=== PATIENT | male | born 1945 | race Caucasian/White ===

== ENCOUNTER 2016-10-01 11:37 | Emergency (ER) | payer OTHER, MEDICARE ==
[~2016-10-01] VITALS: Ht 177.8 cm; Wt 84.0 kg
[~2016-10-01 11:37] MED LIST: CLC100 PO; GABA600T PO; LEVE250T PO; LISI-792 PO; LVNIS80 SQ; NORT50CA PO; PRENTAB65 PO; PROP60CA5 PO; PRT/20 PO; RXC5 PO; SNK PO; TAMS0.4C38 PO; TRAM-10 PO; WLLSR/150 PO
[2016-10-01 11:39] VITALS: TEMP 36.7; Ht 177.8 cm; Wt 84.0 kg
[2016-10-01] MEDS ORDERED: CMD5 PO (12:09)
[2016-10-01] MEDS ORDERED: TEMA15CA4 PO (12:09)
[2016-10-01] MEDS ORDERED: CYAN500T PO (12:09)
[2016-10-01] MEDS ORDERED: MULT-506 PO (12:09)
[2016-10-01] MEDS ORDERED: WARF7.5T4 PO (12:09)
[2016-10-01] MEDS ORDERED: LISI10TA PO (12:13)
[2016-10-01 12:40] LABS: BASO % 0.5 %; BASO ABS # 0.02 K/uL (0-0.2); COMPLETE YES; EOS % 2.1 %; HEMATOCRIT 45.5 % (42-52); IG% 0.2 %; LYMPH % 23.2 %; LYMPH ABS # 0.97 K/uL (1.2-3.4); MEAN CORPUSCULAR HEMOGLOBIN 29.7 pg (25-34); MEAN CORPUSCULAR HGB CONC 33.4 g/dl (32-36); MEAN PLATELET VOLUME 10.1 fL (7.4-10.4); MONO % 15.5 %; NEUT % 58.5 %; PLATELET COUNT 119 K/uL (130-400); RED BLOOD COUNT 5.11 M/uL (4.7-6.1); WHITE BLOOD COUNT 4.19 K/uL (4.8-10.8)
[2016-10-01 12:49] LABS: INR 2.3 (0.9-1.1); PARTIAL THROMBOPLASTIN RATIO 1.3; PROTHROMBIN TIME (PATIENT) 25.7 SECONDS (9.0-12.0)
--- NOTE | 2016-10-01 12:53 | EMERGENCY ROOM VISIT NOTE ---
ED Visit Note First contact with patient: 11:43 This Patient was discussed with the physician Monitoring Specialist, Kristel Valentin PA-C. The pertinent historical and physical exam findings were confirmed. I agree with the studies ordered and with the interpretations of these studies. I agree with the disposition and care plan.
[2016-10-01 13:06] LABS: CREATININE 1.2 mg/dl (0.60-1.40)
[2016-10-01 13:07] LABS: BUN/CREATININE RATIO 14.6 (10-20); CALCIUM 8.9 mg/dl (8.5-10.1); POTASSIUM 4.2 mmol/L (3.5-5.1)
[2016-10-01 13:09] LABS: ALB/GLOB RATIO 0.9 (0.9-2)
[2016-10-01 13:22] VITALS: BP 144/83; PULSE 64; O2SAT 96
--- NOTE | 2016-10-01 13:34 | EMERGENCY ROOM VISIT NOTE ---
History First contact with patient: 11:43 Chief Complaint: RECTAL BLEEDING Stated Complaint: RECTAL BLEEDING-COUMADIN PATIENT Nursing Triage Summary: Pt reports he has been constipated and took a suppository this morning Pt reports after the suppository he noticed bright red blood in stool History of Present Illness The patient is a 71 year old male who presents to the Emergency Room with complaints of rectal bleeding. The patient reports that he used a Dulcolax suppository last night and had a bowel movement afterward. He states that he woke up and had a bowel movement which consisted of mostly mucus and a few tablespoons of blood. This morning, the patient states that he passed a few blood clots with a bowel movement. Since then, he has had one normal bowel movement which did not contain any blood. The patient states that he does have chronic issues with intermittent constipation and uses Dulcolax as needed. The patient takes Coumadin for a mechanical heart valve. The patient states that he had his INR checked yesterday but he is unsure what the INR was. He reports he has his INR checked every 3 weeks. He is concerned because his daughter of colorectal cancer. He denies any abdominal pain, nausea, vomiting or fevers. He denies any history of rectal bleeding. He believes his last colonoscopy was approximately 5 years ago. Review of Systems A complete 10-point Review of Systems was discussed with the patient, with pertinent positives and negatives listed in the History of Present Illness. All remaining Review of Systems questions can be considered negative unless otherwise specified. Past Medical/Surgical History Medical Problems: (1) ANTICOAGULANTS,LT,CURRENT USE (2) BILAT INGUINAL HERNIA (3) Extensor tendon laceration of finger with open wound (4) GASTROINTEST HEMORR NOS (5) HEART VALVE REPLAC NEC (6) HYPERTENSION NOS (7) Open fracture of finger of right hand (8) PERSONAL HX OF TIA,& CEREBRAL INFARCTION W/OUT RES DEFICITS Family History Cancer Heart disease Hypertension Social History Smoking Status: Never Smoker Alcohol Use: none Drug Use: none Marital Status: Housing Status: lives with family Occupation Status: retired Current/Historical Medications Scheduled Bupropion Hcl (Wellbutrin Sr), 150 MG PO QAM Cyanocobalamin (Vitamin B-12), 500 MCG PO DAILY Docusate Sodium (Docusate Sodium), 100 MG PO BID Gabapentin (Neurontin), 1,200 MG PO QPM Lisinopril (Prinivil), 10 MG PO DAILY Multivitamin (Multivitamin), 1 TAB PO DAILY Pantoprazole (Protonix), 20 MG PO DAILY Propranolol Hcl (Inderal La), 60 MG PO DAILY Tamsulosin Hcl (Flomax), 0.4 MG PO QPM Warfarin Sod (Jantoven), 7.5 MG PO 5XWK Warfarin Sod (Coumadin), 5 MG PO 2XWK Scheduled PRN Temazepam (Restoril), 15 MG PO HS PRN for Sleep Tramadol (Ultram), 50 MG PO Q4H PRN for Pain Allergies Coded Allergies: Penicillins (Verified Allergy, Mild, RASH, 10/01/16) Morphine (Verified Adverse Reaction, Unknown, bp drops, 10/01/16) Physical Exam Vital Signs Date Time Temp Pulse Resp B/P Pulse Ox O2 Delivery O2 Flow Rate FiO2 10/01/16 13:22 64 18 144/83 96 Room Air 10/01/16 11:39 36.7 72 20 130/71 97 Room Air Physical Exam VITALS: Vitals are noted on the nurse's note and reviewed by myself. Vital signs stable. GENERAL: This is a 71-year-old male, in no acute distress, nondiaphoretic, well- developed well-nourished. HEART: Regular rate and rhythm without murmurs gallops or rubs. LUNGS: Clear to auscultation bilaterally without wheezes, rales or rhonchi. ABDOMEN: Positive bowel sounds x 4. Soft, nontender to palpation. RECTAL: Normal rectal tone, scant amount of heme negative stool. NEURO: Patient was alert and oriented to person place and time. Medical Decision & Procedures Laboratory Results 10/01/16 12:24 Red Blood Count 5.11, Mean Corpuscular Volume 89.0, Mean Corpuscular Hemoglobin 29.7, Mean Corpuscular Hemoglobin Concent 33.4, Mean Platelet Volume 10.1, Neutrophils (%) (Auto) 58.5, Lymphocytes (%) (Auto) 23.2, Monocytes (%) (Auto) 15.5, Eosinophils (%) (Auto) 2.1, Basophils (%) (Auto) 0.5, Neutrophils # (Auto ) 2.45, Lymphocytes # (Auto) 0.97, Monocytes # (Auto) 0.65, Eosinophils # (Auto ) 0.09, Basophils # (Auto) 0.02 10/01/16 12:24 Test 10/01/16 12:24 White Blood Count 4.19 K/uL (4.8-10.8) Red Blood Count 5.11 M/uL (4.7-6.1) Hemoglobin 15.2 g/dL (14.0-18.0) Hematocrit 45.5 % (42-52) Mean Corpuscular Volume 89.0 fL (80-100) Mean Corpuscular Hemoglobin 29.7 pg (25-34) Mean Corpuscular Hemoglobin Concent 33.4 g/dl (32-36) Platelet Count 119 K/uL (130-400) Mean Platelet Volume 10.1 fL (7.4-10.4) Neutrophils (%) (Auto) 58.5 % Lymphocytes (%) (Auto) 23.2 % Monocytes (%) (Auto) 15.5 % Eosinophils (%) (Auto) 2.1 % Basophils (%) (Auto) 0.5 % Neutrophils # (Auto) 2.45 K/uL (1.4-6.5) Lymphocytes # (Auto) 0.97 K/uL (1.2-3.4) Monocytes # (Auto) 0.65 K/uL (0.11-0.59) Eosinophils # (Auto) 0.09 K/uL (0-0.5) Basophils # (Auto) 0.02 K/uL (0-0.2) RDW Standard Deviation 43.1 fL (36.4-46.3) RDW Coefficient of Variation 13.3 % (11.5-14.5) Immature Granulocyte % (Auto) 0.2 % Immature Granulocyte # (Auto) 0.01 K/uL (0.00-0.02) Prothrombin Time 25.7 SECONDS (9.0-12.0) Prothromb Time International Ratio 2.3 (0.9-1.1) Activated Partial Thromboplast Time 33.6 SECONDS (21.0-31.0) Partial Thromboplastin Ratio 1.3 Anion Gap 7.0 mmol/L (3-11) Est Creatinine Clear Calc Drug Dose 58.3 ml/min Estimated GFR () 70.1 Estimated GFR (Non- 60.5 BUN/Creatinine Ratio 14.6 (10-20) Calcium Level 8.9 mg/dl (8.5-10.1) Total Bilirubin 0.5 mg/dl (0.2-1) Aspartate Amino Transf (AST/SGOT) 22 U/L (15-37) Alanine Aminotransferase (ALT/SGPT) 37 U/L (12-78) Alkaline Phosphatase 83 U/L (45-117) Total Protein 7.2 gm/dl (6.4-8.2) Albumin 3.5 gm/dl (3.4-5.0) Globulin 3.7 gm/dl (2.5-4.0) Albumin/Globulin Ratio 0.9 (0.9-2) Medical Decision Differential diagnosis includes supratherapeutic INR, diverticulitis, lower GI bleed, colitis, among others. The patient was evaluated as above. Labs were drawn and IV access was obtained. As the patient is not having any abdominal pain or tenderness, I did not perform any imaging of the abdomen. Labs revealed no leukocytosis. Hemoglobin and hematocrit were within normal limits. INR was found to be 2.3. Patient's stool was heme-negative on exam. I do feel the patient may require further outpatient testing. He was instructed to follow-up with his primary care provider within 48 hours or return here if he has any new/concerning symptoms. Based on the patient's presentation, lab results, and imaging studies, I feel the patient is stable for outpatient treatment. The patient was independently evaluated by Dr. Larios, ED attending physician, who agreed with my assessment and treatment plan. Discharge instructions were reviewed with the patient. The patient verbalized understanding of my assessment and treatment plan and was discharged home in good condition. Impression Primary Impression: Rectal bleeding Departure Information Dispostion Home / Self-Care Condition GOOD Referrals Leti Camacho M.D. (PCP) Patient Instructions My [facility] Additional Instructions Your INR and blood counts were found to be within normal limits today. Follow-up with the primary care provider on Monday or Monday for further evaluation. Return to the emergency department with worsening bleeding, abdominal pain, changes in bowel movements or any other new/concerning symptoms.
== END 2016-10-01 13:45 | disposition home or self-care (01) ==
LOC: C.EDB 11:38 → C.EDC 13:45
DX: K62.5 Hemorrhage of anus and rectum (principal); I10 Essential (primary) hypertension; Z95.2 Presence of prosthetic heart valve; Z87.81 Personal history of (healed) traumatic fracture; Z86.73 Personal history of transient ischemic attack (TIA), and cerebral infarction without residual deficits; Z87.19 Personal history of other diseases of the digestive system; Z79.01 Long term (current) use of anticoagulants; Z79.899 Other long term (current) drug therapy; Z88.0 Allergy status to penicillin; Z88.5 Allergy status to narcotic agent; Z80.9 Family history of malignant neoplasm, unspecified; Z82.49 Family history of ischemic heart disease and other diseases of the circulatory system

== ENCOUNTER → 2016-12-22 | Outpatient (CLI) | payer OTHER, MEDICARE ==
[~2016-12-22] MED LIST changes: +BUPR150T5 PO; +CMD5 PO; +CYAN500T PO; +CYM/30 PO; +FROV2.5T5 PO; +INDSR/60 PO; -LEVE250T PO; -LISI-792 PO; +LISI10TA PO; -LVNIS80 SQ; +MULT-506 PO; -NORT50CA PO; +NRN600 PO; -PRENTAB65 PO; -RXC5 PO; -SNK PO; +TEMA15CA4 PO; +WARF7.5T4 PO
--- NOTE | 2016-12-22 14:58 | DIAGNOSTIC IMAGING REPORT ---
Bladder ultrasound (BLADE) RETROPERITONEAL LTD CLINICAL HISTORY: POST-VOID DRIBBLING distention TECHNIQUE: Pre and post void ultrasound COMPARISON STUDY: None FINDINGS: Prevoid volume 170 cc. Post void 13 cc. Moderate prosthetic enlargement. IMPRESSION: 1. No significant post void residual. 2. No evidence for bladder outlet obstruction. 3. Moderate prostatic enlargement Electronically signed by: Servando Vizcaino M.D. 12/22/2016 2:56 PM Dictated Date/Time: 12/22/2016 2:55 PM
== END | disposition home or self-care (01) ==
LOC: C.RAD 13:59
PROVIDERS: ATTEND Family Medicine
DX: N39.43 Post-void dribbling (principal); N40.0 Benign prostatic hyperplasia without lower urinary tract symptoms

== ENCOUNTER 2017-03-03 15:33 | Emergency (ER) | payer OTHER, MEDICARE ==
[~2017-03-03] VITALS: Ht 170.2 cm; Wt 84.2 kg
[~2017-03-03 15:33] MED LIST changes: -BUPR150T5 PO; -CYM/30 PO; -FROV2.5T5 PO; -INDSR/60 PO; -NRN600 PO
[2017-03-03 15:36] VITALS: TEMP 36.4; Ht 170.2 cm; Wt 84.2 kg
[2017-03-03] MEDS ORDERED: BUPR150T5 PO (15:47)
[2017-03-03] MEDS ORDERED: INDSR/60 PO (15:47)
--- NOTE | 2017-03-03 16:23 | DIAGNOSTIC IMAGING REPORT ---
HEAD WITHOUT CONTRAST (CT) CLINICAL HISTORY: 72 years-old Male with head injury, hx subdural in past. History of subdural hematoma. TECHNIQUE: Multiple axial CT images of the head were obtained without contrast. A dose lowering technique was utilized adhering to the principles of ALARA. CT DOSE: 623.48 mGy.cm COMPARISON: CT head 10/30/2015. FINDINGS: There is evidence of prior right-sided craniotomy. Small subdural hematoma near the vertex is again seen on the right measuring up to 5 mm, unchanged from CT study 10/30/2015. No associated midline shift or left-sided extra-axial hemorrhage. There is moderate cerebral atrophy with ex vacuo ventriculomegaly. Focal area of low attenuation within the right frontal lobe is unchanged compatible with area of remote infarction. There is no territorial ischemia, hydrocephalus or intracranial mass identified. Background chronic microgastria ischemic changes are noted. Mastoid air cells, middle ear cavities and paranasal sinuses are clear. Mild soft tissue prominence adjacent to the craniotomy site noted. IMPRESSION: 1. Stable exam with evidence of prior right craniotomy with persistent 5 mm right hemispheric subdural hematoma. No midline shift. 2. Atrophy with background chronic microvascular ischemic changes. The above report was generated using voice recognition software. It may contain grammatical, syntax or spelling errors. Electronically signed by: Alejandro Lay M.D. 03/03/2017 4:22 PM Dictated Date/Time: 03/03/2017 4:18 PM
[2017-03-03 16:40] VITALS: BP 133/70; PULSE 62; O2SAT 96
--- NOTE | 2017-03-03 16:54 | EMERGENCY ROOM VISIT NOTE ---
History Report prepared by Mian: Rodo Hinton Under the Supervision of: Dr. Sean Talbert D.O. First contact with patient: 15:41 Chief Complaint: FALL Stated Complaint: FELL & HIT HEAD, ON COUMADIN,W/O SUBDURAL HEMATOMA History of Present Illness The patient is a 72 year old male who presents to the Emergency Room with complaints of sudden fall off of a stool occurring prior to arrival. The patient states that he hit the back of his head on a wall while painting his deck. The patient states that he has a history of a subdural hematoma, and he states that he feels like he hit his head as hard as last time. The patient has no other complaints. Source of History: patient Onset: prior to arrival Position: other (global) Quality: other (fall) Timing: other (sudden) Review of Systems See HPI for pertinent positives & negatives. A total of 10 systems reviewed and were otherwise negative. Past Medical & Surgical Medical Problems: (1) ANTICOAGULANTS,LT,CURRENT USE (2) BILAT INGUINAL HERNIA (3) Extensor tendon laceration of finger with open wound (4) GASTROINTEST HEMORR NOS (5) HEART VALVE REPLAC NEC (6) HYPERTENSION NOS (7) Open fracture of finger of right hand (8) PERSONAL HX OF TIA,& CEREBRAL INFARCTION W/OUT RES DEFICITS Family History Cancer Heart disease Hypertension Social History Smoking Status: Never Smoker Alcohol Use: none Drug Use: none Marital Status: Housing Status: lives with family Occupation Status: retired Current/Historical Medications Scheduled Bupropion Hcl (Bupropion Hcl Xl), 150 MG PO DAILY Cyanocobalamin (Vitamin B-12), 500 MCG PO DAILY Duloxetine HCl (Cymbalta), 30 MG PO DAILY Gabapentin (Neurontin), 1,200 MG PO QPM Gabapentin (Gabapentin), 600 MG PO BID Lisinopril (Prinivil), 10 MG PO DAILY Multivitamin (Multivitamin), 1 TAB PO DAILY Pantoprazole (Protonix), 20 MG PO DAILY Propranolol Hcl (Propranolol ER), 60 MG PO DAILY Tamsulosin Hcl (Flomax), 0.4 MG PO QPM Warfarin Sod (Jantoven), 7.5 MG PO 5XWK Warfarin Sod (Coumadin), 5 MG PO 2XWK Scheduled PRN Frovatriptan Succinate (Frova), 2.5 MG PO DAILY PRN for Headache Tramadol (Ultram), 50 MG PO Q4H PRN for Pain Allergies Coded Allergies: Penicillins (Verified Allergy, Mild, RASH, 03/03/17) Morphine (Verified Adverse Reaction, Unknown, bp drops, 03/03/17) Physical Exam Vital Signs Date Time Temp Pulse Resp B/P (MAP) Pulse Ox O2 Delivery O2 Flow Rate FiO2 03/03/17 16:40 62 18 133/70 96 Room Air 03/03/17 15:36 36.4 77 20 113/74 96 Room Air Physical Exam CONSTITUTIONAL/VITAL SIGNS: Reviewed / noted above. GENERAL: Non-toxic in appearance. INTEGUMENTARY: Warm, dry, and [place]. HEAD: Quarter sized bump on the posterior aspect of the head. No bleeding. No other injuries. Normocephalic. EYES: without scleral icterus or trauma. ENT/OROPHARYNX: clear and moist. LYMPHADENOPATHY/NECK: Is supple without lymphadenopathy or meningismus. RESPIRATORY: Lungs clear and equal. CARDIOVASCULAR: Regular rate and rhythm. GI/ABDOMEN: Soft and nontender. No organomegaly or pulsatile mass. No rebound or guarding. Normal bowel sounds. EXTREMITIES: Warm and well perfused. BACK: No CVA tenderness. NEUROLOGICAL: Intact without focal deficits. PSYCHIATRIC: normal affect. MUSCULOSKELETAL: Normally developed with good muscle tone. Medical Decision & Procedures ER Provider Diagnostic Interpretation: Radiology results as stated below per my review and radiologist interpretation: HEAD WITHOUT CONTRAST (CT) CLINICAL HISTORY: 72 years-old Male with head injury, hx subdural in past. History of subdural hematoma. TECHNIQUE: Multiple axial CT images of the head were obtained without contrast. A dose lowering technique was utilized adhering to the principles of ALARA. CT DOSE: 623.48 mGy.cm COMPARISON: CT head 10/30/2015. FINDINGS: There is evidence of prior right-sided craniotomy. Small subdural hematoma near the vertex is again seen on the right measuring up to 5 mm, unchanged from CT study 10/30/2015. No associated midline shift or left-sided extra-axial hemorrhage. There is moderate cerebral atrophy with ex vacuo ventriculomegaly. Focal area of low attenuation within the right frontal lobe is unchanged compatible with area of remote infarction. There is no territorial ischemia, hydrocephalus or intracranial mass identified. Background chronic microgastria ischemic changes are noted. Mastoid air cells, middle ear cavities and paranasal sinuses are clear. Mild soft tissue prominence adjacent to the craniotomy site noted. IMPRESSION: 1. Stable exam with evidence of prior right craniotomy with persistent 5 mm right hemispheric subdural hematoma. No midline shift. 2. Atrophy with background chronic microvascular ischemic changes. The above report was generated using voice recognition software. It may contain grammatical, syntax or spelling errors. Electronically signed by: Alejandro Lay M.D. 03/03/2017 4:22 PM Dictated Date/Time: 03/03/2017 4:18 PM ED Course 1541: Previous medical records were reviewed. The patient was evaluated in room B7. A complete history and physical examination was performed. 1656: On reevaluation, the patient is feeling well. I discussed the results and findings with the patient. He verbalized agreement of the treatment plan. He was discharged home. Medical Decision Differential Diagnoses include: concussion, intracranial bleed, and contusion. This is a 72-year-old male who presents the ED with a chief complaint of hitting the back of his head after a fall. The patient was sitting on a bench painting his back when this occurred. He hit the back of his head against the wall. He was concerned about a subdural hematoma as he has had this in the past. He denies loss of consciousness. Denies any other injuries or pain. He does have a small hematoma on the back of his head. A CT scan did not show acute intracranial hemorrhage. He was felt to be stable for discharge. Medication Reconcilliation Current Medication List: was personally reviewed by me Blood Pressure Screening Patient's blood pressure: Normal blood pressure Impression Primary Impression: Head injury Additional Impression: Fall Scribe Attestation The scribe's documentation has been prepared under my direction and personally reviewed by me in its entirety. I confirm that the note above accurately reflects all work, treatment, procedures, and medical decision making performed by me. Departure Information Dispostion Home / Self-Care Referrals Leti Camacho M.D. (PCP) Forms HOME CARE DOCUMENTATION FORM, IMPORTANT VISIT INFORMATION Patient Instructions My [facility] Additional Instructions CT scan did not show any acute abnormalities. Follow-up with your doctor for further care and evaluation in 1-5 days as needed. Return to the emergency department for worsening or new symptoms or any concerns. You have been examined and treated today on an emergency basis only. This is not a substitute for, or an effort to provide, complete comprehensive medical care. It is impossible to recognize and treat all injuries or illnesses in a single emergency department visit. It is therefore important that you follow up closely with your doctor. Call as soon as possible for an appointment. Problem Qualifiers Primary Impression: Head injury Encounter type: initial encounter Qualified Codes: S09.90XA - Unspecified injury of head, initial encounter
[2017-03-03] MEDS ORDERED: CYM/30 PO (16:57)
[2017-03-03] MEDS ORDERED: NRN600 PO (16:57)
[2017-03-03] MEDS ORDERED: FROV2.5T5 PO (16:57)
== END 2017-03-03 17:00 | disposition home or self-care (01) ==
LOC: C.EDB 15:34
DX: S09.90XA Unspecified injury of head, initial encounter (principal); W19.XXXA Unspecified fall, initial encounter; Y92.018 Other place in single-family (private) house as the place of occurrence of the external cause; I10 Essential (primary) hypertension; Z95.2 Presence of prosthetic heart valve; Z86.73 Personal history of transient ischemic attack (TIA), and cerebral infarction without residual deficits; Z79.01 Long term (current) use of anticoagulants; Z79.899 Other long term (current) drug therapy; Z80.9 Family history of malignant neoplasm, unspecified; Z82.49 Family history of ischemic heart disease and other diseases of the circulatory system

== ENCOUNTER → 2017-07-21 | Outpatient (CLI) | payer OTHER, MEDICARE ==
[~2017-07-21] MED LIST changes: +BUPR150T5 PO; -CLC100 PO; +CYM/30 PO; +FROV2.5T5 PO; +INDSR/60 PO; +NRN600 PO; -PROP60CA5 PO; -TEMA15CA4 PO; -WLLSR/150 PO
--- NOTE | 2017-07-21 10:18 | DIAGNOSTIC IMAGING REPORT ---
LUMBAR SPINE WITHOUT CT DOSE: 907.69 mGy.cm HISTORY: Pain. Spinal stenosis. Neurogenic claudication lumbar spinal stenosiS W/O MCS TECHNIQUE: Multiaxial CT images of the lumbar spine were performed and reformatted in the sagittal and coronal plane without the use of contrast. A dose lowering technique was utilized adhering to the principles of ALARA. COMPARISON: None. FINDINGS: Vertebral body stature is unremarkable. There is a mild scoliosis. There is moderate degenerative disc change throughout most prominent at L4-L5 and L5-S1. L1-L2: minimal broad-based disc bulge. Moderate narrowing of the neuroforamina bilaterally. Minimal impact anterior aspect of the thecal sac. L2-L3: Minimal broad-based disc bulge. No significant impact upon the thecal sac. L3-L4: Mild broad-based disc bulge. Mild posterior osteophyte summation. Minimal impact upon the anterior thecal sac. Neuroforamina are patent bilaterally. L4-L5. Degenerative and potential postoperative changes to the right posterior arch. Moderate degenerative change posterior facets. Minimal disc bulge. No significant impact upon the thecal sac or neuroforamina. L5-S1: Broad-based posterior bulging disc with posterior osteophyte formation. Mild impact anterior thecal sac. Minimal osteophytic narrowing of the neuroforamina. Degenerative changes of posterior elements. IMPRESSION: 1. No evidence for major disc herniation or significant spinal or foraminal stenosis. 2. Degenerative changes of posterior elements throughout with a potential right posterior hemilaminotomy defect at L4-L5 3. Several mild disc bulges, with impact upon the thecal sac minimal. 4. Moderate degenerative disc change L4-L5 and L5-S1 The above report was generated using voice recognition software. It may contain grammatical, syntax or spelling errors. Electronically signed by: Servando Vizcaino M.D. 07/21/2017 10:17 AM Dictated Date/Time: 07/21/2017 10:10 AM
== END | disposition home or self-care (01) ==
LOC: C.CTS 09:47
PROVIDERS: ATTEND Psychiatry & Neurology Neurology
DX: M48.062 Spinal stenosis, lumbar region with neurogenic claudication (principal); M51.27 Other intervertebral disc displacement, lumbosacral region; M51.37 Other intervertebral disc degeneration, lumbosacral region

== ENCOUNTER → 2017-11-01 | Outpatient (CLI) | payer OTHER, MEDICARE ==
--- NOTE | 2017-11-01 14:28 | DIAGNOSTIC IMAGING REPORT ---
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 Status post subdural hematoma evacuation TECHNIQUE: Multiple axial CT images of the head were obtained without contrast. A dose lowering technique was utilized adhering to the principles of ALARA. CT DOSE: 614.27 mGy.cm COMPARISON: Head CT 03/03/2017 and 10/30/2015. FINDINGS: Unchanged size and appearance of the thin hyperdense subdural collection adjacent to the right cerebral convexity measuring 5 mm nicely seen on image 24 series 2. No midline shift. Prior right-sided craniotomy. Mild to moderate atrophy with ex vacuo ventriculomegaly. Patchy ill-defined areas of low-attenuation within the white matter of the cerebral hemispheres bilaterally suggest chronic microvascular ischemic changes. Encephalomalacia of the right frontal lobe from remote infarction appears unchanged. Mild polypoid mucosal thickening of the inferior left maxillary sinus. Soft tissues and orbits are unremarkable. IMPRESSION: 1. Prior right-sided craniotomy with unchanged size and appearance of the thin hyperdense subdural collection adjacent to the posterior right cerebral convexity measuring up to 5 mm. This favors chronic dural thickening and/or subdural hematoma. No midline shift. 2. Atrophy with chronic microvascular ischemic changes. The above report was generated using voice recognition software. It may contain grammatical, syntax or spelling errors. Electronically signed by: Alejandro Lay M.D. 11/01/2017 2:27 PM Dictated Date/Time: 11/01/2017 2:22 PM
== END | disposition home or self-care (01) ==
LOC: C.CTS 14:04
PROVIDERS: ATTEND Psychiatry & Neurology Neurology
DX: G31.89 Other specified degenerative diseases of nervous system (principal)

== ENCOUNTER 2018-01-17 01:30 | Observation (INO) | payer OTHER, MEDICARE ==
[2018-01-17] VITALS (8 sets, daily range): BP systolic 120–165; BP diastolic 72–93; PULSE 51–78; TEMP 36.3–37; O2SAT 93–97; Ht 177.8 cm; Wt 86.8 kg
[~2018-01-17] VITALS: Ht 177.8 cm; Wt 86.8 kg
[2018-01-17] MEDS ORDERED: FENTANYL CITRATE INJ 50 MCG/1 ML 2 ML VIAL IV STA ×2 (01:46→03:01)
--- NOTE | 2018-01-17 01:55 | EMERGENCY ROOM VISIT NOTE ---
History Report prepared by Mian: Yvon Kenny Under the Supervision of: Dr. Kody Samuels M.D. First contact with patient: 01:41 Chief Complaint: STROKE SYMPTOMS Stated Complaint: SLURRED SPEECH,COULDN'T GET OUT OF BED History of Present Illness The patient is a 72 year old male who presents to the Emergency Room with complaints of constant stroke-like symptoms that began 45 minutes ago after the he woke up from sleep. Patient states he couldn't feel his feet so he tried to get out of bed. He states that when he tried to stand up, his feet hit the ground and "couldn't hold him up". He adds that he also could not walk straight. Patient is present with his . states the patient also started to have slurred speech, left arm pain, and left leg pain. She adds that the left leg pain is chronic which the patient takes Tramadol and Acetaminophen for. Patient adds that he has been experiencing intermittent twitching in his left arm as well. He states the symptoms have gotten better since he has arrived at the ER. Patient denies a history of left leg surgery. He adds that he is on Coumadin. Patient states he has a history of TIAs with his last one being "awhile ago". He states he has been getting ready the past couple of days [place]. Patient denies any headaches or neck pain. Source of History: patient, spouse/significant other () Onset: 45 minutes ago Position: head, arm (left), leg (left) Timing: constant Modifying Factors (Relieving): other (None) Associated Symptoms: + weakness, No headache, No neck pain Review of Systems See HPI for pertinent positives & negatives. A total of 10 systems reviewed and were otherwise negative. Past Medical & Surgical Medical Problems: (1) ANTICOAGULANTS,LT,CURRENT USE (2) BILAT INGUINAL HERNIA (3) Extensor tendon laceration of finger with open wound (4) GASTROINTEST HEMORR NOS (5) HEART VALVE REPLAC NEC (6) HYPERTENSION NOS (7) Open fracture of finger of right hand (8) PERSONAL HX OF TIA,& CEREBRAL INFARCTION W/OUT RES DEFICITS (9) Transient ischemic attack (TIA) Family History Cancer Heart disease Hypertension Social History Smoking Status: Never Smoker Alcohol Use: none Drug Use: none Marital Status: Housing Status: lives with family Occupation Status: retired Current/Historical Medications Scheduled Bupropion Hcl (Bupropion Hcl Xl), 150 MG PO DAILY Lisinopril (Prinivil), 10 MG PO DAILY Multivitamin (Multivitamin), 1 TAB PO DAILY Pantoprazole (Protonix), 20 MG PO BID Propranolol Hcl (Propranolol ER), 60 MG PO DAILY Tamsulosin Hcl (Flomax), 0.4 MG PO QPM Warfarin Sod (Jantoven), 7.5 MG PO 5XWK Warfarin Sod (Coumadin), 5 MG PO 2XWK Scheduled PRN Frovatriptan Succinate (Frova), 2.5 MG PO DAILY PRN for Headache Tramadol (Ultram), 50 MG PO Q4H PRN for Pain Allergies Coded Allergies: Penicillins (Verified Allergy, Mild, RASH, 01/17/18) Morphine (Verified Adverse Reaction, Unknown, bp drops, 01/17/18) Physical Exam Vital Signs Date Time Temp Pulse Resp B/P (MAP) Pulse Ox O2 Delivery O2 Flow Rate FiO2 01/17/18 02:54 84 13 127/89 98 Room Air 01/17/18 02:47 95 Room Air 01/17/18 01:49 108 01/17/18 01:36 122 18 161/99 96 Room Air Physical Exam GENERAL: Patient is anxious appearing and in mild distress. EYES: No scleral icterus, unremarkable pupils. ENT: Mucous membranes moist, no nasal congestion. NECK: No masses appreciated, no meningismus, trachea is midline. RESPIRATORY: No dyspnea. Clear to auscultation and equal bilaterally. No wheeze , no rhonchi. CARDIOVASCULAR: Audible click. Regular rate and rhythm. Systolic murmurs. No rubs or gallops appreciated. GASTROINTESTINAL: Abdomen soft, nontender, no peritonitis. Bowel sounds positive. No masses appreciated. BACK: No midline tenderness, no CVA tenderness EXTREMITIES: Normal motion all extremities, no cyanosis, no edema. NEUROLOGIC: Alert and oriented, no acute motor or sensory deficits, no focal weakness, cranial nerves grossly intact. SKIN: No rash, no jaundice, no diaphoresis. Medical Decision & Procedures ER Provider Diagnostic Interpretation: X ray results are stated below per my interpretation: Chest: 1 view: No infiltrate, no effusion, normal cardiac border, no change from previous. Stat Rad Radiology results and stated below per my review and radiologist interpretation: CT HEAD: Unchanged encephalomalacia involving the right frontal operculum, left postcentral gyrus, and the right parietal cortex. Unchanged right sided thin subdural hematoma. Post surgical changes from right temporal parietal craniotomy. No hydrocephalus or midline shift. Radiologist: Sebastien Florez MD Laboratory Results 01/17/18 01:56 Red Blood Count 4.85, Mean Corpuscular Volume 91.3, Mean Corpuscular Hemoglobin 30.9, Mean Corpuscular Hemoglobin Concent 33.9, Mean Platelet Volume 9.9, Neutrophils (%) (Auto) 55.7, Lymphocytes (%) (Auto) 27.0, Monocytes (%) (Auto) 14.5, Eosinophils (%) (Auto) 2.4, Basophils (%) (Auto) 0.2, Neutrophils # (Auto ) 3.03, Lymphocytes # (Auto) 1.47, Monocytes # (Auto) 0.79, Eosinophils # (Auto ) 0.13, Basophils # (Auto) 0.01 01/17/18 01:56 Test 01/17/18 01:49 01/17/18 01:56 01/17/18 02:21 Bedside Glucose 147 mg/dl (70-99) White Blood Count 5.44 K/uL (4.8-10.8) Red Blood Count 4.85 M/uL (4.7-6.1) Hemoglobin 15.0 g/dL (14.0-18.0) Hematocrit 44.3 % (42-52) Mean Corpuscular Volume 91.3 fL (80-100) Mean Corpuscular Hemoglobin 30.9 pg (25-34) Mean Corpuscular Hemoglobin Concent 33.9 g/dl (32-36) Platelet Count 114 K/uL (130-400) Mean Platelet Volume 9.9 fL (7.4-10.4) Neutrophils (%) (Auto) 55.7 % Lymphocytes (%) (Auto) 27.0 % Monocytes (%) (Auto) 14.5 % Eosinophils (%) (Auto) 2.4 % Basophils (%) (Auto) 0.2 % Neutrophils # (Auto) 3.03 K/uL (1.4-6.5) Lymphocytes # (Auto) 1.47 K/uL (1.2-3.4) Monocytes # (Auto) 0.79 K/uL (0.11-0.59) Eosinophils # (Auto) 0.13 K/uL (0-0.5) Basophils # (Auto) 0.01 K/uL (0-0.2) RDW Standard Deviation 44.7 fL (36.4-46.3) RDW Coefficient of Variation 13.4 % (11.5-14.5) Immature Granulocyte % (Auto) 0.2 % Immature Granulocyte # (Auto) 0.01 K/uL (0.00-0.02) Activated Partial Thromboplast Time 33.1 SECONDS (21.0-31.0) Partial Thromboplastin Ratio 1.3 Anion Gap 6.0 mmol/L (3-11) Estimated GFR () 59.8 Estimated GFR (Non- 51.6 BUN/Creatinine Ratio 15.1 (10-20) Calcium Level 8.9 mg/dl (8.5-10.1) Total Creatine Kinase 113 U/L (39-308) Creatine Kinase MB 3.0 ng/ml (0.5-3.6) Creatine Kinase MB Ratio 2.7 (0-3.0) Troponin I 0.144 ng/ml (0-0.045) Urine Opiates Screen NEG (NEG) Urine Methadone, Qualitative NEG (NEG) Urine Barbiturates NEG (NEG) Urine Phencyclidine (PCP) Level NEG (NEG) Ur Amphetamine/Methamphetamine NEG (NEG) MDMA (Ecstasy) Screen POS (NEG) Urine Benzodiazepines Screen NEG (NEG) Urine Cocaine Metabolite NEG (NEG) Urine Marijuana (THC) NEG (NEG) Laboratory results as reviewed by me. Medications Administered Medications (Trade) Dose Ordered Sig/Shanae Route Start Time Stop Time Status Last Admin Dose Admin Fentanyl Citrate (Fentanyl Inj) 25 mcg NOW STAT IV 01/17/18 01:46 01/17/18 01:47 DC 01/17/18 02:26 25 MCG Fentanyl Citrate (Fentanyl Inj) 50 mcg NOW STAT IV 01/17/18 03:01 01/17/18 03:02 DC 01/17/18 03:27 50 MCG Sodium Chloride 1,000 ml @ 100 mls/hr Q10H IV 01/17/18 03:50 01/17/18 13:49 01/17/18 05:07 100 MLS/HR ECG Per My Interpretation Indication: other (Stroke-like symptoms) Rate (beats per minute): 101 Rhythm: sinus tachycardia Findings: PVC, no acute ischemic change, prolonged QT (QTc = 482), other (Poor baseline) ED Course 0141: The patient was evaluated in room A9. A complete history and physical exam was performed. 0300: I reassessed the patient. He states his pain has returned and that he would like a higher dose of pain medications. Patient states he is agreeable to admission. Dr. Campoverde was paged. 0325: Upon reevaluation, the patient is resting comfortably. Discussed results and treatment plan with the patient. He verbalized understanding and agreement with the treatment plan. The patient will be evaluated for further management. Medical Decision Differential: Toxicological, Infectious, Stroke, SAH, Trauma, Electrolyte Abnormality, Hypoglycemia, Alcohol Intoxication, Drug Intoxication, Cardiac Abnormality, Sepsis, Meningitis/Encephalitis, Trauma, Excited Delirium, Serotonin Syndrome, Psychiatric, amongst other pathologies entertained. Complicated 72 yr old male with history of TIAs, subdurals, TBI, AVR on coumadin who arrives following episode of slurred speech and difficulty walking. This occurred when he awoke in middle of night after sleeping for a few hours. Notes he stumbled on getting up and now is having severe left leg sciatica. Admits chronic left leg pain but this is exacerbation. On exam he has no neuro deficits with clear speech and no abnormal findings. He did have excellent bilateral equal pulses in feet/legs. He had no abdominal pain nor chest pain. I do not feel this is dissection. His feels his speech is still slurred but I do not appreciate any speaking difficulty. Regardless he is in no way a TPA candidate given INR level, known subdural, and no findings of stroke on exam. Labs reveal an elevated Trop but EKG without stemi. While this will need to be trended out I feel it is likely to be chronic given previous cardiac surgery. His leg pain was controlled with periodic dosing fentanyl. With history of head injury there could be seizure as cause but he exhibits no evidence of this currently. Medication Reconcilliation Current Medication List: was personally reviewed by me Blood Pressure Screening Patient's blood pressure: Normal blood pressure Blood pressure disposition: Did not require urgent referral Consults Time Called: 0308 Consulting Physician: [place]. [place] [facility] [place] Call: [phone] Discussed the patient's case. The patient will be evaluated for further treatment and disposition. Impression Primary Impression: TIA (transient ischemic attack) Additional Impressions: Elevated troponin Left leg pain Scribe Attestation The scribe's documentation has been prepared under my direction and personally reviewed by me in its entirety. I confirm that the note above accurately reflects all work, treatment, procedures, and medical decision making performed by me. Departure Information Dispostion Being Evaluated By Hospitalist Referrals Leti Camacho M.D. (PCP) Forms HOME CARE DOCUMENTATION FORM, IMPORTANT VISIT INFORMATION Patient Instructions [facility] Stroke History Time Last Known Well 5 hours ago Stroke t-PA Criteria Reviewed Does NOT meet criteria for t-PA Reason t-PA Not Given Treatment not indicated Problem Qualifiers
[2018-01-17 02:08] LABS: BASO % 0.2 %; BASO ABS # 0.01 K/uL (0-0.2); EOS % 2.4 %; EOS ABS # 0.13 K/uL (0-0.5); HEMATOCRIT 44.3 % (42-52); IG# 0.01 K/uL (0.00-0.02); LYMPH ABS # 1.47 K/uL (1.2-3.4); MEAN CELL VOLUME 91.3 fL (80-100); MEAN CORPUSCULAR HEMOGLOBIN 30.9 pg (25-34); MEAN CORPUSCULAR HGB CONC 33.9 g/dl (32-36); MEAN PLATELET VOLUME 9.9 fL (7.4-10.4); MONO % 14.5 %; MONO ABS # 0.79 K/uL (0.11-0.59); NEUT % 55.7 %; NEUT ABS # 3.03 K/uL (1.4-6.5); PLATELET COUNT 114 K/uL (130-400); RED CELL DISTRIBUTION WIDTH CV 13.4 % (11.5-14.5); RED CELL DISTRIBUTION WIDTH SD 44.7 fL (36.4-46.3); WHITE BLOOD COUNT 5.44 K/uL (4.8-10.8)
[2018-01-17 02:20] LABS: INR 2.4 (0.9-1.1); PTT PATIENT 33.1 SECONDS (21.0-31.0)
[2018-01-17 02:36] LABS: BLOOD UREA NITROGEN 21 mg/dl (7-18); CALCIUM 8.9 mg/dl (8.5-10.1); CARBON DIOXIDE 27 mmol/L (21-32); CREATININE 1.36 mg/dl (0.60-1.40); GLUCOSE 148 mg/dl (70-99); POTASSIUM 3.5 mmol/L (3.5-5.1); SODIUM 142 mmol/L (136-145)
[2018-01-17] MEDS ORDERED: SODIUM CHLORIDE 0.9% 1000ML 1,000 ML IV SCH (03:50)
[2018-01-17] MEDS ORDERED: ACETAMINOPHEN 325 MG TAB PO PRN (04:00)
[2018-01-17] MEDS ORDERED: PHARMACIST DISCHARGE MED REC CONSULT PRN (04:00)
[2018-01-17] MEDS ORDERED: TRAMADOL HCL 50 MG TAB PO PRN (04:00)
[2018-01-17] MEDS ORDERED: ONDANSETRON INJ 2 MG/ML 2 ML VIAL IV PRN (04:00)
[2018-01-17] MEDS ORDERED: OPTIRAY 320 IV PRN (04:15)
[2018-01-17] MEDS ORDERED: OXYCODONE/ACETAMINOPHEN 5-325 TAB PO PRN (04:30)
--- NOTE | 2018-01-17 04:30 | History and Physical ---
History & Physical Date & Time of Service: Jan 17, 2018 at 04:04 Chief Complaint: Slurred Speech,Couldn't Get Out Of Bed Primary Care Physician: Leti Camacho M.D. History of Present Illness Source: patient, spouse 72yo C male with history of CVA, TIA, Chronic SDH s/p fall in 10/2014 with evacuation via nam hole then craniotomy x 2, mechanical mitral valve on Coumadin anticoagulation, HTN, HLP, presenting with stroke like symptoms. Per patient's , the patient woke her from sleep at 12:45 AM complaining that he couldn't stand. reports severely slurred speech, weakness of the left arm and leg. The patient was unable to dress himself due to weakness and required assistance with ambulation. Now complaining of left leg pain. Patient denies headache, visual changes, hearing loss. Denies difficulty swallowing, CP/ palpitations/SOB/cough/wheeze. Denies abdominal pain/nausea/vomiting/diarrhea or constipation. NO additional complaints at this time. ER Course: Fentanyl 25mcg, 50mcg Past Medical/Surgical History Medical Problems: Subdural hematoma s/p fall October 2014 TIA 2001 CVA 2012 ICH HTN HLP Mechanical Mitral valve - [facility] 1996 Peripheral neuropathy BPH Migraine Anticoagulation Surgical Problems: (1) Mechanical heart valve present Craniotomy x 2 Hand surgery Back x 2 Family History Cancer Heart disease Hypertension Social History Smoking Status: Never Smoker Smokeless Tobacco Use: No Alcohol Use: none Drug Use: none Marital Status: Housing status: lives with significant other Occupational Status: retired Immunizations History of Influenza Vaccine: Yes Influenza Vaccine Date: Jul 14, 2012 History of Tetanus Vaccine?: Yes Tetanus Immunization Date: Sep 11, 2015 History of Pneumococcal: Yes History of Hepatitis B Vaccine: No Allergies Coded Allergies: Penicillins (Verified Allergy, Mild, RASH, 01/17/18) Morphine (Verified Adverse Reaction, Unknown, bp drops, 01/17/18) Home Medications Scheduled Bupropion Hcl (Bupropion Hcl Xl), 150 MG PO DAILY Lisinopril (Prinivil), 10 MG PO DAILY Multivitamin (Multivitamin), 1 TAB PO DAILY Pantoprazole (Protonix), 20 MG PO BID Propranolol Hcl (Propranolol ER), 60 MG PO DAILY Tamsulosin Hcl (Flomax), 0.4 MG PO QPM Warfarin Sod (Jantoven), 7.5 MG PO 5XWK Warfarin Sod (Coumadin), 5 MG PO 2XWK Scheduled PRN Frovatriptan Succinate (Frova), 2.5 MG PO DAILY PRN for Headache Tramadol (Ultram), 50 MG PO Q4H PRN for Pain Review of Systems Constitutional: No fever, No chills, No weight loss Eyes: No worsening of vision, No diplopia ENT: No hearing loss, No sore throat, No trouble swallowing Respiratory: No cough, No sputum, No shortness of breath, No dyspnea on exertion Cardiovascular: No chest pain, No palpitations Abdomen: + constipation, No pain, No nausea, No vomiting, No diarrhea Musculoskeletal: + muscle pain, No joint pain Genitourinary - Male: No hematuria Neurologic: + memory loss, + weakness Endocrine: No fatigue Hematologic / Lymphatic: No abnormal bleeding/bruising Integumentary: No rash Physical Exam Vital Signs Date Time Temp Pulse Resp B/P (MAP) Pulse Ox O2 Delivery O2 Flow Rate FiO2 01/17/18 02:54 84 13 127/89 98 Room Air 01/17/18 02:47 95 Room Air 01/17/18 01:49 108 01/17/18 01:36 122 18 161/99 96 Room Air General: patient resting comfortably in bed, NAD, AA&O x 4 Skin: warm, dry, intact, no rashes or lesions, small abrasion right suárez HEENT: NC/AT, PERRL, EOMI, anicteric sclera, conjunctiva without injection, nares patent, slightly dry mucus membranes, no oropharyngeal lesions, neck supple, trachea midline, no thyromegaly, no LAD Heart: +S1/S2, regular with ectopy, +click from mechanical valve, no m/r/g Lungs: equal air entry bilaterally, no rales/rhonchi/wheezes Abdomen: soft, NT/ND, no masses/organomegaly/ascites Extremities: warm, well perfused, no clubbing/cyanosis or edema, 2+ palpable pulses in UE/LE bilaterally Neuro: AA&O x 4, speech clear and appropriate, no facial droop, CN II-XII grossly intact, sensation intact UE/LE bilaterally, MS 4+/5 in right upper extremity, diminished hand angiography nurse, MS 5/5 in LUE/LLE and RLE. Gait not assessed Diagnostics Laboratory Results Results Past 24 Hours Test 01/17/18 01:49 01/17/18 01:56 01/17/18 02:21 Range/Units Bedside Glucose 147 70-99 mg/dl White Blood Count 5.44 4.8-10.8 K/uL Red Blood Count 4.85 4.7-6.1 M/uL Hemoglobin 15.0 14.0-18.0 g/dL Hematocrit 44.3 42-52 % Mean Corpuscular Volume 91.3 80-100 fL Mean Corpuscular Hemoglobin 30.9 25-34 pg Mean Corpuscular Hemoglobin Concent 33.9 32-36 g/dl Platelet Count 114 130-400 K/uL Mean Platelet Volume 9.9 7.4-10.4 fL Neutrophils (%) (Auto) 55.7 % Lymphocytes (%) (Auto) 27.0 % Monocytes (%) (Auto) 14.5 % Eosinophils (%) (Auto) 2.4 % Basophils (%) (Auto) 0.2 % Neutrophils # (Auto) 3.03 1.4-6.5 K/uL Lymphocytes # (Auto) 1.47 1.2-3.4 K/uL Monocytes # (Auto) 0.79 0.11-0.59 K/uL Eosinophils # (Auto) 0.13 0-0.5 K/uL Basophils # (Auto) 0.01 0-0.2 K/uL RDW Standard Deviation 44.7 36.4-46.3 fL RDW Coefficient of Variation 13.4 11.5-14.5 % Immature Granulocyte % (Auto) 0.2 % Immature Granulocyte # (Auto) 0.01 0.00-0.02 K/uL Prothrombin Time 24.7 9.0-12.0 SECONDS Prothromb Time International Ratio 2.4 0.9-1.1 Activated Partial Thromboplast Time 33.1 21.0-31.0 SECONDS Partial Thromboplastin Ratio 1.3 Sodium Level 142 136-145 mmol/L Potassium Level 3.5 3.5-5.1 mmol/L Chloride Level 109 98-107 mmol/L Carbon Dioxide Level 27 21-32 mmol/L Anion Gap 6.0 3-11 mmol/L Blood Urea Nitrogen 21 7-18 mg/dl Creatinine 1.36 0.60-1.40 mg/dl Estimated GFR () 59.8 Estimated GFR (Non- 51.6 BUN/Creatinine Ratio 15.1 10-20 Random Glucose 148 70-99 mg/dl Calcium Level 8.9 8.5-10.1 mg/dl Total Creatine Kinase 113 39-308 U/L Creatine Kinase MB 3.0 0.5-3.6 ng/ml Creatine Kinase MB Ratio 2.7 0-3.0 Troponin I 0.144 0-0.045 ng/ml Urine Opiates Screen NEG NEG Urine Methadone, Qualitative NEG NEG Urine Barbiturates NEG NEG Urine Phencyclidine (PCP) Level NEG NEG Ur Amphetamine/Methamphetamine NEG NEG MDMA (Ecstasy) Screen POS NEG Urine Benzodiazepines Screen NEG NEG Urine Cocaine Metabolite NEG NEG Urine Marijuana (THC) NEG NEG Diagnostic Radiology CT Head with stable chronic changes, encephalomalacia, no evidence of ICH or CVA EKG ST at 101 with PVCs, no evidence of acute ischemia Impression Assessment and Plan 72yo male presenting with stroke-like symptoms 1. Stroke-like symptoms - slurred speech and left sided weakness reported by . Has since resolved. Patient with very mild decrease in strength in RUE. Patient also endorses feeling slightly weak on RUE. -CTA head and neck -Neurology consult - appreciate assistance with this case -PT/OT and Speech assessment -Atorvastatin 40mg po daily 2. Leg pain - patient with history of sciatic pain. Improved after Fentanyl. No deformity/lesions -Continue home Tramadol PRN pain -Percocet PRN -Continue Neurontin 3. Mechanical mitral valve - stable. Patient on coumadin for anticoagulation. INR slightly below goal at 2.4 -Continue Coumadin 5mg on Tues/Fri and 7.5mg other days -Monitor INR, may need increased dosage 4. Hypertension - patient presently normotensive -Continue Lisinopril -Continue Propranolol 5. BPH - stable -Continue Flomax 6. F/E/N - NSS, monitor electrolytes and replete as needed, AHA diet, Continue Metamucil 7. Ppx - Coumadin as above, Protonix 20mg po BID 8. Code - Full per discussion with patient 9. Dispo - observation to telemetry Resuscitation Status FULL VTE Prophylaxis Will order VTE Prophylaxis: Yes
[2018-01-17] MEDS ORDERED: IV FLUIDS COMPLETED PRN (05:30)
[2018-01-17 06:51] LABS: INR 2.3 (0.9-1.1)
--- NOTE | 2018-01-17 07:10 | DIAGNOSTIC IMAGING REPORT ---
HEAD CT NONCONTRAST CT DOSE: 614.27 mGy.cm HISTORY: Slurred speech. stroke TECHNIQUE: Multiaxial CT images of the head were performed without the use of intravenous contrast. Automated exposure control was utilized for this study. A dose lowering technique was utilized adhering to the principles of ALARA. Comparison: Head CT 11/01/2017. Findings: The paranasal sinuses and mastoid air cells are clear. There again noted right-sided post craniotomy changes. Extra-axial hyperdensity deep to the craniotomy site remains unchanged and measures up to 5 mm in thickness. The stability favors dural thickening from the postoperative change. A small stable subdural hematoma could also have a similar appearance. Small focal areas of encephalomalacia within the right frontal lobe and right parietal lobe remain unchanged. There is no mass, hematoma, midline shift, or acute infarct. Mild atrophy and microvascular ischemic changes are again noted. Stable small hypodense focus within the left posterior frontal lobe on image 21. This also favors an old infarct. Impression: No significant change compared to the prior study. No acute intracranial abnormality. Extra-axial hyperdensity deep to the craniotomy site remains unchanged and measures up to 5 mm in thickness. The stability favors dural thickening from the postoperative change. A small stable subdural hematoma could also have a similar appearance. Electronically signed by: Alhaji Lux M.D. 01/17/2018 7:09 AM Dictated Date/Time: 01/17/2018 7:02 AM
[2018-01-17 07:17] LABS: HEMOGLOBIN A1C 6.1 % (4.5-5.6)
--- NOTE | 2018-01-17 07:50 | DIAGNOSTIC IMAGING REPORT ---
HEAD ANGIO WITH CONTRAST CLINICAL HISTORY: 72 years-old Male presenting with slurred speech. TECHNIQUE: Multidetector CT angiography of the head was performed after the administration of intravenous contrast. 3-D volumetric and/or maximum intensity projection (MIP) images were subsequently reconstructed for review. IV contrast: 119 mL of Optiray 320. A dose lowering technique was used consistent with the principles of ALARA (as low as reasonably achievable). COMPARISON: Noncontrast CT head performed earlier the same day as well as CTA head from 01/25/2013. CT DOSE (mGy.cm): The estimated cumulative dose is 125.10 mGy.cm. FINDINGS: Data Processing Control Clerk topogram: Postsurgical changes of craniotomy. Anterior circulation: Intracranial portions of the internal carotid arteries patent to the level of the termini. Anterior and middle cerebral arteries patent with a relatively diminutive A1 segment of the right anterior cerebral artery. Anterior communicating artery patent. Posterior circulation: Left dominant vertebral artery. Intradural portions of the vertebral arteries patent. Posterior inferior cerebellar arteries patent. Basilar artery patent. Anterior inferior cerebellar arteries poorly visualized. Superior cerebellar arteries patent. The posterior cerebral arteries are fully formed by the posterior communicating arteries supply consistent with origin. Posterior communicating arteries patent. Dural venous sinuses: Patent. Other: Postsurgical changes of right parietal craniotomy with overlying chronic extra-axial high density material, consistent with chronic dural thickening. Paranasal sinuses and mastoid air cells clear. IMPRESSION: 1. No evidence of aneurysm, focal vessel occlusion, or significant stenosis of the intracranial arteries. Electronically signed by: Benedicto Harris M.D. 01/17/2018 7:49 AM Dictated Date/Time: 01/17/2018 7:44 AM
[2018-01-17] MEDS: PSYLLIUM 58.6% PWD PACK S\\F PO SCH (08:00)
[2018-01-17] MEDS: LISINOPRIL 10 MG TAB PO SCH (08:00)
[2018-01-17] MEDS: MULTIVITAMIN TAB PO SCH (08:00)
[2018-01-17] MEDS: GABAPENTIN 600 MG TAB PO SCH ×2 (08:00→14:01)
[2018-01-17] MEDS: BuPROPion XL 150 MG TABCR PO SCH (08:00)
[2018-01-17] MEDS: PROPRANOLOL HCL 60 MG LA CAP PO SCH (08:00)
[2018-01-17] MEDS: DONEPEZIL HCL 5 MG TAB PO SCH (08:00)
[2018-01-17] MEDS: ATORVASTATIN 40 MG TAB PO SCH (08:01)
[2018-01-17] MEDS: PANTOprazole SOD 40 MG TAB PO SCH ×2 (08:01→20:40)
--- NOTE | 2018-01-17 08:25 | DIAGNOSTIC IMAGING REPORT ---
CHEST ONE VIEW PORTABLE CLINICAL HISTORY: 72 years-old Male presenting with slurred speech, stroke like symptoms. TECHNIQUE: Portable upright AP view of the chest was obtained. COMPARISON: 09/11/2015. FINDINGS: Median sternotomy wires and prosthetic mitral valve noted. Atherosclerosis of aortic arch. Cardiac silhouette mildly enlarged, unchanged. Pulmonary vascular prominence. Mildly low lung volumes. Minimal basilar opacities. No pleural effusion or pneumothorax. Osseous structures normal. Upper abdomen normal. IMPRESSION: 1. Mild cardiomegaly with volume overload. 2. Minimal bibasilar opacities likely atelectasis. Electronically signed by: Benedicto Harris M.D. 01/17/2018 8:24 AM Dictated Date/Time: 01/17/2018 7:42 AM
--- NOTE | 2018-01-17 11:24 | Neurology Consultation ---
Neurology Consultation Date of Consultation: Jan 17, 2018. Attending Physician: Imer Thompson M.D. Primary Care Physician: Leti Camacho M.D. Reason for Consultation: TIA History of Present Illness Source: patient, hospital records The patient is a 72-year-old male who was known to me. 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 His history is also notable for a chronic right subdural hematoma with history of nam hole evacuation. I last saw this patient in clinic in October of this year and has started a trial of donepezil to address his memory loss. The patient presented to the hospital yesterday for further assessment dysarthria and gait instability that seem noticeably worse upon awakening from sleep. He complained of greater difficulty with the left leg as well. He has a history of chronic lumbar radiculopathy/stenosis. The patient indicates that his symptoms are markedly improved if not completely resolved this morning. Past medical history also notable for aortic valve replacement with long-term anticoagulation. A CT of the head completed in the emergency department revealed a chronic right frontal infarct as well as a chronic right subdural collection, unchanged from previous evaluations. A CT angiogram of the head was unremarkable. I reviewed the images as well as the radiologist's interpretation of these tests. Electrocardiogram reveals sinus tachycardia with PVCs. Past Medical/Surgical History Medical Problems: (1) Elevated troponin Status: Acute (2) Fall Status: Acute (3) Head injury Status: Acute (4) Left leg pain Status: Acute (5) TIA (transient ischemic attack) Status: Acute Family History Noncontributory Social History Smoking Status: Never smoker Smokeless Tobacco Use: No Alcohol Use: none Drug Use: none Marital Status: Housing Status: lives with family Occupation Status: retired Allergies Coded Allergies: Penicillins (Verified Allergy, Mild, RASH, 01/17/18) Morphine (Verified Adverse Reaction, Unknown, bp drops, 01/17/18) Current Inpatient Medications Current Inpatient Medications Medications (Trade) Dose Ordered Sig/Shanae Route Start Time Stop Time Status Last Admin Dose Admin Atorvastatin Calcium (Lipitor Tab) 40 mg QAM PO 01/17/18 09:00 02/16/18 08:59 01/17/18 08:01 40 MG Miscellaneous Information (Pharmacist Discharge Med Rec Consult) 1 ea UD PRN N/A 01/17/18 04:00 02/16/18 03:59 Sodium Chloride 1,000 ml @ 100 mls/hr Q10H IV 01/17/18 03:50 01/17/18 13:49 01/17/18 05:07 100 MLS/HR Acetaminophen (Tylenol Tab) 650 mg Q4H PRN PO 01/17/18 04:00 02/16/18 03:59 Ondansetron HCl (Zofran Inj) 4 mg Q6H PRN IV 01/17/18 04:00 02/16/18 03:59 Bupropion HCl (Wellbutrin-Xl Tab) 150 mg DAILY PO 01/17/18 09:00 02/16/18 08:59 01/17/18 08:00 150 MG Lisinopril (Zestril Tab) 10 mg DAILY PO 01/17/18 09:00 02/16/18 08:59 01/17/18 08:00 10 MG Multivitamins (Multivitamin Tab) 1 tab DAILY PO 01/17/18 09:00 02/16/18 08:59 01/17/18 08:00 1 TAB Propranolol HCl (Inderal La Cap) 60 mg DAILY PO 01/17/18 09:00 02/16/18 08:59 01/17/18 08:00 60 MG Tamsulosin HCl (Flomax Cap) 0.4 mg QPM PO 01/17/18 21:00 02/16/18 20:59 Tramadol HCl (Ultram Tab) 50 mg Q4H PRN PO 01/17/18 04:00 02/16/18 03:59 Warfarin Sodium (Coumadin Tab) 5 mg TuFr@1600 PO 01/19/18 16:00 02/18/18 15:59 Warfarin Sodium (Coumadin Tab) 7.5 mg SuMoWeThSa@1600 PO 01/17/18 16:00 02/16/18 15:59 Pantoprazole Sodium (Protonix Tab) 40 mg BID PO 01/17/18 09:00 02/16/18 08:59 01/17/18 08:01 40 MG Ioversol (Optiray 320) 125 ml UD PRN IV 01/17/18 04:15 01/21/18 04:14 Oxycodone/ Acetaminophen (Percocet 5-325mg Tab) 1 tab Q4H PRN PO 01/17/18 04:30 01/31/18 04:29 Psyllium Hydrophilic Mucilloid (Metamucil Powder) 1 pkt QAM PO 01/17/18 09:00 02/16/18 08:59 01/17/18 08:00 1 PKT Donepezil HCl (Aricept Tab) 5 mg QAM PO 01/17/18 09:00 02/16/18 08:59 01/17/18 08:00 5 MG Gabapentin (Neurontin Tab) 600 mg BID@0900,1400 PO 01/17/18 09:00 02/16/18 08:59 01/17/18 08:00 600 MG Gabapentin (Neurontin Tab) 1,200 mg HS PO 01/17/18 21:00 02/16/18 20:59 Miscellaneous (Iv Fluids Completed) 1 ea PRN PRN N/A 01/17/18 05:30 01/17/19 05:29 Review of Systems Constitutional: No fever chills Eyes: No vision loss or diplopia ENT: No vertigo or tinnitus, Cardiovascular: No chest pain or palpitations Respiratory: No coughing or shortness of breath Gastrointestinal no nausea or diarrhea Neurological: As per history of present illness Musculoskeletal: Chronic low back pain/sciatica as per history of present illness A full 10 point review of systems was obtained from this patient with pertinent positives and negatives described in the history of present illness and otherwise listed above. All remaining systems were reviewed and are negative. Physical Exam Vital Signs (Past 24 Hrs): Date Time Temp Pulse Resp B/P (MAP) Pulse Ox O2 Delivery O2 Flow Rate FiO2 01/17/18 08:00 93 Room Air 01/17/18 06:56 37.0 62 17 120/74 (89) 93 Room Air 01/17/18 04:45 Room Air 01/17/18 04:41 78 18 165/90 (115) 96 Room Air 01/17/18 04:33 78 18 165/90 96 Room Air 01/17/18 04:22 80 18 117/83 97 01/17/18 04:08 73 18 117/83 95 Room Air 01/17/18 02:54 84 13 127/89 98 Room Air 01/17/18 02:47 95 Room Air 01/17/18 01:49 108 01/17/18 01:36 122 18 161/99 96 Room Air The patient is a well-developed, well-nourished elderly male. He is sitting up comfortably in bed. Remote memory intact. Delayed recall impaired, 2/3 objects. Attention and concentration normal. Speech is mildly slowed although naming and repetition are intact. Patient exhibits an age-appropriate fund of knowledge a normal vocabulary. Visual rodriguez full to confrontation. Visual acuity normal. Pupils equal round react to light and accommodation. Eye movements normal. No nystagmus. Facial sensation intact. There is no facial weakness or facial droop. Hearing intact. Palate elevates to midline. Shoulder shrug intact. Tongue protrudes to midline. Sensation intact in all 4 limbs. Deep tendon reflexes intact and symmetrical for the arms and legs. Plantar responses downgoing bilaterally. There is no dysdiadochokinesia or dysmetria with [id number] or heel to suárez bilaterally. Ophthalmoscopic examination reveals normal-appearing optic discs and posterior segments. No papilledema or hemorrhages. Carotid pulses normal bilaterally, no bruits to auscultation. Gait appears slow and apractic. Station normal. Muscle strength and tone normal for all 4 limbs. No atrophy. No abnormal movements observed. Laboratory Results Past 24 Hours: 01/17/18 01:56 Red Blood Count 4.85, Mean Corpuscular Volume 91.3, Mean Corpuscular Hemoglobin 30.9, Mean Corpuscular Hemoglobin Concent 33.9, Mean Platelet Volume 9.9, Neutrophils (%) (Auto) 55.7, Lymphocytes (%) (Auto) 27.0, Monocytes (%) (Auto) 14.5, Eosinophils (%) (Auto) 2.4, Basophils (%) (Auto) 0.2, Neutrophils # (Auto ) 3.03, Lymphocytes # (Auto) 1.47, Monocytes # (Auto) 0.79, Eosinophils # (Auto ) 0.13, Basophils # (Auto) 0.01 01/17/18 01:56 Test 01/17/18 01:49 01/17/18 01:56 01/17/18 02:21 01/17/18 06:21 Bedside Glucose 147 mg/dl (70-99) White Blood Count 5.44 K/uL (4.8-10.8) Red Blood Count 4.85 M/uL (4.7-6.1) Hemoglobin 15.0 g/dL (14.0-18.0) Hematocrit 44.3 % (42-52) Mean Corpuscular Volume 91.3 fL (80-100) Mean Corpuscular Hemoglobin 30.9 pg (25-34) Mean Corpuscular Hemoglobin Concent 33.9 g/dl (32-36) Platelet Count 114 K/uL (130-400) Mean Platelet Volume 9.9 fL (7.4-10.4) Neutrophils (%) (Auto) 55.7 % Lymphocytes (%) (Auto) 27.0 % Monocytes (%) (Auto) 14.5 % Eosinophils (%) (Auto) 2.4 % Basophils (%) (Auto) 0.2 % Neutrophils # (Auto) 3.03 K/uL (1.4-6.5) Lymphocytes # (Auto) 1.47 K/uL (1.2-3.4) Monocytes # (Auto) 0.79 K/uL (0.11-0.59) Eosinophils # (Auto) 0.13 K/uL (0-0.5) Basophils # (Auto) 0.01 K/uL (0-0.2) RDW Standard Deviation 44.7 fL (36.4-46.3) RDW Coefficient of Variation 13.4 % (11.5-14.5) Immature Granulocyte % (Auto) 0.2 % Immature Granulocyte # (Auto) 0.01 K/uL (0.00-0.02) Activated Partial Thromboplast Time 33.1 SECONDS (21.0-31.0) Partial Thromboplastin Ratio 1.3 Anion Gap 6.0 mmol/L (3-11) Estimated GFR () 59.8 Estimated GFR (Non- 51.6 BUN/Creatinine Ratio 15.1 (10-20) Estimated Average Glucose 128 mg/dl Hemoglobin A1c 6.1 % (4.5-5.6) Calcium Level 8.9 mg/dl (8.5-10.1) Total Creatine Kinase 113 U/L (39-308) Creatine Kinase MB 3.0 ng/ml (0.5-3.6) Creatine Kinase MB Ratio 2.7 (0-3.0) Urine Opiates Screen NEG (NEG) Urine Methadone, Qualitative NEG (NEG) Urine Barbiturates NEG (NEG) Urine Phencyclidine (PCP) Level NEG (NEG) Ur Amphetamine/Methamphetamine NEG (NEG) MDMA (Ecstasy) Screen POS (NEG) Urine Benzodiazepines Screen NEG (NEG) Urine Cocaine Metabolite NEG (NEG) Urine Marijuana (THC) NEG (NEG) Prothrombin Time 23.6 SECONDS (9.0-12.0) Prothromb Time International Ratio 2.3 (0.9-1.1) Test 01/17/18 09:50 Troponin I 0.161 ng/ml (0-0.045) Impression Suspected TIA characterized by dysarthria and acute gait dysfunction. This patient has a history of a chronic, stable, right subdural hematoma requiring surgical evacuation. He also has a chronic right frontal lobe infarct and lumbar spinal stenosis. As indicated in the history, I have been following this patient in the outpatient setting for mild cognitive impairment and gait apraxia probably related to cerebral vascular disease. He appears to be at his neurologic baseline this morning. Plan We are unable to obtain a brain MRI as this patient has a mechanical aortic valve. As he is currently at his neurologic baseline I do not believe a repeat CT of the head is absolutely necessary at this time. I will order a carotid ultrasound and echocardiogram. Patient may continue with warfarin. I would not start aspirin given the elevated bleeding risk in this patient. Patient's blood pressure is appropriate. No further immediate recommendations.
--- NOTE | 2018-01-17 14:45 | ECHOCARDIOGRAM REPORT ---
*NOTICE TO RECEIVING [employer]Y This information is strictly Confidential and protected under [place] law. [place] law prohibits you from making any further disclosure of this information unless further disclosure is expressly permitted by the written consent of the person to whom it pertains or is authorized by law. A general authorization for the release of medical or other information is not sufficient for this purpose. Hospital accepts no responsibility if the information is made available to any other person, INCLUDING THE PATIENT. Interpretation Summary * Name: DON CUEVAS Study Date: 01/17/2018 01:16 PM BP: 123/73 mmHg * Patient Location: C.2T\S\S239\S\2 HR: 63 * : 1945 (M/d/yyyy) Gender: Male Height: 70 in * Age: 72 yrs Ethnicity: CA Weight: 191 lb * Ordering Physician: Bandar Bahena * Referring Physician: Self, Referred * Performed By: Irma Garces RCS * * Reason For Study: CEREBRAL ISCHEMIA / EMBOLUS * BSA: 2.0 m2 * No cardiac source of emboli noted. * -- Conclusions -- * There is moderate concentric left ventricular hypertrophy. * Left ventricular systolic function is normal. * Grade I diastolic dysfunction, (abnormal relaxation pattern). * The left atrium is moderately dilated. * Injection of contrast documented no interatrial shunt. * There is a mechanical mitral valve. * Right ventricular systolic pressure is elevated at 30-40mmHg. Procedure Details * A complete two-dimensional transthoracic echocardiogram was performed (2D, M-mode, Doppler and color flow Doppler). * A saline contrast injection was performed to assess for cardiac shunting. * The injection was performed through an intravenous line in the right arm. * The attending nurse who injected the saline contrast was TESS WEAVER, RN. * A total of 20 cc of agitated saline was given. Left Ventricle * The left ventricle is normal in size. * There is moderate concentric left ventricular hypertrophy. * Left ventricular systolic function is normal. * Ejection Fraction = 55-60%. * Grade I diastolic dysfunction, (abnormal relaxation pattern). Right Ventricle * The right ventricle is normal in size and function. Atria * The left atrium is moderately dilated. * The right atrium is mildly dilated. * Injection of contrast documented no interatrial shunt. Mitral Valve * There is a mechanical mitral valve. * Prosthetic mitral valve peak and/or mean gradients are normal. Tricuspid Valve * The tricuspid valve is not well visualized, but is grossly normal. * There is mild tricuspid regurgitation. * Right ventricular systolic pressure is elevated at 30-40mmHg. Aortic Valve * The aortic valve is normal in structure and function. * No hemodynamically significant valvular aortic stenosis. * There is no significant aortic regurgitation. Pulmonic Valve * The pulmonic valve leaflets are thin and pliable; valve motion is normal. Great Vessels * The aortic root is normal size. Pericardium/Pleural * There is no pericardial effusion. MMode 2D Measurements and Calculations IVSd 1.9 cm IVSs 2.2 cm LVIDd 4.4 cm LVIDs 4.0 cm LVPWd 1.8 cm LVPWs 1.7 cm IVS/LVPW 1.1 FS 8.4 % EDV(Teich) 85.5 ml ESV(Teich) 69.5 ml EF(Teich) 18.7 % EDV(cubed) 82.5 ml ESV(cubed) 63.4 ml EF(cubed) 23.1 % % IVS thick 20.3 % % LVPW thick -3.05 % LV mass(C)d 351.5 grams LV mass(C)dI 171.7 grams/m\S\2 LV mass(C)s 360.9 grams LV mass(C)sI 176.3 grams/m\S\2 SV(Teich) 16.0 ml SI(Teich) 7.8 ml/m\S\2 SV(cubed) 19.1 ml SI(cubed) 9.3 ml/m\S\2 Ao root diam 3.3 cm Ao root area 8.7 cm\S\2 ACS 2.3 cm LA dimension 4.5 cm LA/Ao 1.4 LVOT diam 2.3 cm LVOT area 4.1 cm\S\2 LVAd ap4 29.1 cm\S\2 LVLd ap4 7.9 cm EDV(MOD-sp4) 87.2 ml EDV(sp4-el) 90.6 ml LVAs ap4 20.2 cm\S\2 LVLs ap4 6.5 cm ESV(MOD-sp4) 51.8 ml ESV(sp4-el) 53.3 ml EF(MOD-sp4) 40.6 % EF(sp4-el) 41.2 % LVAd ap2 27.2 cm\S\2 LVLd ap2 7.6 cm EDV(MOD-sp2) 79.8 ml EDV(sp2-el) 82.4 ml LVAs ap2 19.4 cm\S\2 LVLs ap2 7.0 cm ESV(MOD-sp2) 45.7 ml ESV(sp2-el) 45.7 ml EF(MOD-sp2) 42.7 % EF(sp2-el) 44.5 % LVLd %diff -3.77 % EDV(MOD-bp) 85.6 ml LVLs %diff 7.1 % ESV(MOD-bp) 49.0 ml EF(MOD-bp) 42.8 % SV(MOD-sp4) 35.4 ml SI(MOD-sp4) 17.3 ml/m\S\2 SV(MOD-sp2) 34.0 ml SI(MOD-sp2) 16.6 ml/m\S\2 SV(MOD-bp) 36.6 ml SI(MOD-bp) 17.9 ml/m\S\2 SV(sp4-el) 37.3 ml SI(sp4-el) 18.2 ml/m\S\2 SV(sp2-el) 36.7 ml SI(sp2-el) 17.9 ml/m\S\2 Doppler Measurements and Calculations MV E max johnny 110.0 cm/sec MV A max johnny 119.7 cm/sec MV E/A 0.92 MV P1/2t max johnny 101.4 cm/sec MV P1/2t 91.6 msec MVA(P1/2t) 2.4 cm\S\2 MV dec slope 324.3 cm/sec\S\2 MV dec time 0.30 sec Ao V2 max 93.2 cm/sec Ao max PG 3.5 mmHg Ao max PG (full) 1.7 mmHg BOBBI(V,A) 2.9 cm\S\2 BOBBI(V,D) 2.9 cm\S\2 LV V1 max PG 1.8 mmHg LV V1 max 66.7 cm/sec PA V2 max 82.2 cm/sec PA max PG 2.7 mmHg PI max johnny 174.6 cm/sec PI max PG 12.2 mmHg PI dec slope 87.7 cm/sec\S\2 PI P1/2t 583.3 msec TR max johnny 283.6 cm/sec
--- NOTE | 2018-01-17 15:09 | DIAGNOSTIC IMAGING REPORT ---
CAROTID DOPPLER NECK ART CLINICAL HISTORY: 72 years-old Male presenting with TIA. TECHNIQUE: Real-time grayscale and color and spectral Doppler ultrasound imaging of the bilateral carotid arteries was performed. NASCET criteria was used in evaluating this study. COMPARISON: None. FINDINGS: Right: Common carotid artery (CCA): Atherosclerosis. Peak systolic velocity (PSV) 66 cm/s. Internal carotid artery (ICA): Atherosclerosis of the proximal ICA. PSV 56 cm/s. End diastolic velocity (EDV) 18 cm/s. ICA/CCA (systolic) ratio: 0.8. External carotid artery (ECA): Atherosclerosis. PSV 75 cm/s. Left: Common carotid artery (CCA): Atherosclerosis. PSV 71 cm/s. Internal carotid artery (ICA): Atherosclerosis of the proximal ICA. PSV 64 cm/s. EDV 23 cm/s. ICA/CCA (systolic) ratio: 0.9. External carotid artery (ECA): Atherosclerosis. PSV 74 cm/s. Bilateral antegrade flow within the vertebral arteries. Blood pressure: Brachial: Not performed due to limb restriction. Reference ranges: Stenosis measurements are compared to reference velocity parameters by the Society of Radiologists in Ultrasound (SRU) consensus and Sonographic NASCET index (S-NASCET). SRU Primary parameters: ICA PSV <125 cm/s = normal or less than 50% stenosis; ICA PSV 125-230 cm/s = 50-69% stenosis; ICA PSV >230 cm/s = greater than or equal to 70% stenosis. SRU Additional parameters: ICA/CCA PSV ratio <2 = normal or less than 50% stenosis; ratio 2-4 = 50-69% stenosis; ratio >4 = greater than or equal to 70% stenosis. ICA EDV <40 cm/s = normal or less than 50% stenosis; ICA EDV 40-100 cm/s = 50-69% stenosis; ICA EDV >100 cm/s = greater than or equal to 70% stenosis. S-NASCET parameters: Deceleration spectral broadening + PSV <125 cm/s = less than 50% stenosis; pansystolic spectral broadening + PSV <125 cm/s = 16-49% stenosis; pansystolic spectral broadening + PSV >125 cm/s + EDV <110 cm/s or ICA/CCA PSV ratio 2-4 = 50-69% stenosis; pansystolic spectral broadening + PSV >270 cm/s OR EDV >110 cm/s OR ICA/CCA PSV ratio >4 = 70-79% stenosis; EDV >140 cm/s = 80-99% stenosis. IMPRESSION: 1. Atherosclerosis without hemodynamically significant stenosis in the carotid arteries. Electronically signed by: Benedicto Harris M.D. 01/17/2018 3:08 PM Dictated Date/Time: 01/17/2018 3:07 PM
[2018-01-17] MEDS ORDERED: WARFARIN SOD 7.5 MG TAB PO SCH (16:00)
[2018-01-17] MEDS ORDERED: GABAPENTIN 600 MG TAB PO SCH (21:00)
[2018-01-17] MEDS ORDERED: TAMSULOSIN HCL 0.4 MG CAP PO SCH (21:00)
--- NOTE | 2018-01-17 22:44 | Progress Note ---
Subjective Date of Service: Jan 17, 2018. Problem List Medical Problems: (1) Elevated troponin Status: Acute (2) Fall Status: Acute (3) Head injury Status: Acute (4) Left leg pain Status: Acute (5) TIA (transient ischemic attack) Status: Acute Objective Vital Signs Date Time Temp Pulse Resp B/P (MAP) Pulse Ox O2 Delivery O2 Flow Rate FiO2 01/17/18 19:26 36.8 72 18 133/72 (92) 94 Room Air 01/17/18 15:24 36.5 51 20 150/93 (112) 97 Room Air 01/17/18 12:29 36.3 71 16 123/73 (90) 95 Room Air 01/17/18 08:00 93 Room Air 01/17/18 06:56 37.0 62 17 120/74 (89) 93 Room Air 01/17/18 04:45 Room Air 01/17/18 04:41 78 18 165/90 (115) 96 Room Air 01/17/18 04:33 78 18 165/90 96 Room Air 01/17/18 04:22 80 18 117/83 97 01/17/18 04:08 73 18 117/83 95 Room Air 01/17/18 02:54 84 13 127/89 98 Room Air 01/17/18 02:47 95 Room Air 01/17/18 01:49 108 01/17/18 01:36 122 18 161/99 96 Room Air Laboratory Results Last 24 Hours Test 01/17/18 01:49 01/17/18 01:56 01/17/18 02:21 01/17/18 06:21 Bedside Glucose 147 mg/dl White Blood Count 5.44 K/uL Red Blood Count 4.85 M/uL Hemoglobin 15.0 g/dL Hematocrit 44.3 % Mean Corpuscular Volume 91.3 fL Mean Corpuscular Hemoglobin 30.9 pg Mean Corpuscular Hemoglobin Concent 33.9 g/dl Platelet Count 114 K/uL Mean Platelet Volume 9.9 fL Neutrophils (%) (Auto) 55.7 % Lymphocytes (%) (Auto) 27.0 % Monocytes (%) (Auto) 14.5 % Eosinophils (%) (Auto) 2.4 % Basophils (%) (Auto) 0.2 % Neutrophils # (Auto) 3.03 K/uL Lymphocytes # (Auto) 1.47 K/uL Monocytes # (Auto) 0.79 K/uL Eosinophils # (Auto) 0.13 K/uL Basophils # (Auto) 0.01 K/uL RDW Standard Deviation 44.7 fL RDW Coefficient of Variation 13.4 % Immature Granulocyte % (Auto) 0.2 % Immature Granulocyte # (Auto) 0.01 K/uL Prothrombin Time 24.7 SECONDS 23.6 SECONDS Prothromb Time International Ratio 2.4 2.3 Activated Partial Thromboplast Time 33.1 SECONDS Partial Thromboplastin Ratio 1.3 Sodium Level 142 mmol/L Potassium Level 3.5 mmol/L Chloride Level 109 mmol/L Carbon Dioxide Level 27 mmol/L Anion Gap 6.0 mmol/L Blood Urea Nitrogen 21 mg/dl Creatinine 1.36 mg/dl Estimated GFR () 59.8 Estimated GFR (Non- 51.6 BUN/Creatinine Ratio 15.1 Random Glucose 148 mg/dl Estimated Average Glucose 128 mg/dl Hemoglobin A1c 6.1 % Calcium Level 8.9 mg/dl Total Creatine Kinase 113 U/L Creatine Kinase MB 3.0 ng/ml Creatine Kinase MB Ratio 2.7 Troponin I 0.144 ng/ml Urine Opiates Screen NEG Urine Methadone, Qualitative NEG Urine Barbiturates NEG Urine Phencyclidine (PCP) Level NEG Ur Amphetamine/Methamphetamine NEG MDMA (Ecstasy) Screen POS Urine Benzodiazepines Screen NEG Urine Cocaine Metabolite NEG Urine Marijuana (THC) NEG Test 01/17/18 09:50 01/17/18 17:56 Troponin I 0.161 ng/ml 0.140 ng/ml
[2018-01-18 03:04] VITALS: BP 122/76; PULSE 115; TEMP 36.4; O2SAT 98
[2018-01-18 03:48] VITALS: PULSE 68
[2018-01-18 06:47] LABS: BASO % 0.5 %; BASO ABS # 0.02 K/uL (0-0.2); EOS % 5.8 %; EOS ABS # 0.22 K/uL (0-0.5); HEMATOCRIT 44.4 % (42-52); HEMOGLOBIN 14.5 g/dL (14.0-18.0); IG# 0.01 K/uL (0.00-0.02); LYMPH % 33.8 %; LYMPH ABS # 1.29 K/uL (1.2-3.4); MEAN CELL VOLUME 91.9 fL (80-100); MEAN CORPUSCULAR HGB CONC 32.7 g/dl (32-36); MEAN PLATELET VOLUME 9.1 fL (7.4-10.4); MONO % 16.8 %; MONO ABS # 0.64 K/uL (0.11-0.59); NEUT % 42.8 %; NEUT ABS # 1.64 K/uL (1.4-6.5); PLATELET COUNT 105 K/uL (130-400); RED CELL DISTRIBUTION WIDTH CV 13.3 % (11.5-14.5); RED CELL DISTRIBUTION WIDTH SD 44.7 fL (36.4-46.3); WHITE BLOOD COUNT 3.82 K/uL (4.8-10.8)
[2018-01-18 07:20] LABS: CALCIUM 8.8 mg/dl (8.5-10.1); CREATININE 1.29 mg/dl (0.60-1.40); POTASSIUM 4.5 mmol/L (3.5-5.1)
[2018-01-18 08:17] VITALS: BP 151/89; PULSE 76; TEMP 36.7; O2SAT 95
--- NOTE | 2018-01-18 08:21 | Progress Note ---
Progress Note Date of Service Jan 17, 2018. Progress Note 72 yo male reports feeling well. He wants to ambulate and is looking to be discharged. Explained to patient that we will monitor his troponin's. It appears likely to be demand ischemia. Patient states that he may have taken his meds which could have caused his neurological symptoms as she takes psychotropic meds. Unsure if this was a TIA.
--- NOTE | 2018-01-18 08:31 | Discharge Summary ---
Discharge Summary Date of Service Jan 18, 2018. Discharge Summary Admission Date: Jan 17, 2018 at 04:04 Discharge Disposition: Home Principal Diagnosis: Aletered mental status Immunizations: Have You Had Influenza Vaccine: Yes Influenza Vaccine Date: Jul 14, 2012 History of Tetanus Vaccine?: Yes Tetanus Immunization Date: Sep 11, 2015 History of Pneumococcal: Yes History of Hepatitis B Vaccine: No Procedures: Carotid Arterial U/S 1. Atherosclerosis without hemodynamically significant stenosis in the carotid arteries. Echocardiogram * There is moderate concentric left ventricular hypertrophy. * Left ventricular systolic function is normal. * Grade I diastolic dysfunction, (abnormal relaxation pattern). * The left atrium is moderately dilated. * Injection of contrast documented no interatrial shunt. * There is a mechanical mitral valve. * Right ventricular systolic pressure is elevated at 30-40mmHg. Consultations: Neurologist consult Medication Reconciliation New Medications: Atorvastatin (Lipitor) 40 Mg Tab 40 MG PO QAM for 30 Days, #30 TAB Donepezil HCl (Donepezil HCl) 5 Mg Tab 5 MG PO HS for 30 Days, TAB Gabapentin (Gabapentin) 600 Mg Tab 1200 MG PO HS for 30 Days, TAB Gabapentin (Gabapentin) 600 Mg Tab 600 MG PO BID@0900,1400 for 30 Days, TAB Continued Medications: Bupropion Hcl (Bupropion Hcl Xl) 150 Mg Tab 150 MG PO DAILY, #90 Frovatriptan Succinate (Frova) 2.5 Mg Tab 2.5 MG PO DAILY PRN for Headache Lisinopril (Prinivil) 10 Mg Tab 10 MG PO DAILY, TAB Multivitamin (Multivitamin) Tab 1 TAB PO DAILY, TAB Pantoprazole (Protonix) 20 Mg Tab 20 MG PO BID, #30 TAB Propranolol Hcl (Propranolol ER) 60 Mg Capcr 60 MG PO DAILY, #90 Tamsulosin Hcl (Flomax) 0.4 Mg Cap 0.4 MG PO QPM, CAP Tramadol (Ultram) 50 Mg Tab 50 MG PO Q4H PRN for Pain, TAB Warfarin Sod (Jantoven) 7.5 Mg Tab 7.5 MG PO 5XWK, TAB Takes everyday except Tues & Fri Warfarin Sod (Coumadin) 5 Mg Tab 5 MG PO 2XWK Takes on Tues & Fri Discharge Exam ROS: Constitutional: No fever chills Eyes: No vision loss or diplopia ENT: No vertigo or tinnitus, Cardiovascular: No chest pain or palpitations Respiratory: No coughing or shortness of breath Gastrointestinal no nausea or diarrhea Neurological: As per history of present illness Musculoskeletal: Chronic low back pain/sciatica as per history of present illness A full 10 point review of systems was obtained from this patient with pertinent po Physical Exam General: patient resting comfortably in bed, NAD, AA&O x 4 Skin: warm, dry, intact, no rashes or lesions, small abrasion right suárez HEENT: NC/AT, PERRL, EOMI, anicteric sclera, conjunctiva without injection, nares patent, slightly dry mucus membranes, no oropharyngeal lesions, neck supple, trachea midline, no thyromegaly, no LAD Heart: +S1/S2, regular with ectopy, +click from mechanical valve, no m/r/g Lungs: equal air entry bilaterally, no rales/rhonchi/wheezes Abdomen: soft, NT/ND, no masses/organomegaly/ascites Extremities: warm, well perfused, no clubbing/cyanosis or edema, 2+ palpable pulses in UE/LE bilaterally Neuro: AA&O x 4, speech clear and appropriate, no facial droop, CN II-XII grossly intact, sensation intact UE/LE bilaterally, MS 4+/5 in right upper extremity. MS 5/5 in LUE/LLE and RLE. Gait not assessed Hospital Course 72yo male presenting with stroke-like symptoms Stroke-like symptoms - slurred speech and left sided weakness reported by . Has since resolved. Patient with very mild decrease in strength in RUE. Patient also endorses feeling slightly weak on RUE. -During hospital stay, patient return edto his baseline. Neuro was consulted and stated that a repeat CT scan would not be necessary. Ordered a carotid ultrasound and echocardiogram. This was negative Patient may continue with warfarin. I would not start aspirin given the elevated bleeding risk in this patient. Patient's blood pressure is appropriate. -Atorvastatin 40mg po daily -Altered mental status may be secondary to patient taking psychotropic meds that were his wiifes. There is question that patient may have accidently ingested his wifes medsby mistake, confusing them with his. Leg pain - patient with history of sciatic pain. Improved after Fentanyl. No deformity/lesions -Continue home Tramadol PRN pain -Percocet PRN -Continue Neurontin Mechanical mitral valve - stable. Patient on coumadin for anticoagulation. INR slightly below goal at 2.4 -Continue Coumadin 5mg on Tues/Fri and 7.5mg other days -Monitor INR, continue as an outpatient. 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 Echocardiogram did not show any akinesis or hypokinesis of his hear. Hypertension - patient presently normotensive -Continue Lisinopril -Continue Propranolol BPH - stable -Continue Flomax F/E/N - NSS, monitor electrolytes and replete as needed, AHA diet, Continue Metamucil Ppx - Coumadin as above, Protonix 20mg po BID Code - Full per discussion with patient Total Time Spent: Greater than 30 minutes This includes examination of the patient, discharge planning, medication reconciliation, and communication with other providers. Discharge Instructions Please refer to the electronic Patient Visit Report (Discharge Instructions) for additional information. Follow-Up Followup with PCP and Neurology within 1 month. Additional Copies To Leti Camacho M.D.
[2018-01-18] MEDS ORDERED: NRN600 PO ×2 (08:38)
[2018-01-18] MEDS ORDERED: ARC5 PO (08:38)
[2018-01-18] MEDS ORDERED: LPT40 PO (08:38)
--- NOTE | 2018-01-18 08:40 | Discharge Instructions ---
Discharge Instructions Date of Service Jan 18, 2018. Admission Reason for Admission: TIA Discharge Discharge Diagnosis / Problem: TIA Discharge Goals Goal(s): Decrease discomfort, Improve function Activity Recommendations Activity Limitations: resume your previous activity . Instructions / Follow-Up Instructions / Follow-Up Followup with PCP and Neurology within 1 month. Current Hospital Diet Patient's current hospital diet: AHA Diet (Heart Healthy) Discharge Diet Recommended Diet: AHA Diet (Heart Healthy) Pending Studies Studies pending at discharge: no Laboratory Results Hemoglobin A1c Test 01/17/18 01:56 Range/Units Estimated Average Glucose 128 mg/dl Hemoglobin A1c 6.1 H 4.5-5.6 % Lipid Panel Test 01/18/18 06:30 Range/Units Triglycerides Level 204 H 0-150 mg/dl Cholesterol Level 130 0-200 mg/dl HDL Cholesterol 34 mg/dl Cholesterol/HDL Ratio 3.8 LDL Cholesterol, Calculated 55 mg/dl Medical Emergencies . Who to Call and When: Medical Emergencies: If at any time you feel your situation is an emergency, please call 911 immediately. . Non-Emergent Contact Non-Emergency issues call your: Primary Care Provider Call Non-Emergent contact if: you have any medication questions . . "Provider Documentation" section prepared by Imer Thompson. .
[2018-01-18] MEDS: PSYLLIUM 58.6% PWD PACK S\\F PO SCH (09:00)
[2018-01-18] MEDS: ATORVASTATIN 40 MG TAB PO SCH (09:13)
[2018-01-18] MEDS: GABAPENTIN 600 MG TAB PO SCH (09:13)
[2018-01-18] MEDS: PANTOprazole SOD 40 MG TAB PO SCH (09:13)
[2018-01-18] MEDS: DONEPEZIL HCL 5 MG TAB PO SCH (09:13)
[2018-01-18] MEDS: LISINOPRIL 10 MG TAB PO SCH (09:14)
[2018-01-18] MEDS: PROPRANOLOL HCL 60 MG LA CAP PO SCH (09:14)
[2018-01-18] MEDS: BuPROPion XL 150 MG TABCR PO SCH (09:14)
[2018-01-18] MEDS: MULTIVITAMIN TAB PO SCH (09:14)
[2018-01-18 10:24] VITALS: BP 151/89; PULSE 76; TEMP 36.7; O2SAT 95
--- NOTE | 2018-01-18 15:11 | Pharmacy Progress Note ---
Pharmacist Stroke Counseling Date of Service Jan 18, 2018. Scope Pharmacy has been consulted to provide medication discharge counseling for this patient admitted with ischemic stroke/hemorrhagic stroke/ transient ischemic attack as per the Pharmacist Discharge Counseling for Stroke Patients Protocol. Medications on Discharge New Medications: Atorvastatin (Lipitor) 40 Mg Tab 40 MG PO QAM for 30 Days, #30 TAB Donepezil HCl (Donepezil HCl) 5 Mg Tab 5 MG PO HS for 30 Days, TAB Gabapentin (Gabapentin) 600 Mg Tab 1200 MG PO HS for 30 Days, TAB Gabapentin (Gabapentin) 600 Mg Tab 600 MG PO BID@0900,1400 for 30 Days, TAB Continued Medications: Bupropion Hcl (Bupropion Hcl Xl) 150 Mg Tab 150 MG PO DAILY, #90 Frovatriptan Succinate (Frova) 2.5 Mg Tab 2.5 MG PO DAILY PRN for Headache Lisinopril (Prinivil) 10 Mg Tab 10 MG PO DAILY, TAB Multivitamin (Multivitamin) Tab 1 TAB PO DAILY, TAB Pantoprazole (Protonix) 20 Mg Tab 20 MG PO BID, #30 TAB Propranolol Hcl (Propranolol ER) 60 Mg Capcr 60 MG PO DAILY, #90 Tamsulosin Hcl (Flomax) 0.4 Mg Cap 0.4 MG PO QPM, CAP Tramadol (Ultram) 50 Mg Tab 50 MG PO Q4H PRN for Pain, TAB Warfarin Sod (Jantoven) 7.5 Mg Tab 7.5 MG PO 5XWK, TAB Takes everyday except Tues & Fri Warfarin Sod (Coumadin) 5 Mg Tab 5 MG PO 2XWK Takes on Tues & Fri Action The above medications, specifically ones for stroke treatment/prophylaxis, have been reviewed in detail with the patient and/or patient motor vehicle representative(s) prior to discharge. This includes indication, common adverse reactions, drug interactions, and medication administration. Medication counseling has been employed using the teach-back method to ensure understanding. Outcome The patient and/or patient motor vehicle representative(s) have demonstrated understanding of the medications. Please note, they are aware that the pharmacist will call them within 72 hours post-discharge to confirm that the appropriate medications are being taken and answer any further medication related questions the patient might have at that time. Contact information Individual to be contacted: patient Relationship to patient (if applicable): n/a Phone number: [phone] Best time to call: anytime Additional comments: Patient with suspected TIA. Neurology recommended against Aspirin use on discharge. Patient very friendly to talk with today. States that his usually takes care of all of his medications. Unfortunately she was not there during the interview. Appreciative of pill box, states that he once got his 's pills mixed up with his. Talked about the importance of double checking his medications when he takes them. Patient demonstrated understanding. Talked about new medications, patient did not have any questions. States that the gabapentin he was on before. Aware that we will call him. Thank you for allowing pharmacy to be involved in the care of this patient. Please call [phone] or [phone] with any additional questions
--- NOTE | 2018-01-19 11:23 | Pharmacy Progress Note ---
Pharmacist Post D/C Phone Note Date of phone call: Jan 19, 2018. Individual with whom pharmacist spoke to: Mrs. Doherty (patient's - she manages his medications) The following questions were reviewed during the phone call with responses listed below each: Can you tell me the medications that you are currently taking as well as when and how you take each medication? - Medications Dose Route/Sig Max Daily Dose Days Date Category Dose Instructions Gabapentin 600 Mg Tab 600 Mg PO BID@0900,1400 30 01/18/18 Rx Patient forgets to take afternoon dose, just takes 1200mg AM instead. He reports provider is aware and is OK with this. He reports neuropathy is controlled with 1200mg BID dosing Gabapentin 600 Mg Tab 1,200 Mg PO HS 30 01/18/18 Rx Donepezil HCl 5 Mg Tab 5 Mg PO HS 30 01/18/18 Rx Lipitor (Atorvastatin Calcium) 40 Mg Tab 40 Mg PO QAM 30 01/18/18 Rx Frova (Frovatriptan Succinate) 2.5 Mg Tab 2.5 Mg PO DAILY PRN 03/03/17 Reported reports patient has not taken in a "long time"; explained that this Rx now contraindicated with hx TIA Propranolol ER (Propranolol Hcl) 60 Mg Capcr 60 Mg PO DAILY 03/03/17 Reported Bupropion Hcl Xl (Bupropion Hcl) 150 Mg Tab 150 Mg PO DAILY 03/03/17 Reported Prinivil (Lisinopril) 10 Mg Tab 10 Mg PO DAILY 10/01/16 Reported Coumadin (Warfarin Sod) 5 Mg Tab 5 Mg PO 2XWK 10/01/16 Reported Takes on Tues & Fri Jantoven (Warfarin Sodium) 7.5 Mg Tab 7.5 Mg PO 5XWK 10/01/16 Reported Takes everyday except Tues & Fri Multivitamin (Multivitamins) Tab 1 Tab PO DAILY 10/01/16 Reported Flomax (Tamsulosin Hcl) 0.4 Mg Cap 0.4 Mg PO QPM 09/11/15 Reported Ultram (Tramadol HCl) 50 Mg Tab 50 Mg PO Q4H PRN 12/17/14 Reported Dose is actually 100mg TID prn pain Protonix (Pantoprazole Sodium) 20 Mg Tab 20 Mg PO BID 12/17/14 Reported Metamucil powder Mix 1 scoop and drink daily prn constipation When have you missed any doses of your medications? - Denies, uses pillbox What side effects are you having from your medications? - None reported at this time What questions do you have about your medications? - None at this time What problems are you having obtaining your medications? 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 planning on getting it later today When is your next appointment with your primary care doctor? - States has f/u "next week" Additional comments: * History mechanical mitral valve, INR goal = 2.5-3.5; follows [facility] [place] for warfarin. Advised that INR was slightly subtherapeutic at 2.4 upon admission and subtherapeutic at 2.0 upon discharge on 01/18... recommended that call provider today to f/u on subtherapeutic INR. Explained high risk for stroke/thromboembolism with subtherapeutic INR. She says she will call. Likely needs a dose increase. * Prescribed Frova prn migraines; has not used for "months". Explained that Frova and all "triptans" are contraindicated in patients with history stroke, TIA. Therefore, it is NOT safe for him to take this if he needs a dose in the future. Advised to discuss with PCP alternatives for migraines. * Did not have a chance to obtain Lipitor yet. Patient has never been on statin before. has been Rx'd statin in the past and is familiar with it. Reviewed common adverse effects. Advised to discuss with provider if any issues. * Please note that Donepezil and Gabapentin are not "NEW" Rx's; patient was on these prior to admission. Med list discrepancies as noted above in green. As per the Pharmacist Discharge Counseling for Stroke Patients Protocol, this phone call has been completed within 72 hours of discharge. Thank you for allowing us to be involved in the care of this patient.
[2018-01-19] MEDS ORDERED: WARFARIN SOD 5 MG TAB PO SCH (16:00)
== END 2018-01-18 10:57 | disposition home or self-care (01) ==
LOC: C.EDB 01:32 → C.2T 04:04 → ENRESERV 04:09
PROVIDERS: ADMIT Internal Medicine; ATTEND Internal Medicine Sports Medicine
DX: R41.82 Altered mental status, unspecified (principal); I10 Essential (primary) hypertension; N40.0 Benign prostatic hyperplasia without lower urinary tract symptoms; G62.9 Polyneuropathy, unspecified; Z88.0 Allergy status to penicillin; Z88.5 Allergy status to narcotic agent; Z86.73 Personal history of transient ischemic attack (TIA), and cerebral infarction without residual deficits; Z79.01 Long term (current) use of anticoagulants; Z95.2 Presence of prosthetic heart valve

== ENCOUNTER 2022-02-12 13:25 | Inpatient (IN) ==
[2022-02-12 14:00] LABS: Basophils # (auto) 0.02 K/uL (0-0.2); Basophils % (auto) 0.3 %; Eosinophils # (auto) 0.06 K/uL (0-0.50); Eosinophils % (auto) 0.8 %; Hematocrit (blood only) 46.5 % (40.1-51.0); Hemoglobin 15.2 g/dl (14.0-18.0); Immature Granulocytes # (auto) 0.02 K/uL (0.00-0.02); Immature Granulocytes % (auto) 0.3 %; Lymphocytes # (auto) 0.69 K/uL (1.2-3.4); Lymphocytes % (auto) 8.7 %; Mean Corpuscular Hemoglobin 29.4 pg (25.0-34.0); Mean Corpuscular Hgb Conc 32.7 g/dL (32.0-36.0); Mean Corpuscular Volume 89.9 fL (80.0-100.0); Mean Platelet Volume 10.4 fL (9.4-12.4); Monocytes # (auto) 1.13 K/uL (0.24-0.82); Monocytes % (auto) 14.2 %; Neutrophils # (auto) 6.04 K/uL (1.4-6.5); Neutrophils % (auto) 75.7 %; Platelet Count 169 K/uL (130-400); RDW Coefficient of Variation 13.6 % (11.5-14.5); Red Blood Count 5.17 M/uL (4.63-6.08); White Blood Count 7.96 K/ul (4.8-10.8)
[2022-02-12 14:18] LABS: Albumin Globulin Ratio 1.1 (0.9-2); Albumin Level 3.9 gm/dl (3.4-5.0); BUN Creatinine Ratio 20.6 (10-20); Bilirubin,Total 0.9 mg/dl (0.2-1.0); Calcium 9.3 mg/dl (8.5-10.1); Est GFR (African American) 77.2 ml/min; Est GFR (Non-African American) 66.6 ml/min; Globulin 3.7 gm/dl (2.5-4.0); Potassium 3.7 mmol/L (3.5-5.1); Total Protein 7.6 gm/dl (6.0-8.3)
[2022-02-12] MEDS ORDERED: SODIUM CHLORIDE 0.9% 1000ML 500 ML IV ONE (14:31)
[2022-02-12] MEDS ORDERED: SODIUM CHLORIDE 0.9% 1000ML 1,000 ML IV STA (14:31)
--- NOTE | 2022-02-12 16:02 | CT Scan Report ---
CT head/brain wo con CLINICAL HISTORY: weakness, L leg, hx of SDH Technique: Contiguous axial CT images of the head were acquired from the base of the skull to the mariaelena juventino without intravenous contrast administration. Images were viewed in brain, subdural and [facility]. Automated dose lowering techniques and/or adjustment according to patient size were utilized for this exam. Comparison: Comparison is made to CT head 01/25/2022 Findings: Areas of decreased attenuation are present in the periventricular and subcortical white matter bilate rally consistent with small vessel ischemic disease. Generalized cerebral atrophy with commensurate e nlargement of the ventricles, sulci, and cisterns is also present. There is no acute intracranial hem orrhage or evidence of acute territorial infarction. No shift of the midline structures, mass effect, or extra-axial abnormalities are shown. Atherosclerotic calcifications are present in the intracran ial segments of the internal carotid arteries. Imaged portions of the paranasal sinuses and mastoid air cells are clear. The orbits appear normal. There are no acute fractures of the calvaria or scalp swelling. Old postsurgical changes of right cr aniotomy noted. Impression: No acute intracranial hemorrhage, no evidence of acute territorial infarction or other acute intracra nial disease process. ACT 112: Negative or not required by law. Electronically signed by: Bright Leonadro M.D. 02/12/2022 4:00 PM
--- NOTE | 2022-02-12 16:15 | Emergency Department Note ---
Impression & Plan Generalized weakness ED Provider Note INFORMANT: Patient ED PROVIDER(S): Gunnar Menendez MD CHIEF COMPLAINT: Weakness PLAN: Disposition: Admitted Condition: Good Outpatient prescription management: none Referral: None MEDICAL DECISION MAKING: Patient presented because of weakness. He had a work-up initiated. CT scan of the head did not reveal any acute findings. ECG showed nonspecific ST abnormality but no obvious ST elevation or significant depression. Patient has a negative COVID test. CBC and chemistry panel are rather unremarkable. He did have a very concerning urinalysis from yesterday. Culture is pending. A repeat study was performed. Due to the urinalysis and weakness he was given IV Rocephin. I did consult with internal medicine. They did asked for the patient have an ambulatory trial which he failed. [facility] for [facility] management. Triage Nursing notes reviewed and agree them. Vital Signs: reviewed and remarkable for no significant abnormalities Differential diagnosis: Infection, dehydration, metabolic abnormality, hypo/hyperglycemia, electrolyte disturbance, anemia, hypoxia, cardiac sources, intracerebral event, toxicologic, neurologic, as well as other pathologies. Diagnostics interpreted by me: ECG: Twelve-lead ECG reveals normal sinus rhythm 74 bpm. Nonspecific intraventricular conduction delay present. Nonspecific ST. No ST elevation. Cardiac Monitoring: Cardiac monitoring ordered by me: The patient was placed on continuous cardiac monitoring and observed. It revealed a normal sinus rhythm at 80 beats per minute without ectopy or evidence of dysrhythmia. Imaging studies: Head CT: A noncontrast CT scan of the head was performed and was negative for tumor, fracture, intracranial hemorrhage, or other acute pathology. Surgical changes noted from prior craniotomy. I refer you to the EMR for further details. HPI: The patient is a 77 year old male who presents to the Emergency Room with complaints of weakness. This started yesterday and is worsening. states he is too weak to get out of bed. EMS was summoned. She did check his blood sugar and it was 150. The patient also notes the following associated symptoms, fatigue. The patient has found no relieving factors. Current pain is rated as 0/10. Pt denies LOC, headache, fevers, chills, diaphoresis, visual changes, neck pain, chest pain, breathing difficulties, nausea, vomiting, abdominal pain, back pain, melena, hematochezia, urinary symptoms, numbness, weakness, lymphadenopathy, rash, or other complaints. ROS: See above HPI for pertinent positives & negatives. A total of 10 systems reviewed and were otherwise negative. PAST MEDICAL HISTORY:See Below , Parkinson's PAST SURGICAL HISTORY:See Below, FAMILY HISTORY:See Below SOCIAL HISTORY:See Below, HOME MEDICATIONS:See Below ALLERGIES:See Below VITALS:See Below PHYSICAL EXAMINATION: GENERAL: Awake, tired-appearing, in no distress HENT: Normocephalic, atraumatic. Oropharynx unremarkable. EYES: Normal conjunctiva. Sclera non-icteric. NECK: Inspection normal. Non-tender. Supple. No nuchal rigidity. FROM. No masses. RESPIRATORY: Clear to auscultation. No wheezes. No rales. Normal respiratory effort. CARDIAC: Normal rate. Normal rhythm. No murmurs. No rubs. Extremities warm and well perfused. Pulses equal. No JVD. GI: Soft, non-distended. No tenderness to palpation. No rebound or guarding. No masses. RECTAL: Deferred. MUSCULOSKELETAL: Atraumatic. Chest examination reveals no tenderness. The back is symmetrical on inspection without obvious abnormality. There is no CVA tenderness to palpation. No joint edema. LOWER EXTREMITIES: Calves are equal size bilaterally and non-tender. No edema. No discoloration. NEURO: Masked facies of Parkinson's present. Mild tremor. Sensorium. Generally weak but no sensory. There is mild drift in the left lower extremi ty. SKIN: No rash or jaundice noted. Gunnar Menendez MD Past Med/Surg History Medical History (Updated 02/12/22 @ 17:53 by Ely Mckeon PA-C) Atrial fibrillation Paroxysmal per records Pt denies history Follows with cardio- on Coumadin Benign essential tremor BPH (benign prostatic hyperplasia) Chronic back pain Degenerative disc disease Dementia Experiences short term memory loss. Alert and oriented to person. Confusion with places and time. Depression Diabetes mellitus, type 2 NIDDM Recently dx'ed- does not check glucose regularly GERD (gastroesophageal reflux disease) Well controlled and stable Hearing deficit Hyperlipidemia Hypertension Irregular heart beat Occasional episodes of trigeminy. Follows with Dr Isaac Mechanical heart valve present MV replacement 1996- mechanical- on Coumadin Neuropathy involving both lower extremities On anticoagulant therapy Warfarin daily Parkinson disease Parkinson's dementia per records Subdural hematoma (01/01/22) - Presented to the Emergency room 01/01/22 at [facility] and transferred to [facility] and treated inpatient for several days and then went to [facility] for rehab. Patient discharged home ~01/21/22. No surgery had been done, reports it was a spontaneous hematoma. Denies any fall. - Pt's mental status back to baseline -Coumadin has since been restarted- tolerating well. Transient ischemic attack (TIA) In --no deficits Surgical History History of back surgery x2 History of colonoscopy History of craniotomy x2 (~2011)- secondary to subdural hematoma- had fall at that time History of esophagogastroduodenoscopy (EGD) History of hand surgery right hand finger History of inguinal hernia repair x5 History of mitral valve replacement [address] [facility] -- mechanical History of umbilical hernia repair History of wisdom tooth extraction Status post LASIK surgery of both eyes Family History Daughter Family hx of colon cancer Colorectal cancer Mother Cardiac pacemaker Brother Stroke Hypertension Prostate cancer Father Stroke Grandfather (Maternal) Suicide Grandfather (Paternal) Tuberculosis Other No family history of adverse response to anesthesia Social History (Updated 11/23/21 @ 11:13 by Haley Oliveros) Smoking Status: Unknown if ever smoked Second Hand Exposure: No; Preferred Language: Stateless Communication Ability: Effective Hogshead Inspector Required: No Beliefs That Will Affect Care: None Current Living Situation: Spouse Current Living Situation Comment: Per pt report - pt is confused. 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 Feels Safe at Home: Yes Safety Concerns: Feels Safe At This Time Assistive Devices: Walker Allergies Allergies Allergy/AdvReac Type Severity Reaction Status Date / Time Penicillins Allergy Mild RASH Verified 02/12/22 17:58 morphine AdvReac Mild bp drops Verified 02/12/22 17:58 Home Meds Home Medications Medication Instructions Recorded Confirmed bupropion HCl 150 mg tablet,12 hr 150 mg PO QAM 09/10/18 02/12/22 sustained-release (Wellbutrin SR) pantoprazole 20 mg tablet,delayed 40 mg PO QAM 09/10/18 02/12/22 release tramadol 50 mg tablet 100 mg PO TID PRN Pain 09/10/18 02/12/22 atorvastatin 40 mg tablet 40 mg PO HS 07/10/19 02/12/22 tamsulosin 0.4 mg capsule 0.4 mg PO QAM 07/10/19 02/12/22 warfarin 5 mg tablet 5 - 7.5 mg PO DIRECTED 10/31/19 02/12/22 metformin 500 mg tablet,extended 500 mg PO QPM 09/27/21 02/12/22 release 24 hr memantine 5 mg tablet (Namenda) 2.5 mg PO QPM 11/01/21 02/12/22 carbidopa 25 mg-levodopa 100 mg 1 tab PO TID 01/01/22 02/12/22 tablet duloxetine 60 mg capsule,delayed 60 mg PO QAM 01/28/22 02/12/22 release (Cymbalta) mirabegron 25 mg tablet,extended 25 mg PO QAM 01/28/22 02/12/22 release 24 hr propranolol 80 mg capsule,24 80 mg PO QAM 01/28/22 02/12/22 hr,extended release duloxetine 30 mg capsule,delayed 30 mg PO DAILY 02/12/22 02/12/22 release multivitamin 1 tab PO DAILY 02/12/22 02/12/22 Previous Rx's Medication Instructions Recorded pregabalin 200 mg capsule 200 mg PO TID 30 days #90 caps 08/23/21 nitrofurantoin macrocrystal 100 mg 100 mg PO BID #14 caps 02/11/22 capsule Results & Data (ED) Vital Signs Vital Signs - 24 hr 02/12/22 13:33 02/12/22 15:25 02/12/22 15:30 Temperature 37.2 C Temperature Source Oral Pulse Rate 73 66 Pulse Rate [Apical] 67 Pulse Rhythm Regular Pulse Strength Normal Respiratory Rate 18 18 16 Respiratory Effort / Characteristics Non-Labored Spontaneous Non-Labored Spontaneous Respiratory Depth Normal Normal Respiratory Pattern Regular Regular Blood Pressure 168/86 H 165/91 H Blood Pressure [Left Arm] 169/87 H Blood Pressure Mean 113 115 Blood Pressure Mean [Left Arm] 114 Blood Pressure Position Lying Blood Pressure Position [Left Arm] Lying Pulse Oximetry 94 96 95 Oxygen Delivery Method Room Air Room Air Sepsis Recent Fever Within 48 Hours No Sepsis New/Unexplained Change in Mental Status N/A Sepsis Action Taken by Nursing No Action Required 02/12/22 16:00 02/12/22 17:00 02/12/22 16:30 Temperature Temperature Source Pulse Rate 66 66 Pulse Rate [Apical] 92 H Pulse Rhythm Pulse Strength Respiratory Rate 18 20 18 Respiratory Effort / Characteristics Respiratory Depth Respiratory Pattern Blood Pressure 163/81 H 141/81 H Blood Pressure [Left Arm] 168/85 H Blood Pressure Mean 108 101 Blood Pressure Mean [Left Arm] 112 Blood Pressure Position Blood Pressure Position [Left Arm] Pulse Oximetry 95 96 96 Oxygen Delivery Method Sepsis Recent Fever Within 48 Hours Sepsis New/Unexplained Change in Mental Status Sepsis Action Taken by Nursing 02/12/22 17:00 02/12/22 17:31 Temperature Temperature Source Pulse Rate 67 69 Pulse Rate [Apical] Pulse Rhythm Pulse Strength Respiratory Rate 18 17 Respiratory Effort / Characteristics Respiratory Depth Respiratory Pattern Blood Pressure 164/95 H 168/95 H Blood Pressure [Left Arm] Blood Pressure Mean 118 119 Blood Pressure Mean [Left Arm] Blood Pressure Position Blood Pressure Position [Left Arm] Pulse Oximetry 97 Oxygen Delivery Method Sepsis Recent Fever Within 48 Hours Sepsis New/Unexplained Change in Mental Status Sepsis Action Taken by Nursing Laboratory Data Result diagrams: 02/13/22 06:31 02/13/22 06:31 Lab Results 02/12/22 02/12/22 02/12/22 Range/Units 13:47 13:47 13:47 WBC 7.96 (4.8-10.8) K/ul RBC 5.17 (4.63-6.08) M/uL Hgb 15.2 (14.0-18.0) g/dl Hct 46.5 (40.1-51.0) % MCV 89.9 (80.0-100.0) fL MCH 29.4 (25.0-34.0) pg MCHC 32.7 (32.0-36.0) g/dL RDW Std Deviation 45.0 (36.4-46.3) fL RDW Coeff of [place] 13.6 (11.5-14.5) % Plt Count 169 (130-400) K/uL MPV 10.4 (9.4-12.4) fL Immature Gran % (Auto) 0.3 % Neut % (Auto) 75.7 % Lymph % (Auto) 8.7 % [place] % (Auto) 14.2 % Eos % (Auto) 0.8 % Baso % (Auto) 0.3 % Neut # (Auto) 6.04 (1.4-6.5) K/uL Lymph # (Auto) 0.69 L (1.2-3.4) K/uL [place] # (Auto) 1.13 H (0.24-0.82) K/uL Eos # (Auto) 0.06 (0-0.50) K/uL Baso # (Auto) 0.02 (0-0.2) K/uL Immature Gran # (Auto) 0.02 (0.00-0.02) K/uL PT (9.0-12.0) Seconds INR (0.9-1.1) Sodium 138 (136-145) mmol/L Potassium 3.7 (3.5-5.1) mmol/L Chloride 102 (98-107) mmol/L Carbon Dioxide 31 (21-32) mmol/L Anion Gap 5 (3-11) BUN 22 (6-23) mg/dl Creatinine 1.07 (0.6-1.4) mg/dl Est Cr Clr Drug Dosing 67.0 ml/min Est GFR ( Amer) 77.2 ml/min Est GFR (Non-Af Amer) 66.6 ml/min BUN/Creatinine Ratio 20.6 H (10-20) Glucose 143 H (70-99(Fasting)) mg/dl Calcium 9.3 (8.5-10.1) mg/dl Total Bilirubin 0.9 (0.2-1.0) mg/dl AST 49 H (13-39) U/L ALT 7 (7-52) U/L Alkaline Phosphatase 98 (34-104) U/L Total Protein 7.6 (6.0-8.3) gm/dl Albumin 3.9 (3.4-5.0) gm/dl Globulin 3.7 (2.5-4.0) gm/dl Albumin/Globulin Ratio 1.1 (0.9-2) TSH 4.840 H (0.300-4.500) uIu/ml Urine Color Urine Appearance (Clear) Urine pH (4.5-7.5) Ur Specific [place] (1.000-1.030) Urine Protein (Negative) Urine Glucose (UA) (Negative) Urine Ketones (Negative) Urine Blood (Negative) Urine Nitrite (Negative) Urine Bilirubin (Negative) Urine Urobilinogen (Negative) Ur Leukocyte Esterase (Negative) Urine WBC (Auto) (0-5) /hpf Urine RBC (Auto) (0-4) /hpf U Hyaline Cast (Auto) (0-5) /lpf U Epithel Cells (Auto) (0-5) /lpf Urine Bacteria (Auto) (Negative) SARS-CoV-2, RNA, NAAT (NEGATIVE) 02/12/22 02/12/22 02/12/22 Range/Units 13:47 15:26 17:08 WBC (4.8-10.8) K/ul RBC (4.63-6.08) M/uL Hgb (14.0-18.0) g/dl Hct (40.1-51.0) % MCV (80.0-100.0) fL MCH (25.0-34.0) pg MCHC (32.0-36.0) g/dL RDW Std Deviation (36.4-46.3) fL RDW Coeff of [place] (11.5-14.5) % Plt Count (130-400) K/uL MPV (9.4-12.4) fL Immature Gran % (Auto) % Neut % (Auto) % Lymph % (Auto) % [place] % (Auto) % Eos % (Auto) % Baso % (Auto) % Neut # (Auto) (1.4-6.5) K/uL Lymph # (Auto) (1.2-3.4) K/uL [place] # (Auto) (0.24-0.82) K/uL Eos # (Auto) (0-0.50) K/uL Baso # (Auto) (0-0.2) K/uL Immature Gran # (Auto) (0.00-0.02) K/uL PT 26.6 H (9.0-12.0) Seconds INR 2.6 H (0.9-1.1) Sodium (136-145) mmol/L Potassium (3.5-5.1) mmol/L Chloride (98-107) mmol/L Carbon Dioxide (21-32) mmol/L Anion Gap (3-11) BUN (6-23) mg/dl Creatinine (0.6-1.4) mg/dl Est Cr Clr Drug Dosing ml/min Est GFR ( Amer) ml/min Est GFR (Non-Af Amer) ml/min BUN/Creatinine Ratio (10-20) Glucose (70-99(Fasting)) mg/dl Calcium (8.5-10.1) mg/dl Total Bilirubin (0.2-1.0) mg/dl AST (13-39) U/L ALT (7-52) U/L Alkaline Phosphatase (34-104) U/L Total Protein (6.0-8.3) gm/dl Albumin (3.4-5.0) gm/dl Globulin (2.5-4.0) gm/dl Albumin/Globulin Ratio (0.9-2) TSH (0.300-4.500) uIu/ml Urine Color Dark Yellow Urine Appearance Clear (Clear) Urine pH 5.5 (4.5-7.5) Ur Specific [place] 1.034 H (1.000-1.030) Urine Protein 2+ H (Negative) Urine Glucose (UA) Negative (Negative) Urine Ketones Trace H (Negative) Urine Blood 3+ H (Negative) Urine Nitrite Negative (Negative) Urine Bilirubin 1+ H (Negative) Urine Urobilinogen Negative (Negative) Ur Leukocyte Esterase 2+ H (Negative) Urine WBC (Auto) >30 H (0-5) /hpf Urine RBC (Auto) 0-4 (0-4) /hpf U Hyaline Cast (Auto) 1-5 (0-5) /lpf U Epithel Cells (Auto) 0-5 (0-5) /lpf Urine Bacteria (Auto) Negative (Negative) SARS-CoV-2, RNA, NAAT NEGATIVE (NEGATIVE) Administered Medications Atorvastatin Calcium (Atorvastatin 40 Mg Tab) [facility] Stop: 03/14/22 22:00 Last Admin: 02/12/22 22:54 Dose: 40 mg Documented By: SW Bupropion HCl (Bupropion Xl 150 Mg Tabcr) [facility] [place] Stop: 03/15/22 08:59 Last Admin: 02/13/22 08:53 Dose: 150 mg Documented By: DLS Duloxetine HCl (Duloxetine Hcl 60 Mg Cap) [facility] [place] Stop: 03/15/22 08:59 Last Admin: 02/13/22 08:54 Dose: 60 mg Documented By: MAMIE Memantine (Memantine Hcl 2 Mg/Ml Ml) 2.5 mg PO QPM [facility] Stop: 03/14/22 22:00 Last Admin: 02/13/22 00:14 Dose: Not Given Documented By: RODOLFO Pregabalin (Pregabalin 100 Mg Cap) 200 mg PO TID [facility] Stop: 03/14/22 22:00 Last Admin: 02/13/22 08:53 Dose: 200 mg Documented By: Admin: 02/12/22 22:54 Dose: 200 mg Documented By: RODOLFO Propranolol HCl (Propranolol Hcl La 80 Mg Capcr) 80 [facility] [place] Stop: 03/15/22 08:59 Last Admin: 02/13/22 08:53 Dose: 80 mg Documented By: MAMIE Tamsulosin HCl (Tamsulosin Hcl 0.4 Mg Cap) 0.4 [facility] [place] Stop: 03/15/22 08:59 Last Admin: 02/13/22 08:54 Dose: 0.4 mg Documented By: MAMIE Discontinued Medications Carbidopa/Levodopa (Carbidopa/Levodopa 25/100mg Tab) 1 tab PO TID JESSICA Stop: 02/12/22 23:59 Last Admin: 02/12/22 22:54 Dose: 1 tab Documented By: RODOLFO Sodium Chloride (Nss 1000ml) 500 mls @ 999 mls/hr IV .Q31M ONE Stop: 02/12/22 15:01 Last Infusion: 02/12/22 15:24 Dose: 0 mls/hr Documented By: Admin: 02/12/22 14:39 Dose: 999 mls/hr Documented By: MOSHE Sodium Chloride (Nss 1000ml) 1,000 mls @ 100 mls/hr IV .Q10H STA Stop: 02/13/22 00:30 Last Infusion: 02/13/22 00:32 Dose: 0 mls/hr Documented By: Admin: 02/12/22 15:24 Dose: 125 mls/hr Documented By: MELISSA Ceftriaxone Sodium (Rocephin) 2,000 mg in 70 mls @ 140 mls/hr IV NOW STA Stop: 02/12/22 17:28 Last Infusion: 02/12/22 18:00 Dose: 0 mls/hr Documented By: Admin: 02/12/22 17:13 Dose: 140 mls/hr Documented By: [facility] Imaging Data Radiologist's Impression: Head CT 02/12/22 14:31 CT head/brain wo con CLINICAL HISTORY: weakness, L leg, hx of SDH Technique: Contiguous axial CT images of the head were acquired from the base of the skull to the vertex without intravenous contrast administration. Images were viewed in brain, subdural and bone windows. Automated dose lowering techniques and/or adjustment according to patient size were utilized for this exam. Comparison: Comparison is made to CT head 01/25/2022 Findings: Areas of decreased attenuation are present in the periventricular and subcortical white matter bilaterally consistent with small vessel ischemic dis ease. Generalized cerebral atrophy with commensurate enlargement of the ventricles, sulci, and cisterns is also present. There is no acute intracranial hemorrhage or evidence of acute territorial infarction. No shift of the midline structures, mass effect, or extra-axial abnormalities are shown. At herosclerotic calcifications are present in the intracranial segments of the internal carotid arteries. Imaged portions of the paranasal sinuses and mastoid air cells are clear. The orbits appear normal. There are no acute fractures of the calvaria or scalp swelling. Old postsurgical changes of right craniotomy noted. Impression: No acute intracranial hemorrhage, no evidence of acute territorial infarction or other acute intracranial disease process. ACT 112: Negative or not required by law. Electronically signed by: Birght Leonardo M.D. 02/12/2022 4:00 PM Discharge Plan Visit Data Chief Complaint: Weakness ED Provider: Gunnar Menendez Discharge Problem: Generalized weakness Patient Disposition: Admitted As Inpatient Discharge Instructions Interventions: ED Discharge Assessment Last Done: 02/12/22 21:21
[2022-02-12] MEDS ORDERED: cefTRIAXone SODIUM 2,000 MG/70 ML BAG IV STA (16:59)
[2022-02-12 17:24] LABS: INR 2.6 (0.9-1.1); Prothrombin Time 26.6 Seconds (9.0-12.0)
[2022-02-12 17:45] LABS: Appearance Urine Clear (Clear); Bacteria Urine Automated Negative (Negative); Blood Urine 3+ (Negative); Color Urine Dark Yellow; Epithelial Cell Urine Auto 0-5 /lpf (0-5); Glucose Urine UA Negative (Negative); Ketones Urine Trace (Negative); Leukocyte Esterase Urine 2+ (Negative); Nitrite Urine Negative (Negative); Protein Urine 2+ (Negative); Specific Gravity Urine 1.034 (1.000-1.030); Urobilinogen Urine Negative (Negative); WBC Urine Automated >30 /hpf (0-5); pH Urine 5.5 (4.5-7.5)
[2022-02-12 17:47] LABS: Bilirubin Urine 1+ (Negative)
[2022-02-12 18:01] LABS: RBC Urine Automated 0-4 /hpf (0-4)
--- NOTE | 2022-02-12 18:01 | History & Physical Report ---
Date of Service February 12, 2022 Assessment & Plan (1) Generalized weakness: Plan: - Afebrile with normal wbc count and electrolytes - Renal function WNL - Abnormal UA which appears c/w UTI - 2+ leukocyte esterase and >30 wbc and 2+ bacteria - Urine culture from urine collected 02/11 is pending - Started macrobid at home, despite which continues to be increasingly weak--> started on Rocephin in ED today, will continue - IVF hydration with NSS - PT/OT eval - Case management to assist in d/c planning (2) Mechanical heart valve present: Plan: - Currently on Coumadin with an INR of 2.6 - Start bridging with Lovenox 1mg/kg q12h - first dose on 02/13 in AM - Bridge in anticipation of upcoming surgical resection of bladder tumor (3) Parkinsonism: Plan: - Continue Sinemet - PT/OT (4) Dementia: Plan: - Continue Namenda (5) Bladder tumor: Plan: - Following with urology ([facility]) with plans for surgical resection 02/16 Plan Interventions as outlined above. Repeat labs in AM. Continue IV antibiotics until cultures finalized and can tailor abx accordingly. Plan d/w Dr. Kapadia, further orders as warranted. History of Present Illness Chief Complaint: weakness Primary Care Provider: Leti Camacho MD Mr. 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 Malik on Friday 02/16. Patient's , who provides the history given pt's dementia he is an unreliable historian, notes that over the past 24 hours he has becoming progressively more weak and today was unable to assist him out of bed which is unusual and she subsequently called EMS. Pt also had poor oral intake yesterday. Pt denies urinary frequency, urgency, foul smelling or dark urine. He denies fever, chills, abdominal or back pain, n/v/d. For part of his work up for his planned surgery, he underwent a urinalysis as an outpatient and was contacted by Dr. Malik' office to inform him that he had a UTI. He was started on an antibiotic (Macrobid) but thus far has only had 2 doses. Allergies Allergy/AdvReac Type Severity Reaction Status Date / Time Penicillins Allergy Mild RASH Verified 02/12/22 17:58 morphine AdvReac Mild bp drops Verified 02/12/22 17:58 Home Medications Medication Instructions Recorded Confirmed Type bupropion HCl 150 mg tablet,12 hr 150 mg PO QAM 09/10/18 02/12/22 History sustained-release (Wellbutrin SR) pantoprazole 20 mg tablet,delayed 40 mg PO QAM 09/10/18 02/12/22 History release tramadol 50 mg tablet 100 mg PO TID PRN Pain 09/10/18 02/12/22 History atorvastatin 40 mg tablet 40 mg PO HS 07/10/19 02/12/22 History tamsulosin 0.4 mg capsule 0.4 mg PO QAM 07/10/19 02/12/22 History warfarin 5 mg tablet 5 - 7.5 mg PO DIRECTED 10/31/19 02/12/22 History pregabalin 200 mg capsule 200 mg PO TID 30 days #90 caps 08/23/21 02/12/22 Rx metformin 500 mg tablet,extended 500 mg PO QPM 09/27/21 02/12/22 History release 24 hr memantine 5 mg tablet (Namenda) 2.5 mg PO QPM 11/01/21 02/12/22 History carbidopa 25 mg-levodopa 100 mg 1 tab PO TID 01/01/22 02/12/22 History tablet duloxetine 60 mg capsule,delayed 60 mg PO QAM 01/28/22 02/12/22 History release (Cymbalta) mirabegron 25 mg tablet,extended 25 mg PO QAM 01/28/22 02/12/22 History release 24 hr propranolol 80 mg capsule,24 80 mg PO QAM 01/28/22 02/12/22 History hr,extended release nitrofurantoin macrocrystal 100 mg 100 mg PO BID #14 caps 02/11/22 02/12/22 Rx capsule duloxetine 30 mg capsule,delayed 30 mg PO DAILY 02/12/22 02/12/22 History release multivitamin 1 tab PO DAILY 02/12/22 02/12/22 History Past Med/Surg History Medical History (Updated 02/12/22 @ 17:53 by Ely Mckeon PA-C) Atrial fibrillation Paroxysmal per records Pt denies history Follows with cardio- on Coumadin Benign essential tremor BPH (benign prostatic hyperplasia) Chronic back pain Degenerative disc disease Dementia Experiences short term memory loss. Alert and oriented to person. Confusion with places and time. Depression Diabetes mellitus, type 2 NIDDM Recently dx'ed- does not check glucose regularly GERD (gastroesophageal reflux disease) Well controlled and stable Hearing deficit Hyperlipidemia Hypertension Irregular heart beat Occasional episodes of trigeminy. Follows with Dr Isaac Mechanical heart valve present MV replacement 1996- mechanical- on Coumadin Neuropathy involving both lower extremities On anticoagulant therapy Warfarin daily Parkinson disease Parkinson's dementia per records Subdural hematoma (01/01/22) - Presented to the Emergency room 01/01/22 at [facility] and transferred to [facility] and treated inpatient for several days and then went to [facility] for rehab. Patient discharged home ~01/21/22. No surgery had been done, reports it was a spontaneous hematoma. Denies any fall. - Pt's mental status back to baseline -Coumadin has since been restarted- tolerating well. Transient ischemic attack (TIA) In --no deficits Surgical History History of back surgery x2 History of colonoscopy History of craniotomy x2 (~2011)- secondary to subdural hematoma- had fall at that time History of esophagogastroduodenoscopy (EGD) History of hand surgery right hand finger History of inguinal hernia repair x5 History of mitral valve replacement [address] [facility] -- mechanical History of umbilical hernia repair History of wisdom tooth extraction Status post LASIK surgery of both eyes Family History Daughter Family hx of colon cancer Colorectal cancer Mother Cardiac pacemaker Brother Stroke Hypertension Prostate cancer Father Stroke Grandfather (Maternal) Suicide Grandfather (Paternal) Tuberculosis Other No family history of adverse response to anesthesia Social History (Updated 11/23/21 @ 11:13 by Haley Oliveros) Smoking Status: Never smoker Second Hand Exposure: No; Hx Alcohol Use: Yes Alcohol type: beer, wine and hard liquor Hx Substance Use: No Preferred Language: Belarusian Communication Ability: Effective Copy And [employer] Associate Required: No Beliefs That Will Affect Care: None Current Living Situation: Spouse current occupational status: retired 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 Denies fever, chills, fatigue, headache, nasal congestion, sore throat, cough, chest pain, shortness of breath, palpitations, orthopnea, PND, abdominal pain, n/v/d, constipation, dysuria, hematuria, frequency, back pain, joint pain or swelling, easy bruising or bleeding, skin lesions or rashes. Physical Exam Physical Exam: GENERAL: 77 yo Well-developed, well-nourished elderly WM. NAD. EYES: EOMI. PERRLA. Anicteric. HENT: Moist mucous membranes. No scleral icterus. No cervical lymphadenopathy. LUNGS: Clear to auscultation bilaterally. No W/R/R. CARDIOVASCULAR: Regular rate and rhythm. No M/G/R. No JVD. ABDOMEN: Soft, non-tender and non-distended. BS normoactive x 4 quad. EXTREMITIES: No edema. Non-tender. Peripheral pulses +2/4. NEUROLOGIC: Awake, alert, and oriented. Some mild LLE weakness but otherwise nonfocal. PSYCHIATRIC: Cooperative. Appropriate mood and affect. SKIN: Warm, dry, intact. No rashes or lesions. Results & Data Results & Data ([facility]) Vital Signs (Past 12 Hours) Vital Signs Temp Pulse Pulse Resp BP BP Pulse Ox 02/12/22 17:00 92 H 20 168/85 H 96 02/12/22 16:00 66 18 163/81 H 95 02/12/22 15:30 66 16 165/91 H 95 02/12/22 15:25 67 18 169/87 H 96 02/12/22 13:33 37.2 C 73 18 168/86 H 94 O2 Del Method 02/12/22 17:00 02/12/22 16:00 02/12/22 15:30 02/12/22 15:25 Room Air 02/12/22 13:33 Room Air Laboratory Results 02/12/22 13:47 02/12/22 13:[address] 02/12/22 14:31 CT head/brain wo con CLINICAL HISTORY: weakness, L leg, hx of SDH Technique: Contiguous axial CT images of the head were acquired from the base of the skull to the vertex without intravenous contrast administration. Images were viewed in brain, subdural and bone windows. Automated dose lowering techniques and/or adjustment according to patient size were utilized for this exam. Comparison: Comparison is made to CT head 01/25/2022 Findings: Areas of decreased attenuation are present in the periventricular and subcortical white matter bilaterally consistent with small vessel ischemic disease. Generalized cerebral atrophy with commensurate enlargement of the ventricles, sulci, and cisterns is also present. There is no acute intracranial hemorrhage or evidence of acute territorial infarction. No shift of the midline structures, mass effect, or extra-axial abnormalities are shown. Atherosclerotic calcifications are present in the intracranial segments of the internal carotid arteries. Imaged portions of the paranasal sinuses and mastoid air cells are clear. The orbits appear normal. There are no acute fractures of the calvaria or scalp swelling. Old postsurgical changes of right craniotomy noted. Impression: No acute intracranial hemorrhage, no evidence of acute territorial infarction or other acute intracranial disease process. ACT 112: Negative or not required by law. Electronically signed by: Bright Leonardo M.D. 02/12/2022 4:00 PM ECG Additional Comments: NSR w/o acute st-t wave changes Code Status & VTE Plan Code Status cpr and defib ok, no intubation/mechanical vent Supervising Physician Co-Signing Physician Notes Patient was seen and examined independently I discussed the case with Niecy Mckeon PAC I reviewed pertinent past medical social family history and also the plan of care and agree with the plan of care. Patient presents with weakness. Patient is scheduled to have a TURB this week he was supposed to transition from warfarin to lovenox as he takes for mechanical MVR Pt has evidence of abnormal ua and likely uti poa treated with volume resuscitation and Rocephin Any exceptions will be noted below PG Care Time/CCT Total # of Minutes Spent Total Time Spent with Patient: Total time spent is greater than 50% in coordination of care (as documented) at patient's floor/unit and/or counseling patient: Coding Level of Care Code 86553 Initial Inpt Care Lvl 2 Diagnoses Generalized weakness R53.1 Mechanical heart valve present Z95.2 Parkinsonism G20 Dementia F03.90 Bladder tumor D49.4
[2022-02-12] MEDS ORDERED: ALUMINUM/MAGNESIUM SUSP 30 ML UDC PO PRN (22:01)
[2022-02-12] MEDS ORDERED: MAGNESIUM HYDROXIDE SUSP 30 ML UDC PO PRN (22:01)
[2022-02-12] MEDS ORDERED: POLYETHYLENE (MIRALAX) 17 GM PACK PO PRN (22:01)
[2022-02-12] MEDS ORDERED: traMADol HCL 50 MG TABLET PO PRN (22:01)
[2022-02-12] MEDS ORDERED: CARBIDOPA/LEVODOPA 25/100MG TAB PO SCH (22:01)
[2022-02-12] MEDS ORDERED: ONDANSETRON INJ 2 MG/ML 2 ML VIAL IV PRN (22:01)
[2022-02-12] MEDS: ATORVASTATIN 40 MG TAB PO SCH (22:54)
[2022-02-12] MEDS: PREGABALIN 100 MG CAP PO SCH (22:54)
--- NOTE | 2022-02-12 23:59 | Communication Note ---
Date of Service: February 12, 2022 Notified by pharmacy about checking INR tomorrow AM. His INR today was 2.6 and plan is to bridge warfarin to therapeutic Lovenox on the days prior to surgery. Will check INR in AM because if INR still supratherapeutic, then postpone starting of the Lovenox d/t increased risk of bleeding. Start time of the Lovenox has been changed from 9AM tomorrow to 9PM tomorrow. Day hospitalist to give dose in AM if appropriate.
[2022-02-13] MEDS: MEMANTINE HCL PO SCH ×2 (00:14→21:56)
[2022-02-13 07:34] LABS: INR 2.6 (0.9-1.1); Partial Thromboplastin Ratio 1.7; Prothrombin Time 26.1 Seconds (9.0-12.0)
[2022-02-13 07:47] LABS: Partial Thromboplastin Time 46.8 Seconds (21.0-31.0)
[2022-02-13 08:21] LABS: Basophils # (auto) 0.03 K/uL (0-0.2); Basophils % (auto) 0.5 %; Eosinophils # (auto) 0.09 K/uL (0-0.50); Eosinophils % (auto) 1.4 %; Hematocrit (blood only) 43.6 % (40.1-51.0); Immature Granulocytes # (auto) 0.01 K/uL (0.00-0.02); Immature Granulocytes % (auto) 0.2 %; Lymphocytes # (auto) 0.89 K/uL (1.2-3.4); Lymphocytes % (auto) 13.6 %; Mean Corpuscular Hemoglobin 29.4 pg (25.0-34.0); Mean Corpuscular Hgb Conc 32.1 g/dL (32.0-36.0); Mean Corpuscular Volume 91.6 fL (80.0-100.0); Mean Platelet Volume 11.1 fL (9.4-12.4); Monocytes # (auto) 1.29 K/uL (0.24-0.82); Monocytes % (auto) 19.8 %; Neutrophils # (auto) 4.22 K/uL (1.4-6.5); Neutrophils % (auto) 64.5 %; Platelet Count 153 K/uL (130-400); RDW Coefficient of Variation 13.9 % (11.5-14.5); RDW Standard Deviation 46.7 fL (36.4-46.3); Red Blood Count 4.76 M/uL (4.63-6.08); White Blood Count 6.53 K/ul (4.8-10.8)
[2022-02-13 08:44] LABS: BUN Creatinine Ratio 24.7 (10-20); Calcium 8.9 mg/dl (8.5-10.1); Creatinine Clr Calc Pharmacy 80.6 ml/min; Est GFR (African American) 95.6 ml/min; Est GFR (Non-African American) 82.5 ml/min; Magnesium 1.8 mg/dl (1.7-2.4); Potassium 3.9 mmol/L (3.5-5.1)
[2022-02-13] MEDS: PROPRANOLOL HCL LA 80 MG CAPCR PO SCH (08:53)
[2022-02-13] MEDS: PREGABALIN 100 MG CAP PO SCH ×3 (08:53→20:56)
[2022-02-13] MEDS: buPROPion XL 150 MG TABCR PO SCH (08:53)
[2022-02-13] MEDS: TAMSULOSIN HCL 0.4 MG CAP PO SCH (08:54)
[2022-02-13] MEDS: DULoxetine HCL 60 MG CAP PO SCH (08:54)
[2022-02-13] MEDS ORDERED: ENOXAPARIN 80 MG/0.8 ML SYR SQ SCH (09:00)
[2022-02-13] MEDS: ENOXAPARIN 100 MG/1ML SYR SQ SCH ×2 (09:33→20:55)
[2022-02-13] MEDS: CARBIDOPA/LEVODOPA 25/100MG TAB PO SCH ×3 (11:57→20:56)
--- NOTE | 2022-02-13 12:37 | Hospitalist Progress Note ---
Date of Service February 13, 2022 Assessment & Plan (1) Generalized weakness: Plan: - Afebrile with normal wbc count and electrolytes - Renal function WNL - Abnormal UA which appears c/w UTI - 2+ leukocyte esterase and >30 wbc - Urine culture from urine collected 02/11 notes three types of organisms present, all mod counts ?skin mandy, repeat culture from 02/12 pending - Started macrobid at home, despite which continues to be increasingly weak--> started on Rocephin in ED today, will continue - IVF hydration with NSS - PT/OT eval - Case management to assist in d/c planning (2) Mechanical heart valve present: Plan: - Currently on Coumadin with an INR of 2.6 - Start bridging with Lovenox 1mg/kg q12h - first dose on 02/13 in AM - Bridge in anticipation of upcoming surgical resection of bladder tumor (3) Parkinsonism: Plan: - Continue Sinemet - PT/OT (4) Dementia: Plan: - Continue Namenda (5) Bladder tumor: Plan: - Following with urology ([facility]) with plans for surgical resection Wed 02/16 Plan Maintain hospitalization for today, await PT/OT eval. Will consult CM if therapy feels pt will need rehab upon dc. Plan to be d/w Dr. Kapadia. Admission and Anticipated Discharge Date Admission Date: February 12, 2022 Subjective Patient was seen on rounds this morning. He is resting comfortably, verbalizes no complaints. He is completely oriented and seems less weak/lethargic today. Review of Systems Review of Systems: All systems reviewed and are unremarkable except as noted in HPI and below. Denies fever, chills, fatigue, headache, nasal congestion, sore throat, cough, chest pain, shortness of breath, palpitations, orthopnea, PND, abdominal pain, n/v/d, constipation, dysuria, hematuria, frequency, back pain, joint pain or swelling, easy bruising or bleeding, skin lesions or rashes. Physical Exam Physical Exam: GENERAL: 77 yo Well-developed, well-nourished elderly WM. NAD. LUNGS: Clear to auscultation bilaterally. No W/R/R. CARDIOVASCULAR: Regular rate and rhythm. mechanical valve murmur noted ABDOMEN: Soft, non-tender and non-distended. BS normoactive x 4 quad. EXTREMITIES: No edema. Non-tender. Peripheral pulses +2/4. NEUROLOGIC: Awake, alert, and oriented. Some mild LLE weakness but otherwise nonfocal. PSYCHIATRIC: Cooperative. Appropriate mood and affect. SKIN: Warm, dry, intact. No rashes or lesions. Results & Data Results & Data ([facility]) Vital Signs (Past 12 Hours) Vital Signs Temp Pulse Resp BP Pulse Ox O2 Del Method 02/13/22 07:39 36.4 C L 68 20 144/79 H 93 Room Air Laboratory Results 02/13/22 06:31 02/13/22 06:31 PG Care Time/CCT Total # of Minutes Spent Total Time Spent with Patient: Total time spent is greater than 50% in coordination of care (as documented) at patient's floor/unit and/or counseling patient: Coding Level of Care Code 12227 Subseq Hosp Care Lvl 2 Diagnoses Generalized weakness R53.1 Mechanical heart valve present Z95.2 Parkinsonism G20 Dementia F03.90 Bladder tumor D49.4
--- NOTE | 2022-02-13 13:31 | Electrocardiogram Report ---
Test Reason : Blood Pressure : / mmHG Vent. Rate : 074 BPM Atrial Rate : 074 BPM P-R Int : 188 ms QRS Dur : 118 ms QT Int : 424 ms P-R-T Axes : 064 -02 115 degrees QTc Int : 470 ms Normal sinus rhythm Non-specific intra-ventricular conduction delay Nonspecific ST and T wave abnormality Abnormal ECG When compared with ECG of 01-JAN-2022 20:20, No significant change was found Confirmed by Severiano Dumas ([id number]) on 02/13/2022 1:31:10 PM Referred By: REFERRED SELF Confirmed By:Severiano Dumas
[2022-02-13] MEDS: SODIUM CHLORIDE 0.9% 1000ML 1,000 ML IV SCH (14:14)
[2022-02-13] MEDS ORDERED: cefTRIAXone SODIUM 2,000 MG in DEXTROSE 5% 50 ML IV SCH (16:00)
[2022-02-13] MEDS: ACETAMINOPHEN 325 MG TAB PO PRN (20:55)
[2022-02-13] MEDS: ATORVASTATIN 40 MG TAB PO SCH (20:56)
[2022-02-13] MEDS ORDERED: ENOXAPARIN 100 MG/1ML SYR SQ SCH (21:00)
[2022-02-13] MEDS: MEMANTINE HCL 5 MG TAB PO SCH (21:38)
[2022-02-14] MEDS: SODIUM CHLORIDE 0.9% 1000ML 1,000 ML IV SCH (03:01)
[2022-02-14] MEDS: PREGABALIN 100 MG CAP PO SCH ×3 (08:59→21:15)
[2022-02-14] MEDS: ENOXAPARIN 100 MG/1ML SYR SQ SCH ×2 (08:59→21:12)
[2022-02-14] MEDS: DULoxetine HCL 60 MG CAP PO SCH (09:01)
[2022-02-14] MEDS: TAMSULOSIN HCL 0.4 MG CAP PO SCH (09:02)
[2022-02-14] MEDS: buPROPion XL 150 MG TABCR PO SCH (09:02)
[2022-02-14] MEDS: PROPRANOLOL HCL LA 80 MG CAPCR PO SCH (09:02)
[2022-02-14] MEDS: CARBIDOPA/LEVODOPA 25/100MG TAB PO SCH ×3 (11:41→21:11)
--- NOTE | 2022-02-14 12:01 | Hospitalist Progress Note ---
Date of Service February 14, 2022 Assessment & Plan (1) UTI (urinary tract infection) due to Enterococcus: Plan: - Afebrile with normal wbc count and electrolytes - Renal function WNL - Abnormal UA which appears c/w UTI - 2+ leukocyte esterase and >30 wbc - Urine culture from urine collected 02/11 notes three types of organisms present, all mod counts ?skin mandy - Started macrobid at home, despite which continues to be increasingly weak--> started on Rocephin in ED which was continued - Maintenance IVF with NSS provided but will cap today - Maintain perez - Prelim urine cx from 02/12 with growth of enterococcus and strep, d/c Rocephin and start Vanco (PCN allergy) (2) Generalized weakness: Plan: - Generalized weakness in setting of acute UTI - PT/OT eval - recommend rehab - Case management to assist in d/c planning * Referral sent to [facility] (3) Bladder tumor: Plan: - Following with urology ([facility]) with plans for surgical resection Wed 02/16 - Consult urology, updated Dr. Malik, will plan to make NPO after MN on 02/15 - Hold Lovenox on day of surgery, will clarify with urology if they want it held tomorrow evening as well (4) Mechanical heart valve present: Plan: - Currently on Coumadin with an INR of 2.6 - Start bridging with Lovenox 1mg/kg q12h - first dose on 02/13 in AM - Bridge in anticipation of upcoming surgical resection of bladder tumor (5) Parkinsonism: Plan: - Continue Sinemet - PT/OT (6) Dementia: Plan: - Continue Namenda Plan Antibiotic change as above. Maintain hospitalization until after surgery and then transition to acute rehab. Repeat labs in AM. Plan to be d/w Dr. Kapadia. Admission and Anticipated Discharge Date Admission Date: February 12, 2022 Subjective Patient was seen on rounds this morning. He is resting comfortably, verbalizes no complaints. Doesn't remember working with therapy yesterday or if he was able to sit up in the chair. Has has no pain. Urinary catheter in place. He is planned for TURB Monday with Dr. Malik. Review of Systems Review of Systems: All systems reviewed and are unremarkable except as noted in HPI and below. Denies fever, chills, fatigue, headache, nasal congestion, sore throat, cough, chest pain, shortness of breath, palpitations, orthopnea, PND, abdominal pain, n /v/d, constipation, dysuria, hematuria, frequency, back pain, joint pain or swelling, easy bruising or bleeding, skin lesions or rashes. Physical Exam Physical Exam: GENERAL: 77 yo Well-developed, well-nourished elderly WM. NAD. LUNGS: Clear to auscultation bilaterally. No W/R/R. CARDIOVASCULAR: Regular rate and rhythm. mechanical valve murmur noted ABDOMEN: Soft, non-tender and non-distended. BS normoactive x 4 quad. EXTREMITIES: No edema. Non-tender. Peripheral pulses +2/4. NEUROLOGIC: Awake, alert, and oriented. Some mild LLE weakness but otherwise nonfocal. PSYCHIATRIC: Cooperative. Appropriate mood and affect. SKIN: Warm, dry, intact. No rashes or lesions. Results & Data Results & Data ([facility]) Vital Signs (Past 12 Hours) Vital Signs Temp Pulse Pulse Resp BP Pulse Ox O2 Del Method 02/14/22 08:57 64 02/14/22 07:24 36.6 C 59 L 20 144/78 H 94 Room Air 02/14/22 05:38 115/71 Laboratory Results no labs today Spec: [id number] Collected: 02/12/22 Received: 02/12/[address]: Gemma, Gunnar Burks MD Source: Urine,Clean Catch OV Order: Ordered: Urine Culture Procedure Result Verified Site Urine Culture Preliminary 02/14/22 Organism 1 Probable Enterococcus Harmony Count 60,000 CFU/ml Sens Sensitivities to Follow Organism 2 Alpha strep. not enterococcus Harmony Count 30,000 CFU/ml Sens No Sensitivities to Follow PG Care Time/CCT Total # of Minutes Spent Total Time Spent with Patient: Total time spent is greater than 50% in coordination of care (as documented) at patient's floor/unit and/or counseling patient: Coding Level of Care Code 14957 Subseq Hosp Care Lvl 2 Diagnoses UTI (urinary tract infection) due to Enterococcus N39.0; B95.2 Generalized weakness R53.1 Bladder tumor D49.4 Mechanical heart valve present Z95.2 Parkinsonism G20 Dementia F03.90
[2022-02-14] MEDS ORDERED: VANCOMYCIN CONSULT ACTIVE PRN (12:02)
[2022-02-14] MEDS ORDERED: VANCOMYCIN HCL 2,000 MG in SODIUM CHLORIDE 0.9% 500 ML IV ONE (13:00)
--- NOTE | 2022-02-14 14:18 | Pharmacy Report ---
Pharmacy PK ABX Note - Date of Service February 14, 2022 - Assessment and Plan Assessment * Mr Doherty is a 77 year old M receiving Vancomycin for treatment of UTI. * Pertinent microbiologic data includes: Urine culture growing probable Enterococcus, and alpha-strep (sensitivities pending); BCx negative to date * PMH includes DM, BPH, Parkinson's dementia, mechanical valve, bladder tumor -- scheduled for TURB 02/16 * Pt reports a PCN allergy. Plan Vancomycin * Loading dose: Vanc 2000 mg IV x 1 * Maintenance dose: Vanc 1000 mg IV every 12 hours * Regimen is predicted to achieve target AUC/XIAO of 400-600 mg/L.hr * Will order a vanc level after 3-4 doses. Pharmacy will continue to follow and will adjust dose/frequency as necessary. Thank you. Pharmacy has transitioned to AUC monitoring for vancomycin. AUC/XIAO is the preferred PK/PD target and is associated with decreased risk of nephrotoxicity compared to traditional trough targets.
--- NOTE | 2022-02-14 14:57 | Urology Consultation ---
Date of Consultation February 14, 2022 Assessment & Plan (1) Bladder tumor: Plan 77 yo M with multiple comorbidities admitted for weakness and suspected UTI; bladder tumor. - Patient with planned TURBT on 02/[address] Malik. - Subjectively improving per patient and his at bedside. - Afebrile, lab work from reviewed (02/13) - creatinine and WBC within normal limits, INR 2.6. - Urine culture preliminary probable Enterococcus and Alpha strep not Enterococcus. - Blood cultures preliminary no growth x 24 hours. - Currently on IV Vancomycin - follow cultures. - Pt incontinent of urine, condom cath in place. Continue to monitor. - Case discussed with Dr. Malik, siriaay to proceed with surgical intervention as scheduled. - Discussed proceeding with surgical intervention with patient and and they are agreeable to proceed. OR notified. - Plan for TURBT on 02/16/22 presuming he remains medically stable. - Hold Lovenox on evening of 02/15 and day of surgery per Dr. Malik. - Make NPO at [place] prior to surgery. - Continue supportive care, antibiotics, and medical management per primary team. - Urology will follow. Supervising Physician Co-Signing Physician Notes I have discussed Mr. Doherty's case with ROCÍO Puckett and agree with the above documentation. Cystoscopy demonstrated bladder tumor and he is scheduled for surgery on 02/16/2022. At this point I think it is reasonable to proceed with surgery as scheduled and would recommend that we do so due to the amount of coordination (bridging off Coumadin, pretreating UTI, preop labs). Urology will continue to follow along. History of Present Illness Reason for Consultation: Bladder tumor with planned resection 02/16 Requesting Physician: Dr. Kapadia Attending Physician: Yvon Kapadia MD History of Present Illness This is a 77 yo M with a past medical history of dementia, Parkinson's Disease, mechanical MVR on chronic anticoagulation, h/o CVA, hypertension, and bladder tumor admitted for weakness and suspected UTI. Patient is known to the Urology service, follows with Dr. Malik. He is scheduled for TURBT on 02/16. Patient presented to [facility] ED on 02/12/22 due to progressive weakness. He was afebrile on arrival. Lab work reviewed and showed creatinine 1.07, WBC 7.96, Hgb 15.2. Urinalysis 3+ blood, 2+ leukocytes, > 30 WBCs, 0-4 RBCs, negative for bacteria and nitrates. Urine culture collected. ED course included IV fluids and Ceftriaxone. He was admitted to the hospital medicine service for further evaluation and management. Urology service is consulted for evaluation of bladder tumor with planned resection on 02/16. Chart review: Afebrile Labs (02/13) - Creatinine 0.89 WBC 6.53 Hgb 14.0 INR 2.6 Urine culture 02/12 - Prelim Probable Enterococcus, Alpha strep not enterococcus Blood cultures 02/12 - Prelim no growth x 24 hours On IV Vancomycin Patient seen and examined at bedside this afternoon. is present at bedside. Patient is awake and appears comfortable. Patient with hx of dementia, assists in history. He has no complaints at present. Subjectively feeling better, weakness improving. No abdominal or suprapubic pain. Last BM 3-4 days ago. He is incontinent of urine and has a condom catheter intact, draining concentrated urine. He denies nausea or vomiting. No fever or chills. Allergies Allergy/AdvReac Type Severity Reaction Status Date / Time Penicillins Allergy Mild RASH Verified 02/12/22 17:58 morphine AdvReac Mild bp drops Verified 02/12/22 17:58 Home Medications Medication Instructions Recorded Confirmed Type bupropion HCl 150 mg tablet,12 hr 150 mg PO QAM 09/10/18 02/12/22 History sustained-release (Wellbutrin SR) pantoprazole 20 mg tablet,delayed 40 mg PO QAM 09/10/18 02/12/22 History release tramadol 50 mg tablet 100 mg PO TID PRN Pain 09/10/18 02/12/22 History atorvastatin 40 mg tablet 40 mg PO HS 07/10/19 02/12/22 History tamsulosin 0.4 mg capsule 0.4 mg PO QAM 07/10/19 02/12/22 History warfarin 5 mg tablet 5 - 7.5 mg PO DIRECTED 10/31/19 02/12/22 History pregabalin 200 mg capsule 200 mg PO TID 30 days #90 caps 08/23/21 02/12/22 Rx metformin 500 mg tablet,extended 500 mg PO QPM 09/27/21 02/12/22 History release 24 hr memantine 5 mg tablet (Namenda) 2.5 mg PO QPM 11/01/21 02/12/22 History carbidopa 25 mg-levodopa 100 mg 1 tab PO TID 01/01/22 02/12/22 History tablet duloxetine 60 mg capsule,delayed 60 mg PO QAM 01/28/22 02/12/22 History release (Cymbalta) mirabegron 25 mg tablet,extended 25 mg PO QAM 01/28/22 02/12/22 History release 24 hr propranolol 80 mg capsule,24 80 mg PO QAM 01/28/22 02/12/22 History hr,extended release nitrofurantoin macrocrystal 100 mg 100 mg PO BID #14 caps 02/11/22 02/12/22 Rx capsule duloxetine 30 mg capsule,delayed 30 mg PO DAILY 02/12/22 02/12/22 History release multivitamin 1 tab PO DAILY 02/12/22 02/12/22 History Patient History Medical History Atrial fibrillation Paroxysmal per records Pt denies history Follows with cardio- on Coumadin Benign essential tremor BPH (benign prostatic hyperplasia) Chronic back pain Degenerative disc disease Dementia Experiences short term memory loss. Alert and oriented to person. Confusion with places and time. Depression Diabetes mellitus, type 2 NIDDM Recently dx'ed- does not check glucose regularly GERD (gastroesophageal reflux disease) Well controlled and stable Hearing deficit Hyperlipidemia Hypertension Irregular heart beat Occasional episodes of trigeminy. Follows with Dr Isaac Mechanical heart valve present MV replacement 1996- mechanical- on Coumadin Neuropathy involving both lower extremities On anticoagulant therapy Warfarin daily Parkinson disease Parkinson's dementia per records Subdural hematoma (01/01/22) - Presented to the Emergency room 01/01/22 at [facility] and transferred to [facility] and treated inpatient for several days and then went to [facility] for rehab. Patient discharged home ~01/21/22. No surgery had been done, reports it was a spontaneous hematoma. Denies any fall. - Pt's mental status back to baseline -Coumadin has since been restarted- tolerating well. Transient ischemic attack (TIA) In --no deficits Surgical History History of back surgery x2 History of colonoscopy History of craniotomy x2 (~2011)- secondary to subdural hematoma- had fall at that time History of esophagogastroduodenoscopy (EGD) History of hand surgery right hand finger History of inguinal hernia repair x5 History of mitral valve replacement 1996 @ [facility]. 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 Feels Safe at Home: Yes Safety Concerns: Feels Safe At This Time Assistive Devices: Walker Review of Systems Review of Systems: All systems reviewed & are unremarkable except as noted in HPI & below Respiratory: no dyspnea Cardiovascular: no chest pain Physical Exam Constitutional: well developed and well nourished; no acute distress and not ill appearing Eyes: no scleral abnormality Neck: normal visual inspection Respiratory: normal respiratory effort and able to speak in complete sentences; no respiratory distress and no labored breathing Cardiovascular: Extremities: no pedal edema Gastrointestinal (Abdomen): Inspection/Auscultation: abdomen normal to inspection; abdomen not distended Percussion/Palpation: abdomen soft; abdomen nontender and no guarding Musculoskeletal: Extremities: extremities normal to inspection Neurologic: moves all extremities and awake Psychiatric: Orientation: alert and oriented to person Genitourinary: Condom catheter intact draining concentrated yellow urine Results & Data ([facility]) Vital Signs (Past 12 Hours) Vital Signs Temp Pulse Pulse Resp BP Pulse Ox O2 Del Method 02/14/22 08:57 64 02/14/22 07:24 36.6 C 59 L 20 144/78 H 94 Room Air 02/14/22 05:38 115/71 PG Care Time/CCT Total # of Minutes Spent Total Time Spent with Patient: Total time spent is greater than 50% in coordination of care (as documented) at patient's floor/unit and/or counseling patient: Coding Level of Care Code 51678 Initial Inpt Care Lvl 2 Diagnoses Bladder tumor D49.4
[2022-02-14] MEDS: ATORVASTATIN 40 MG TAB PO SCH (21:11)
[2022-02-14] MEDS: MEMANTINE HCL 5 MG TAB PO SCH (21:11)
[2022-02-14] MEDS: VANCOMYCIN HCL 1,000 MG in SODIUM CHLORIDE 0.9% 250 ML IV SCH (22:33)
[2022-02-15] MEDS: buPROPion XL 150 MG TABCR PO SCH (07:49)
[2022-02-15] MEDS: PREGABALIN 100 MG CAP PO SCH ×3 (07:49→20:47)
[2022-02-15] MEDS: DULoxetine HCL 60 MG CAP PO SCH (07:49)
[2022-02-15] MEDS: TAMSULOSIN HCL 0.4 MG CAP PO SCH (07:49)
[2022-02-15] MEDS: PROPRANOLOL HCL LA 80 MG CAPCR PO SCH (07:49)
[2022-02-15] MEDS: ENOXAPARIN 100 MG/1ML SYR SQ SCH (07:50)
--- NOTE | 2022-02-15 08:59 | Urology Progress Note ---
Date of Service February 15, 2022 Assessment & Plan (1) Bladder tumor: Plan: 77 yo M with multiple comorbidities admitted for weakness and suspected UTI; bladder tumor. - Patient with planned TURBT on 02/[address] Malik. - Afebrile, lab work from reviewed (02/13) - creatinine and WBC within normal limits, INR 2.6. - Urine culture grew out Enterococcus and Alpha strep not Enterococcus. - Blood cultures preliminary no growth x 48 hours. - Currently on IV Vancomycin. - Pt incontinent of urine, condom cath in place. Continue to monitor. - Case discussed with Dr. Malik and hospitalist service, okay to proceed with surgical intervention as scheduled tomorrow. - Plan for TURBT on 02/16/22 presuming he remains medically stable. - Hold Lovenox on evening of 02/15 and day of surgery per Dr. Malik. - Make NPO at [place]. - Continue supportive care, antibiotics, and medical management per primary team. - Urology will follow. Admission and Anticipated Discharge Date Admission Date: February 12, 2022 Subjective Patient seen at bedside this AM. He is awake and sitting up in bed eating breakfast. Appears comfortable, offers no complaints at present. No abdominal pain or suprapubic pain. No nausea or vomiting. No fever or chills. Review of Systems Constitutional: as per Subjective / HPI Respiratory: no dyspnea Cardiovascular: no chest pain Gastrointestinal: as per Subjective / HPI Genitourinary: + as per Subjective / HPI Physical Exam Constitutional: well developed and well nourished; no acute distress and not ill appearing Eyes: no scleral abnormality Neck: normal visual inspection Respiratory: normal respiratory effort and able to speak in complete sentences; no respiratory distress and no labored breathing Cardiovascular: Extremities: no pedal edema Gastrointestinal (Abdomen): Inspection/Auscultation: abdomen normal to inspection; abdomen not distended Percussion/Palpation: abdomen soft; abdomen nontender and no guarding Musculoskeletal: Extremities: extremities normal to inspection Neurologic: moves all extremities and awake Psychiatric: Orientation: alert and oriented to person Genitourinary: Condom catheter intact draining concentrated yellow urine Results & Data ([facility]) Vital Signs (Past 12 Hours) Vital Signs Temp Pulse Resp BP Pulse Ox O2 Del Method 02/15/22 08:16 Room Air 02/15/22 07:44 36.8 C 69 15 130/74 96 02/14/22 23:00 37.2 C 72 18 143/76 H 95 Room Air PG Care Time/CCT Total # of Minutes Spent Total Time Spent with Patient: Total time spent is greater than 50% in coordination of care (as documented) at patient's floor/unit and/or counseling patient: Coding Level of Care Code 10233 Subseq Hosp Care Lvl 2 Diagnoses Bladder tumor D49.4
[2022-02-15] MEDS: VANCOMYCIN HCL 1,000 MG in SODIUM CHLORIDE 0.9% 250 ML IV SCH ×2 (10:46→20:49)
--- NOTE | 2022-02-15 12:19 | Hospitalist Progress Note ---
Date of Service February 15, 2022 Assessment & Plan (1) UTI (urinary tract infection) due to Enterococcus: Plan: - Afebrile with normal wbc count and electrolytes - Renal function WNL - Abnormal UA which appears c/w UTI - 2+ leukocyte esterase and >30 wbc - Urine culture from urine collected 02/11 notes three types of organisms present, all mod counts ?skin mandy - Started macrobid at home, despite which continues to be increasingly weak--> started on Rocephin in ED which was continued - Maintenance IVF with NSS provided but will cap today - Maintain perez - Prelim urine cx from 02/12 with growth of enterococcus and strep, d/c Rocephin and started Vanco (PCN allergy) on 02/14 (2) Generalized weakness: Plan: - Generalized weakness in setting of acute UTI - PT/OT eval - recommend rehab - Case management to assist in d/c planning * Referral sent to [facility] (3) Bladder tumor: Plan: - Following with urology ([facility]) with plans for surgical resection Wed 02/16 - Consult urology, updated Dr. Malik, will plan to make NPO after MN on 02/15 - Lovenox on hold, NPO after MN for surgery tomorrow AM (4) Mechanical heart valve present: Plan: - Currently on Coumadin with an INR of 2.6 - Start bridging with Lovenox 1mg/kg q12h - first dose on 02/13 in AM - Bridge in anticipation of upcoming surgical resection of bladder tumor - Lovenox to be held tonight and tomorrow AM, please resume tomorrow evening after surgery - High stroke risk with mechanical MV (5) Parkinsonism: Plan: - Continue Sinemet - PT/OT (6) Dementia: Plan: - Continue Namenda Plan For surgery tomorrow AM. No plans from a medical standpoint to draw labs tomorrow, if needed from a urology standpoint can order. Plan d/w Dr. Lisa Kohli. Admission and Anticipated Discharge Date Admission Date: February 12, 2022 Subjective Patient seen on daily rounds this morning. Resting comfortably in bed, eating breakfast. No complaints. Denies chest pain, back pain, n/v/d, f/c, headache. Has a perez in place. For TURBT tomorrow with Dr. Malik. Review of Systems Review of Systems: All systems reviewed and are unremarkable except as noted in HPI and below. Denies fever, chills, fatigue, headache, nasal congestion, sore throat, cough, chest pain, shortness of breath, palpitations, orthopnea, PND, abdominal pain, n/v/d, constipation, dysuria, hematuria, frequency, back pain, joint pain or swelling, easy bruising or bleeding, skin lesions or rashes. Physical Exam Physical Exam: GENERAL: 77 yo Well-developed, well-nourished elderly WM. NAD. LUNGS: Clear to auscultation bilaterally. No W/R/R. CARDIOVASCULAR: Regular rate and rhythm. mechanical valve murmur noted ABDOMEN: Soft, non-tender and non-distended. BS normoactive x 4 quad. : Perez in place with clear yellow urine. EXTREMITIES: No edema. Non-tender. Peripheral pulses +2/4. NEUROLOGIC: Awake, alert, and oriented. Some mild LLE weakness but otherwise nonfocal. PSYCHIATRIC: Cooperative. Appropriate mood and affect. SKIN: Warm, dry, intact. No rashes or lesions. Results & Data Results & Data ([facility]) Vital Signs (Past 12 Hours) Vital Signs Temp Pulse Resp BP Pulse Ox O2 Del Method 02/15/22 08:16 Room Air 02/15/22 07:44 36.8 C 69 15 130/74 96 Laboratory Results no labs drawn today PG Care Time/CCT Total # of Minutes Spent Total Time Spent with Patient: Total time spent is greater than 50% in coordination of care (as documented) at patient's floor/unit and/or counseling patient: Coding Level of Care Code 80262 Subseq Hosp Care Lvl 2 Diagnoses UTI (urinary tract infection) due to Enterococcus N39.0; B95.2 Generalized weakness R53.1 Bladder tumor D49.4 Mechanical heart valve present Z95.2 Parkinsonism G20 Dementia F03.90
[2022-02-15] MEDS: CARBIDOPA/LEVODOPA 25/100MG TAB PO SCH ×3 (13:18→20:46)
[2022-02-15] MEDS: ATORVASTATIN 40 MG TAB PO SCH (20:45)
[2022-02-15] MEDS: MEMANTINE HCL 5 MG TAB PO SCH (20:45)
[2022-02-16] MEDS: DULoxetine HCL 60 MG CAP PO SCH (07:53)
[2022-02-16] MEDS: PROPRANOLOL HCL LA 80 MG CAPCR PO SCH (07:53)
[2022-02-16] MEDS: buPROPion XL 150 MG TABCR PO SCH (07:53)
[2022-02-16] MEDS: PREGABALIN 100 MG CAP PO SCH ×3 (07:53→21:47)
[2022-02-16] MEDS: TAMSULOSIN HCL 0.4 MG CAP PO SCH (07:53)
--- NOTE | 2022-02-16 08:08 | Anesthesiology Consultation ---
Date of Service February 16, 2022 Assessment & Plan (1) Encounter for pre-operative examination: Chart Review Chart Review: Acceptable Risk for Surgery History Surgery Operation Date: 02/16/22 12:30 Proposed Procedures p TURBT (Transurethral Resection of the Bladder Tumor) Cut out the Tumor(s) by Going Through The Urethra, With or Without Multiple Cup Biopsies of the Bladder, Cystoscopy - Kody Malik MD Height/Weight Height: 5 ft 11 in Weight: 92.1 kg Allergies Allergy/AdvReac Type Severity Reaction Status Date / Time Penicillins Allergy Mild RASH Verified 02/12/22 17:58 morphine AdvReac Mild bp drops Verified 02/12/22 17:58 Medications Home Medications Medication Instructions Recorded Confirmed Last Taken bupropion HCl 150 mg tablet,12 hr 150 mg PO QAM 09/10/18 02/12/22 04/20/21 sustained-release (Wellbutrin SR) pantoprazole 20 mg tablet,delayed 40 mg PO QAM 09/10/18 02/12/22 04/20/21 release tramadol 50 mg tablet 100 mg PO TID PRN Pain 09/10/18 02/12/22 05/11/20 atorvastatin 40 mg tablet 40 mg PO HS 07/10/19 02/12/22 04/20/21 tamsulosin 0.4 mg capsule 0.4 mg PO QAM 07/10/19 02/12/22 04/20/21 warfarin 5 mg tablet 5 - 7.5 mg PO DIRECTED 10/31/19 02/12/22 04/20/21 pregabalin 200 mg capsule 200 mg PO TID 30 days #90 caps 08/23/21 02/12/22 Unknown metformin 500 mg tablet,extended 500 mg PO QPM 09/27/21 02/12/22 Unknown release 24 hr memantine 5 mg tablet (Namenda) 2.5 mg PO QPM 11/01/21 02/12/22 Unknown carbidopa 25 mg-levodopa 100 mg 1 tab PO TID 01/01/22 02/12/22 Unknown tablet duloxetine 60 mg capsule,delayed 60 mg PO QAM 01/28/22 02/12/22 Unknown release (Cymbalta) mirabegron 25 mg tablet,extended 25 mg PO QAM 01/28/22 02/12/22 Unknown release 24 hr propranolol 80 mg capsule,24 80 mg PO QAM 01/28/22 02/12/22 Unknown hr,extended release nitrofurantoin macrocrystal 100 mg 100 mg PO BID #14 caps 02/11/22 02/12/22 Unknown capsule duloxetine 30 mg capsule,delayed 30 mg PO DAILY 02/12/22 02/12/22 Unknown release multivitamin 1 tab PO DAILY 02/12/22 02/12/22 Unknown Active Medications Generic Name Dose Route Start Last Admin Trade Name Jett PRN Reason Stop Dose Admin Acetaminophen 650 mg 02/12/22 22:01 02/13/22 20:55 Acetaminophen 325 Mg Tab PO 03/14/22 22:00 650 mg Q4H PRN Administration pain/fever Atorvastatin Calcium 40 mg 02/12/22 22:01 02/15/22 20:45 Atorvastatin 40 Mg Tab PO 03/14/22 22:00 40 mg HS JESSICA Administration Bupropion HCl 150 mg 02/13/22 09:00 02/16/22 07:53 Bupropion Xl 150 Mg Tabcr PO 03/15/22 08:59 150 mg QAM JESSICA Administration Carbidopa/Levodopa 1 tab 02/13/22 12:00 02/15/22 20:46 Carbidopa/Levodopa 25/100mg Tab PO 03/15/22 11:59 1 tab TID@1200,1600,2000 JESSICA Administration Duloxetine HCl 60 mg 02/13/22 09:00 02/16/22 07:53 Duloxetine Hcl 60 Mg Cap PO 03/15/22 08:59 60 mg QAM JESSICA Administration Enoxaparin Sodium 90 mg 02/13/22 09:00 02/15/22 07:50 Enoxaparin 100 Mg/1ml Syr SQ 03/15/22 08:59 90 mg Q12H JESSICA Administration Vancomycin HCl 1,000 mg/ 270 mls @ 200 mls/hr 02/14/22 22:00 02/15/22 22:10 Sodium Chloride IV 02/24/22 21:59 Infused Q12H JESSICA Infusion Memantine 2.5 mg 02/13/22 21:00 02/15/22 20:45 Memantine Hcl 5 Mg Tab PO 03/15/22 20:59 2.5 mg QPM JESSICA Administration Pregabalin 200 mg 02/12/22 22:01 02/16/22 07:53 Pregabalin 100 Mg Cap PO 03/14/22 22:00 200 mg TID JESSICA Administration Propranolol HCl 80 mg 02/13/22 09:00 02/16/22 07:53 Propranolol Hcl La 80 Mg Capcr PO 03/15/22 08:59 80 mg QAM JESSICA Administration Tamsulosin HCl 0.4 mg 02/13/22 09:00 02/16/22 07:53 Tamsulosin Hcl 0.4 Mg Cap PO 03/15/22 08:59 0.4 mg QAM JESSICA Administration Past Medical History Medical History Atrial fibrillation Paroxysmal per records Pt denies history Follows with cardio- on Coumadin Benign essential tremor BPH (benign prostatic hyperplasia) Chronic back pain Degenerative disc disease Dementia Experiences short term memory loss. Alert and oriented to person. Confusion with places and time. Depression Diabetes mellitus, type 2 NIDDM Recently dx'ed- does not check glucose regularly GERD (gastroesophageal reflux disease) Well controlled and stable Hearing deficit Hyperlipidemia Hypertension Irregular heart beat Occasional episodes of trigeminy. Follows with Dr Isaac Mechanical heart valve present MV replacement 1996- mechanical- on Coumadin Neuropathy involving both lower extremities On anticoagulant therapy Warfarin daily Parkinson disease Parkinson's dementia per records Subdural hematoma (01/01/22) - Presented to the Emergency room 01/01/22 at [facility] and transferred to [facility] and treated inpatient for several days and then went to [facility] for rehab. Patient discharged home ~01/21/22. No surgery had been done, reports it was a spontaneous hematoma. Denies any fall. - Pt's mental status back to baseline -Coumadin has since been restarted- tolerating well. Transient ischemic attack (TIA) In --no deficits Past Family History Family History Daughter Family hx of colon cancer Colorectal cancer Mother Cardiac pacemaker Brother Stroke Hypertension Prostate cancer Father Stroke Grandfather (Maternal) Suicide Grandfather (Paternal) Tuberculosis Other No family history of adverse response to anesthesia Past Surgical History Surgical History History of back surgery x2 History of colonoscopy History of craniotomy x2 (~2011)- secondary to subdural hematoma- had fall at that time History of esophagogastroduodenoscopy (EGD) History of hand surgery right hand finger History of inguinal hernia repair x5 History of mitral valve replacement 1996 @ [facility] -- mechanical History of umbilical hernia repair History of wisdom tooth extraction Status post LASIK surgery of both eyes Social History Smoking Status: Unknown if ever smoked Alcohol type: beer, wine and hard liquor alcohol intake frequency: a few times a month (beer usually once weekly ) substance use type: does not use Physical Exam Vital Signs Last Vital Signs Temp 36.8 C 02/16/22 07:09 Pulse 79 02/16/22 07:09 Resp 20 02/16/22 07:09 BP 179/96 H 02/16/22 07:09 Pulse Ox 94 02/16/22 07:09 O2 Del Method 02/16/22 07:09 Testing Laboratory Results 02/13/22 06:31 PT 26.1 Seconds (9.0-12.0) H 02/13/22 06:31 INR 2.6 (0.9-1.1) H 02/13/22 06:31 APTT 46.8 Seconds (21.0-31.0) H* 02/13/22 06:31 Urine Color Dark Yellow 02/12/22 17:08 Urine Appearance Clear (Clear) 02/12/22 17:08 Urine pH 5.5 (4.5-7.5) 02/12/22 17:08 Ur Specific [place] 1.034 (1.000-1.030) H 02/12/22 17:08 Urine Protein 2+ (Negative) H 02/12/22 17:08 Urine Glucose (UA) Negative (Negative) 02/12/22 17:08 Urine Ketones Trace (Negative) H 02/12/22 17:08 Urine Nitrite Negative (Negative) 02/12/22 17:08 Ur Leukocyte Esterase 2+ (Negative) H 02/12/22 17:08 Urine WBC (Auto) >30 /hpf (0-5) H 02/12/22 17:08 Urine RBC (Auto) 0-4 /hpf (0-4) 02/12/22 17:08 U Hyaline Cast (Auto) 1-5 /lpf (0-5) 02/12/22 17:08 U Epithel Cells (Auto) 0-5 /lpf (0-5) 02/12/22 17:08 Urine Bacteria (Auto) Negative (Negative) 02/12/22 17:08 02/12/22 17:08 Urine Culture - Final Urine,Clean Catch Enterococcus faecalis Alpha strep. not enterococcus 02/12/22 22:38 Aerobic Blood Culture - Preliminary Blood No growth in Aerobic bottle after 48 hours. Anaerobic Blood Culture - Preliminary No growth in Anaerobic bottle after 48 hours. 02/12/22 22:38 Aerobic Blood Culture - Preliminary Blood No growth in Aerobic bottle after 48 hours. Anaerobic Blood Culture - Preliminary No growth in Anaerobic bottle after 48 hours. Electrocardiogram Date: 02/12/22 Findings: + NSR @ (74) and + NSST changes Chest X-Ray Date: 02/02/22 Findings: + NAD and + cardiomegaly
[2022-02-16 08:37] LABS: Creatinine Clr Calc Pharmacy 77.2 ml/min; Est GFR (African American) 91.5 ml/min; Est GFR (Non-African American) 78.9 ml/min
[2022-02-16] MEDS ORDERED: VANCOMYCIN LEVEL ONE (09:00)
--- NOTE | 2022-02-16 09:11 | Urology Progress Note ---
Date of Service February 16, 2022 Assessment & Plan (1) Bladder tumor: Plan: We reviewed the plan for transurethral resection of bladder tumor under anesthesia. Although he is not the lowest risk surgical candidate, I think he is as optimized as he can be going into the surgery. Reviewed the risks of bleeding, infection, injury to the urinary tract, need for catheter afterwards, need for additional treatment depending on pathology. He expressed understanding and willingness to proceed. Admission and Anticipated Discharge Date Admission Date: February 12, 2022 Subjective He is feeling well this morning although somewhat tired. He has no complaints. Denies any pain, denies fevers or chills. Physical Exam Physical Exam: Resting comfortably in bed, NAD, somewhat somnolent Respiratory: Breathing comfortably on room air Cardiovascular: Regular rate and rhythm Gastrointestinal (Abdomen): Soft, nontender Genitourinary: Greco catheter in place, draining clear yellow urine Results & Data ([facility]) Vital Signs (Past 12 Hours) Vital Signs Temp Pulse Resp BP Pulse Ox O2 Del Method 02/16/22 07:09 36.8 C 79 20 179/96 H 94 Room Air 02/15/22 22:10 37 C 71 16 136/73 94 PG Care Time/CCT Total # of Minutes Spent Total Time Spent with Patient: Total time spent is greater than 50% in coordination of care (as documented) at patient's floor/unit and/or counseling patient: Coding Level of Care Code 39171 Subseq Hosp Care Lvl 2 Diagnoses Bladder tumor D49.4
--- NOTE | 2022-02-16 09:34 | Pharmacy Report ---
Pharmacy PK ABX Note - Date of Service February 16, 2022 - Assessment and Plan Assessment * Mr Doherty is a 77 year old M receiving Vancomycin for treatment of UTI. * Pertinent microbiologic data includes: Urine culture growing Enterococcus faecalis (S to PCN); BCx negative to date * PMH includes DM, BPH, Parkinson's dementia, mechanical valve, bladder tumor -- scheduled for TURP 02/16 * Pt reports a PCN allergy. Plan Vancomycin * Maintenance dose increased to : Vanc 1250 mg IV every 12 hours * Regimen is predicted to achieve target AUC/XIAO of 400-600 mg/L.hr * Will order a vanc level after 3-4 doses. Pharmacy will continue to follow and will adjust dose/frequency as necessary. Thank you. Pharmacy has transitioned to AUC monitoring for vancomycin. AUC/XIAO is the preferred PK/PD target and is associated with decreased risk of nephrotoxicity compared to traditional trough targets.
[2022-02-16] MEDS: VANCOMYCIN HCL 1,250 MG in SODIUM CHLORIDE 0.9% 250 ML IV SCH ×2 (10:18→21:54)
[2022-02-16] MEDS ORDERED: PROPOFOL IV EMULSION 10 MG/ML 20 ML VIAL IV ONE (11:56)
[2022-02-16] MEDS ORDERED: ePHEDrine sulfate 50 MG/ML SYR ONE (11:56)
[2022-02-16] MEDS ORDERED: fentaNYL citrate 100 MCG/2 ML VIAL ONE (11:56)
[2022-02-16] MEDS ORDERED: LIDOCAINE 2% 2 ML VIAL/AMP(20MG/ML) INFIL ONE (11:56)
[2022-02-16] MEDS ORDERED: ONDANSETRON INJ 2 MG/ML 2 ML VIAL ONE (11:56)
[2022-02-16] MEDS ORDERED: ATROPINE SULFATE 0.1 MG/ML 10ML SYR IV PRN (12:23)
[2022-02-16] MEDS ORDERED: ONDANSETRON INJ 2 MG/ML 2 ML VIAL IV PRN (12:23)
[2022-02-16] MEDS ORDERED: fentaNYL citrate 100 MCG/2 ML VIAL IV PRN (12:23)
[2022-02-16] MEDS ORDERED: LABETALOL HCL IV 5 MG/ML 20ML IV PRN (12:23)
[2022-02-16] MEDS ORDERED: SUGAMMADEX SODIUM 200 MG/2 ML VIAL IV ONE (15:37)
[2022-02-16] MEDS ORDERED: ROCURONIUM BROMIDE 10 MG/ML 5 ML VIAL IV ONE (15:37)
--- NOTE | 2022-02-16 16:21 | Operative Report ---
PG Post Operative Report Pre & Post Diagnosis Operation Date: 02/16/22 12:30 Pre-Op Diagnosis: bladder tumor Post-Op Diagnosis: bladder tumor I identified the patient and participated in the time-out.: Yes Procedure Operation Date: 02/16/22 12:30 Actual Procedures p TURBT (Transurethral Resection of the Bladder Tumor, (medium)- Kody Malik MD Surgeon Kody Malik MD Marketing Researcher None Estimated Blood Loss 10 Findings Consistent with Post-Op Diagnosis 2.5 cm tumor on the right wall of the bladder, posterior to the right ureteral orifice. Resected with the bipolar loop. Specimens Bladder tumor Drains 22 Czech three-way catheter with CBI running Anesthesia Type General Complications none Disposition Disposition: Recovery Room Indications This is a 77-year-old male recently seen in the urology office for gross hematuria. He was found on cystoscopy to have a tumor on the right wall of the bladder. He presents to the OR today for transurethral resection of the bladder tumor. Description of Procedure The patient was identified in the holding area and informed consent was confirmed. He was taken to the operating room where anesthesia was initiated. He was placed in the dorsal lithotomy position with all pressure points appropriately padded. He was prepped and draped in the usual sterile fashion and a preoperative timeout was performed. A well-lubricated resectoscope was inserted per urethra and panendoscopy was performed. The pendulous and prostatic urethra were both normal. The bladder was mildly trabeculated. Ureteral orifices were in orthotopic position. Posterior to the right ureteral orifice there was previously seen tumor. This was approximately 2.5 cm in diameter and was largely papillary. The bipolar loop was fixed to the resectoscope and the tumor was was systematically resected down to be flush with the wall of the bladder, trying to include some of the muscularis layer in the resection. The fragments were evacuated from the bladder and sent for pathological analysis labeled as "bladder tumor". The base of the resection bed was then thoroughly cauterized with the loop. Hemostasis was confirmed at low bladder volume. At the conclusion of the case there was no obvious remaining tumor. A 22 Czech perez catheter was placed. The balloon was inflated with 10 mL of normal saline and the catheter was attached to gravity drainage with continuous bladder irrigation running. He was then awakened from anesthesia and was brought to the PACU in stable condition. I attest to the content of the Intraoperative Record and any orders documented therein. Any exceptions are noted below.
--- NOTE | 2022-02-16 17:28 | Anesthesiology Progress Note ---
Date of Service February 16, 2022 Anesthesia Post Procedure Vital Signs Vital Signs: Temp Pulse Pulse Resp BP Pulse Ox O2 Del Method 02/16/22 16:55 73 21 149/75 H 94 Nasal Cannula 02/16/22 16:45 78 20 154/88 H 97 Oxymask 02/16/22 16:35 80 15 151/93 H 96 Oxymask 02/16/22 17:15 80 13 144/89 H 96 Nasal Cannula 02/16/22 17:05 36.3 C L 77 14 136/90 93 Nasal Cannula 02/16/22 16:27 36.2 C L 80 14 162/98 H 98 Oxymask 02/16/22 12:01 36.7 C 75 20 168/96 H 95 Room Air 02/16/22 07:52 Room Air 02/16/22 07:09 36.8 C 79 20 179/96 H 94 Room Air 02/15/22 22:10 37 C 71 16 136/73 94 O2 Flow Rate 02/16/22 16:55 2 02/16/22 16:45 4 02/16/22 16:35 6 02/16/22 17:15 2 02/16/22 17:05 2 02/16/22 16:27 6 02/16/22 12:01 02/16/22 07:52 02/16/22 07:09 02/15/22 22:10 Pain Intensity Bilateral Leg: Pain Intensity: 3 Transfer of Care Handoff Completed per policy Notes Mental Status: alert / awake / arousable and participated in evaluation Patient Amnestic to Procedure: Yes Nausea / Vomiting: adequately controlled Pain: adequately controlled Airway Patency, RR, SpO2: stable & adequate BP & HR: stable & adequate Hydration State: stable & adequate Anesthetic Complications: no major complications apparent and Pt Satisfied with anesthetic care
[2022-02-16] MEDS: CARBIDOPA/LEVODOPA 25/100MG TAB PO SCH ×3 (17:30→21:33)
--- NOTE | 2022-02-16 19:15 | Hospitalist Progress Note ---
Date of Service February 16, 2022 Assessment & Plan (1) Bladder tumor: Plan: - Following with urology ([facility]) with plans for surgical resection Wed 02/16 - Consult urology, updated Dr. Malik, will plan to make NPO after MN on 02/15 = S/p TURBT on 02/16. Urology restarted Lovenox. Likely able to discharge tomorrow vs. Monday. (2) UTI (urinary tract infection) due to Enterococcus: Plan: - Afebrile with normal wbc count and electrolytes - Renal function WNL - Abnormal UA which appears c/w UTI - 2+ leukocyte esterase and >30 wbc - Urine culture from urine collected 02/11 notes three types of organisms present, all mod counts ?skin mandy - Started macrobid at home, despite which continues to be increasingly weak--> started on Rocephin in ED which was continued - Maintenance IVF with NSS provided but will cap today - Maintain perez - Prelim urine cx from 02/12 with growth of enterococcus and strep, d/c Rocephin and started Vanco (PCN allergy) on 02/14 (3) Generalized weakness: Plan: - Generalized weakness in setting of acute UTI - PT/OT eval - recommend rehab - Case management to assist in d/c planning * Referral sent to [facility] (4) Mechanical heart valve present: Plan: - Start bridging with Lovenox 1mg/kg q12h - first dose on 02/13 in AM - Bridge in anticipation of upcoming surgical resection of bladder tumor - High stroke risk with mechanical MV - Resumed after surgery (5) Parkinsonism: Plan: - Continue Sinemet - PT/OT (6) Dementia: Plan: - Continue Namenda Admission and Anticipated Discharge Date Admission Date: February 12, 2022 Subjective Seen before surgery. No distress. Sleeping peacefully. Physical Exam Constitutional: WD/WN, vitals as above Eyes: EOM intact bilaterally; no conjunctival abnormality ENMT: external ear and nose normal, oropharynx normal Neck: trachea midline, no thyromegaly normal visual inspection Respiratory: normal respiratory effort, lungs clear to auscultation no respiratory distress Cardiovascular: RRR, no murmur, no edema Gastrointestinal (Abdomen): Inspection/Auscultation: abdomen normal to inspection; abdomen not distended Musculoskeletal: no cyanosis or clubbing, extremities motor strength 5/5 Skin: no rashes, warm and dry Neurologic: moves all extremities and awake Psychiatric: Orientation: alert, oriented to person and cooperative Results & Data Results & Data ([facility]) Vital Signs (Past 12 Hours) Vital Signs Temp Pulse Pulse Resp BP BP Pulse Ox 02/16/22 18:44 36.5 C 73 18 138/89 95 02/16/22 18:06 36.4 C L 79 15 133/80 93 02/16/22 17:40 36.4 C L 75 15 128/84 92 02/16/22 16:55 73 21 149/75 H 94 02/16/22 16:45 78 20 154/88 H 97 02/16/22 16:35 80 15 151/93 H 96 02/16/22 17:15 80 13 144/89 H 96 02/16/22 17:05 36.3 C L 77 14 136/90 93 02/16/22 16:27 36.2 C L 80 14 162/98 H 98 02/16/22 12:01 36.7 C 75 20 168/96 H 95 02/16/22 07:52 O2 Del Method O2 Flow Rate 02/16/22 18:44 Nasal Cannula 2 02/16/22 18:06 Nasal Cannula 2 02/16/22 17:40 Room Air 02/16/22 16:55 Nasal Cannula 2 02/16/22 16:45 Oxymask 4 02/16/22 16:35 Oxymask 6 02/16/22 17:15 Nasal Cannula 2 02/16/22 17:05 Nasal Cannula 2 02/16/22 16:27 Oxymask 6 02/16/22 12:01 Room Air 02/16/22 07:52 Room Air PG Care Time/CCT Total # of Minutes Spent Total Time Spent with Patient: Total time spent is greater than 50% in coordination of care (as documented) at patient's floor/unit and/or counseling patient: Coding Level of Care Code 36445 Subseq Hosp Care Lvl 2 Diagnoses Bladder tumor D49.4 UTI (urinary tract infection) due to Enterococcus N39.0; B95.2 Generalized weakness R53.1 Mechanical heart valve present Z95.2 Parkinsonism G20 Dementia F03.90
[2022-02-16] MEDS: ATORVASTATIN 40 MG TAB PO SCH (21:32)
[2022-02-16] MEDS: MEMANTINE HCL 5 MG TAB PO SCH (21:33)
[2022-02-16] MEDS: ENOXAPARIN 100 MG/1ML SYR SQ SCH (22:10)
[2022-02-17 07:27] LABS: Hematocrit (blood only) 36.1 % (40.1-51.0); Hemoglobin 11.7 g/dl (14.0-18.0); Mean Corpuscular Hgb Conc 32.4 g/dL (32.0-36.0); Mean Corpuscular Volume 89.6 fL (80.0-100.0); Mean Platelet Volume 10.7 fL (9.4-12.4); Platelet Count 162 K/uL (130-400); RDW Coefficient of Variation 13.2 % (11.5-14.5); RDW Standard Deviation 43.4 fL (36.4-46.3); Red Blood Count 4.03 M/uL (4.63-6.08); White Blood Count 6.98 K/ul (4.8-10.8)
[2022-02-17 07:41] LABS: INR 1.1 (0.9-1.1); Prothrombin Time 11.7 Seconds (9.0-12.0)
[2022-02-17 07:50] LABS: BUN Creatinine Ratio 25.9 (10-20); Calcium 8.5 mg/dl (8.5-10.1); Creatinine Clr Calc Pharmacy 84.4 ml/min; Est GFR (African American) 97.4 ml/min; Magnesium 1.8 mg/dl (1.7-2.4); Potassium 4.1 mmol/L (3.5-5.1)
[2022-02-17] MEDS: TAMSULOSIN HCL 0.4 MG CAP PO SCH (07:51)
[2022-02-17] MEDS: DULoxetine HCL 60 MG CAP PO SCH (07:51)
[2022-02-17] MEDS: PROPRANOLOL HCL LA 80 MG CAPCR PO SCH (07:51)
[2022-02-17] MEDS: ENOXAPARIN 100 MG/1ML SYR SQ SCH (07:51)
[2022-02-17] MEDS: buPROPion XL 150 MG TABCR PO SCH (07:51)
[2022-02-17] MEDS: ACETAMINOPHEN 325 MG TAB PO PRN (07:53)
[2022-02-17] MEDS: PREGABALIN 100 MG CAP PO SCH ×2 (07:53→12:54)
--- NOTE | 2022-02-17 08:14 | Discharge Summary ---
Date of Service February 17, 2022 Admission HPI Per Admitting Provider Mr. Doherty is a 77 yo WM with a pmhx of dementia, parkinson's disease, mechanical MVR on chronic anticoagulation, h/o cva, htn, and recently diagnosed with a bladder tumor who is planned for surgical resection with Dr. Malik on Friday 02/16. Patient's , who provides the history given pt's dementia he is an unreliable historian, notes that over the past 24 hours he has becoming progressively more weak and today was unable to assist him out of bed which is unusual and she subsequently called EMS. Pt also had poor oral intake yesterday. Pt denies urinary frequency, urgency, foul smelling or dark urine. He denies fever, chills, abdominal or back pain, n/v/d. For part of his work up for his planned surgery, he underwent a urinalysis as an outpatient and was contacted by Dr. Malik' office to inform him that he had a UTI. He was started on an antibiotic (Macrobid) but thus far has only had 2 doses. Admission Exam Per Admitting Provider GENERAL: 77 yo Well-developed, well-nourished elderly WM. NAD. EYES: EOMI. PERRLA. Anicteric. HENT: Moist mucous membranes. No scleral icterus. No cervical lymphadenopathy. LUNGS: Clear to auscultation bilaterally. No W/R/R. CARDIOVASCULAR: Regular rate and rhythm. No M/G/R. No JVD. ABDOMEN: Soft, non-tender and non-distended. BS normoactive x 4 quad. EXTREMITIES: No edema. Non-tender. Peripheral pulses +2/4. NEUROLOGIC: Awake, alert, and oriented. Some mild LLE weakness but otherwise nonfocal. PSYCHIATRIC: Cooperative. Appropriate mood and affect. SKIN: Warm, dry, intact. No rashes or lesions. Principal Diagnosis Bladder Tumor (a/w weakness and UTI) Discharge Exam Gen: NAD, somnolent HEENT: Visual inspection wnl Resp:Non-labored, no wheezing/rhonchi/rales, CTAB CV:RRR, normal S1/S2, no M/R/G Abd: Soft, non-distended, no TTP, normoactive bowels, no masses Extr: 2+ dp bilaterally, no edema Skin: No rashes lesions or erythema : Greco catheter in place, draining bright red urine Discharge Data Allergies Allergy/AdvReac Type Severity Reaction Status Date / Time Penicillins Allergy Mild RASH Verified 02/12/22 17:58 morphine AdvReac Mild bp drops Verified 02/12/22 17:58 Consultations 02/12/22 17:21 ED Decision to Admit Stat 02/14/22 11:56 Consult Urology Routine Procedures Performed Operation Date: 02/16/22 12:30 Actual Procedures p TURBT (Transurethral Resection of the Bladder Tumor), (Not Applicable) - Kody Malik MD s Cystoscopy(Not Applicable) - Kody Malik MD Ordered Studies 02/12/22 14:31 CT head/brain wo con Stat Hospital Course (1) Bladder tumor: Patient follows with Urology (Dr. Malik), s/p TURBT on 02/16 * should maintain Greco catheter until early next week * urology will arrange outpatient follow-up to have the catheter removed and have a voiding trial * he can resume his normal anticoagulation regimen * recommend 3 to 5 days of antibiotics to go home on Will discharge patient on Cipro 250 mg BID for 5 days. (2) UTI (urinary tract infection) due to Enterococcus: Patient presented with abnormal UA consistent with UTI * Started on Rocephin in ED Urine culture obtained 02/11 suggested multiple organisms present at moderate amounts, considered d/t skin mandy * Continued Rocephin and IVF Urine culture 02/12 showed growth of enterococcus and strep * Rocephin discontinued and Vancomycin initiated (PCN allergy) 02/14 * Will discharge home on Ciprofloxacin 250 mg BID for 5 days (3) Generalized weakness: Patient presented with generalized weakness a/w UTI * PT/OT evaluated and recommended rehab * CM to assist in discharge planning * Referral placed for [facility] (4) Mechanical heart valve present: Anticoagulation resumed after surgical procedure (5) Parkinsonism: Continue Sinemet (6) Dementia: Continue Namenda Total Time Total Time Spent Total Time Spent (In Minutes): <30 Discharge Plan Discharge Items Patient Disposition: Home - Self-Care Reason For Visit: GENERALIZED WEAKNESS,UTI Discharge Diagnosis: Bladder tumor, UTI Activity: Per Instructions section Non-emergency contact: Primary Care Provider and Urologist Call non-emergency contact if: you have any medication questions and your symptoms worsen Follow-up/Referrals: Leti Camacho MD [Primary Care Provider] - Diet: Heart Healthy Addtl Attending Provider Instructions: 77-year-old male with past medical history of dementia, Parkinson's disease, mechanical MVR on chronic anticoagulation, history of CVA, hypertension, and recently diagnosed bladder tumor who came in due to progressive weakness. Now status post bladder tumor removal. Bladder tumor: - Following with urology ([facility]) - S/p TURBT on 02/16 -- Urology restarted Lovenox - should maintain Greco catheter until early next week - urology will arrange outpatient follow-up to have the catheter removed and have a voiding trial - he can resume his normal anticoagulation regimen - recommend 3 to 5 days of antibiotics to go home on UTI (urinary tract infection) due to Enterococcus: - Afebrile with normal WBC and electrolytes - Renal function WNL - Abnormal UA which appears c/w UTI: 2+ leukocyte esterase and >30 wbc - Urine culture from urine collected 02/11 notes three types of organisms present, possible skin mandy - Started Macrobid at home, started on Rocephin in ED which was continued - Maintain Greco as above - Prelim urine cultures from 02/12 indicated growth of enterococcus and strep, d/c Rocephin and started Vancomycin (PCN allergy) on 02/14 - Transition to oral Cipro to complete additional 5 day treatment per Uro recs Generalized weakness: - Generalized weakness in setting of acute UTI - PT/OT eval - recommend rehab - Case management to assist in d/c planning - Transfer to [facility] Mechanical Heart Valve: - Start bridging with Lovenox 1mg/kg q12h - first dose on 02/13 in AM - Bridge in anticipation of upcoming surgical resection of bladder tumor - High stroke risk with mechanical MV - Resumed Lovenox after surgery -- continue while restarting warfarin until therapeutic INR achieved Parkinsonism: - Continue Sinemet - PT/OT Dementia: - Continue Namenda Dispo: Transfer to [facility] for rehab Pending Studies at Discharge: No Stand-Alone Forms: My [facility] [employer], Smoking Cessation Medications and DC Order Prescriptions: New enoxaparin 100 mg/mL Syringe 90 mg subcut Q12H 7 Days Qty: 12.6 0RF ciprofloxacin HCl 250 mg tablet 250 mg PO BID 7 Days Qty: 14 0RF Continued memantine [Namenda] 5 mg tablet 2.5 mg PO QPM Label Comments: cut back to half tablet because it was causing sleepiness pregabalin 200 mg capsule 200 mg PO TID 30 Days Qty: 90 5RF metformin 500 mg tablet extended release 24 hr 500 mg PO QPM bupropion HCl [Wellbutrin SR] 150 mg Tablet Sustained-Release 12 Hr 150 mg PO QAM tramadol 50 mg Tablet 100 mg PO TID PRN (Reason: Pain) pantoprazole 20 mg Tablet,Delayed Release (Dr/Ec) 40 mg PO QAM atorvastatin 40 mg tablet 40 mg PO HS tamsulosin 0.4 mg capsule 0.4 mg PO QAM carbidopa-levodopa 25-100 mg tablet 1 tab PO TID Rx Instructions: TAKE ONE TABLET AT 12PM, 4PM, AND 8PM. propranolol 80 mg capsule,extended release 24 hr 80 mg PO QAM duloxetine [Cymbalta] 60 mg capsule,delayed release(DR/EC) 60 mg PO QAM Rx Instructions: TAKE WITH 30MG = 90MG DAILY mirabegron 25 mg tablet extended release 24 hr 25 mg PO QAM duloxetine 30 mg capsule,delayed release(DR/EC) 30 mg PO DAILY Rx Instructions: TAKE WITH 60MG = 90MG DAILY multivitamin Tablet 1 tab PO DAILY Changed warfarin 5 mg tablet 7.5 mg PO DAILY 30 Days Qty: 45 0RF Rx Instructions: 02/12/22 : THIS MED CURRENTLY ON HOLD ( OF 02/11/22) FOR UPCOMING SURGERY. Discontinued nitrofurantoin macrocrystal 100 mg capsule 100 mg PO BID Qty: 14 0RF Rx Instructions: must administer with a meal/food Discharge Orders: Discharge Order (Routine); Ordered 02/17/22 Ordered By: Lazaro Lovett Admission Data Admit Date/Time: 02/12/22 18:18 Attending Provider: Dragan Sanchez Admit Provider: Yvon Kapadia Primary Care Provider: Leti Camacho Other Providers: [facility] ; Yvon Kapadia ; Kody Malik Other Interventions: Discharge Summary Assessment (RN) Last Done: 02/17/22 13:55 Supervising Physician Co-Signing Physician Notes I personally examined the patient and verified all hoang points of history and exam, discussed case, and agree with decision making with Dr Lovett no meaningful HPI or ROS. for rehab. vitals noted nad breathing unlabored no accessory muscles good effort skin no rashes no pallor or icterus s/p TURBT - for rehab. cipro given enterococcus (and PCN allergy precluding use, age making macrobid a risky choice) otherwise as above Resident Activity Tracking Resident Involvement: Resident Care Provided Care Provided: Adult Hospital Medicine
--- NOTE | 2022-02-17 08:33 | Urology Progress Note ---
Date of Service February 17, 2022 Assessment & Plan (1) Bladder tumor: Plan: Doing well, postop day 1 from transurethral resection of bladder tumor. Gradually weaning CBI, mostly maintained in the setting of ongoing anticoagulation. CBI can be clamped, although I think he should maintain Greco catheter until early next week -urology will arrange outpatient follow-up to have the catheter removed and have a voiding trial. At this point I think he can resume his normal anticoagulation regimen Would recommend 3 to 5 days of antibiotics to go home on, nitrofurantoin would be reasonable but he was on this preoperatively. As long as urine remains clear, he is reasonable for discharge home from the urology perspective. Admission and Anticipated Discharge Date Admission Date: February 12, 2022 Subjective Underwent surgery yesterday, transurethral resection of bladder tumor Greco catheter in place on slow drip CBI, has been clearing. Not having any issues with catheter Not having significant pain, no fevers or chills Review of Systems Review of Systems: No fevers or chills Physical Exam Physical Exam: Resting comfortably in bed, NAD Respiratory: Breathing on room air, no audible wheezing Genitourinary: Greco catheter in place with light pink urine on slow drip CBI Results & Data ([facility]) Vital Signs (Past 12 Hours) Vital Signs Temp Pulse Pulse Resp BP Pulse Ox O2 Del Method 02/17/22 07:40 36.6 C 60 16 146/78 H 98 Nasal Cannula 02/17/22 04:09 37 C 70 16 124/79 96 02/16/22 22:02 36.6 C 87 16 135/76 91 PG Care Time/CCT Total # of Minutes Spent Total Time Spent with Patient: Total time spent is greater than 50% in coordination of care (as documented) at patient's floor/unit and/or counseling patient: Coding Level of Care Code 08271 Subseq Hosp Care Lvl 1 Diagnoses Bladder tumor D49.4
[2022-02-17] MEDS: VANCOMYCIN HCL 1,250 MG in SODIUM CHLORIDE 0.9% 250 ML IV SCH (10:49)
[2022-02-17] MEDS: CARBIDOPA/LEVODOPA 25/100MG TAB PO SCH (12:54)
--- NOTE | 2022-02-17 18:39 | Billing Data ---
Date of Service February 17, 2022 Coding Level of Care Code D/C DAY MANAGEMENT <30 MINS
--- NOTE | 2022-02-25 18:08 | Coding Query ---
PATHOLOGY To promote full compliance with coding requirements relating to patient care, physician participation is requested in all cases of frame feeder uncertainty. Please assist us with the question(s) below: Please review the Pathology report and please document any relevant diagnosis(es) below: Diagnosis(es):Low grade papillary urothelial carcinoma. Thank you TONIE Evangelista [facility]
== END 2022-02-17 14:16 | DRG 669 ==
LOC: ED 13:25 → SUATTDRO 18:18 → 3N 18:18

== ENCOUNTER 2022-02-23 06:17 | Inpatient (IN) ==
[2022-02-23] MEDS ORDERED: SODIUM CHLORIDE 0.9% 1000ML 500 ML IV ONE (06:47)
[2022-02-23] MEDS ORDERED: ACETAMINOPHEN 1000 MG/100 ML IV IV STA (06:48)
--- NOTE | 2022-02-23 06:55 | Emergency Department Note ---
Impression & Plan Acute urinary retention, Hematuria, Anemia, Coagulopathy ED Provider Note NAME: DON CUEVAS AGE: 77 SEX: M : 1945 ARRIVES VIA: Ambulance INFORMANT: [Patient] ED PROVIDER(S): [Yosvany Fry MD] CHIEF COMPLAINT: Penis pain HISTORY OF PRESENT ILLNESS: The patient is a 77-year-old male who comes from [facility]. The patient is complaining of the need to urinate but he states he cannot urinate. It hurts down in the groin. There was some blood noticed at the penile meatus. Patient does have a history of a recent Greco catheter placement. The patient states the pain is severe. He feels he would be much better if he could just urinate. The patient does not have any chest pain or abdominal pain. He is not short of breath. He has not noticed chills or fever. REVIEW OF SYSTEMS: See HPI for pertinent positives and negatives. A total of ten systems were reviewed and were otherwise negative. PMHx/PSHx: See Below SOCIAL HISTORY: See Below. PHYSICAL EXAM: GENERAL: Patient is in mild distress from pain. HEENT: No acute trauma, normocephalic atraumatic, mucous membranes moist, no nasal congestion, no scleral icterus. NECK: No stridor, no adenopathy, no meningismus, trachea is midline. LUNGS: Clear to auscultation bilaterally when listening anterior, no wheezing, no respiratory distress HEART: Subtle systolic murmur, mildly tachycardic, regular rhythm. ABDOMEN: Soft, bladder appears distended and he is tender in the pelvis. EXTREMITIES: No cyanosis, mild bilateral pedal edema, full range of motion of all the joints without pain or difficulty, no signs for acute trauma. NEUROLOGIC: Awake and alert, no acute motor or sensory deficits, no focal weakness. SKIN: No rash, no jaundice, no diaphoresis. Groin: The patient is circumcised. There is a clot at the tip of the penile meatus. No scrotal erythema. DIFFERENTIAL DIAGNOSIS: UTI, hematuria, urethral obstruction, urethral narrowing, bladder distention, hydronephrosis, among others. EMERGENCY DEPARTMENT COURSE/PROCEDURES: MEDICAL DECISION MAKING: There is no leukocytosis. The patient is anemic with a hemoglobin of 9.5. This is about a two-point drop compared to the last hemoglobin value. There was a normal platelet count. INR is 2.1, consistent with his Coumadin use. There is no electrolyte abnormality, no renal failure. No coagulopathy. Urinalysis shows gross hematuria. Blood type returned as A negative. Abdominal and pelvis CT shows a mildly distended bladder with a Greco in place. There was clot within the bladder. No reported hydronephrosis. On exam, the patient was initially uncomfortable as his bladder was distended. After Greco catheter placement, he felt improved. The nursing staff did irrigate the Greco/bladder with saline. Patient was given IV saline for hydration, IV Tylenol pain, he received IV Levaquin to cover for potential infection, he has had an Enterococcus infection in his urine before. I did speak with urology. They did see the patient here in the ED. The patient is going to need hospitalization and may require urologic intervention if things continue. I spoke with the patient and the patient's significant other. I spoke with the on-call hospitalist, case management has been involved. Hospitalization is warranted. At this point, I have not reversed the patient's INR as he does have a mechanical mitral valve. Past Med/Surg History Medical History Atrial fibrillation Paroxysmal per records Pt denies history Follows with cardio- on Coumadin Benign essential tremor BPH (benign prostatic hyperplasia) Chronic back pain Degenerative disc disease Dementia Experiences short term memory loss. Alert and oriented to person. Confusion with places and time. Depression Diabetes mellitus, type 2 NIDDM Recently dx'ed- does not check glucose regularly Encounter for pre-operative examination Generalized weakness GERD (gastroesophageal reflux disease) Well controlled and stable Hearing deficit Hyperlipidemia Hypertension Irregular heart beat Occasional episodes of trigeminy. Follows with Dr Isaac Mechanical heart valve present MV replacement 1996- mechanical- on Coumadin Neuropathy involving both lower extremities On anticoagulant therapy Warfarin daily Parkinson disease Parkinson's dementia per records Subdural hematoma (01/01/22) - Presented to the Emergency room 01/01/22 at [facility] and transferred to [facility] and treated inpatient for several days and then went to [facility] for rehab. Patient discharged home ~01/21/22. No surgery had been done, reports it was a spontaneous hematoma. Denies any fall. - Pt's mental status back to baseline -Coumadin has since been restarted- tolerating well. Transient ischemic attack (TIA) In --no deficits UTI (urinary tract infection) due to Enterococcus Surgical History History of back surgery x2 History of colonoscopy History of craniotomy x2 (~2011)- secondary to subdural hematoma- had fall at that time History of esophagogastroduodenoscopy (EGD) History of hand surgery right hand finger History of inguinal hernia repair x5 History of mitral valve replacement 1996 @ [facility] -- mechanical History of umbilical hernia repair History of wisdom tooth extraction Status post LASIK surgery of both eyes Family History Daughter Family hx of colon cancer Colorectal cancer Mother Cardiac pacemaker Brother Stroke Hypertension Prostate cancer Father Stroke Grandfather (Maternal) Suicide Grandfather (Paternal) Tuberculosis Other No family history of adverse response to anesthesia Social History Smoking Status: Never smoker Second Hand Exposure: No; Preferred Language: Swedish Communication Ability: Impaired Floorhand Required: No Beliefs That Will Affect Care: None marital status: Current Living Situation: Spouse Current Living Situation Comment: Per pt report - pt is confused. 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 Feels Safe at Home: Yes Assistive Devices: Walker Allergies Allergies Allergy/AdvReac Type Severity Reaction Status Date / Time Penicillins Allergy Mild RASH Verified 02/23/22 08:28 morphine AdvReac Mild bp drops Verified 02/23/22 08:28 Home Meds Home Medications Medication Instructions Recorded Confirmed pantoprazole 20 mg tablet,delayed 40 mg PO DAILYBB 09/10/18 02/23/22 release tramadol 50 mg tablet 100 mg PO Q8H PRN Pain 09/10/18 02/23/22 atorvastatin 40 mg tablet 40 mg PO HS 07/10/19 02/23/22 tamsulosin 0.4 mg capsule 0.4 mg PO QAM 07/10/19 02/23/22 metformin 500 mg tablet,extended 500 mg PO QDD 09/27/21 02/23/22 release 24 hr memantine 5 mg tablet (Namenda) 2.5 mg PO HS 11/01/21 02/23/22 carbidopa 25 mg-levodopa 100 mg 1 tab PO TID 01/01/22 02/23/22 tablet mirabegron 25 mg tablet,extended 25 mg PO QAM 01/28/22 02/23/22 release 24 hr propranolol 80 mg capsule,24 80 mg PO QAM 01/28/22 02/23/22 hr,extended release duloxetine 30 mg capsule,delayed 60 mg PO QAM 02/12/22 02/23/22 release acetaminophen 325 mg tablet 650 mg PO Q4H PRN Pain 02/23/22 02/23/22 bupropion HCl 150 mg 24 hr tablet, 150 mg PO QAM 02/23/22 02/23/22 extended release ciprofloxacin HCl 250 mg tablet 250 mg PO Q12 PRN Urinary Tract 02/23/22 02/23/22 Infection docusate sodium 100 mg capsule 100 mg PO BID 02/23/22 02/23/22 (Colace) enoxaparin 40 mg/0.4 mL 40 mg subcut DAILY@0700 02/23/22 02/23/22 subcutaneous syringe (Lovenox) multivitamin with minerals 1 tab PO QAM 02/23/22 02/23/22 ondansetron 4 mg disintegrating 4 mg translingual Q6H PRN Nausea 02/23/22 02/23/22 tablet And Vomiting polyethylene glycol 3350 17 gram 17 g PO QDL PRN Constipation 02/23/22 02/23/22 oral powder packet (Miralax) pregabalin 100 mg capsule 200 mg PO Q8H 02/23/22 02/23/22 warfarin 5 mg tablet 7.5 mg PO QPM 02/23/22 02/23/22 Results & Data (ED) Vital Signs Vital Signs - 24 hr 02/23/22 06:22 02/23/22 10:29 Temperature Source Oral Pulse Rate 94 H Pulse Rate [Left Finger] 80 Respiratory Rate 16 13 Respiratory Effort / Characteristics Non-Labored Spontaneous Respiratory Depth Normal Blood Pressure 181/108 H Blood Pressure [Left Arm] 127/76 Blood Pressure Mean 132 Blood Pressure Mean [Left Arm] 93 Blood Pressure Position [Left Arm] Sitting Pulse Oximetry 93 100 Oxygen Delivery Method Room Air Room Air Sepsis Recent Fever Within 48 Hours No Sepsis New/Unexplained Change in Mental Status No Sepsis Action Taken by Nursing No Action Required Home Medications Current Medication List: was personally reviewed by me Laboratory Data Attestation: I reviewed the patient's lab results. Result diagrams: 02/23/22 08:10 02/23/22 08:10 Lab Results 02/23/22 02/23/22 02/23/22 Range/Units 08:10 08:10 08:10 WBC 6.04 (4.8-10.8) K/ul RBC 3.20 L (4.63-6.08) M/uL Hgb 9.5 L (14.0-18.0) g/dl Hct 29.6 L (40.1-51.0) % MCV 92.5 (80.0-100.0) fL MCH 29.7 (25.0-34.0) pg MCHC 32.1 (32.0-36.0) g/dL RDW Std Deviation 46.5 H (36.4-46.3) fL RDW Coeff of [place] 13.8 (11.5-14.5) % Plt Count 195 (130-400) K/uL MPV 9.9 (9.4-12.4) fL Immature Gran % (Auto) 0.8 % Neut % (Auto) 74.8 % Lymph % (Auto) 13.2 % [place] % (Auto) 8.6 % Eos % (Auto) 2.3 % Baso % (Auto) 0.3 % Neut # (Auto) 4.51 (1.4-6.5) K/uL Lymph # (Auto) 0.80 L (1.2-3.4) K/uL [place] # (Auto) 0.52 (0.24-0.82) K/uL Eos # (Auto) 0.14 (0-0.50) K/uL Baso # (Auto) 0.02 (0-0.2) K/uL Immature Gran # (Auto) 0.05 H (0.00-0.02) K/uL PT (9.0-12.0) Seconds INR (0.9-1.1) APTT (21.0-31.0) Seconds PTT Ratio Sodium 138 (136-145) mmol/L Potassium 4.3 (3.5-5.1) mmol/L Chloride 104 (98-107) mmol/L Carbon Dioxide 32 (21-32) mmol/L Anion Gap 2 L (3-11) BUN 24 H (6-23) mg/dl Creatinine 1.26 (0.6-1.4) mg/dl Est Cr Clr Drug Dosing 58.4 ml/min Est GFR ( Amer) 63.3 ml/min Est GFR (Non-Af Amer) 54.7 ml/min BUN/Creatinine Ratio 19.0 (10-20) Glucose 128 H (70-99(Fasting)) mg/dl Calcium 8.7 (8.5-10.1) mg/dl Total Bilirubin 0.5 (0.2-1.0) mg/dl AST 25 (13-39) U/L ALT 9 (7-52) U/L Alkaline Phosphatase 67 (34-104) U/L Total Protein 6.0 (6.0-8.3) gm/dl Albumin 3.2 L (3.4-5.0) gm/dl Globulin 2.8 (2.5-4.0) gm/dl Albumin/Globulin Ratio 1.1 (0.9-2) Urine Color Red Urine Appearance Turbid A (Clear) Urine pH 7.0 (4.5-7.5) Ur Specific [place] >= 1.030 (1.000-1.030) Urine Protein 3+ H (Negative) Urine Glucose (UA) Negative (Negative) Urine Ketones Negative (Negative) Urine Blood 3+ H (Negative) Urine Nitrite Negative (Negative) Urine Bilirubin Negative (Negative) Urine Urobilinogen Negative (Negative) Ur Leukocyte Esterase Negative (Negative) Urine RBC >30 H (0-4) /hpf Urine WBC >30 H (0-5) /hpf Ur Epithelial Cells >30 H (0-5) /lpf Urine Bacteria 1+ H (Negative) Blood Type Antibody Screen 02/23/22 02/23/22 Range/Units 08:10 08:50 WBC (4.8-10.8) K/ul RBC (4.63-6.08) M/uL Hgb (14.0-18.0) g/dl Hct (40.1-51.0) % MCV (80.0-100.0) fL MCH (25.0-34.0) pg MCHC (32.0-36.0) g/dL RDW Std Deviation (36.4-46.3) fL RDW Coeff of [place] (11.5-14.5) % Plt Count (130-400) K/uL MPV (9.4-12.4) fL Immature Gran % (Auto) % Neut % (Auto) % Lymph % (Auto) % [place] % (Auto) % Eos % (Auto) % Baso % (Auto) % Neut # (Auto) (1.4-6.5) K/uL Lymph # (Auto) (1.2-3.4) K/uL [place] # (Auto) (0.24-0.82) K/uL Eos # (Auto) (0-0.50) K/uL Baso # (Auto) (0-0.2) K/uL Immature Gran # (Auto) (0.00-0.02) K/uL PT 21.6 H (9.0-12.0) Seconds INR 2.1 H (0.9-1.1) APTT 42.4 H (21.0-31.0) Seconds PTT Ratio 1.5 Sodium (136-145) mmol/L Potassium (3.5-5.1) mmol/L Chloride (98-107) mmol/L Carbon Dioxide (21-32) mmol/L Anion Gap (3-11) BUN (6-23) mg/dl Creatinine (0.6-1.4) mg/dl Est Cr Clr Drug Dosing ml/min Est GFR ( Amer) ml/min Est GFR (Non-Af Amer) ml/min BUN/Creatinine Ratio (10-20) Glucose (70-99(Fasting)) mg/dl Calcium (8.5-10.1) mg/dl Total Bilirubin (0.2-1.0) mg/dl AST (13-39) U/L ALT (7-52) U/L Alkaline Phosphatase (34-104) U/L Total Protein (6.0-8.3) gm/dl Albumin (3.4-5.0) gm/dl Globulin (2.5-4.0) gm/dl Albumin/Globulin Ratio (0.9-2) Urine Color Urine Appearance (Clear) Urine pH (4.5-7.5) Ur Specific [place] (1.000-1.030) Urine Protein (Negative) Urine Glucose (UA) (Negative) Urine Ketones (Negative) Urine Blood (Negative) Urine Nitrite (Negative) Urine Bilirubin (Negative) Urine Urobilinogen (Negative) Ur Leukocyte Esterase (Negative) Urine RBC (0-4) /hpf Urine WBC (0-5) /hpf Ur Epithelial Cells (0-5) /lpf Urine Bacteria (Negative) Blood Type A Negative Antibody Screen NEGATIVE Administered Medications Discontinued Medications Acetaminophen (Acetaminophen 1000 Mg/100 Ml Iv) 1,000 mg IV NOW STA Stop: 02/23/22 06:49 Last Admin: 02/23/22 08:10 Dose: 1,000 mg Documented By: [facility] Sodium Chloride (Nss 1000ml) 500 mls @ 999 mls/hr IV .Q31M ONE Stop: 02/23/22 07:17 Last Infusion: 02/23/22 08:50 Dose: 0 mls/hr Documented By: [facility] Admin: 02/23/22 08:10 Dose: 999 mls/hr Documented By: [facility] Levofloxacin/Dextrose (Levaquin/D5w) 500 mg in 100 mls @ 100 mls/hr IV NOW STA Stop: 02/23/22 09:51 Last Infusion: 02/23/22 12:24 Dose: 0 mls/hr Documented By: [facility] Admin: 02/23/22 10:43 Dose: 100 mls/hr Documented By: [facility] Ioversol (Optiray 300 500ml) 95 ml IV ONCE ONE Stop: 02/23/22 09:46 Last Admin: 02/23/22 09:40 Dose: 95 ml Documented By: Cheryl Imaging Data Radiologist's Impression: Abdomen/Pelvis CT 02/23/22 08:27 CT SCAN OF THE ABDOMEN AND PELVIS WITH IV CONTRAST CLINICAL HISTORY: Lower abdominal pain. Hematuria. COMPARISON STUDY: Abdominal CT dated 12/06/2021. TECHNIQUE: Following the IV administration of 95 cc of Optiray 300, CT scan of the abdomen and pelvis is performed from the lung bases to the proximal femora. Images are reviewed in the axial, sagittal, and coronal planes. IV contrast was administered without complication. A dose lowering technique was utilized adhering to the principles of ALARA. The examination is degraded by motion artifact. CT DOSE: 2196.04 mGycm FINDINGS: Lung bases: The patient is status post midline sternotomy and mitral valve surgery. The heart is markedly enlarged and without pericardial effusion. The lung bases are clear noting bibasilar scarring/atelectasis. There is a small to moderate hiatal hernia. Liver: The contrast-enhanced liver is normal in size, contour, and attenuation. There is no intrahepatic biliary ductal dilatation. The hepatic veins and portal veins are patent. Gallbladder: Unremarkable. Spleen: Normal in size and attenuation. There are calcified splenic granulomas. Pancreas: Unremarkable. Adrenal glands: Unremarkable. Kidneys: The contrast enhanced kidneys demonstrate mild cortical atrophy and are without hydronephrosis. Foci of cortical scarring are noted in the right kidney. The kidneys enhance and excrete symmetrically. Numerous subcentimeter cortical hypodensities likely represent cysts but are too small for definitive characterization. Excreted IV contrast is seen within the renal collecting systems and ureters PA Abdominal vasculature: The abdominal aorta is normal in course and caliber. Bowel: There is moderate to advanced colonic diverticulosis without CT evidence of acute diverticulitis. No bowel obstruction is seen. Moderate fecal retention is noted throughout the colon. The appendix is well-visualized and normal. Peritoneum: There is no intraperitoneal free air or abdominal ascites. There is a fat-containing umbilical hernia. Lymphadenopathy: None. Pelvic viscera: The bladder is mildly distended with a Greco catheter in place. There is layering contrast within the bladder lumen. Large hyperdense intraluminal material likely represent blood clots. The bladder wall is thickened there is surrounding infiltration. Intraluminal gas is nonspecific and likely related to instrumentation. A 1.3 cm nodule versus diverticulum is seen along the bladder dome on image #3 and 77. This is new from previous. The prostate gland is enlarged and heterogeneous. There is a large fat-containing left inguinal hernia. There is evidence of previous right inguinal herniorr haphy. Skeletal structures: The skeletal structures are osteopenic. There is moderate lumbosacral spondylosis. No lytic or blastic lesions are seen. IMPRESSION: 1. The bladder is distended, noting a Greco catheter in place. The bladder wall is thickened with surrounding infiltration. Correlate with clinical findings and urinalysis for evidence of cystitis. 2. A large volume of hyperdense material within the bladder lumen likely represents blood clots. Again, correlation with urinalysis will be required. 3. A 1.3 cm nodule versus diverticulum is seen adjacent to the bladder dome. This is new from previous. Although considered less likely, an underlying bladder mass would be impossible to exclude. Nonemergent follow-up with urology is recommended and CT follow-up is recommended. 4. There is no hydroureteronephrosis. 5. Marked cardiomegaly. 6. Colonic diverticulosis without CT evidence of acute diverticulitis. 7. Large left inguinal hernia. ACT 112: Negative or not required by law. Electronically signed by: Yosvany Cortes M.D. 02/23/2022 10:10 AM Discharge Plan Visit Data Chief Complaint: Penis Pain Stated Complaint: Urinary Retention, Bleeding ED Provider: Yosvany Fry Discharge Problem: Acute urinary retention, Hematuria, Anemia, Coagulopathy Patient Disposition: Admitted As Inpatient Condition: Fair Forms Stand Alone Forms: [facility], Virtual Emergency Department, Important Visit Information Prescriptions Prescriptions: No Action memantine [Namenda] 5 mg tablet 2.5 mg PO HS Label Comments: cut back to half tablet because it was causing sleepiness metformin 500 mg tablet extended release 24 hr 500 mg PO QDD tramadol 50 mg Tablet 100 mg PO Q8H PRN (Reason: Pain) pantoprazole 20 mg Tablet,Delayed Release (Dr/Ec) 40 mg PO DAILYBB atorvastatin 40 mg tablet 40 mg PO HS tamsulosin 0.4 mg capsule 0.4 mg PO QAM carbidopa-levodopa 25-100 mg tablet 1 tab PO TID Rx Instructions: TAKE ONE TABLET AT 12PM, 4PM, AND 8PM. propranolol 80 mg capsule,extended release 24 hr 80 mg PO QAM mirabegron 25 mg tablet extended release 24 hr 25 mg PO QAM acetaminophen 325 mg Tablet 650 mg PO Q4H PRN (Reason: Pain) polyethylene glycol 3350 [Miralax] 17 gram Powder In Packet 17 g PO QDL PRN (Reason: Constipation) docusate sodium [Colace] 100 mg Capsule 100 mg PO BID multivitamin with minerals Tablet 1 tab PO QAM ondansetron 4 mg tablet,disintegrating 4 mg translingual Q6H PRN (Reason: Nausea And Vomiting) enoxaparin [Lovenox] 40 mg/0.4 mL Syringe 40 mg SUBCUT DAILY@0700 bupropion HCl 150 mg tablet extended release 24 hr 150 mg PO QAM pregabalin 100 mg Capsule 200 mg PO Q8H ciprofloxacin HCl 250 mg tablet 250 mg PO Q12 PRN (Reason: Urinary Tract Infection) Rx Instructions: 02-17-22 through 02-24-22@20:59 warfarin 5 mg tablet 7.5 mg PO QPM Rx Instructions: 02/12/22 : THIS MED CURRENTLY ON HOLD ( OF 02/11/22) FOR UPCOMING SURGERY. duloxetine 30 mg capsule,delayed release(DR/EC) 60 mg PO QAM Referrals Referrals: Leti Camacho MD [Primary Care Provider] -
[2022-02-23 08:25] LABS: Basophils # (auto) 0.02 K/uL (0-0.2); Basophils % (auto) 0.3 %; Eosinophils # (auto) 0.14 K/uL (0-0.50); Eosinophils % (auto) 2.3 %; Hematocrit (blood only) 29.6 % (40.1-51.0); Hemoglobin 9.5 g/dl (14.0-18.0); Immature Granulocytes # (auto) 0.05 K/uL (0.00-0.02); Immature Granulocytes % (auto) 0.8 %; Lymphocytes % (auto) 13.2 %; Mean Corpuscular Hemoglobin 29.7 pg (25.0-34.0); Mean Corpuscular Hgb Conc 32.1 g/dL (32.0-36.0); Mean Corpuscular Volume 92.5 fL (80.0-100.0); Mean Platelet Volume 9.9 fL (9.4-12.4); Monocytes # (auto) 0.52 K/uL (0.24-0.82); Monocytes % (auto) 8.6 %; Neutrophils # (auto) 4.51 K/uL (1.4-6.5); Neutrophils % (auto) 74.8 %; Platelet Count 195 K/uL (130-400); RDW Coefficient of Variation 13.8 % (11.5-14.5); RDW Standard Deviation 46.5 fL (36.4-46.3); White Blood Count 6.04 K/ul (4.8-10.8)
[2022-02-23 08:44] LABS: Bilirubin Urine Negative (Negative); Blood Urine 3+ (Negative); Glucose Urine UA Negative (Negative); Ketones Urine Negative (Negative); Leukocyte Esterase Urine Negative (Negative); Nitrite Urine Negative (Negative); Protein Urine 3+ (Negative); Specific Gravity Urine >= 1.030 (1.000-1.030); Urobilinogen Urine Negative (Negative)
[2022-02-23 08:45] LABS: Appearance Urine Turbid (Clear); Color Urine Red
[2022-02-23 08:47] LABS: Bacteria Urine 1+ (Negative); Epithelial Cell Urine >30 /lpf (0-5); RBC Urine >30 /hpf (0-4); WBC Urine >30 /hpf (0-5)
[2022-02-23] MEDS ORDERED: levoFLOXacin/D5W 500 MG/100 ML BAG IV STA (08:52)
[2022-02-23 09:03] LABS: Albumin Globulin Ratio 1.1 (0.9-2); Albumin Level 3.2 gm/dl (3.4-5.0); Bilirubin,Total 0.5 mg/dl (0.2-1.0); Calcium 8.7 mg/dl (8.5-10.1); Creatinine Clr Calc Pharmacy 58.4 ml/min; Est GFR (African American) 63.3 ml/min; Est GFR (Non-African American) 54.7 ml/min; Globulin 2.8 gm/dl (2.5-4.0); Potassium 4.3 mmol/L (3.5-5.1)
[2022-02-23] MEDS ORDERED: OPTIRAY 300 500mL IV ONE (09:45)
[2022-02-23 09:56] LABS: INR 2.1 (0.9-1.1); Partial Thromboplastin Ratio 1.5; Partial Thromboplastin Time 42.4 Seconds (21.0-31.0); Prothrombin Time 21.6 Seconds (9.0-12.0)
--- NOTE | 2022-02-23 10:12 | CT Scan Report ---
CT SCAN OF THE ABDOMEN AND PELVIS WITH IV CONTRAST CLINICAL HISTORY: Lower abdominal pain. Hematuria. COMPARISON STUDY: Abdominal CT dated 12/06/2021. TECHNIQUE: Following the IV administration of 95 cc of Optiray 300, CT scan of the abdomen and pelvi s is performed from the lung bases to the proximal femora. Images are reviewed in the axial, sagittal , and coronal planes. IV contrast was administered without complication. A dose lowering technique wa s utilized adhering to the principles of ALARA. The examination is degraded by motion artifact. CT DOSE: 2196.04 mGycm FINDINGS: Lung bases: The patient is status post midline sternotomy and mitral valve surgery. The heart is jaye edly enlarged and without pericardial effusion. The lung bases are clear noting bibasilar scarring/at electasis. There is a small to moderate hiatal hernia. Liver: The contrast-enhanced liver is normal in size, contour, and attenuation. There is no intrahepa tic biliary ductal dilatation. The hepatic veins and portal veins are patent. Gallbladder: Unremarkable. Spleen: Normal in size and attenuation. There are calcified splenic granulomas. Pancreas: Unremarkable. Adrenal glands: Unremarkable. Kidneys: The contrast enhanced kidneys demonstrate mild cortical atrophy and are without hydronephros is. Foci of cortical scarring are noted in the right kidney. The kidneys enhance and excrete symmetri derek. Numerous subcentimeter cortical hypodensities likely represent cysts but are too small for def initive characterization. Excreted IV contrast is seen within the renal collecting systems and ureter s PA Abdominal vasculature: The abdominal aorta is normal in course and caliber. Bowel: There is moderate to advanced colonic diverticulosis without CT evidence of acute diverticulit is. No bowel obstruction is seen. Moderate fecal retention is noted throughout the colon. The appendi x is well-visualized and normal. Peritoneum: There is no intraperitoneal free air or abdominal ascites. There is a fat-containing umbi lical hernia. Lymphadenopathy: None. Pelvic viscera: The bladder is mildly distended with a Greco catheter in place. There is layering con trast within the bladder lumen. Large hyperdense intraluminal material likely represent blood clots. The bladder wall is thickened there is surrounding infiltration. Intraluminal gas is nonspecific and likely related to instrumentation. A 1.3 cm nodule versus diverticulum is seen along the bladder dome on image #3 and 77. This is new from previous. The prostate gland is enlarged and heterogeneous. The re is a large fat-containing left inguinal hernia. There is evidence of previous right inguinal herni orrhaphy. Skeletal structures: The skeletal structures are osteopenic. There is moderate lumbosacral spondylosi s. No lytic or blastic lesions are seen. IMPRESSION: 1. The bladder is distended, noting a Greco catheter in place. The bladder wall is thickened with char rounding infiltration. Correlate with clinical findings and urinalysis for evidence of cystitis. 2. A large volume of hyperdense material within the bladder lumen likely represents blood clots. Agai n, correlation with urinalysis will be required. 3. A 1.3 cm nodule versus diverticulum is seen adjacent to the bladder dome. This is new from previou s. Although considered less likely, an underlying bladder mass would be impossible to exclude. Noneme rgent follow-up with urology is recommended and CT follow-up is recommended. 4. There is no hydroureteronephrosis. 5. Marked cardiomegaly. 6. Colonic diverticulosis without CT evidence of acute diverticulitis. 7. Large left inguinal hernia. ACT 112: Negative or not required by law. Electronically signed by: Yosvany Cortes M.D. 02/23/2022 10:10 AM
--- NOTE | 2022-02-23 11:25 | History & Physical Report ---
Date of Service February 23, 2022 Assessment & Plan (1) Hematuria: Plan: Secondary to recent TURBT while on Lovenox bridging to warfarin. Would favor holding rather than reversing warfarin and restarting on heparin IV without bolus when cleared by urology. Potential operative management per urology (consulted and discussed with Dr Mondragon). Urine culture pending. Continue ciprofloxacin 400mg IV BID given prior culture. (2) Acute urinary retention: Plan: Secondary to blood clotting Greco catheter now draining. Defer ongoing management to urology. 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 INR aim once hematuria improved 2.5-3.5 (6) Parkinsonism: Plan: Continue simemet (7) Dementia: Plan: Continue memantine (8) Peripheral neuropathy: Plan: Continue duloxetine and Lyrica Plan VTE Prophylaxis - INR 2.1 Diet - NPO pending urology evaluation Disposition - admit to med/surg Admission and Anticipated Discharge Date Admission Date: February 23, 2022 History of Present Illness Chief Complaint: Hematuria Primary Care Provider: Leti Camacho MD Chandan Doherty is a 77 year old male who presents from [facility] with hematuria following TURBT on February 16. The patient has a mechanical mitral valve therefore was started back on bridging Lovenox and warfarin on discharge. He developed difficulty urinating, suprapubic pain and hematuria. He was therefore sent to the ER from [facility] where he had been having physical rehabilitation. He is afebrile and reports no fever or chills. His reports his mentation fluctuates somewhat but he is currently worse than his baseline however he also recently had a subdural in December causing confusion and was off anticoagulation for 10 days - she reports this confusion however completely resolved. On February 12 prior to TURBT he was diagnosed with a UTI - entero coccus faecalis and alpha strep which was sensitive to ciprofloxacin which he was discharged on February 17 with a 7 day course (last day February 24). His reports he has baseline dementia - sometimes knows where he is and date but fluctuates normally. In the ER CT was concerning for a large hyperdense material within the bladder likely representing a blood clot. Greco catheter was placed and pam blood in catheter bag. ER physician informed urology and he was referred to medicine for admission and ongoing management. Allergies Allergy/AdvReac Type Severity Reaction Status Date / Time Penicillins Allergy Mild RASH Verified 02/23/22 08:28 morphine AdvReac Mild bp drops Verified 02/23/22 08:28 Home Medications Medication Instructions Recorded Confirmed Type pantoprazole 20 mg tablet,delayed 40 mg PO DAILYBB 09/10/18 02/23/22 History release tramadol 50 mg tablet 100 mg PO Q8H PRN Pain 09/10/18 02/23/22 History atorvastatin 40 mg tablet 40 mg PO HS 07/10/19 02/23/22 History tamsulosin 0.4 mg capsule 0.4 mg PO QAM 07/10/19 02/23/22 History metformin 500 mg tablet,extended 500 mg PO QDD 09/27/21 02/23/22 History release 24 hr memantine 5 mg tablet (Namenda) 2.5 mg PO HS 11/01/21 02/23/22 History carbidopa 25 mg-levodopa 100 mg 1 tab PO TID 01/01/22 02/23/22 History tablet mirabegron 25 mg tablet,extended 25 mg PO QAM 01/28/22 02/23/22 History release 24 hr propranolol 80 mg capsule,24 80 mg PO QAM 01/28/22 02/23/22 History hr,extended release duloxetine 30 mg capsule,delayed 60 mg PO QAM 02/12/22 02/23/22 History release acetaminophen 325 mg tablet 650 mg PO Q4H PRN Pain 02/23/22 02/23/22 History bupropion HCl 150 mg 24 hr tablet, 150 mg PO QAM 02/23/22 02/23/22 History extended release ciprofloxacin HCl 250 mg tablet 250 mg PO Q12 PRN Urinary Tract 02/23/22 02/23/22 History Infection docusate sodium 100 mg capsule 100 mg PO BID 02/23/22 02/23/22 History (Colace) enoxaparin 40 mg/0.4 mL 40 mg subcut DAILY@0700 02/23/22 02/23/22 History subcutaneous syringe (Lovenox) multivitamin with minerals 1 tab PO QAM 02/23/22 02/23/22 History ondansetron 4 mg disintegrating 4 mg translingual Q6H PRN Nausea 02/23/22 02/23/22 History tablet And Vomiting polyethylene glycol 3350 17 gram 17 g PO QDL PRN Constipation 02/23/22 02/23/22 History oral powder packet (Miralax) pregabalin 100 mg capsule 200 mg PO Q8H 02/23/22 02/23/22 History warfarin 5 mg tablet 7.5 mg PO QPM 02/23/22 02/23/22 History Past Med/Surg History Medical History Atrial fibrillation Paroxysmal per records Pt denies history Follows with cardio- on Coumadin Benign essential tremor BPH (benign prostatic hyperplasia) Chronic back pain Degenerative disc disease Dementia Experiences short term memory loss. Alert and oriented to person. Confusion with places and time. Depression Diabetes mellitus, type 2 NIDDM Recently dx'ed- does not check glucose regularly Encounter for pre-operative examination Generalized weakness GERD (gastroesophageal reflux disease) Well controlled and stable Hearing deficit Hyperlipidemia Hypertension Irregular heart beat Occasional episodes of trigeminy. Follows with Dr Isaac Mechanical heart valve present MV replacement 1996- mechanical- on Coumadin Neuropathy involving both lower extremities On anticoagulant therapy Warfarin daily Parkinson disease Parkinson's dementia per records Subdural hematoma (01/01/22) - Presented to the Emergency room 01/01/22 at [facility] and transferred to [facility] and treated inpatient for several days and then went to [facility] for rehab. Patient discharged home ~01/21/22. No surgery had been done, reports it was a spontaneous hematoma. Denies any fall. - Pt's mental status back to baseline -Coumadin has since been restarted- tolerating well. Transient ischemic attack (TIA) In --no deficits UTI (urinary tract infection) due to Enterococcus Surgical History History of back surgery x2 History of colonoscopy History of craniotomy x2 (~2011)- secondary to subdural hematoma- had fall at that time History of esophagogastroduodenoscopy (EGD) History of hand surgery right hand finger History of inguinal hernia repair x5 History of mitral valve replacement 1996 @ [facility] -- mechanical History of umbilical hernia repair History of wisdom tooth extraction Status post LASIK surgery of both eyes Family History Daughter Family hx of colon cancer Colorectal cancer Mother Cardiac pacemaker Brother Stroke Hypertension Prostate cancer Father Stroke Grandfather (Maternal) Suicide Grandfather (Paternal) Tuberculosis Other No family history of adverse response to anesthesia Social History Smoking Status: Never smoker Second Hand Exposure: No; Preferred Language: French Communication Ability: Impaired Hospital Monitor Required: No Beliefs That Will Affect Care: None marital status: Current Living Situation: Spouse Current Living Situation Comment: Per pt report - pt is confused. 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 Feels Safe at Home: Yes Assistive Devices: Walker Review of Systems Review of Systems: All systems reviewed & are unremarkable except as noted in Subjective Physical Exam Constitutional: well developed; + not well nourished and no acute distress Eyes: + anicteric sclerae; normal pupil size ENMT: Mouth: + dry oral mucous membranes Respiratory: normal respiratory effort, lungs clear to auscultation Cardiovascular: Rate/Rhythm: regular rate and regular rhythm Heart Sounds: + click; no murmur Extremities: normal capillary refill and + pedal edema (1+ pitting in b/l LE); no calf tenderness Gastrointestinal (Abdomen): Inspection/Auscultation: normal bowel sounds Percussion/Palpation: + abdomen tender (suprapubic) and abdomen soft; no guarding and abdomen not rigid Skin: no rashes, warm and dry Neurologic: moves all extremities, awake and + confused (falling asleep easily) Psychiatric: Orientation: alert (but falls asleep easily), oriented to person and oriented to place; + not oriented to time Genitourinary: no CVA tenderness Results & Data Results & Data ([facility]) Vital Signs (Past 12 Hours) Vital Signs Pulse Pulse Resp BP BP Pulse Ox O2 Del Method 02/23/22 10:29 80 13 127/76 100 Room Air 02/23/22 06:22 94 H 16 181/108 H 93 Room Air Laboratory Results Abnormal lab results 02/23/22 02/23/22 02/23/22 Range/Units 08:10 08:10 08:10 RBC 3.20 L (4.63-6.08) M/uL Hgb 9.5 L (14.0-18.0) g/dl Hct 29.6 L (40.1-51.0) % RDW Std Deviation 46.5 H (36.4-46.3) fL Lymph # (Auto) 0.80 L (1.2-3.4) K/uL Immature Gran # (Auto) 0.05 H (0.00-0.02) K/uL PT (9.0-12.0) Seconds INR (0.9-1.1) APTT (21.0-31.0) Seconds Anion Gap 2 L (3-11) BUN 24 H (6-23) mg/dl Glucose 128 H (70-99(Fasting)) mg/dl POC Glucose (70-99) mg/dl Albumin 3.2 L (3.4-5.0) gm/dl Urine Appearance Turbid A (Clear) Urine Protein 3+ H (Negative) Urine Blood 3+ H (Negative) Urine RBC >30 H (0-4) /hpf Urine WBC >30 H (0-5) /hpf Ur Epithelial Cells >30 H (0-5) /lpf Urine Bacteria 1+ H (Negative) 02/23/22 02/23/22 02/23/22 Range/Units 08:10 18:15 20:33 RBC (4.63-6.08) M/uL Hgb 8.8 L (14.0-18.0) g/dl Hct 28.1 L (40.1-51.0) % RDW Std Deviation (36.4-46.3) fL Lymph # (Auto) (1.2-3.4) K/uL Immature Gran # (Auto) (0.00-0.02) K/uL PT 21.6 H (9.0-12.0) Seconds INR 2.1 H (0.9-1.1) APTT 42.4 H (21.0-31.0) Seconds Anion Gap (3-11) BUN (6-23) mg/dl Glucose (70-99(Fasting)) mg/dl POC Glucose 167 H (70-99) mg/dl Albumin (3.4-5.0) gm/dl Urine Appearance (Clear) Urine Protein (Negative) Urine Blood (Negative) Urine RBC (0-4) /hpf Urine WBC (0-5) /hpf Ur Epithelial Cells (0-5) /lpf Urine Bacteria (Negative) Diagnostic Findings XR chest 1V portable CLINICAL HISTORY: hypervolemic state ?pulmonary edema TECHNIQUE: Single frontal radiograph of the chest was obtained. Comparison: Comparison is made to chest radiograph dated 322 FINDINGS: Median sternotomy wires are unchanged. Cardiac silhouette is stably enlarged. Prosthetic valve is unchanged in appearance. Prominence and cephalization of the vasculature is seen. No evidence of pleural effusion or pneumothorax. IMPRESSION: Cardiomegaly and mild pulmonary edema is seen. No airspace opacities are seen. CT SCAN OF THE ABDOMEN AND PELVIS WITH IV CONTRAST CLINICAL HISTORY: Lower abdominal pain. Hematuria. COMPARISON STUDY: Abdominal CT dated 12/06/2021. TECHNIQUE: Following the IV administration of 95 cc of Optiray 300, CT scan of the abdomen and pelvis is performed from the lung bases to the proximal femora. Images are reviewed in the axial, sagittal, and coronal planes. IV contrast was administered without complication. A dose lowering technique was utilized adhering to the principles of ALARA. The examination is degraded by motion artifact. CT DOSE: 2196.04 mGycm FINDINGS: Lung bases: The patient is status post midline sternotomy and mitral valve surgery. The heart is markedly enlarged and without pericardial effusion. The lung bases are clear noting bibasilar scarring/atelectasis. There is a small to moderate hiatal hernia. Liver: The contrast-enhanced liver is normal in size, contour, and attenuation. There is no intrahepatic biliary ductal dilatation. The hepatic veins and portal veins are patent. Gallbladder: Unremarkable. Spleen: Normal in size and attenuation. There are calcified splenic granulomas. Pancreas: Unremarkable. Adrenal glands: Unremarkable. Kidneys: The contrast enhanced kidneys demonstrate mild cortical atrophy and are without hydronephrosis. Foci of cortical scarring are noted in the right kidney. The kidneys enhance and excrete symmetrically. Numerous subcentimeter cortical hypodensities likely represent cysts but are too small for definitive characterization. Excreted IV contrast is seen within the renal collecting systems and ureters PA Abdominal vasculature: The abdominal aorta is normal in course and caliber. Bowel: There is moderate to advanced colonic diverticulosis without CT evidence of acute diverticulitis. No bowel obstruction is seen. Moderate fecal retention is noted throughout the colon. The appendix is well-visualized and normal. Peritoneum: There is no intraperitoneal free air or abdominal ascites. There is a fat-containing umbilical hernia. Lymphadenopathy: None. Pelvic viscera: The bladder is mildly distended with a Greco catheter in place. There is layering contrast within the bladder lumen. Large hyperdense intral uminal material likely represent blood clots. The bladder wall is thickened there is surrounding infiltration. Intraluminal gas is nonspecific and likely related to instrumentation. A 1.3 cm nodule versus diverticulum is seen along the bladder dome on image #3 and 77. This is new from previous. The prostate gland is enlarged and heterogeneous. There is a large fat-containing left inguinal hernia. There is evidence of previous right inguinal herniorrhaphy. Skeletal structures: The skeletal structures are osteopenic. There is moderate lumbosacral spondylosis. No lytic or blastic lesions are seen. IMPRESSION: 1. The bladder is distended, noting a Greco catheter in place. The bladder wall is thickened with surrounding infiltration. Correlate with clinical findings and urinalysis for evidence of cystitis. 2. A large volume of hyperdense material within the bladder lumen likely represents blood clots. Again, correlation with urinalysis will be required. 3. A 1.3 cm nodule versus diverticulum is seen adjacent to the bladder dome. This is new from previous. Although considered less likely, an underlying bladder mass would be impossible to exclude. Nonemergent follow-up with urology is recommended and CT follow-up is recommended. 4. There is no hydroureteronephrosis. 5. Marked cardiomegaly. 6. Colonic diverticulosis without CT evidence of acute diverticulitis. 7. Large left inguinal hernia. Medications Administered ER Medications Given: NSS 500ml bolus Acetaminophen 1000mg IV Levofloxacin 500ml IV Code Status & VTE Plan Code Status No intubation VTE Prophylaxis Plan VTE Prophylaxis will be ordered: No Reason for no VTE drug order: Contraindicated PG Care Time/CCT Total # of Minutes Spent Total Time Spent with Patient: Total time spent is greater than 50% in coordination of care (as documented) at patient's floor/unit and/or counseling patient: Coding Level of Care Code 43235 Initial Inpt Care Lvl 3 Diagnoses Hematuria R31.0 Hematuria type: gross Acute urinary retention R33.8 Bladder tumor D49.4 Anemia D64.9 Anemia type: unspecified type Mechanical heart valve present Z95.2 Parkinsonism G20 Dementia F03.90 Peripheral neuropathy G62.9 (1) Hematuria Hematuria type: gross Qualified Code(s): R31.0 - Gross hematuria (2) Anemia Anemia type: unspecified type Qualified Code(s): D64.9 - Anemia, unspecified
--- NOTE | 2022-02-23 13:31 | Urology Consultation ---
Date of Consultation February 23, 2022 Assessment & Plan (1) Acute urinary retention: (2) Hematuria: Plan 77yo M on chronic anticoagulation who is s/p TURBT 02/16/22 admitted with gross hematuria, urinary retention. -Plan of care and imaging reviewed with Dr. Mondargon, on-call urologist. -CTAP imaging reviewed and notable for large clot burden within the bladder. -Discussed with patient/ recommendation for cystoscopy, clot evacuation. They are agreeable. -We will plan to proceed to the OR today for cystoscopy, clot evacuation, possible fulguration depending on findings. -Risks and benefits reviewed with patient by Dr. Mondragon. OR notified. COVID test pending. Covered with scheduled IV Levaquin. -Keep NPO. -Continue supportive care. -Urology will follow. Supervising Physician Co-Signing Physician Notes Discussed patient with SHIVA, agree with plan above. Given his hematuria, clot burden on CT scan and need for continued anticoagulation, I think our best option is to go to the OR for cystoscopy, clot evacuation and fulguration as I think managing this conservatively at the bedside will be futile. History of Present Illness Reason for Consultation: hematuria, urinary retention History of Present Illness 77yo M who presents today from [facility] and is s/p TURBT 02/16/[address] Malik presenting with gross hematuria and urinary retention. On arrival, he is afebrile and hemodynamically stable. No leukocytosis. Hemoglobin 9.5. Normal renal function. A CT abdomen pelvis was obtained and notable for a large volume of hyperdense material within the bladder likely representing blood clot. A Greco catheter was placed in the ED and irrigated by nursing. Urinalysis with 3+ blood, negative LE, negative nitrite, 1+ bacteria. Patient was given IV saline for hydration, IV Tylenol pain, he received IV Levaquin to cover for potential infection. He is on Coumadin for mechanical valve. INR 2.1. CT abdomen pelvis - 1. The bladder is distended, noting a Greco catheter in place. The bladder wall is thickened with surrounding infiltration. Correlate with clinical findings and urinalysis for evidence of cystitis. 2. A large volume of hyperdense material within the bladder lumen likely represents blood clots. Again, correlation with urinalysis will be required. 3. A 1.3 cm nodule versus diverticulum is seen adjacent to the bladder dome. This is new from previous. Although considered less likely, an underlying bladder mass would be impossible to exclude. Nonemergent follow-up with urology is recommended and CT follow-up is recommended. 4. There is no hydroureteronephrosis. 5. Marked cardiomegaly. 6. Colonic diverticulosis without CT evidence of acute diverticulitis. 7. Large left inguinal hernia. Patient examined at bedside in the ED. Awake, resting in bed on arrival. at bedside. Underlying dementia. No acute distress. Greco catheter intact, draining with hematuria. Has been NPO. Allergies Allergy/AdvReac Type Severity Reaction Status Date / Time Penicillins Allergy Mild RASH Verified 02/23/22 08:28 morphine AdvReac Mild bp drops Verified 02/23/22 08:28 Home Medications Medication Instructions Recorded Confirmed Type pantoprazole 20 mg tablet,delayed 40 mg PO DAILYBB 09/10/18 02/23/22 History release tramadol 50 mg tablet 100 mg PO Q8H PRN Pain 09/10/18 02/23/22 History atorvastatin 40 mg tablet 40 mg PO HS 07/10/19 02/23/22 History tamsulosin 0.4 mg capsule 0.4 mg PO QAM 07/10/19 02/23/22 History metformin 500 mg tablet,extended 500 mg PO QDD 09/27/21 02/23/22 History release 24 hr memantine 5 mg tablet (Namenda) 2.5 mg PO HS 11/01/21 02/23/22 History carbidopa 25 mg-levodopa 100 mg 1 tab PO TID 01/01/22 02/23/22 History tablet mirabegron 25 mg tablet,extended 25 mg PO QAM 01/28/22 02/23/22 History release 24 hr propranolol 80 mg capsule,24 80 mg PO QAM 01/28/22 02/23/22 History hr,extended release duloxetine 30 mg capsule,delayed 60 mg PO QAM 02/12/22 02/23/22 History release acetaminophen 325 mg tablet 650 mg PO Q4H PRN Pain 02/23/22 02/23/22 History bupropion HCl 150 mg 24 hr tablet, 150 mg PO QAM 02/23/22 02/23/22 History extended release ciprofloxacin HCl 250 mg tablet 250 mg PO Q12 PRN Urinary Tract 02/23/22 02/23/22 History Infection docusate sodium 100 mg capsule 100 mg PO BID 02/23/22 02/23/22 History (Colace) enoxaparin 40 mg/0.4 mL 40 mg subcut DAILY@0700 02/23/22 02/23/22 History subcutaneous syringe (Lovenox) multivitamin with minerals 1 tab PO QAM 02/23/22 02/23/22 History ondansetron 4 mg disintegrating 4 mg translingual Q6H PRN Nausea 02/23/22 02/23/22 History tablet And Vomiting polyethylene glycol 3350 17 gram 17 g PO QDL PRN Constipation 02/23/22 02/23/22 History oral powder packet (Miralax) pregabalin 100 mg capsule 200 mg PO Q8H 02/23/22 02/23/22 History warfarin 5 mg tablet 7.5 mg PO QPM 02/23/22 02/23/22 History Patient History Medical History Atrial fibrillation Paroxysmal per records Pt denies history Follows with cardio- on Coumadin Benign essential tremor BPH (benign prostatic hyperplasia) Chronic back pain Degenerative disc disease Dementia Experiences short term memory loss. Alert and oriented to person. Confusion with places and time. Depression Diabetes mellitus, type 2 NIDDM Recently dx'ed- does not check glucose regularly Encounter for pre-operative examination Generalized weakness GERD (gastroesophageal reflux disease) Well controlled and stable Hearing deficit Hyperlipidemia Hypertension Irregular heart beat Occasional episodes of trigeminy. Follows with Dr Isaac Mechanical heart valve present MV replacement 1996- mechanical- on Coumadin Neuropathy involving both lower extremities On anticoagulant therapy Warfarin daily Parkinson disease Parkinson's dementia per records Subdural hematoma (01/01/22) - Presented to the Emergency room 01/01/22 at [facility] and transferred to [facility] and treated inpatient for several days and then went to [facility] for rehab. Patient discharged home ~01/21/22. No surgery had been done, reports it was a spontaneous hematoma. Denies any fall. - Pt's mental status back to baseline -Coumadin has since been restarted- tolerating well. Transient ischemic attack (TIA) In --no deficits UTI (urinary tract infection) due to Enterococcus Surgical History History of back surgery x2 History of colonoscopy History of craniotomy x2 (~2011)- secondary to subdural hematoma- had fall at that time History of esophagogastroduodenoscopy (EGD) History of hand surgery right hand finger History of inguinal hernia repair x5 History of mitral valve replacement 1996 @ [facility] -- mechanical History of umbilical hernia repair History of wisdom tooth extraction Status post LASIK surgery of both eyes Family History Daughter Family hx of colon cancer Colorectal cancer Mother Cardiac pacemaker Brother Stroke Hypertension Prostate cancer Father Stroke Grandfather (Maternal) Suicide Grandfather (Paternal) Tuberculosis Other No family history of adverse response to anesthesia Social History Smoking Status: Never smoker Second Hand Exposure: No; Preferred Language: Romanian Communication Ability: Impaired Elastic Attacher Coverstitch Required: No Beliefs That Will Affect Care: None marital status: Current Living Situation: Spouse Current Living Situation Comment: Per pt report - pt is confused. 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 Feels Safe at Home: Yes Assistive Devices: Walker Review of Systems Review of Systems: All systems reviewed & are unremarkable except as noted in HPI & below Physical Exam Constitutional: no acute distress Neck: normal visual inspection Respiratory: no respiratory distress and no labored breathing Gastrointestinal (Abdomen): Inspection/Auscultation: abdomen normal to inspection Percussion/Palpation: abdomen soft; abdomen nontender Musculoskeletal: Head/Neck/Chest: normocephalic Skin: Warm and dry Neurologic: awake Psychiatric: Orientation: alert and oriented to person Genitourinary: Greco catheter intact, draining w/hematuria Results & Data ([facility]) Vital Signs (Past 12 Hours) Vital Signs Pulse Pulse Resp BP BP Pulse Ox O2 Del Method 02/23/22 10:29 80 13 127/76 100 Room Air 02/23/22 06:22 94 H 16 181/108 H 93 Room Air PG Care Time/CCT Total # of Minutes Spent Total Time Spent with Patient: Total time spent is greater than 50% in coordination of care (as documented) at patient's floor/unit and/or counseling patient: Coding Level of Care Code 92998 Initial Inpt Care Lvl 2 Diagnoses Acute urinary retention R33.8 Hematuria R31.0 Hematuria type: gross (1) Hematuria Hematuria type: gross Qualified Code(s): R31.0 - Gross hematuria
--- NOTE | 2022-02-23 13:37 | XRay Report ---
XR chest 1V portable CLINICAL HISTORY: hypervolemic state ?pulmonary edema TECHNIQUE: Single frontal radiograph of the chest was obtained. Comparison: Comparison is made to chest radiograph dated 322 FINDINGS: Median sternotomy wires are unchanged. Cardiac silhouette is stably enlarged. Prosthetic valve is unc hanged in appearance. Prominence and cephalization of the vasculature is seen. No evidence of pleural effusion or pneumothorax. IMPRESSION: Cardiomegaly and mild pulmonary edema is seen. No airspace opacities are seen. ACT 112: Negative or not required by law. Electronically signed by: Bright Leonardo M.D. 02/23/2022 1:36 PM
--- NOTE | 2022-02-23 13:37 | Anesthesiology Consultation ---
Date of Service February 23, 2022 Assessment & Plan (1) Encounter for pre-operative examination: Chart Review Chart Review: Acceptable Risk for Surgery and Patient NOT seen in Pre Admission Testing Consults Requested none History Surgery Operation Date: 02/23/22 12:35 Proposed Procedures p Cystoscopy, Clot Evacuation, Possible Fulguration - Vince Mondragon MD Height/Weight Height: 5 ft 11 in Weight: 97.3 kg Allergies Allergy/AdvReac Type Severity Reaction Status Date / Time Penicillins Allergy Mild RASH Verified 02/23/22 08:28 morphine AdvReac Mild bp drops Verified 02/23/22 08:28 Medications Home Medications Medication Instructions Recorded Confirmed Last Taken pantoprazole 20 mg tablet,delayed 40 mg PO DAILYBB 09/10/18 02/23/22 04/20/21 release tramadol 50 mg tablet 100 mg PO Q8H PRN Pain 09/10/18 02/23/22 05/11/20 atorvastatin 40 mg tablet 40 mg PO HS 07/10/19 02/23/22 04/20/21 tamsulosin 0.4 mg capsule 0.4 mg PO QAM 07/10/19 02/23/22 04/20/21 metformin 500 mg tablet,extended 500 mg PO QDD 09/27/21 02/23/22 Unknown release 24 hr memantine 5 mg tablet (Namenda) 2.5 mg PO HS 11/01/21 02/23/22 Unknown carbidopa 25 mg-levodopa 100 mg 1 tab PO TID 01/01/22 02/23/22 Unknown tablet mirabegron 25 mg tablet,extended 25 mg PO QAM 01/28/22 02/23/22 Unknown release 24 hr propranolol 80 mg capsule,24 80 mg PO QAM 01/28/22 02/23/22 Unknown hr,extended release duloxetine 30 mg capsule,delayed 60 mg PO QAM 02/12/22 02/23/22 Unknown release acetaminophen 325 mg tablet 650 mg PO Q4H PRN Pain 02/23/22 02/23/22 Unknown bupropion HCl 150 mg 24 hr tablet, 150 mg PO QAM 02/23/22 02/23/22 Unknown extended release ciprofloxacin HCl 250 mg tablet 250 mg PO Q12 PRN Urinary Tract 02/23/22 02/23/22 Unknown Infection docusate sodium 100 mg capsule 100 mg PO BID 02/23/22 02/23/22 Unknown (Colace) enoxaparin 40 mg/0.4 mL 40 mg subcut DAILY@0700 02/23/22 02/23/22 Unknown subcutaneous syringe (Lovenox) multivitamin with minerals 1 tab PO QAM 02/23/22 02/23/22 Unknown ondansetron 4 mg disintegrating 4 mg translingual Q6H PRN Nausea 02/23/22 02/23/22 Unknown tablet And Vomiting polyethylene glycol 3350 17 gram 17 g PO QDL PRN Constipation 02/23/22 02/23/22 Unknown oral powder packet (Miralax) pregabalin 100 mg capsule 200 mg PO Q8H 02/23/22 02/23/22 Unknown warfarin 5 mg tablet 7.5 mg PO QPM 02/23/22 02/23/22 Unknown Past Medical History Medical History Atrial fibrillation Paroxysmal per records Pt denies history Follows with cardio- on Coumadin Benign essential tremor BPH (benign prostatic hyperplasia) Chronic back pain Degenerative disc disease Dementia Experiences short term memory loss. Alert and oriented to person. Confusion with places and time. Depression Diabetes mellitus, type 2 NIDDM Recently dx'ed- does not check glucose regularly Encounter for pre-operative examination Generalized weakness GERD (gastroesophageal reflux disease) Well controlled and stable Hearing deficit Hyperlipidemia Hypertension Irregular heart beat Occasional episodes of trigeminy. Follows with Dr Isaac Mechanical heart valve present MV replacement 1996- mechanical- on Coumadin Neuropathy involving both lower extremities On anticoagulant therapy Warfarin daily Parkinson disease Parkinson's dementia per records Subdural hematoma (01/01/22) - Presented to the Emergency room 01/01/22 at [facility] and transferred to [facility] and treated inpatient for several days and then went to [facility] for rehab. Patient discharged home ~01/21/22. No surgery had been done, reports it was a spontaneous hematoma. Denies any fall. - Pt's mental status back to baseline -Coumadin has since been restarted- tolerating well. Transient ischemic attack (TIA) In --no deficits UTI (urinary tract infection) due to Enterococcus Past Family History Family History Daughter Family hx of colon cancer Colorectal cancer Mother Cardiac pacemaker Brother Stroke Hypertension Prostate cancer Father Stroke Grandfather (Maternal) Suicide Grandfather (Paternal) Tuberculosis Other No family history of adverse response to anesthesia Past Surgical History Surgical History History of back surgery x2 History of colonoscopy History of craniotomy x2 (~2011)- secondary to subdural hematoma- had fall at that time History of esophagogastroduodenoscopy (EGD) History of hand surgery right hand finger History of inguinal hernia repair x5 History of mitral valve replacement 1996 @ [facility]. [facility] -- mechanical History of umbilical hernia repair History of wisdom tooth extraction Status post LASIK surgery of both eyes Social History Smoking Status: Never smoker Alcohol type: beer, wine and hard liquor alcohol intake frequency: a few times a month (beer usually once weekly ) substance use type: does not use Physical Exam Vital Signs Last Vital Signs Pulse 80 02/23/22 10:29 Resp 13 02/23/22 10:29 BP 127/76 02/23/22 10:29 Pulse Ox 100 02/23/22 10:29 O2 Del Method 02/23/22 10:29 Testing Laboratory Results 02/23/22 08:10 02/23/22 08:10 PT 21.6 Seconds (9.0-12.0) H 02/23/22 08:10 INR 2.1 (0.9-1.1) H 02/23/22 08:10 APTT 42.4 Seconds (21.0-31.0) H 02/23/22 08:10 Urine Color Red 02/23/22 08:10 Urine Appearance Turbid (Clear) A 02/23/22 08:10 Urine pH 7.0 (4.5-7.5) 02/23/22 08:10 Ur Specific [place] >= 1.030 (1.000-1.030) 02/23/22 08:10 Urine Protein 3+ (Negative) H 02/23/22 08:10 Urine Glucose (UA) Negative (Negative) 02/23/22 08:10 Urine Ketones Negative (Negative) 02/23/22 08:10 Urine Nitrite Negative (Negative) 02/23/22 08:10 Ur Leukocyte Esterase Negative (Negative) 02/23/22 08:10 Urine RBC >30 /hpf (0-4) H 02/23/22 08:10 Urine WBC >30 /hpf (0-5) H 02/23/22 08:10 Ur Epithelial Cells >30 /lpf (0-5) H 02/23/22 08:10 Blood Type A Negative 02/23/22 08:50 Antibody Screen NEGATIVE 02/23/22 08:50 Electrocardiogram Date: 02/12/22 Findings: + NSR @ Non-specific intra-ventricular conduction delay Echocardiogram Date: 01/17/22 LV Function: normal mechanical MR valve
[2022-02-23] MEDS ORDERED: ePHEDrine sulfate 50 MG/ML AMP IV PRN (14:17)
[2022-02-23] MEDS ORDERED: ATROPINE SULFATE 0.1 MG/ML 10ML SYR IV PRN (14:17)
[2022-02-23] MEDS ORDERED: ONDANSETRON INJ 2 MG/ML 2 ML VIAL IV PRN ×2 (14:17→17:42)
[2022-02-23] MEDS ORDERED: PROPOFOL IV EMULSION 10 MG/ML 20 ML VIAL IV ONE (14:18)
[2022-02-23] MEDS ORDERED: DEXAMETHASONE SOD INJ 4 MG/ML VIAL ONE (14:18)
[2022-02-23] MEDS ORDERED: ONDANSETRON INJ 2 MG/ML 2 ML VIAL ONE (14:18)
[2022-02-23] MEDS ORDERED: LIDOCAINE 2% MPF LOCAL 5 ML VIAL INFIL ONE (14:19)
[2022-02-23] MEDS ORDERED: fentaNYL citrate 100 MCG/2 ML VIAL ONE (14:19)
[2022-02-23] MEDS ORDERED: MIDAZOLAM HCL 1 MG/ML 2ML VIAL ONE (14:19)
[2022-02-23] MEDS ORDERED: PHENYLEPHRINE 100MCG/ML 5ML SYR ONE (14:57)
[2022-02-23] MEDS ORDERED: ePHEDrine sulfate 50 MG/ML SYR ONE (14:57)
--- NOTE | 2022-02-23 15:25 | Post Operative Brief Note ---
PG Immediate Post Op with CF Date of Surgery February 23, 2022 Pre & Post Diagnosis Operation Date: 02/23/22 12:35 Pre-Op Diagnosis: Urinary Retention, Bleeding Post-Op Diagnosis: Urinary Retention, Bleeding I identified the patient and participated in the time-out.: Yes Procedure Cystoscopy, clot evacuation, fulguration Operation Date: 02/23/22 12:35 <No data on this case meets the specified criteria> Cystoscopy, clot evacuation, fulguration Surgeon Vince Mondragon MD Check Weigher None Estimated Blood Loss 5 Findings See Below Large organized clot ball which was evacuated out using Vizury evacuator's. Small clot burden peeled off of previous resection site. Small amount of oozing circumferentially around the site but no significant active bleeding. Tumor bed was fulgurated. This was safely away from the right ureteral orifice. There was no concern for bladder perforation both extraperitoneal or intraperitoneal. Fulgurated some oozing at the bladder neck. Catheter placed with clear urine at end of case. Drains Perez Catheter (replaced perez catheter) Anesthesia Type General Complications none
--- NOTE | 2022-02-23 15:31 | Operative Report ---
PG Post Operative Report Pre & Post Diagnosis Operation Date: 02/23/22 12:35 Pre-Op Diagnosis: Urinary Retention, Bleeding Post-Op Diagnosis: Urinary Retention, Bleeding I identified the patient and participated in the time-out.: Yes Procedure Cystoscopy, clot evacuation, fulguration Operation Date: 02/23/22 12:35 <No data on this case meets the specified criteria> Cystoscopy, clot evacuation, fulguration Surgeon Vince Mondragon MD Ophthalmic Photographer None Estimated Blood Loss 5 Findings See Below Large organized clot ball which was evacuated out using Ellik evacuator's. Small clot burden peeled off of previous resection site. Small amount of oozing circumferentially around the site but no significant active bleeding. Tumor bed was fulgurated. This was safely away from the right ureteral orifice. There was no concern for bladder perforation both extraperitoneal or intraperitoneal. Fulgurated some oozing at the bladder neck. Catheter placed with clear urine at end of case. Specimens None Drains 22 [place] three-way catheter with 10 cc in balloon, port capped Anesthesia Type General Complications none Indications 77-year-old male with a history of dementia and bladder tumor. He was recently taken to the OR for a TURBT by Dr. Malik on 02/16/2022. He has a mechanical valve and has to be on anticoagulation so he had restarted his Coumadin. He presented to the emergency department and clot retention today. CT scan showed a large clot burden. Risks and benefits discussed with , who is POA and consent was obtained to take to the OR for the above-noted procedure. Description of Procedure After informed consent was obtained, the patient was transported to the operative suite. General anesthesia was induced. They were placed in dorsal lithotomy position and prepped and draped in sterile fashion. They received preoperative Levaquin. An appropriate surgical timeout was performed. A 27 [place] resectoscope was inserted per urethra into the bladder. There was a large organized clot burden. I was unable to evacuate the clot out via the scope but then was able to evacuate it using several Ellik evacuator's. I then went back into the bladder with the scope and a ball and noticed some clot over the previous resection site. I tried to peel this off with a ball and was unsuccessful so I switched over to a loop. I was able to scrape this off the resection site and then remove it with an [employer] evacuator. There was some minor oozing at the previous resection site however no active bleeding. The entire previous resection site and surrounding tissue was fulgurated. The right ureteral orifice was well away from the area of coagulation. [place] cystoscopy revealed no other active bleeding sites or concern for perforation. There was some oozing the bladder neck that I fulgurated. The bladder was left full and the scope was removed. I inserted a 22 [place] three-way catheter with return of clear urine. Balloon was inflated with 10 cc of sterile water. Infusion port was capped. This concluded the end of the case. All counts correct at the end of the case. I was present scrubbed and actively participated for the entirety of the procedure. I attest to the content of the Intraoperative Record and any orders documented therein. Any exceptions are noted below.
--- NOTE | 2022-02-23 16:25 | Anesthesiology Progress Note ---
Date of Service February 23, 2022 Anesthesia Post Procedure Vital Signs Vital Signs: Temp Pulse Pulse Pulse Resp BP BP 02/23/22 16:15 36.6 C 76 16 127/91 02/23/22 16:05 77 16 145/89 H 02/23/22 15:55 84 16 105/89 02/23/22 15:45 92 H 16 164/93 H 02/23/22 15:37 36.5 C 92 H 16 168/97 H 02/23/22 14:07 36.5 C 70 17 130/67 02/23/22 13:56 70 20 150/105 H 02/23/22 10:29 80 13 127/76 02/23/22 06:22 94 H 16 181/108 H Pulse Ox O2 Del Method O2 Flow Rate 02/23/22 16:15 95 Room Air 02/23/22 16:05 95 Room Air 02/23/22 15:55 95 Room Air 02/23/22 15:45 100 Oxymask 5 02/23/22 15:37 98 Oxymask 5 02/23/22 14:07 98 Room Air 02/23/22 13:56 100 Room Air 02/23/22 10:29 100 Room Air 02/23/22 06:22 93 Room Air Pain Intensity Pelvic: Pain Intensity: 10 Transfer of Care Handoff Completed per policy Notes Mental Status: alert / awake / arousable and participated in evaluation Patient Amnestic to Procedure: Yes Nausea / Vomiting: adequately controlled Pain: adequately controlled Airway Patency, RR, SpO2: stable & adequate BP & HR: stable & adequate Hydration State: stable & adequate Anesthetic Complications: no major complications apparent and Pt Satisfied with anesthetic care
[2022-02-23] MEDS: fentaNYL citrate 100 MCG/2 ML VIAL IV PRN ×3 (16:59→17:09)
[2022-02-23] MEDS ORDERED: DEXTROSE 50% 50 ML SYRINGE IV PRN (17:42)
[2022-02-23] MEDS ORDERED: CARBOHYDRATES FOR HYPOGLYCEMIA PO PRN (17:42)
[2022-02-23] MEDS ORDERED: GLUCAGON FOR INJ 1 MG VIAL SQ PRN (17:42)
[2022-02-23] MEDS ORDERED: GLUCOSE 40% GEL 15 GM TUBE PO PRN (17:42)
[2022-02-23] MEDS ORDERED: POLYETHYLENE (MIRALAX) 17 GM PACK PO PRN (17:42)
[2022-02-23] MEDS ORDERED: ACETAMINOPHEN 325 MG TAB PO PRN (17:42)
[2022-02-23] MEDS ORDERED: GLUCOSE 10 TAB/TUBE PO PRN (17:42)
[2022-02-23 18:31] LABS: Hematocrit (blood only) 28.1 % (40.1-51.0); Hemoglobin 8.8 g/dl (14.0-18.0)
[2022-02-23] MEDS: LACTATED RINGER'S 1,000 ML IV SCH (18:40)
[2022-02-23] MEDS: INSULIN ASPART PER UNIT SC SCH ×2 (19:17→20:47)
[2022-02-23] MEDS: PREGABALIN 100 MG CAP PO SCH (19:37)
[2022-02-23] MEDS: CARBIDOPA/LEVODOPA 25/100MG TAB PO SCH (20:45)
[2022-02-23] MEDS: MEMANTINE HCL 5 MG TAB PO SCH (20:46)
[2022-02-23] MEDS: ATORVASTATIN 40 MG TAB PO SCH (20:47)
[2022-02-23] MEDS: DOCUSATE SODIUM 100 MG CAP PO SCH (20:47)
[2022-02-23] MEDS: CIPROFLOXACIN / D5W 400 MG/200 ML BAG IV SCH (23:09)
[2022-02-24] MEDS: LACTATED RINGER'S 1,000 ML IV SCH ×2 (02:37→10:48)
[2022-02-24] MEDS: PANTOprazole 40 MG TAB PO SCH (06:13)
[2022-02-24 06:29] LABS: Basophils # (auto) 0.02 K/uL (0-0.2); Basophils % (auto) 0.4 %; Eosinophils # (auto) 0.03 K/uL (0-0.50); Eosinophils % (auto) 0.6 %; Hematocrit (blood only) 24.1 % (40.1-51.0); Hemoglobin 7.7 g/dl (14.0-18.0); Immature Granulocytes # (auto) 0.02 K/uL (0.00-0.02); Immature Granulocytes % (auto) 0.4 %; Lymphocytes # (auto) 0.82 K/uL (1.2-3.4); Lymphocytes % (auto) 15.6 %; Mean Corpuscular Hemoglobin 29.6 pg (25.0-34.0); Mean Corpuscular Volume 92.7 fL (80.0-100.0); Mean Platelet Volume 10.1 fL (9.4-12.4); Monocytes # (auto) 0.59 K/uL (0.24-0.82); Monocytes % (auto) 11.2 %; Neutrophils # (auto) 3.78 K/uL (1.4-6.5); Neutrophils % (auto) 71.8 %; Platelet Count 185 K/uL (130-400); RDW Coefficient of Variation 14.2 % (11.5-14.5); White Blood Count 5.26 K/ul (4.8-10.8)
[2022-02-24 07:04] LABS: BUN Creatinine Ratio 16.8 (10-20); Creatinine Clr Calc Pharmacy 72.9 ml/min; Est GFR (African American) 82.8 ml/min; Est GFR (Non-African American) 71.4 ml/min
--- NOTE | 2022-02-24 08:40 | Urology Progress Note ---
Date of Service February 24, 2022 Assessment & Plan (1) Hematuria: (2) Bladder tumor: Plan 77-year-old male with a history of bladder tumor status post TURBT. He was readmitted yesterday with hematuria and a large clot in his bladder. He was taken to the OR on 02/23/2022 for cystoscopy, clot evacuation and fulguration as he needs to be on persistent anticoagulation for a mechanical valve. Urine clear this morning. Okay from a urologic perspective to start a heparin drip. If urine remains clear for 24 hours on heparin drip, can restart Coumadin Maintain Greco catheter Transfuse as necessary per primary team. Suspect he is downtrending from previous acute bleed but appears to be controlled now. Follow-up cultures. Continue prophylactic Cipro until cultures return. Urology to follow Admission and Anticipated Discharge Date Admission Date: February 23, 2022 Subjective No acute issues overnight. Urine has remained cleared following going to the OR yesterday for cystoscopy, clot evacuation and fulguration. He has been afebrile with stable vitals. Denies any complaints today. Review of Systems Review of Systems: 14 point review of systems negative outside of what is listed above in HPI Physical Exam Physical Exam: General: Alert and oriented, no acute distress HEENT: Normocephalic, mucous membranes moist Pulmonary: Nonlabored respirations Abdomen: Nondistended : 22 [place] three-way catheter draining margo urine. Extremities: Moves all 4 spontaneously Neuro: No gross deficits Skin: Warm, dry, no rashes noted Results & Data ([facility]) Vital Signs (Past 12 Hours) Vital Signs Temp Pulse Pulse Resp BP BP Pulse Ox 02/24/22 07:58 36.6 C 84 18 122/72 97 02/24/22 03:28 36.5 C 94 H 18 107/63 98 02/23/22 21:40 36.8 C 99 H 18 129/74 94 O2 Del Method 02/24/22 07:58 Room Air 02/24/22 03:28 Room Air 02/23/22 21:40 Room Air PG Care Time/CCT Total # of Minutes Spent Total Time Spent with Patient: Total time spent is greater than 50% in coordination of care (as documented) at patient's floor/unit and/or counseling patient: Coding Level of Care Code 97336 Subseq Hosp Care Lvl 2 Diagnoses Hematuria R31.0 Hematuria type: gross Bladder tumor D49.4 (1) Hematuria Hematuria type: gross Qualified Code(s): R31.0 - Gross hematuria
[2022-02-24] MEDS: INSULIN ASPART PER UNIT SC SCH ×4 (08:46→21:27)
[2022-02-24] MEDS: buPROPion XL 150 MG TABCR PO SCH (09:08)
[2022-02-24] MEDS: DULoxetine HCL 60 MG CAP PO SCH (09:08)
[2022-02-24] MEDS: PROPRANOLOL HCL LA 80 MG CAPCR PO SCH (09:08)
[2022-02-24] MEDS: TAMSULOSIN HCL 0.4 MG CAP PO SCH (09:08)
[2022-02-24] MEDS: MIRABEGRON ER 25 MG TAB PO SCH (09:08)
[2022-02-24] MEDS: DOCUSATE SODIUM 100 MG CAP PO SCH ×2 (09:09→20:39)
[2022-02-24] MEDS: CIPROFLOXACIN / D5W 400 MG/200 ML BAG IV SCH ×2 (09:10→20:39)
[2022-02-24] MEDS: PREGABALIN 100 MG CAP PO SCH ×3 (09:14→20:45)
[2022-02-24 09:56] LABS: INR 2.5 (0.9-1.1)
[2022-02-24] MEDS ORDERED: SODIUM CHLORIDE 0.9% 250 ML IV PRN (10:30)
--- NOTE | 2022-02-24 10:44 | Hospitalist Progress Note ---
Date of Service February 24, 2022 Assessment & Plan (1) Hematuria: Plan: Secondary to recent TURBT while on Lovenox bridging to warfarin. Would favor holding rather than reversing warfarin and restarting on heparin IV without bolus when cleared by urology. INR is 2.5 today Patient was on 7.5 mg of warfarin daily at home. He has not had any warfarin since admission. I do not see that he had a reversal agent either. No indication for heparin today as the patient is therapeutic at 2.5 If patient continues to have clear urine tomorrow, restart Coumadin for mechanical valve Previous urine culture from 02/12/2022 positive for Enterococcus faecalis and alpha strep not Enterococcus. Pansensitive with the exception of tetracycline Current urine culture from 02/23/2022 with no growth as are less than 1000 colonies per milliliter. Continue ciprofloxacin 400 mg IV twice daily today based on urology note. However, with negative growth can probably discontinue tomorrow. Will defer to urology (2) Acute urinary retention: Plan: Secondary to blood clotting Greco catheter now draining. Defer ongoing management to urology. 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 Urine has cleared with no evidence of clotting or pam blood at this time Consent obtained as delegated by Dr. Valdes from the patient's Lisa by phone 1 unit of packed red blood cells will be transfused over 4 hours Repeat CBC tomorrow. INR is therapeutic at 2.5. Platelet count is over 100,000. Hemodynamically stable (5) Mechanical heart valve present: Plan: Mitral mechanical valve, need to remain off anticoagulation for least amount of time possible. INR aim once hematuria improved 2.5-3.5 INR is 2.5 today. Will trend INR. Anticipate restarting Coumadin tomorrow. If INR drops, will need heparin drip without bolus per weight-based protocol until INR is between 2.5 and 3.5. (6) Parkinsonism: Plan: Continue simemet Per this is a fairly new diagnosis and carbidopa/levodopa was just started a couple of months ago. Continue outpatient management (7) Dementia: Plan: Continue memantine Discussion with . This seems to be progressive and worse in the mornings. (8) Peripheral neuropathy: Plan: Continue duloxetine and Lyrica Plan VTE Prophylaxis - INR 2.5 Diet -carb consistent Disposition -PT/OT evaluations. Anticipate return to [facility]. Discussed with case management this morning Admission and Anticipated Discharge Date Admission Date: February 23, 2022 Supervising Physician Co-Signing Physician Notes PA Supervision Note: I did not personally see or examine the patient today, but I verified all hoang points of MARCELINA Ojeda's assessment and plan with the following exceptions/additions: None Subjective Attending: Dr. Lucio Garcia doing well with no overnight isues. He has significant dementa and is unable to provide ROS or history. He knows his name and and his wif's name but no other significant contribution to the interview. I did call and update his Lisa and she confirms that this is his baseline. He does deny SOB, chest pain, tightness, abdominal pain, n/v/d currently. He has no pain to palpation on physical exam. No other acute issues. Greco is draining to gravity with margo colored urine with no clots in the collection bag. Nursing reports some small clots over night. Review of Systems Review of Systems: A total of 10 systems was reviewed and is negative other than as listed in the HPI Physical Exam Physical Exam: GENERAL : No acute distress EYES: No icterus, gaze conjugate NOSE: No evidence of epistaxis MOUTH: No lesions or candidiasis NECK: Supple LUNGS: CTA B/L, no wheezes, rales or rhonchi HEART: Regular, rate controlled ABDOMEN: Soft, NT, ND, BS Present. No pressure to palpation. No rebound tenderness. No guarding. : Greco catheter to gravity. Margo-colored urine. No blood clots. EXTREMITIES: No LE edema, pedal pulses intact NEURO: Awake and alert. Able to give me his name and date of . Can reply yes or no to ROS questions but cannot give any medical history. Discussion with indicates severe and progressive dementia. Gait and Romberg deferred. Patient apparently has recent diagnosis of Parkinson's Results & Data Results & Data ([facility]) Vital Signs (Past 12 Hours) Vital Signs Temp Pulse Resp BP BP Pulse Ox O2 Del Method 02/24/22 07:58 36.6 C 84 18 122/72 97 Room Air 02/24/22 03:28 36.5 C 94 H 18 107/63 98 Room Air Critical Care Results & Data Vital Signs (Past 12 Hours) Vital Signs Temp Pulse Resp BP BP Pulse Ox O2 Del Method 02/24/22 07:58 36.6 C 84 18 122/72 97 Room Air 02/24/22 03:28 36.5 C 94 H 18 107/63 98 Room Air Lab & Micro Results (Past 24 Hours) RBC 2.60 M/uL (4.63-6.08) L 02/24/22 WBC 5.26 K/ul (4.8-10.8) 02/24/22 Hgb 7.7 g/dl (14.0-18.0) L 02/24/22 Hct 24.1 % (40.1-51.0) L 02/24/22 MCV 92.7 fL (80.0-100.0) 02/24/22 MCH 29.6 pg (25.0-34.0) 02/24/22 MCHC 32.0 g/dL (32.0-36.0) 02/24/22 RDW Standard Deviation 47.0 fL (36.4-46.3) H 02/24/22 RDW Coefficient of Variation 14.2 % (11.5-14.5) 02/24/22 Plt Count 185 K/uL (130-400) 02/24/22 MPV 10.1 fL (9.4-12.4) 02/24/22 Neutrophils (%) (Auto) 71.8 % 02/24/22 Lymphocytes (%) (Auto) 15.6 % 02/24/22 Monocytes # (Auto) 0.59 K/uL (0.24-0.82) 02/24/22 Eosinophils # (Auto) 0.03 K/uL (0-0.50) 02/24/22 Immature Granulocyte % (Auto) 0.4 % 02/24/22 Neutrophils # (Auto) 3.78 K/uL (1.4-6.5) 02/24/22 Lymphocytes # (Auto) 0.82 K/uL (1.2-3.4) L 02/24/22 Monocytes # (Auto) 0.59 K/uL (0.24-0.82) 02/24/22 Eosinophils # (Auto) 0.03 K/uL (0-0.50) 02/24/22 Basophils # (Auto) 0.02 K/uL (0-0.2) 02/24/22 Immature Granulocyte # (Auto) 0.02 K/uL (0.00-0.02) 2 Hypersegmented Neutrophils 1+ 02/24/22 Na 140 mmol/L (136-145) 02/24/22 K 4.0 mmol/L (3.5-5.1) 02/24/22 Cl 108 mmol/L (98-107) H 02/24/22 CO2 29 mmol/L (21-32) 02/24/22 Anion Gap 3 (3-11) 02/24/22 BUN 17 mg/dl (6-23) 02/24/22 Creatinine 1.01 mg/dl (0.6-1.4) 02/24/22 Estimated GFR ( Amer) 82.8 ml/min 02/24/22 Estimated GFR (Non-Af Amer) 71.4 ml/min 02/24/22 BUN/Creatinine Ratio 16.8 (10-20) 02/24/22 Glu 118 mg/dl (70-99(Fasting)) H 02/24/22 Ca 8.0 mg/dl (8.5-10.1) L 02/24/22 Calcium Level 8.0 mg/dl (8.5-10.1) L 02/24/22 05:57 Prothromb Time International Ratio 2.5 (0.9-1.1) H 02/24/22 08 :37 Diagnostic Findings (Past 24 Hours) Chest X-Ray 02/23/22 12:36 XR chest 1V portable CLINICAL HISTORY: hypervolemic state ?pulmonary edema TECHNIQUE: Single frontal radiograph of the chest was obtained. Comparison: Comparison is made to chest radiograph dated 322 FINDINGS: Median sternotomy wires are unchanged. Cardiac silhouette is stably enlarged. Prosthetic valve is unchanged in appearance. Prominence and cephalization of the vasculature is seen. No evidence of pleural effusion or pneumothorax. IMPRESSION: Cardiomegaly and mild pulmonary edema is seen. No airspace opacities are seen. ACT 112: Negative or not required by law. Electronically signed by: Bright Leonardo M.D. 02/23/2022 1:36 PM I & O Totals 24 Hours 02/23/22 02/24/22 02/25/22 06:59 06:59 06:59 Intake Total 2793.75 / 2793.75 Output Total 1830 / 1830 Balance 963.75 / 963.75 Cumulative 02/23/22 06:14 thru 02/24/22 06:08 Intake Total 2793.75 Output Total 1830 Balance 963.75 RT Ventilator Mngmt (Last Documented) Ventilator Ordered Settings Respiratory Rate 18 02/24/22 07:58 Ventilator - PT Measurements Respiratory Rate 18 PG Care Time/CCT Total # of Minutes Spent Total Time Spent with Patient: Total time spent is greater than 50% in coordination of care (as documented) at patient's floor/unit and/or counseling patient: Coding Level of Care Code 20721 Subseq Hosp Care Lvl 3 Diagnoses Hematuria R31.0 Hematuria type: gross Acute urinary retention R33.8 Bladder tumor D49.4 Anemia D64.9 Anemia type: unspecified type Mechanical heart valve present Z95.2 Parkinsonism G20 Dementia F03.90 Peripheral neuropathy G62.9 (1) Hematuria Hematuria type: gross Qualified Code(s): R31.0 - Gross hematuria (2) Anemia Anemia type: unspecified type Qualified Code(s): D64.9 - Anemia, unspecified
[2022-02-24] MEDS: CARBIDOPA/LEVODOPA 25/100MG TAB PO SCH ×3 (12:42→20:35)
[2022-02-24] MEDS: NORMOSOL-R 1,000 ML IV SCH (16:19)
[2022-02-24] MEDS: MEMANTINE HCL 5 MG TAB PO SCH (20:36)
[2022-02-24] MEDS: ATORVASTATIN 40 MG TAB PO SCH (20:36)
[2022-02-25] MEDS: NORMOSOL-R 1,000 ML IV SCH (04:47)
[2022-02-25] MEDS: PANTOprazole 40 MG TAB PO SCH (04:48)
[2022-02-25 07:15] LABS: Hematocrit (blood only) 26.9 % (40.1-51.0); Hemoglobin 8.5 g/dl (14.0-18.0); Mean Corpuscular Hemoglobin 29.2 pg (25.0-34.0); Mean Corpuscular Hgb Conc 31.6 g/dL (32.0-36.0); Mean Corpuscular Volume 92.4 fL (80.0-100.0); Mean Platelet Volume 9.9 fL (9.4-12.4); Platelet Count 191 K/uL (130-400); RDW Coefficient of Variation 14.9 % (11.5-14.5); RDW Standard Deviation 49.2 fL (36.4-46.3); Red Blood Count 2.91 M/uL (4.63-6.08); White Blood Count 4.53 K/ul (4.8-10.8)
[2022-02-25 07:26] LABS: INR 1.9 (0.9-1.1); Prothrombin Time 19.5 Seconds (9.0-12.0)
[2022-02-25 07:43] LABS: BUN Creatinine Ratio 11.3 (10-20); Calcium 8.1 mg/dl (8.5-10.1); Creatinine Clr Calc Pharmacy 59.3 ml/min; Est GFR (African American) 64.6 ml/min; Est GFR (Non-African American) 55.7 ml/min; Potassium 4.2 mmol/L (3.5-5.1)
[2022-02-25] MEDS: buPROPion XL 150 MG TABCR PO SCH (07:57)
[2022-02-25] MEDS: MIRABEGRON ER 25 MG TAB PO SCH (07:57)
[2022-02-25] MEDS: DOCUSATE SODIUM 100 MG CAP PO SCH (07:57)
[2022-02-25] MEDS: TAMSULOSIN HCL 0.4 MG CAP PO SCH (07:58)
[2022-02-25] MEDS: PROPRANOLOL HCL LA 80 MG CAPCR PO SCH (07:58)
[2022-02-25] MEDS: DULoxetine HCL 60 MG CAP PO SCH (07:58)
[2022-02-25] MEDS: CIPROFLOXACIN / D5W 400 MG/200 ML BAG IV SCH (07:58)
[2022-02-25] MEDS: PREGABALIN 100 MG CAP PO SCH ×2 (08:01→13:28)
--- NOTE | 2022-02-25 08:05 | Urology Progress Note ---
Date of Service February 25, 2022 Assessment & Plan (1) Hematuria: (2) Bladder tumor: Plan Urine remains clear, he is appropriate for voiding trial today. Would recommend restarting his Coumadin for his mechanical valve at this point Urine culture with no growth, should be okay to stop ciprofloxacin at this point. I reviewed the pathology from his initial TURBT with Mr. Doherty and his . We discussed that the next step will be to perform surveillance cystoscopy in approximately 3 months. From the urology perspective I think Mr. Doherty is ready for discharge. Admission and Anticipated Discharge Date Admission Date: February 23, 2022 Subjective Doing well s/p clot evacuation and fulguration on 02/23/2022. No concerns overnight. Not having any pain. No issues with the Greco. Urine remains clear. Hemoglobin responded appropriately to transfusion yesterday, up to 8.5 this morning. Physical Exam Physical Exam: Well-appearing, NAD Genitourinary: Greco catheter with clear yellow urine off CBI Results & Data ([facility]) Vital Signs (Past 12 Hours) Vital Signs Temp Pulse Resp BP Pulse Ox O2 Del Method 02/25/22 00:05 37.2 C 67 18 104/63 93 Room Air PG Care Time/CCT Total # of Minutes Spent Total Time Spent with Patient: Total time spent is greater than 50% in coordination of care (as documented) at patient's floor/unit and/or counseling patient: Coding Level of Care Code 97575 Subseq Hosp Care Lvl 1 Diagnoses Hematuria R31.0 Hematuria type: gross Bladder tumor D49.4 (1) Hematuria Hematuria type: gross Qualified Code(s): R31.0 - Gross hematuria
[2022-02-25] MEDS ORDERED: WARFARIN SOD 7.5 MG TAB PO STA (08:29)
[2022-02-25] MEDS: INSULIN ASPART PER UNIT SC SCH ×2 (08:34→12:21)
[2022-02-25] MEDS ORDERED: ENOXAPARIN 1 MG/KG SQ SCH (08:45)
[2022-02-25] MEDS ORDERED: ENOXAPARIN 100 MG/1ML SYR SQ SCH (09:00)
[2022-02-25] MEDS: CARBIDOPA/LEVODOPA 25/100MG TAB PO SCH (12:41)
--- NOTE | 2022-03-01 21:30 | Discharge Summary ---
Date of Service February 25, 2022 Admission HPI Per Admitting Provider Chandan Doherty is a 77 year old male who presents from [facility] with hematuria following TURBT on February 16. The patient has a mechanical mitral valve therefore was started back on bridging Lovenox and warfarin on discharge. He developed difficulty urinating, suprapubic pain and hematuria. He was therefore sent to the ER from [facility] where he had been having physical rehabilitation. He is afebrile and reports no fever or chills. His reports his mentation fluctuates somewhat but he is currently worse than his baseline however he also recently had a subdural in December causing confusion and was off anticoagulation for 10 days - she reports this confusion however completely resolved. On February 12 prior to TURBT he was diagnosed with a UTI - enterococcus faecalis and alpha strep which was sensitive to ciprofloxacin which he was discharged on February 17 with a 7 day course (last day February 24). His reports he has baseline dementia - sometimes knows where he is and date but fluctuates normally. In the ER CT was concerning for a large hyperdense material within the bladder likely representing a blood clot. Greco catheter was placed and pam blood in catheter bag. ER physician informed urology and he was referred to medicine for admission and ongoing management. Principal Diagnosis hematuria Discharge Exam GENERAL : No acute distress EYES: No icterus, gaze conjugate NOSE: No evidence of epistaxis MOUTH: No lesions or candidiasis NECK: Supple LUNGS: CTA B/L, no wheezes, rales or rhonchi HEART: Regular, rate controlled ABDOMEN: Soft, NT, ND, BS Present. No pressure to palpation. No rebound tenderness. No guarding. : Greco catheter to gravity. clear urine. No blood clots. EXTREMITIES: No LE edema, pedal pulses intact NEURO: Awake and alert. Able to give me his name and date of . Can reply yes or no to ROS questions but cannot give any medical history. Discussion with indicates severe and progressive dementia. Gait and Romberg deferred. Patient apparently has recent diagnosis of Parkinson's Discharge Data Allergies Allergy/AdvReac Type Severity Reaction Status Date / Time Penicillins Allergy Mild RASH Verified 02/23/22 08:28 morphine AdvReac Mild bp drops Verified 02/23/22 08:28 Consultations 02/23/22 11:10 ED Decision to Admit Stat 02/23/22 11:48 Consult Urology Stat Procedures Performed Operation Date: 02/23/22 12:35 Actual Procedures p Cystoscopy, Clot Evacuation, Possible Fulguration - Vince Mondragon MD Ordered Studies 02/23/22 08:27 CT abd pelvis IV con only Stat Hospital Course (1) Hematuria: On admission: Secondary to recent TURBT while on Lovenox bridging to warfarin. Would favor holding rather than reversing warfarin and restarting on heparin IV without bolus when cleared by urology. INR is 2.5 today Patient was on 7.5 mg of warfarin daily at home. He has not had any warfarin since admission. I do not see that he had a reversal agent either. No indication for heparin today as the patient is therapeutic at 2.5 If patient continues to have clear urine tomorrow, restart Coumadin for mechanical valve Previous urine culture from 02/12/2022 positive for Enterococcus faecalis and alpha strep not Enterococcus. Pansensitive with the exception of tetracycline Current urine culture from 02/23/2022 with no growth as are less than 1000 colonies per milliliter. Continue ciprofloxacin 400 mg IV twice daily today based on urology note. However, with negative growth can probably discontinue tomorrow. Will defer to urology At discharge: Appreciate input from Urology. Urine remains clear, he is appropriate for voiding trial today. Would recommend restarting his Coumadin for his mechanical valve at this point Urine culture with no growth, should be okay to stop ciprofloxacin at this point. (2) Acute urinary retention: Secondary to blood clotting Greco catheter now draining. Defer ongoing management to urology. 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 Urine has cleared with no evidence of clotting or pam blood at this time Consent obtained as delegated by Dr. Valdes from the patient's Lisa by phone 1 unit of packed red blood cells will be transfused over 4 hours Repeat CBC tomorrow. INR is therapeutic at 2.5. Platelet count is over 100,000. Hemodynamically stable (5) Mechanical heart valve present: Mitral mechanical valve, need to remain off anticoagulation for least amount of time possible. INR aim once hematuria improved 2.5-3.5 INR is 2.5 today. Will trend INR. As INR drops, will place on lovenox to bridge as until INR is between 2.5 and 3.5. (6) Parkinsonism: Continue simemet Per this is a fairly new diagnosis and carbidopa/levodopa was just started a couple of months ago. Continue outpatient management (7) Dementia: Continue memantine Discussion with . This seems to be progressive and worse in the mornings. (8) Peripheral neuropathy: Continue duloxetine and Lyrica Total Time Total Time Spent Total Time Spent (In Minutes): 35 Discharge Plan Discharge Items Patient Disposition: Transfer Inpatient Rehab Fac Reason For Visit: HEMATURIA, URINARY RETENTION Discharge Diagnosis: hematuria/ urinary retention Condition on Discharge: Fair Activity: Resume your previous activity Non-emergency contact: Primary Care Provider Call non-emergency contact if: you have any medication questions Follow-up/Referrals: Leti Camacho MD [Primary Care Provider] - Diet: Carb Consistent or DM2 Addtl Attending Provider Instructions: You were treated by Urology for blood in your urine. Will recommend rechecking your PT/INR daily until it is therapeutic. Will need INR to be 2.5 -3.5 Surveillance cystoscopy in approximately 3 months. Pending Studies at Discharge: No Stand-Alone Forms: My [facility], Virtual Emergency Department, Important Visit Information Skilled Items Patient informed of condition?: No DNR: Yes Discharge Level of Care: Skilled Communicable Disease: No Discharge Prognosis: Stable Lines: None Urinary Catheter: No Medications and DC Order Prescriptions: New enoxaparin 100 mg/mL Syringe 100 mg subcut Q12 Qty: 10 0RF Rx Instructions: Needs to be bridged until INR is 2.5 Continued memantine [Namenda] 5 mg tablet 2.5 mg PO HS Label Comments: cut back to half tablet because it was causing sleepiness metformin 500 mg tablet extended release 24 hr 500 mg PO QDD tramadol 50 mg Tablet 100 mg PO Q8H PRN (Reason: Pain) pantoprazole 20 mg Tablet,Delayed Release (Dr/Ec) 40 mg PO DAILYBB atorvastatin 40 mg tablet 40 mg PO HS tamsulosin 0.4 mg capsule 0.4 mg PO QAM carbidopa-levodopa 25-100 mg tablet 1 tab PO TID Rx Instructions: TAKE ONE TABLET AT 12PM, 4PM, AND 8PM. propranolol 80 mg capsule,extended release 24 hr 80 mg PO QAM mirabegron 25 mg tablet extended release 24 hr 25 mg PO QAM acetaminophen 325 mg Tablet 650 mg PO Q4H PRN (Reason: Pain) polyethylene glycol 3350 [Miralax] 17 gram Powder In Packet 17 g PO QDL PRN (Reason: Constipation) docusate sodium [Colace] 100 mg Capsule 100 mg PO BID multivitamin with minerals Tablet 1 tab PO QAM ondansetron 4 mg tablet,disintegrating 4 mg translingual Q6H PRN (Reason: Nausea And Vomiting) bupropion HCl 150 mg tablet extended release 24 hr 150 mg PO QAM pregabalin 100 mg Capsule 200 mg PO Q8H ciprofloxacin HCl 250 mg tablet 250 mg PO Q12 PRN (Reason: Urinary Tract Infection) Rx Instructions: 02-17-22 through 02-24-22@20:59 warfarin 5 mg tablet 7.5 mg PO QPM Rx Instructions: 02/12/22 : THIS MED CURRENTLY ON HOLD ( OF 02/11/22) FOR UPCOMING SURGERY. duloxetine 30 mg capsule,delayed release(DR/EC) 60 mg PO QAM Discontinued enoxaparin [Lovenox] 40 mg/0.4 mL Syringe 40 mg SUBCUT DAILY@0700 Discharge Orders: Discharge Order (Routine); Ordered 02/25/22 Ordered By: Imer Thompson Admission Data Admit Date/Time: 02/23/22 11:55 Attending Provider: Imer Thompson Admit Provider: Toy Ron Primary Care Provider: Leti Camacho Other Providers: Toy Ron ; Vince Mondragon ; Katia Valdes ; [facility] Other Interventions: Discharge Summary Assessment (RN) Last Done: 02/25/22 14:30 Coding Level of Care Code D/C DAY MANAGEMENT >30 MINS Diagnoses Hematuria R31.0 Hematuria type: gross Acute urinary retention R33.8 Bladder tumor D49.4 Anemia D64.9 Anemia type: unspecified type Mechanical heart valve present Z95.2 Parkinsonism G20 Dementia F03.90 Peripheral neuropathy G62.9
== END 2022-02-25 15:37 | DRG 988 ==
LOC: ED 06:17 → SUATTDRO 11:55 → ASU 14:30 → 3E 14:31 → ASU 16:06

== ENCOUNTER 2022-04-21 11:27 | Inpatient (IN) ==
--- NOTE | 2022-04-21 12:28 | Emergency Department Note ---
History of Present Illness General Chief complaint: Altered Mental Status Stated complaint: CONFUSION, WEAKNESS, UNABLE TO STAND Time Seen by Provider: 04/21/22 12:05 Source: patient, family ( who is at the bedside), RN notes reviewed and old records reviewed Mode of arrival: EMS Limitations: other (Dementia which is based) History of Present Illness This patient is a 77-year-old male who has a history of dementia and multiple other medical problems, comes in by ambulance after feeling weak over the last several days he was seen 2 days ago here as work-up at that time was unremarkable. His says since then he has been getting more weak today she could not get him out of bed his legs seem painful when he moves it may be rel ated to his back she does not think he fell however the other day the nurse noticed a bruise on his buttocks tailbone area. He said decreased p.o. intake. When EMS arrived his blood sugar was 217 his blood pressure was on the low side and actually gave him a small fluid bolus he is actually hypertensive now. He has had no fever but felt warm occasional cough for few days as well. No chest pain or shortness of breath although was hyperventilating earlier he has dementia is normally confused he may be a little more confused than normal. He has baseline urinary incontinence and is scheduled for cystoscopy tomorrow. He does have a history of bladder cancer as well which they caught early his said and there is no metastases known. He has an artificial heart valve and is on anticoagulation with Coumadin for that and unfortunately also has a history of subdurals. Home Medications Medication Instructions Recorded Confirmed Type pantoprazole 20 mg tablet,delayed 40 mg PO DAILYBB 09/10/18 04/21/22 History release tramadol 50 mg tablet 100 mg PO Q8H PRN Pain 09/10/18 04/21/22 History atorvastatin 40 mg tablet 40 mg PO HS 07/10/19 04/21/22 History tamsulosin 0.4 mg capsule 0.4 mg PO QAM 07/10/19 04/21/22 History metformin 500 mg tablet,extended 500 mg PO QDD 09/27/21 04/21/22 History release 24 hr carbidopa 25 mg-levodopa 100 mg 1 tab PO TID 01/01/22 04/21/22 History tablet mirabegron 25 mg tablet,extended 25 mg PO QAM 01/28/22 04/21/22 History release 24 hr duloxetine 30 mg capsule,delayed 30 mg PO QAM 02/12/22 04/21/22 History release acetaminophen 325 mg tablet 650 mg PO Q4H PRN Pain 02/23/22 04/21/22 History bupropion HCl 150 mg 24 hr tablet, 150 mg PO QAM 02/23/22 04/21/22 History extended release multivitamin with minerals 1 tab PO QAM 02/23/22 04/21/22 History polyethylene glycol 3350 17 gram 17 g PO QDL PRN Constipation 02/23/22 04/21/22 History oral powder packet (Miralax) warfarin 5 mg tablet 7.5 mg PO DIRECTED 02/23/22 04/21/22 History memantine 5 mg tablet (Namenda) 5 mg PO BID 90 days #180 tabs 04/12/22 04/21/22 Rx pregabalin 200 mg capsule 200 mg PO BID 90 days #180 caps 04/12/22 04/21/22 Rx propranolol 60 mg capsule,24 60 mg PO DAILY #90 caps 04/12/22 04/21/22 Rx hr,extended release levofloxacin 750 mg tablet 750 mg PO DAILY 4 days #4 tabs 04/19/22 04/21/22 Rx donepezil 10 mg tablet 10 mg PO HS 04/21/22 04/21/22 History Allergies Allergy/AdvReac Type Severity Reaction Status Date / Time Penicillins Allergy Mild RASH Verified 04/21/22 16:24 morphine AdvReac Mild bp drops Verified 04/21/22 16:24 Past Med/Surg History Medical History (Updated 04/21/22 @ 20:05 by Bandar Benson MD) Atrial fibrillation Paroxysmal per records Pt denies history Follows with cardio- on Coumadin Benign essential tremor BPH (benign prostatic hyperplasia) Chronic back pain Chronic low back pain Degenerative disc disease Dementia Experiences short term memory loss. Alert and oriented to person. Confusion with places and time. Depression Diabetes mellitus, type 2 NIDDM Recently dx'ed- does not check glucose regularly Encounter for pre-operative examination Generalized weakness GERD (gastroesophageal reflux disease) Well controlled and stable Hearing deficit Hyperlipidemia Hypertension Irregular heart beat Occasional episodes of trigeminy. Follows with Dr Isaac Lumbar degenerative disc disease Mechanical heart valve present MV replacement 1996- mechanical- on Coumadin Neuropathy involving both lower extremities On anticoagulant therapy Warfarin daily Parkinson disease Parkinson's dementia per records Spinal stenosis of lumbar region Subdural hematoma (01/01/22) - Presented to the Emergency room 01/01/22 at [facility] and transferred to [facility] and treated inpatient for several days and then went to [facility] for rehab. Patient discharged home ~01/21/22. No surgery had been done, reports it was a spontaneous hematoma. Denies any fall. - Pt's mental status back to baseline -Coumadin has since been restarted- tolerating well. Transient ischemic attack (TIA) In --no deficits UTI (urinary tract infection) due to Enterococcus Surgical History History of back surgery x2 History of colonoscopy History of craniotomy x2 (~2011)- secondary to subdural hematoma- had fall at that time History of esophagogastroduodenoscopy (EGD) History of hand surgery right hand finger History of inguinal hernia repair x5 History of mitral valve replacement 1996 @ [facility] -- mechanical History of umbilical hernia repair History of wisdom tooth extraction Status post LASIK surgery of both eyes Family History Daughter Family hx of colon cancer Colorectal cancer Mother Cardiac pacemaker Brother Stroke Hypertension Prostate cancer Father Stroke Grandfather (Maternal) Suicide Grandfather (Paternal) Tuberculosis Other No family history of adverse response to anesthesia Social History Smoking Status: Never smoker Second Hand Exposure: No; Do You Dip or Chew Tobacco: No; Hx Alcohol Use: Yes Alcohol type: beer Hx Substance Use: No Preferred Language: Armenian Communication Ability: Effective Relay Repairer Required: No Beliefs That Will Affect Care: Restorationist marital status: Current Living Situation: Spouse Current Living Situation Comment: Per pt report - pt is confused. 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 Other Information That Helps Us Care for You: No Feels Safe at Home: Yes Safety Concerns: Feels Safe At This Time Assistive Devices: Glasses and Walker Review of Systems A total of 10 systems reviewed and were otherwise negative Physical Exam Vital Signs Vital Signs - 24 hr 04/21/22 11:03 04/21/22 11:45 04/21/22 12:19 Temperature 36.7 C Temperature Source Oral Pulse Rate 118 H Pulse Rhythm Regular Pulse Strength Normal Respiratory Rate 18 Respiratory Effort / Characteristics Non-Labored Respiratory Depth Normal Respiratory Pattern Regular Blood Pressure 218/136 H Blood Pressure Mean 163 Blood Pressure Position Lying Pulse Oximetry 94 94 94 Oxygen Delivery Method Room Air Room Air Room Air Oxygen Flow Rate 0 Sepsis Recent Fever Within 48 Hours No Sepsis New/Unexplained Change in Mental Status No Sepsis Action Taken by Nursing No Action Required General: Well developed well nourished older male who appears in no acute in no acute distress, breathing comfortably on room air. Normal speech. He is alert to person and place but not date. His speech is not slurred. Answers most questions appropriately but vague HEENT: Normal cephalic atraumatic. Pupils are equal round and reactive to light. Extraocular movements are intact. Oropharynx is pink with moist mucous membranes. No swelling of the mouth lips or tongue. Neck: Supple with a midline trachea. No meningeal signs or stiffness, no JVD or bruits. No Stridor. Chest: Clear to auscultation bilaterally. No wheezes or rhonchi. No increased work of breathing. Heart: Regular rate and rhythm. Abdomen: Soft nontender, nondistended without rebound guarding or rigidity. Extremities: No cyanosis clubbing or edema. No calf tenderness or assymetry Spine/Back. Non tender to palpation. No CVA tenderness. He seems to have pain in the back when he moves. Skin: Good turgor without rashes. Neurologic exam: Cranial nerves two through 12 are intact. Motor and sensation are intact and symmetrical throughout. Course Administered Medications Discontinued Medications Ioversol (Optiray 350 100ml) 85 ml IV ONCE ONE Stop: 04/21/22 14:47 Last Admin: 04/21/22 14:46 Dose: 85 ml Documented By: LESLI Medical Decision Making Differential Diagnosis Weakness, intracranial process, subdural, infection, cardiac disease, arrhythmia, electrolyte or metabolic abnormalities, spinous process, trauma, hemorrhage Medical Records Attestation: I reviewed the patient's medical records. Home Medications Current Medication List: was personally reviewed by me Laboratory Data Attestation: I reviewed the patient's lab results. Result diagrams: 04/21/22 11:43 04/21/22 11:43 Lab Results 04/21/22 04/21/22 04/21/22 Range/Units 11:43 11:43 11:43 WBC 7.23 (4.8-10.8) K/ul RBC 5.08 (4.63-6.08) M/uL Hgb 13.1 L (14.0-18.0) g/dl Hct 41.4 (40.1-51.0) % MCV 81.5 (80.0-100.0) fL MCH 25.8 (25.0-34.0) pg MCHC 31.6 L (32.0-36.0) g/dL RDW Std Deviation 45.1 (36.4-46.3) fL RDW Coeff of Florecita 15.1 H (11.5-14.5) % Plt Count 217 (130-400) K/uL MPV 11.5 (9.4-12.4) fL Immature Gran % (Auto) 0.3 % Neut % (Auto) 68.4 % Lymph % (Auto) 13.0 % [place] % (Auto) 17.6 % Eos % (Auto) 0.3 % Baso % (Auto) 0.4 % Neut # (Auto) 4.95 (1.4-6.5) K/uL Lymph # (Auto) 0.94 L (1.2-3.4) K/uL [place] # (Auto) 1.27 H (0.24-0.82) K/uL Eos # (Auto) 0.02 (0-0.50) K/uL Baso # (Auto) 0.03 (0-0.2) K/uL Immature Gran # (Auto) 0.02 (0.00-0.02) K/uL PT 42.7 H (9.0-12.0) Seconds INR 4.3 H (0.9-1.1) APTT 43.0 H (21.0-31.0) Seconds PTT Ratio 1.6 Sodium 143 (136-145) mmol/L Potassium 3.7 (3.5-5.1) mmol/L Chloride 105 (98-107) mmol/L Carbon Dioxide 27 (21-32) mmol/L Anion Gap 11 (3-11) BUN 22 (6-23) mg/dl Creatinine 1.17 (0.6-1.4) mg/dl Est Cr Clr Drug Dosing 54.6 ml/min Est GFR ( Amer) 69.3 ml/min Est GFR (Non-Af Amer) 59.8 ml/min BUN/Creatinine Ratio 18.8 (10-20) Glucose 155 H (70-99(Fasting)) mg/dl Calcium 9.8 (8.5-10.1) mg/dl Total Bilirubin 0.9 (0.2-1.0) mg/dl AST 48 H (13-39) U/L ALT 17 (7-52) U/L Alkaline Phosphatase 115 H (34-104) U/L Troponin I High Sens 123.0 H* D (0-20) pg/ml Total Protein 7.9 (6.0-8.3) gm/dl Albumin 4.0 (3.4-5.0) gm/dl Globulin 3.9 (2.5-4.0) gm/dl Albumin/Globulin Ratio 1.0 (0.9-2) Lipase 30 (11-82) U/L SARS-CoV-2, RNA, NAAT (NEGATIVE) 04/21/22 Range/Units 12:26 WBC (4.8-10.8) K/ul RBC (4.63-6.08) M/uL Hgb (14.0-18.0) g/dl Hct (40.1-51.0) % MCV (80.0-100.0) fL MCH (25.0-34.0) pg MCHC (32.0-36.0) g/dL RDW Std Deviation (36.4-46.3) fL RDW Coeff of Florecita (11.5-14.5) % Plt Count (130-400) K/uL MPV (9.4-12.4) fL Immature Gran % (Auto) % Neut % (Auto) % Lymph % (Auto) % [place] % (Auto) % Eos % (Auto) % Baso % (Auto) % Neut # (Auto) (1.4-6.5) K/uL Lymph # (Auto) (1.2-3.4) K/uL [place] # (Auto) (0.24-0.82) K/uL Eos # (Auto) (0-0.50) K/uL Baso # (Auto) (0-0.2) K/uL Immature Gran # (Auto) (0.00-0.02) K/uL PT (9.0-12.0) Seconds INR (0.9-1.1) APTT (21.0-31.0) Seconds PTT Ratio Sodium (136-145) mmol/L Potassium (3.5-5.1) mmol/L Chloride (98-107) mmol/L Carbon Dioxide (21-32) mmol/L Anion Gap (3-11) BUN (6-23) mg/dl Creatinine (0.6-1.4) mg/dl Est Cr Clr Drug Dosing ml/min Est GFR ( Amer) ml/min Est GFR (Non-Af Amer) ml/min BUN/Creatinine Ratio (10-20) Glucose (70-99(Fasting)) mg/dl Calcium (8.5-10.1) mg/dl Total Bilirubin (0.2-1.0) mg/dl AST (13-39) U/L ALT (7-52) U/L Alkaline Phosphatase (34-104) U/L Troponin I High Sens (0-20) pg/ml Total Protein (6.0-8.3) gm/dl Albumin (3.4-5.0) gm/dl Globulin (2.5-4.0) gm/dl Albumin/Globulin Ratio (0.9-2) Lipase (11-82) U/L SARS-CoV-2, RNA, NAAT NEGATIVE (NEGATIVE) Imaging Data Attestation: I personally reviewed and interpreted this imaging study as follows: My Impression: Head CTno acute hemorrhage or mass-effect. Chest x-rayinfiltrate, failure, pneumothorax seen. Radiologist's Impression: Chest X-Ray 04/21/22 12:19 XR chest 1V portable HISTORY: Atypical Chest Pain COMPARISON: Chest 04/19/2022. FINDINGS: No pneumothorax. No pleural effusions. The heart remains top normal in size. Poststernotomy changes and a cardiac valve prosthesis are again noted. Small left basilar linear densities favor subsegmental atelectasis. This is similar to the prior study. Otherwise, no new focal lung consolidations to suggest a pneumonia. No evidence for pulmonary edema. IMPRESSION: No acute process. ACT 112: Negative or not required by law. Electronically signed by: Alhaji Lux M.D. 04/21/2022 12:[address] 04/21/22 12:19 CT SCAN OF THE BRAIN WITHOUT IV CONTRAST CLINICAL HISTORY: Generalized weakness. COMPARISON STUDY: Prior CT scans of the brain, most recently dated 02/12/2022. TECHNIQUE: Unenhanced axial CT scan of the brain is performed from the vertex to the skull base. A dose lowering technique was utilized adhering to the principles of ALARA. The skull base was scanned twice due to motion artifact. FINDINGS: Brain parenchyma: There is age-related involutional change noting moderate confluent subcortical and periventricular microangiopathic disease. There is no hemorrhage, mass effect, or evidence of acute territorial ischemia by CT criteria. Lama-white matter differentiation is preserved. A focus of right frontal encephalomalacia is unchanged and consistent with a remote insult. Linear hyperdensity deep to the craniotomy site is stable over several prior examinations and likely represents postsurgical change. No extra-axial fluid collection is seen. A chronic lacunar infarct is noted in the left thalamus. Ventricles, sulci, cisterns: Prominent secondary to involutional change. Intracranial vasculature: There is atherosclerotic calcification of the cavernous carotid arteries. Calvarium: There is postoperative change from previous right-sided craniotomy. Sinuses and mastoids: The visualized paranasal sinuses are clear. The mastoid air cells are well pneumatized. Orbits: The bony orbits are grossly intact. IMPRESSION: 1. There is no hemorrhage, mass effect, or evidence of acute territorial ischemia by CT criteria. 2. Chronic and postsurgical changes as above. ACT 112: Negative or not required by law. Electronically signed by: Yosvany Cortes M.D. 04/21/2022 2:57 PM Abdomen/Pelvis CT 04/21/22 12:20 CT abd pelvis IV con only CLINICAL HISTORY: weakness, possible fall, back pain, on coumadin TECHNIQUE: Helical axial images of the abdomen and pelvis were obtained and displayed. Automated dose lowering techniques and/or adjustment according to patient size were utilized for this exam. This exam was performed with in travenous contrast. CT DOSE: 1777.76 mGy.cm COMPARISON: Comparison is made to CT abdomen pelvis 02/23/2022 FINDINGS: Lower chest: No acute abnormality Liver: Unremarkable. No focal lesions are seen. Gallbladder and biliary tree: No calcified gallstones. Normal caliber wall. No intra- or extrahepatic biliary ductal dilation. Pancreas: Unremarkable, no focal lesions. Spleen: Calcifications are noted in the spleen compatible with prior granulomatous disease. Adrenals: Unremarkable. Kidneys and ureters: Subcentimeter hypodensities are too small to characterize. Right cortical scarring is again noted. Bladder: Unremarkable. Reproductive organs: Prostatic calcifications are seen which may represent prior hemorrhage or granulomatous disease. Bowel: Diverticulosis is seen without evidence of diverticulitis. The appendix is normal. A hiatal hernia is seen. Lymph nodes Retroperitoneal: Unremarkable. Pelvic: Unremarkable. Mesenteric: Unremarkable. Peritoneum: Normal. Vessels: Atherosclerotic calcifications are seen. Abdominal wall: Bilateral fat-containing inguinal hernias are seen. Bones: Degenerative changes in the visualized spine. No evidence of acute fracture is seen. IMPRESSION: No acute abnormalities, in particular no evidence of acute fracture or intra- abdominal trauma. Previously noted bladder nodule is no longer seen on today's exam. ACT 112: Negative or not required by law. Electronically signed by: Bright Leonardo M.D. 04/21/2022 3:07 PM ECG Data Attestation: I personally reviewed and interpreted this ECG as follows: Indication: + weakness Rate (beats per minute): 116 Rhythm: + sinus tachycardia and + other (Poor baseline) ECG Intervals/blocks: + Normal QRS, + Normal QT and + Normal ID ECG [place]: + Normal ECG ST segments: + Nonspecific ST abnormalities ECG Findings: no PACs or no PVCs Comparison ECG Date: from (04/19/22) Change: the following changes noted (Rate has increased otherwise no change) MDM Narrative This patient comes in as described above. Is brought in by EMS. He lives at home with his he is got increasingly weaker and more confused he also seems to have pain with movement he does have chronic back pain. No definite change in bowel or bladder function says he has chronic incontinence and also concerned that he is on anticoagulation and has history of subdurals I did order CAT scan of the head, I also ordered CAT scans of the chest and abdomen to rule out any internal hemorrhage or bleeding or other processes. Multiple blood testing was obtained he was reassessed frequently. He was COVID tested. EKG shows sinus tachycardia. Initially he was hypertensive. According to the and EMS he was hypotensive on scene. He has no white count or fever to suggest infection. His EKG does not show any ischemic changes. His troponin is elevated however at 123 I rechecked this 2 hours later was down to 93 so its not trending upward. He has no chest pain or shortness of breath. Chest x-ray does not show congestive heart failure pneumonia or pneumothorax CAT scan of his head does not show any acute bleed or hemorrhage or mass-effect. CAT scan abdomen does not show acute abnormalities. Given his elevated troponin and his weakness, tachyc ardia and ambulatory dysfunction I do think he needs to be admitted for further treatment and evaluation. I consulted Dr. Ron to see him for these measures. Although he was very hypertensive initially blood pressure did trend downward without treatment and he is asymptomatic at this point. Continuous cardiac monitoring: An order was placed in EMR for continuous cardiac monitoring. 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
[2022-04-21 12:30] LABS: Basophils # (auto) 0.03 K/uL (0-0.2); Basophils % (auto) 0.4 %; Eosinophils # (auto) 0.02 K/uL (0-0.50); Eosinophils % (auto) 0.3 %; Hematocrit (blood only) 41.4 % (40.1-51.0); Hemoglobin 13.1 g/dl (14.0-18.0); Immature Granulocytes # (auto) 0.02 K/uL (0.00-0.02); Immature Granulocytes % (auto) 0.3 %; Lymphocytes # (auto) 0.94 K/uL (1.2-3.4); Mean Corpuscular Hemoglobin 25.8 pg (25.0-34.0); Mean Corpuscular Hgb Conc 31.6 g/dL (32.0-36.0); Mean Corpuscular Volume 81.5 fL (80.0-100.0); Mean Platelet Volume 11.5 fL (9.4-12.4); Monocytes # (auto) 1.27 K/uL (0.24-0.82); Monocytes % (auto) 17.6 %; Neutrophils # (auto) 4.95 K/uL (1.4-6.5); Neutrophils % (auto) 68.4 %; Platelet Count 217 K/uL (130-400); RDW Coefficient of Variation 15.1 % (11.5-14.5); RDW Standard Deviation 45.1 fL (36.4-46.3); Red Blood Count 5.08 M/uL (4.63-6.08); White Blood Count 7.23 K/ul (4.8-10.8)
--- NOTE | 2022-04-21 12:48 | XRay Report ---
XR chest 1V portable HISTORY: Atypical Chest Pain COMPARISON: Chest 04/19/2022. FINDINGS: No pneumothorax. No pleural effusions. The heart remains top normal in size. Poststernotomy changes and a cardiac valve prosthesis are again noted. Small left basilar linear densities favor brown bsegmental atelectasis. This is similar to the prior study. Otherwise, no new focal lung consolidatio ns to suggest a pneumonia. No evidence for pulmonary edema. IMPRESSION: No acute process. ACT 112: Negative or not required by law. Electronically signed by: Alhaji Lux M.D. 04/21/2022 12:46 PM
[2022-04-21 13:02] LABS: INR 4.3 (0.9-1.1); Partial Thromboplastin Ratio 1.6; Prothrombin Time 42.7 Seconds (9.0-12.0)
[2022-04-21 13:49] LABS: BUN Creatinine Ratio 18.8 (10-20); Bilirubin,Total 0.9 mg/dl (0.2-1.0); Calcium 9.8 mg/dl (8.5-10.1); Creatinine Clr Calc Pharmacy 54.6 ml/min; Est GFR (African American) 69.3 ml/min; Est GFR (Non-African American) 59.8 ml/min; Globulin 3.9 gm/dl (2.5-4.0); Potassium 3.7 mmol/L (3.5-5.1); Total Protein 7.9 gm/dl (6.0-8.3)
[2022-04-21] MEDS ORDERED: OPTIRAY 350 100ml IV ONE (14:46)
--- NOTE | 2022-04-21 14:58 | CT Scan Report ---
CT SCAN OF THE BRAIN WITHOUT IV CONTRAST CLINICAL HISTORY: Generalized weakness. COMPARISON STUDY: Prior CT scans of the brain, most recently dated 02/12/2022. TECHNIQUE: Unenhanced axial CT scan of the brain is performed from the vertex to the skull base. A do se lowering technique was utilized adhering to the principles of ALARA. The skull base was scanned tw ice due to motion artifact. FINDINGS: Brain parenchyma: There is age-related involutional change noting moderate confluent subcortical and periventricular microangiopathic disease. There is no hemorrhage, mass effect, or evidence of acute t erritorial ischemia by CT criteria. Lama-white matter differentiation is preserved. A focus of right frontal encephalomalacia is unchanged and consistent with a remote insult. Linear hyperdensity deep t o the craniotomy site is stable over several prior examinations and likely represents postsurgical ch mary kay. No extra-axial fluid collection is seen. A chronic lacunar infarct is noted in the left thalamu s. Ventricles, sulci, cisterns: Prominent secondary to involutional change. Intracranial vasculature: There is atherosclerotic calcification of the cavernous carotid arteries. Calvarium: There is postoperative change from previous right-sided craniotomy. Sinuses and mastoids: The visualized paranasal sinuses are clear. The mastoid air cells are well pneu matized. Orbits: The bony orbits are grossly intact. IMPRESSION: 1. There is no hemorrhage, mass effect, or evidence of acute territorial ischemia by CT criteria. 2. Chronic and postsurgical changes as above. ACT 112: Negative or not required by law. Electronically signed by: Yosvany Cortes M.D. 04/21/2022 2:57 PM
--- NOTE | 2022-04-21 15:08 | CT Scan Report ---
CT abd pelvis IV con only CLINICAL HISTORY: weakness, possible fall, back pain, on coumadin TECHNIQUE: Helical axial images of the abdomen and pelvis were obtained and displayed. Automated dose lowering techniques and/or adjustment according to patient size were utilized for this exam. This e xam was performed with intravenous contrast. CT DOSE: 1777.76 mGy.cm COMPARISON: Comparison is made to CT abdomen pelvis 02/23/2022 FINDINGS: Lower chest: No acute abnormality Liver: Unremarkable. No focal lesions are seen. Gallbladder and biliary tree: No calcified gallstones. Normal caliber wall. No intra- or extrahepatic biliary ductal dilation. Pancreas: Unremarkable, no focal lesions. Spleen: Calcifications are noted in the spleen compatible with prior granulomatous disease. Adrenals: Unremarkable. Kidneys and ureters: Subcentimeter hypodensities are too small to characterize. Right cortical scarri ng is again noted. Bladder: Unremarkable. Reproductive organs: Prostatic calcifications are seen which may represent prior hemorrhage or granul omatous disease. Bowel: Diverticulosis is seen without evidence of diverticulitis. The appendix is normal. A hiatal he rnia is seen. Lymph nodes Retroperitoneal: Unremarkable. Pelvic: Unremarkable. Mesenteric: Unremarkable. Peritoneum: Normal. Vessels: Atherosclerotic calcifications are seen. Abdominal wall: Bilateral fat-containing inguinal hernias are seen. Bones: Degenerative changes in the visualized spine. No evidence of acute fracture is seen. IMPRESSION: No acute abnormalities, in particular no evidence of acute fracture or intra-abdominal trauma. Previo usly noted bladder nodule is no longer seen on today's exam. ACT 112: Negative or not required by law. Electronically signed by: Bright Leonardo M.D. 04/21/2022 3:07 PM
--- NOTE | 2022-04-21 15:32 | Electrocardiogram Report ---
Test Reason : Blood Pressure : / mmHG Vent. Rate : 116 BPM Atrial Rate : 116 BPM P-R Int : 168 ms QRS Dur : 100 ms QT Int : 350 ms P-R-T Axes : -08 040 087 degrees QTc Int : 486 ms Sinus tachycardia with Premature atrial complexes Chronic ST depression in Anterolateral leads Abnormal ECG When compared with ECG of 19-APR-2022 17:12, Premature ventricular complexes are no longer Present Premature atrial complexes are now Present Confirmed by Maninder Kaur ([id number]) on 04/21/2022 3:32:30 PM Referred By: REFERRED SELF Confirmed By:Maninder Kaur
--- NOTE | 2022-04-21 16:38 | History & Physical Report ---
Date of Service April 21, 2022 Assessment & Plan (1) Hypertensive emergency: Plan: -Admit to med/tele -Patient is currently afebrile, hypertensive with systolics in the 180's, and stable on RA -Hypertension likely due to patient being unable to take medications for the past 3 days -CT of the head is negative for acute changes, initial high sensitivity troponin elevated at 123, no other signs of end organ damage -Will get repeat troponin now -Patient's blood pressure improved spontaneously but still elevated at the time of admission -Patient's states that he was on lisinopril previously but was taken off of it for hypotension -Will attempt to give patient his home propranolol if he passes bedside swallow eval, or will try NG tube placement. -If needed can use Iv antihypertensives -Monitor on tele (2) Weakness: Plan: -At this time the patient's cognitive and clinical decline appears most consistent with being unable to take his medications earlier in the week -CT of the head is negative, no signs, imaging, or labs to suggest acute infection -Will need to do bedside swallow eval, if he fails then will have to try and place NG tube ( is agreeable) -Will need to see if he returns to baseline after we get his home medications restarted -Will order PT/OT consults, patient's will either need home health or he may need to be placed -Will give light hydration overnight as the patient appears dehydrated (total of 2 bags of lactated ringer's) (3) Dementia: Plan: -Restart Aricept, Namenda when he can swallow or we get an NG tube placed (4) Parkinsonism: Plan: -Restart carbidopa-levodopa and propranolol when he is able to swallow or we place NG tube (5) Supratherapeutic INR: Plan: -Noted to be elevated at 4.3 today -Likely due to recently taking Levaquin -No signs of active bleeding -Hold Warfarin for now and monitor PT/INR in the am (6) Lumbar degenerative disc disease: Plan: -Hold PRN tramadol for now to avoid over sedating (7) Mechanical heart valve present: Plan: -Will have to hold warfarin (8) Hyperlipidemia: Plan: -Continue Statin when able (9) GERD (gastroesophageal reflux disease): Plan: -Will switch to BID IV famotidine for now (10) Diabetes mellitus, type 2: Plan: -Hold metformin -BSG checks ACHS while NPO -Will start with lantus at 5 units BID, correction factor of 50 (11) BPH (benign prostatic hyperplasia): Plan: -Continue flomax (12) Atrial fibrillation: Plan: -Currently rate controlled, unsure if he was truly diagnosed with Afib, likely on the Warfarin for the prosthetic valve -Hold Warfarin for now and monitor INR in the am Plan The patient was discussed with Dr. Ron at the time of the admission History of Present Illness Chief Complaint: AMS Primary Care Provider: Leti Camacho MD Chandan is a 77 year old male with a PMH significant for Afib on Warfarin, parkinsonism, dementia, peripheral neuropathy, lumbar radiculopathy, Gout, Subdural hematoma in December of this year, previous bladder cancer S/P resection, BPH, HTN, hyperlipidemia, and DMII who presented to the [facility] ED on 04/21/22 with a chief complaint of generalized weakness and AMS. In the ED the patient was found to be afebrile, hypertensive at 218/136, and stable on RA. Per the ED staff the patient's hypertension improved spontaneously while the patient was being evaluated. Labs were remarkable for leukocytosis WNL, INR of 4.3, stable renal function and electrolytes, AST of 48, alk phos of 115, high sensitivity troponin of 123, and covid negative. CT of the head was negative for acute changes, Chest xray was negative for acute findings, and CT of the abdomen and pelvis with IV contrast showed "No acute abnormalities, in particular no evidence of acute fracture or intra-abdominal trauma. Previously noted bladder nodule is no longer seen on today's exam.". At the time of the exam the patient was lying in bed in no acute distress with his sitting bedside. History was obtained from the patient's due to the patient's baseline mental status. She states that the patient initially started becoming more weak on 04/18/22. Normally, he is able to get out of bed, ambulate, and take his medications. His baseline mental status is normally alert and oriented to person and sometimes location. The patient was more week/tired on 04/18, to the point that he was not getting out of bed, eating, drinking, or able to take his medications. When I clarified with his , she states that she thinks he is still able to swallow but isn't able to lift his head high enough to properly eat/drink/swallow. She brought him to the [facility] ED on 04/19 for these symptoms, his workup was unremarkable. The patient was discharged home with a prescription for Levaquin as he can have similar symptoms with previous UTI's. His states that the patient has continued to decline since discharge home. The patient's is his only caregiver and if this is his new baseline then she will need extra help at home or possible placement. Allergies Allergy/AdvReac Type Severity Reaction Status Date / Time Penicillins Allergy Mild RASH Verified 04/21/22 16:24 morphine AdvReac Mild bp drops Verified 04/21/22 16:24 Home Medications Medication Instructions Recorded Confirmed Type pantoprazole 20 mg tablet,delayed 40 mg PO DAILYBB 09/10/18 04/21/22 History release tramadol 50 mg tablet 100 mg PO Q8H PRN Pain 09/10/18 04/21/22 History atorvastatin 40 mg tablet 40 mg PO HS 07/10/19 04/21/22 History tamsulosin 0.4 mg capsule 0.4 mg PO QAM 07/10/19 04/21/22 History metformin 500 mg tablet,extended 500 mg PO QDD 09/27/21 04/21/22 History release 24 hr carbidopa 25 mg-levodopa 100 mg 1 tab PO TID 01/01/22 04/21/22 History tablet mirabegron 25 mg tablet,extended 25 mg PO QAM 01/28/22 04/21/22 History release 24 hr duloxetine 30 mg capsule,delayed 30 mg PO QAM 02/12/22 04/21/22 History release acetaminophen 325 mg tablet 650 mg PO Q4H PRN Pain 02/23/22 04/21/22 History bupropion HCl 150 mg 24 hr tablet, 150 mg PO QAM 02/23/22 04/21/22 History extended release multivitamin with minerals 1 tab PO QAM 02/23/22 04/21/22 History polyethylene glycol 3350 17 gram 17 g PO QDL PRN Constipation 02/23/22 04/21/22 History oral powder packet (Miralax) warfarin 5 mg tablet 7.5 mg PO DIRECTED 02/23/22 04/21/22 History memantine 5 mg tablet (Namenda) 5 mg PO BID 90 days #180 tabs 04/12/22 04/21/22 Rx pregabalin 200 mg capsule 200 mg PO BID 90 days #180 caps 04/12/22 04/21/22 Rx propranolol 60 mg capsule,24 60 mg PO DAILY #90 caps 04/12/22 04/21/22 Rx hr,extended release levofloxacin 750 mg tablet 750 mg PO DAILY 4 days #4 tabs 04/19/22 04/21/22 Rx donepezil 10 mg tablet 10 mg PO HS 04/21/22 04/21/22 History Past Med/Surg History Medical History (Updated 04/25/22 @ 09:57 by Racquel Contreras, AKI) Atrial fibrillation Paroxysmal per records Pt denies history Follows with cardio- on Coumadin Benign essential tremor BPH (benign prostatic hyperplasia) Chronic back pain Chronic low back pain Degenerative disc disease Dementia Experiences short term memory loss. Alert and oriented to person. Confusion with places and time. Depression Diabetes mellitus, type 2 NIDDM Recently dx'ed- does not check glucose regularly Encounter for pre-operative examination Generalized weakness GERD (gastroesophageal reflux disease) Well controlled and stable Hearing deficit Hyperlipidemia Hypertension Irregular heart beat Occasional episodes of trigeminy. Follows with Dr Isaac Lumbar degenerative disc disease Mechanical heart valve present MV replacement 1996- mechanical- on Coumadin Neuropathy involving both lower extremities On anticoagulant therapy Warfarin daily Parkinson disease Parkinson's dementia per records Spinal stenosis of lumbar region Subdural hematoma (01/01/22) - Presented to the Emergency room 01/01/22 at [facility] and transferred to [facility] and treated inpatient for several days and then went to [facility] for rehab. Patient discharged home ~01/21/22. No surgery had been done, reports it was a spontaneous hematoma. Denies any fall. - Pt's mental status back to baseline -Coumadin has since been restarted- tolerating well. Transient ischemic attack (TIA) In --no deficits UTI (urinary tract infection) due to Enterococcus Surgical History History of back surgery x2 History of colonoscopy History of craniotomy x2 (~2011)- secondary to subdural hematoma- had fall at that time History of esophagogastroduodenoscopy (EGD) History of hand surgery right hand finger History of inguinal hernia repair x5 History of mitral valve replacement 1996 @ [facility] -- mechanical History of umbilical hernia repair History of wisdom tooth extraction Status post LASIK surgery of both eyes Family History Daughter Family hx of colon cancer Colorectal cancer Mother Cardiac pacemaker Brother Stroke Hypertension Prostate cancer Father Stroke Grandfather (Maternal) Suicide Grandfather (Paternal) Tuberculosis Other No family history of adverse response to anesthesia Social History Smoking Status: Never smoker Second Hand Exposure: No; Do You Dip or Chew Tobacco: No; Hx Alcohol Use: Yes Alcohol type: beer Hx Substance Use: No Preferred Language: Malaysian Communication Ability: Effective 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 All systems have been reviewed and are otherwise negative. Physical Exam Physical Exam: Physical Exam: General: In no acute distress, older than stated age, chronically ill- appearing, non-toxic appearing HEENT: Normocephalic, atraumatic, patient with erythema surrounding both eyes as he is frequently touching them, no conjunctival injection noted, no scleral icterus, pupils around round, symmetrical, and reactive to light, Dry mucus membranes, trachea midline, no thyromegaly Chest/Pulm: No respiratory distress, symmetrical chest expansion, clear breath sounds throughout Cardiac: irregular rate and rhythm, systolic murmur noted Abdomen: Negative for ascites and bruising, normoactive bowel sounds, soft, non-tender to palpation throughout Musculoskeletal: Patient is able to move the upper and lower extremities voluntarily but ROM is severely limited due to baseline tremor, worse with intentional movement, no acute trauma noted Extremities: Radial, dorsalis pedis, and posterior tibial pulses are intact and symmetrical, no edema noted in the BL LE's Skin: Warm, dry, no rashes , lesions, or scars noted Neuro: Alert and oriented to person only, currently with resting tremor which is exacerbated with movement, CN II-XII tested and intact Psych: No acute distress, calm and cooperative during the exam Results & Data Results & Data ([facility]) Vital Signs (Past 12 Hours) Vital Signs Temp Pulse Resp BP Pulse Ox O2 Del Method O2 Flow Rate 04/21/22 12:19 94 Room Air 04/21/22 11:45 94 Room Air 0 04/21/22 11:03 36.7 C 118 H 18 218/136 H 94 Room Air Laboratory Results Abnormal lab results 04/21/22 04/21/22 04/21/22 Range/Units 11:43 11:43 11:43 Hgb 13.1 L (14.0-18.0) g/dl MCHC 31.6 L (32.0-36.0) g/dL RDW Coeff of Florecita 15.1 H (11.5-14.5) % Lymph # (Auto) 0.94 L (1.2-3.4) K/uL Andrews # (Auto) 1.27 H (0.24-0.82) K/uL PT 42.7 H (9.0-12.0) Seconds INR 4.3 H (0.9-1.1) APTT 43.0 H (21.0-31.0) Seconds Glucose 155 H (70-99(Fasting)) mg/dl AST 48 H (13-39) U/L Alkaline Phosphatase 115 H (34-104) U/L Troponin I High Sens 123.0 H* D (0-20) pg/ml Diagnostic Findings Chest X-Ray 04/21/22 12:19 XR chest 1V portable HISTORY: Atypical Chest Pain COMPARISON: Chest 04/19/2022. FINDINGS: No pneumothorax. No pleural effusions. The heart remains top normal in size. Poststernotomy changes and a cardiac valve prosthesis are again noted. Small left basilar linear densities favor subsegmental atelectasis. This is similar to the prior study. Otherwise, no new focal lung consolidations to suggest a pneumonia. No evidence for pulmonary edema. IMPRESSION: No acute process. ACT 112: Negative or not required by law. Electronically signed by: Alhaji Lux M.D. 04/21/2022 12:[address] 04/21/22 12:19 CT SCAN OF THE BRAIN WITHOUT IV CONTRAST CLINICAL HISTORY: Generalized weakness. COMPARISON STUDY: Prior CT scans of the brain, most recently dated 02/12/2022. TECHNIQUE: Unenhanced axial CT scan of the brain is performed from the vertex to the skull base. A dose lowering technique was utilized adhering to the principles of ALARA. The skull base was scanned twice due to motion artifact. FINDINGS: Brain parenchyma: There is age-related involutional change noting moderate confluent subcortical and periventricular microangiopathic disease. There is no hemorrhage, mass effect, or evidence of acute territorial ischemia by CT criteria. Lama-white matter differentiation is preserved. A focus of right frontal encephalomalacia is unchanged and consistent with a remote insult. Linear hyperdensity deep to the craniotomy site is stable over several prior examinations and likely represents postsurgical change. No extra-axial fluid collection is seen. A chronic lacunar infarct is noted in the left thalamus. Ventricles, sulci, cisterns: Prominent secondary to involutional change. Intracranial vasculature: There is atherosclerotic calcification of the cavernous carotid arteries. Calvarium: There is postoperative change from previous right-sided craniotomy. Sinuses and mastoids: The visualized paranasal sinuses are clear. The mastoid air cells are well pneumatized. Orbits: The bony orbits are grossly intact. IMPRESSION: 1. There is no hemorrhage, mass effect, or evidence of acute territorial ischemia by CT criteria. 2. Chronic and postsurgical changes as above. ACT 112: Negative or not required by law. Electronically signed by: Yosvany Cortes M.D. 04/21/2022 2:57 PM Abdomen/Pelvis CT 04/21/22 12:20 CT abd pelvis IV con only CLINICAL HISTORY: weakness, possible fall, back pain, on coumadin TECHNIQUE: Helical axial images of the abdomen and pelvis were obtained and displayed. Automated dose lowering techniques and/or adjustment according to patient size were utilized for this exam. This exam was performed with intravenous contrast. CT DOSE: 1777.76 mGy.cm COMPARISON: Comparison is made to CT abdomen pelvis 02/23/2022 FINDINGS: Lower chest: No acute abnormality Liver: Unremarkable. No focal lesions are seen. Gallbladder and biliary tree: No calcified gallstones. Normal caliber wall. No intra- or extrahepatic biliary ductal dilation. Pancreas: Unremarkable, no focal lesions. Spleen: Calcifications are noted in the spleen compatible with prior granulomatous disease. Adrenals: Unremarkable. Kidneys and ureters: Subcentimeter hypodensities are too small to characterize. Right cortical scarring is again noted. Bladder: Unremarkable. Reproductive organs: Prostatic calcifications are seen which may represent prior hemorrhage or granulomatous disease. Bowel: Diverticulosis is seen without evidence of diverticulitis. The appendix is normal. A hiatal hernia is seen. Lymph nodes Retroperitoneal: Unremarkable. Pelvic: Unremarkable. Mesenteric: Unremarkable. Peritoneum: Normal. Vessels: Atherosclerotic calcifications are seen. Abdominal wall: Bilateral fat-containing inguinal hernias are seen. Bones: Degenerative changes in the visualized spine. No evidence of acute fracture is seen. IMPRESSION: No acute abnormalities, in particular no evidence of acute fracture or intra- abdominal trauma. Previously noted bladder nodule is no longer seen on today's exam. ACT 112: Negative or not required by law. Electronically signed by: Bright Leonardo M.D. 04/21/2022 3:07 PM ECG Additional Comments: Sinus tachycardia with Premature atrial complexes Chronic ST depression in Anterolateral leads Abnormal ECG When compared with ECG of 19-APR-2022 17:12, P remature ventricular complexes are no longer Present Premature atrial complexes are now Present Confirmed by Maninder Kaur ([id number]) on 04/21/2022 3:32:30 PM Code Status & VTE Plan Code Status Conditional code; patient would want CPR, defibrillation, but NO intubation VTE Prophylaxis Plan VTE Prophylaxis will be ordered: Yes Supervising Physician Co-Signing Physician Notes I personally saw and examined the patient. I verified all hoang points and agree with Sean Swan PA-C with the following exceptions and/or additions: 77 year old male with Parkinson's disease who presents to the ER with acute on chronic decline in mental state. Unablet o get any history from the patient when seen. O/E HS1+2 (click), no murmurs, Chest CTAB, Abdo SNT, b/l resting pin rolling tremor, cogwheel rigidity, R > L, Alert, disorientated x3 A/P Altered mental state - ?hypertensive due to missing his medications. Suspect most likely due to missing his usual Parkinson's medications. Will have to reassess after these have been taken consistently for a day to see how far off his baseline he is. PG Care Time/CCT Total # of Minutes Spent Total Time Spent with Patient: Total time spent is greater than 50% in coordination of care (as documented) at patient's floor/unit and/or counseling patient: Coding Level of Care Code Established Pt INT OBSERVATION CARE 50M LVL 2 Patient Type Established Medical Decision Making Moderate Complexity Diagnoses Hypertensive emergency I16.1 Weakness R53.1 Dementia F03.90 Parkinsonism G20 Supratherapeutic INR R79.1 Lumbar degenerative disc disease M51.36 Mechanical heart valve present Z95.2 Hyperlipidemia E78.5 GERD (gastroesophageal reflux disease) K21.9 Diabetes mellitus, type 2 E11.9 BPH (benign prostatic hyperplasia) N40.0 Atrial fibrillation I48.91
[2022-04-21] MEDS ORDERED: DEXTROSE 50% 50 ML SYRINGE IV PRN (18:26)
[2022-04-21] MEDS ORDERED: CARBOHYDRATES FOR HYPOGLYCEMIA PO PRN (18:26)
[2022-04-21] MEDS ORDERED: GLUCOSE 10 TAB/TUBE PO PRN (18:26)
[2022-04-21] MEDS ORDERED: ACETAMINOPHEN 325 MG TAB PO PRN (18:26)
[2022-04-21] MEDS ORDERED: GLUCOSE 40% GEL 15 GM TUBE PO PRN (18:26)
[2022-04-21] MEDS ORDERED: GLUCAGON FOR INJ 1 MG VIAL SQ PRN (18:26)
[2022-04-21] MEDS: LACTATED RINGER'S 1,000 ML IV SCH (20:03)
[2022-04-21] MEDS: DONEPEZIL HCL 10 MG TAB PO SCH (20:27)
[2022-04-21] MEDS: PROPRANOLOL HCL 60 MG LA CAP PO SCH (20:27)
[2022-04-21] MEDS: MEMANTINE HCL 5 MG TAB PO SCH (20:28)
[2022-04-21] MEDS: buPROPion XL 150 MG TABCR PO SCH (20:28)
[2022-04-21] MEDS: DULoxetine HCL 30 MG CAP PO SCH (20:29)
[2022-04-21] MEDS: MIRABEGRON ER 25 MG TAB PO SCH (20:29)
[2022-04-21] MEDS: TAMSULOSIN HCL 0.4 MG CAP PO SCH (20:29)
[2022-04-21] MEDS: CARBIDOPA/LEVODOPA 25/100MG TAB PO SCH (20:29)
[2022-04-21] MEDS: FAMOTIDINE 20 MG in SYRINGE 3 ML IV SCH (20:30)
[2022-04-21] MEDS: PREGABALIN 100 MG CAP PO SCH (20:34)
[2022-04-21] MEDS: ARTIFICIAL TEARS OP SCH (23:58)
[2022-04-21] MEDS: LANTUS PER UNIT CHARGE SQ SCH (23:59)
[2022-04-21] MEDS: INSULIN ASPART PER UNIT SC SCH (23:59)
[2022-04-22 06:58] LABS: Hematocrit (blood only) 36.8 % (40.1-51.0); Hemoglobin 11.4 g/dl (14.0-18.0); Mean Corpuscular Hemoglobin 25.4 pg (25.0-34.0); Mean Corpuscular Volume 82.1 fL (80.0-100.0); Mean Platelet Volume 10.6 fL (9.4-12.4); Platelet Count 173 K/uL (130-400); RDW Coefficient of Variation 15.5 % (11.5-14.5); RDW Standard Deviation 46.1 fL (36.4-46.3); Red Blood Count 4.48 M/uL (4.63-6.08); White Blood Count 5.37 K/ul (4.8-10.8)
[2022-04-22 07:18] LABS: Albumin Globulin Ratio 1.2 (0.9-2); Albumin Level 3.5 gm/dl (3.4-5.0); BUN Creatinine Ratio 25.5 (10-20); Bilirubin,Total 0.5 mg/dl (0.2-1.0); Calcium 9.2 mg/dl (8.5-10.1); Creatinine Clr Calc Pharmacy 64.6 ml/min; Est GFR (African American) 81.8 ml/min; Est GFR (Non-African American) 70.6 ml/min; Globulin 2.9 gm/dl (2.5-4.0); Magnesium 1.9 mg/dl (1.7-2.4); Potassium 3.7 mmol/L (3.5-5.1); Total Protein 6.4 gm/dl (6.0-8.3)
[2022-04-22 07:20] LABS: INR 4.7 (0.9-1.1); Prothrombin Time 45.7 Seconds (9.0-12.0)
--- NOTE | 2022-04-22 07:28 | Hospitalist Progress Note ---
Date of Service April 22, 2022 Assessment & Plan (1) Weakness: (2) Dementia: (3) Parkinsonism: (4) Subtherapeutic international normalized ratio (INR): (5) Lumbar degenerative disc disease: (6) Mechanical heart valve present: (7) Hyperlipidemia: (8) GERD (gastroesophageal reflux disease): (9) Diabetes mellitus, type 2: (10) BPH (benign prostatic hyperplasia): (11) Atrial fibrillation: (12) Hypertensive urgency: (13) Metabolic encephalopathy: Plan Chandan is a 77 year old male with a PMH significant for Afib on Warfarin, parkinsonism, dementia, peripheral neuropathy, lumbar radiculopathy, Gout, Subdural hematoma in December of this year, previous bladder cancer S/P resection, BPH, HTN, hyperlipidemia, and DMII who presented to the [facility] ED on 04/21/22 with a chief complaint of generalized weakness and AMS. Metabolic encephalology -Baseline dementia. In the ED patient's stated that he had AMS and was repeating sentences. -CXR, CT head, and abdomen/pelvis CT were all negative. -possibly sec to htn urgency/oversedation from meds/?poor oral intake. -Patient was recently seen by neurology outpatient on 04/12. At that time patient was exhibiting significant daytime somnolence. Med changes were made at that time: Lyrica from TID to BID, propranolol from 80mg to 60mg, and increasing memantine to BID. -back to baseline this am. -UA ordered. Waiting to be collected. -Ordered speech and therapy to evaluate patient with a swallow study. -PT/OT consults ordered, patient's will either need home health or he may need to be placed. -On LR fluids until able to establish po intake. Hypertensive urgency vs HTN emergency -Patient was in HTN emergency in the ED with BP 218/136, HR 118, afebrile, and 94% on RA on 04/21. -EKG done in the ED showed premature atrial complexes with sinus tachycardia. -Given IV ioversol once. -Hypertension likely due to patient being unable to take medications for the past 3 days -Patient's states that he was on lisinopril previously but was taken off of it for hypotension -Initial high sensitivity troponin elevated at 123 repeat was 93.4 , likely from htn urgency -IV antihypertensives can be used while admitted to the hospital if patient becomes HTN again. -Currently patient's BP is 119/70. Will continue to monitor on tele. Dementia -Restart Aricept, Namenda when he can swallow or we get an NG tube placed Parkinsonism -Continue carbidopa-levodopa and propranolol. -Should f/u with neurology outpatient Supratherapeutic INR -Noted to be elevated at 4.3 today -Likely due to recently taking Levaquin -No signs of active bleeding -Hold Warfarin for now and monitor PT/INR in the am Lumbar degenerative disc disease -Hold PRN tramadol for now to avoid over sedating Mechanical heart valve present -Will have to hold warfarin Hyperlipidemia -Continue Statin when able GERD (gastroesophageal reflux disease) -Will switch to BID IV famotidine for now Diabetes mellitus, type 2 -Hold metformin -BSG checks ACHS while NPO -Will start with lantus at 5 units BID, correction factor of 50 BPH (benign prostatic hyperplasia) -Continue flomax Atrial fibrillation -Currently rate controlled, unsure if he was truly diagnosed with Afib, likely on the Warfarin for the prosthetic valve -Hold Warfarin for now and monitor INR in the am Depression -Continue home Wellbutrin. Fluids: LR @ 80 mls/hr (hypoglycemia protocol on) Nutrition: DM2 diet with minced and moist food Code status: conditional code DVT ppx: SCD Consults: none PT/OT: on Case management: on Dispo: Med/surg with telemetry Thank you for allowing me to participate in the care of your patient. -Dr. Yosvany Salmon PGY1 Admission and Anticipated Discharge Date Admission Date: April 21, 2022 Supervising Physician Co-Signing Physician Notes Resident Physician Supervision Note: I independently interviewed and examined the patient and verified the hoang history and physical, reviewed labs and image studies and agree with resident findings and care plan. Subjective Patient was seen beside this AM. Patient is A&Ox 1 (self only). His is not in the room at this time. He believes the year is 2015. He denies having any pain or issues at this current time. Review of Systems Review of Systems: Unobtainable due to cognitive status Physical Exam Constitutional: WD/WN, vitals as above Eyes: PERRL, conjunctivae normal, anicteric sclerae bilateral periorbital erythema R>L ENMT: external ear and nose normal, oropharynx normal Respiratory: normal respiratory effort, lungs clear to auscultation Cardiovascular: Rate/Rhythm: + irregularly irregular Heart Sounds: + murmur (systolic murmur best heard on the R 2nd intercostal space ) Gastrointestinal (Abdomen): normal bowel sounds, soft, nontender, no hepatosplenomegaly Musculoskeletal: Limited ROM of UE with tremor with movement Skin: no rashes, warm and dry Psychiatric: Orientation: oriented to person; + not oriented to place and + not oriented to time Results & Data Results & Data ([facility]) Vital Signs (Past 12 Hours) Vital Signs Temp Pulse Pulse Resp BP Pulse Ox O2 Del Method 04/21/22 22:15 124 H 04/22/22 03:19 36.6 C 92 H 18 119/74 90 Room Air 04/21/22 23:08 36.8 C 97 H 18 122/82 93 Room Air 04/21/22 19:47 36.6 C 137 H 20 148/90 H 94 Room Air Resident Activity Tracking Resident Involvement: Resident Care Provided Care Provided: Adult Hospital Medicine
[2022-04-22] MEDS: ARTIFICIAL TEARS OP SCH ×3 (07:47→20:08)
[2022-04-22] MEDS: TAMSULOSIN HCL 0.4 MG CAP PO SCH (07:47)
[2022-04-22] MEDS: MEMANTINE HCL 5 MG TAB PO SCH ×2 (07:48→20:08)
[2022-04-22] MEDS: MIRABEGRON ER 25 MG TAB PO SCH (07:48)
[2022-04-22] MEDS: DULoxetine HCL 30 MG CAP PO SCH (07:48)
[2022-04-22] MEDS: buPROPion XL 150 MG TABCR PO SCH (07:48)
[2022-04-22] MEDS: PROPRANOLOL HCL 60 MG LA CAP PO SCH (07:49)
[2022-04-22] MEDS: PREGABALIN 100 MG CAP PO SCH ×2 (09:22→20:20)
[2022-04-22] MEDS: LACTATED RINGER'S 1,000 ML IV SCH (09:22)
[2022-04-22] MEDS: LANTUS PER UNIT CHARGE SQ SCH ×2 (09:22→20:21)
[2022-04-22] MEDS: FAMOTIDINE 20 MG in SYRINGE 3 ML IV SCH ×2 (09:22→23:01)
[2022-04-22] MEDS: INSULIN ASPART PER UNIT SC SCH ×4 (09:25→20:09)
[2022-04-22] MEDS: CARBIDOPA/LEVODOPA 25/100MG TAB PO SCH ×3 (12:56→20:07)
[2022-04-22] MEDS: DONEPEZIL HCL 10 MG TAB PO SCH (20:07)
[2022-04-23 06:21] LABS: Hematocrit (blood only) 33.1 % (40.1-51.0); Hemoglobin 10.2 g/dl (14.0-18.0); Mean Corpuscular Hgb Conc 30.8 g/dL (32.0-36.0); Mean Corpuscular Volume 84.4 fL (80.0-100.0); Mean Platelet Volume 10.9 fL (9.4-12.4); Platelet Count 149 K/uL (130-400); RDW Coefficient of Variation 15.5 % (11.5-14.5); RDW Standard Deviation 47.1 fL (36.4-46.3); Red Blood Count 3.92 M/uL (4.63-6.08)
--- NOTE | 2022-04-23 07:01 | Hospitalist Progress Note ---
Date of Service April 23, 2022 Assessment & Plan (1) Weakness: (2) Dementia: (3) Parkinsonism: (4) Subtherapeutic international normalized ratio (INR): (5) Lumbar degenerative disc disease: (6) Mechanical heart valve present: (7) Hyperlipidemia: (8) GERD (gastroesophageal reflux disease): (9) Diabetes mellitus, type 2: (10) BPH (benign prostatic hyperplasia): (11) Atrial fibrillation: (12) Hypertensive urgency: (13) Metabolic encephalopathy: (14) Allergic conjunctivitis: Plan Chandan is a 77 year old male with a PMH significant for Afib on Warfarin, parkinsonism, dementia, peripheral neuropathy, lumbar radiculopathy, Gout, Subdural hematoma in December of this year, previous bladder cancer S/P resection, BPH, HTN, hyperlipidemia, and DMII who presented to the [facility] ED on 04/21/22 with a chief complaint of generalized weakness and AMS. Metabolic encephalology -Baseline dementia. In the ED patient's stated that he had AMS and was repeating sentences. -CXR, CT head, and abdomen/pelvis CT were all negative. -possibly sec to htn urgency/oversedation from meds/?poor oral intake. -Patient was recently seen by neurology outpatient on 04/12. At that time patient was exhibiting significant daytime somnolence. Med changes were made at that time: Lyrica from TID to BID, propranolol from 80mg to 60mg, and increasing memantine to BID. -back to baseline on 04/22. -Ordered speech and therapy to evaluate patient with a swallow study. -PT/OT consults ordered and recommends SNF at time of discharge. Will work with case management and for placement. Hypertensive urgency vs HTN emergency -Patient was in HTN emergency in the ED with BP 218/136, HR 118, afebrile, and 94% on RA on 04/21. -EKG done in the ED showed premature atrial complexes with sinus tachycardia. -Given IV ioversol once. -Hypertension likely due to patient being unable to take medications for the past 3 days -Patient's states that he was on lisinopril previously but was taken off of it for hypotension -Initial high sensitivity troponin elevated at 123 repeat was 93.4 , likely from htn urgency -IV antihypertensives can be used while admitted to the hospital if patient becomes HTN again. -Currently patient's BP is 106/68. Will continue to monitor on tele. Allergic Conjunctivitis -Was on 1 drop of artificial tears TID which did not provide adequate relief. Will switch to prn w/o TID scheduling and increase artificial tears to 2 drops. Will also increase cold compresses applied to the eyes. -Could possible add in an anti-histamine drop if symptoms do not resolve with above treatment. -May consider other etiologies if problem persists such as bacterial conjunctivitis or viral conjunctivitis. Dementia -Continue Aricept and Namenda Parkinsonism -Continue carbidopa-levodopa and propranolol. -Should f/u with neurology outpatient Supratherapeutic INR -INR was elevated at 4.7 and improving. INR was 4.0 on 04/23. -likely med interaction from recent Levaquin -No signs of active bleeding -Hold Warfarin for now and monitor PT/INR in the am Lumbar degenerative disc disease -Hold PRN tramadol for now to avoid over sedating Mechanical heart valve present -Will have to hold warfarin Hyperlipidemia -Continue Statin when able GERD (gastroesophageal reflux disease) -Will switch to BID IV famotidine for now Diabetes mellitus, type 2 -Hold metformin -BSG checks ACHS while NPO -Will start with lantus at 5 units BID, correction factor of 50 BPH (benign prostatic hyperplasia) -Continue flomax Atrial fibrillation -Currently rate controlled, unsure if he was truly diagnosed with Afib, likely on the Warfarin for the prosthetic valve -Hold Warfarin for now and monitor INR in the am Depression -Continue home Wellbutrin. Fluids: Nutrition: DM2 diet with minced and moist food Code status: conditional code DVT ppx: SCD Consults: none PT/OT: on Case management: on Dispo: Med/surg with telemetry Thank you for allowing me to participate in the care of your patient. -Dr. Yosvany Salmon PGY1 Admission and Anticipated Discharge Date Admission Date: April 21, 2022 Supervising Physician Co-Signing Physician Notes Resident Physician Supervision Note: I independently interviewed and examined the patient and verified the hoang history and physical, reviewed labs and image studies and agree with resident findings and care plan. Subjective Patient was seen beside this AM. Patient is A&Ox 1 (self only). He has no issues or concerns at this time. Nurse mentioned that he has been complaining of dry pruritus eyes. He has been getting artificial tears TID. Review of Systems Review of Systems: Unobtainable due to cognitive status Physical Exam Constitutional: WD/WN, vitals as above Eyes: erythematous conjunctivitis ENMT: external ear and nose normal, oropharynx normal Respiratory: normal respiratory effort, lungs clear to auscultation Cardiovascular: Rate/Rhythm: + irregularly irregular Heart Sounds: + murmur (systolic murmur best heard on the R 2nd intercostal space ) Gastrointestinal (Abdomen): normal bowel sounds, soft, nontender, no hepatosplenomegaly Skin: no rashes, warm and dry Psychiatric: Orientation: oriented to person; + not oriented to place and + not oriented to time Results & Data Results & Data ([facility]) Vital Signs (Past 12 Hours) Vital Signs Temp Pulse Pulse Resp BP Pulse Ox O2 Del Method 04/23/22 03:24 36.5 C 58 L 16 122/72 96 Room Air 04/22/22 22:15 79 04/22/22 19:17 36.7 C 87 20 108/71 92 Room Air Resident Activity Tracking Resident Involvement: Resident Care Provided Care Provided: Adult Hospital Medicine
[2022-04-23 07:13] LABS: Albumin Globulin Ratio 1.1 (0.9-2); Albumin Level 3.1 gm/dl (3.4-5.0); BUN Creatinine Ratio 22.2 (10-20); Bilirubin,Total 0.5 mg/dl (0.2-1.0); Calcium 8.6 mg/dl (8.5-10.1); Creatinine Clr Calc Pharmacy 56.3 ml/min; Est GFR (African American) 69.3 ml/min; Est GFR (Non-African American) 59.8 ml/min; Globulin 2.8 gm/dl (2.5-4.0); Potassium 3.4 mmol/L (3.5-5.1); Total Protein 5.9 gm/dl (6.0-8.3)
[2022-04-23 07:26] LABS: Prothrombin Time 39.3 Seconds (9.0-12.0)
[2022-04-23] MEDS: INSULIN ASPART PER UNIT SC SCH ×4 (08:00→22:09)
[2022-04-23] MEDS: ARTIFICIAL TEARS OP SCH (08:48)
[2022-04-23] MEDS: MIRABEGRON ER 25 MG TAB PO SCH (08:49)
[2022-04-23] MEDS: FAMOTIDINE 20 MG TAB PO SCH ×2 (08:49→20:00)
[2022-04-23] MEDS: buPROPion XL 150 MG TABCR PO SCH (08:49)
[2022-04-23] MEDS: MEMANTINE HCL 5 MG TAB PO SCH ×2 (08:49→19:59)
[2022-04-23] MEDS: DULoxetine HCL 30 MG CAP PO SCH (08:49)
[2022-04-23] MEDS: PROPRANOLOL HCL 60 MG LA CAP PO SCH (08:49)
[2022-04-23] MEDS: TAMSULOSIN HCL 0.4 MG CAP PO SCH (08:49)
[2022-04-23] MEDS: PREGABALIN 100 MG CAP PO SCH ×2 (09:04→19:59)
[2022-04-23] MEDS: LANTUS PER UNIT CHARGE SQ SCH ×2 (10:43→22:09)
[2022-04-23] MEDS ORDERED: ARTIFICIAL TEARS OP PRN (10:49)
[2022-04-23] MEDS: CARBIDOPA/LEVODOPA 25/100MG TAB PO SCH ×3 (12:12→20:00)
[2022-04-23] MEDS ORDERED: ARTIFICIAL TEARS OP OINT 3.5 GM TUBE OP ONE (14:44)
[2022-04-23] MEDS: DONEPEZIL HCL 10 MG TAB PO SCH (20:00)
[2022-04-23 23:10] LABS: Appearance Urine Cloudy (Clear); Bacteria Urine Automated Negative (Negative); Bilirubin Urine Negative (Negative); Blood Urine Negative (Negative); Color Urine Dark Yellow; Epithelial Cell Urine Auto 20-30 /lpf (0-5); Glucose Urine UA Negative (Negative); Ketones Urine Trace (Negative); Leukocyte Esterase Urine Negative (Negative); Nitrite Urine Negative (Negative); Protein Urine Trace (Negative); RBC Urine Automated 0-4 /hpf (0-4); Specific Gravity Urine 1.036 (1.000-1.030); Urobilinogen Urine Negative (Negative)
[2022-04-23 23:39] LABS: Calcium Oxalate Crystals Urine Present (None Prsent)
[2022-04-24 06:28] LABS: Hematocrit (blood only) 33.8 % (40.1-51.0); Hemoglobin 10.5 g/dl (14.0-18.0); Mean Corpuscular Hemoglobin 25.7 pg (25.0-34.0); Mean Corpuscular Hgb Conc 31.1 g/dL (32.0-36.0); Mean Corpuscular Volume 82.6 fL (80.0-100.0); Mean Platelet Volume 10.9 fL (9.4-12.4); Platelet Count 157 K/uL (130-400); RDW Coefficient of Variation 15.4 % (11.5-14.5); RDW Standard Deviation 46.6 fL (36.4-46.3); Red Blood Count 4.09 M/uL (4.63-6.08); White Blood Count 4.28 K/ul (4.8-10.8)
[2022-04-24 06:45] LABS: INR 2.6 (0.9-1.1); Prothrombin Time 26.1 Seconds (9.0-12.0)
--- NOTE | 2022-04-24 06:50 | Hospitalist Progress Note ---
Date of Service April 24, 2022 Assessment & Plan (1) Weakness: (2) Dementia: (3) Parkinsonism: (4) Subtherapeutic international normalized ratio (INR): (5) Lumbar degenerative disc disease: (6) Mechanical heart valve present: (7) Hyperlipidemia: (8) GERD (gastroesophageal reflux disease): (9) Diabetes mellitus, type 2: (10) BPH (benign prostatic hyperplasia): (11) Atrial fibrillation: (12) Hypertensive urgency: (13) Metabolic encephalopathy: (14) Allergic conjunctivitis: Plan Chandan is a 77 year old male with a PMH significant for Afib on Warfarin, parkinsonism, dementia, peripheral neuropathy, lumbar radiculopathy, Gout, Subdural hematoma in December of this year, previous bladder cancer S/P resection, BPH, HTN, hyperlipidemia, and DMII who presented to the [facility] ED on 04/21/22 with a chief complaint of generalized weakness and AMS. Metabolic encephalology -Baseline dementia. In the ED patient's stated that he had AMS and was repeating sentences. -CXR, CT head, and abdomen/pelvis CT were all negative. -possibly sec to htn urgency/oversedation from meds/?poor oral intake. -Patient was recently seen by neurology outpatient on 04/12. At that time patient was exhibiting significant daytime somnolence. Med changes were made at that time: Lyrica from TID to BID, propranolol from 80mg to 60mg, and increasing memantine to BID. -back to baseline on 04/22. -Ordered speech and therapy to evaluate patient with a swallow study. -PT/OT consults ordered and recommends SNF at time of discharge. Will work with case management and for placement. -Talked to on 04/24 and she would like to talk to CM and willing to talk to palliative care at this time. - prefers the patient be at home rather than in a residential facility. -CM and palliative care consulted. Hypertensive urgency vs HTN emergency -Patient was in HTN emergency in the ED with BP 218/136, HR 118, afebrile, and 94% on RA on 04/21. -EKG done in the ED showed premature atrial complexes with sinus tachycardia. -Given IV ioversol once. -Hypertension likely due to patient being unable to take medications for the past 3 days -Patient's states that he was on lisinopril previously but was taken off of it for hypotension -Initial high sensitivity troponin elevated at 123 repeat was 93.4 , likely from htn urgency -Currently patient's BP is 132.82. Will continue to monitor on tele. Eye itching - ? xerosis -Patient complained about dry itchy eyes since admission. -On 2 drops artificial tears prn, cold compression and prn artificial cream ointment. Redness and itchiness improved. -Could possible add in an anti-histamine drops or ointment if symptoms do not resolve with above treatment. -May consider other etiologies if problem persists such as bacterial c onjunctivitis or viral conjunctivitis. Supratherapeutic INR (resolved) -INR was elevated at 4.7 and improving. INR was 2.6 on 04/23. -likely med interaction from recent Levaquin -No signs of active bleeding -Will restart warfarin 7.5mg QD. -Will continue to monitor. Mechanical heart valve present -Restarting on warafin today. Atrial fibrillation -Currently rate controlled, unsure if he was truly diagnosed with Afib, likely on the Warfarin for the prosthetic valve -Hold Warfarin for now and monitor INR in the am Parkinsonism -Continue carbidopa-levodopa and propranolol. -Should f/u with neurology outpatient Lumbar degenerative disc disease -Hold PRN tramadol for now to avoid over sedating Dementia -Continue Aricept and Namenda Hyperlipidemia -Continue Statin when able GERD (gastroesophageal reflux disease) -Will switch to BID IV famotidine for now Diabetes mellitus, type 2 -Hold metformin -BSG checks ACHS while NPO -Will start with lantus at 5 units BID, correction factor of 50 BPH (benign prostatic hyperplasia) -Continue flomax Depression -Continue home Wellbutrin. Fluids: none Nutrition: DM2 diet with minced and moist food Code status: conditional code DVT ppx: SCD Consults: none PT/OT: following Case management: SNF needed Dispo: Med/surg with telemetry Thank you for allowing me to participate in the care of your patient. -Dr. Yosvany Salmon PGY1 Admission and Anticipated Discharge Date Admission Date: April 21, 2022 Supervising Physician Co-Signing Physician Notes Resident Physician Supervision Note: I independently interviewed and examined the patient and verified the hoang history and physical, reviewed labs and image studies and agree with resident findings and care plan. Subjective Patient was seen beside this AM. Patient is A&Ox 1 (self only). He has no issues or concerns at this time. Patient's was bedside this afternoon. Would like to consider palliative care at this time and to hear other options as well. Review of Systems Review of Systems: Unobtainable due to cognitive status Physical Exam Constitutional: WD/WN, vitals as above Eyes: PERRL, conjunctivae normal, anicteric sclerae ENMT: external ear and nose normal, oropharynx normal Respiratory: normal respiratory effort, lungs clear to auscultation Cardiovascular: Rate/Rhythm: + irregularly irregular Heart Sounds: + murmur (systolic murmur best heard on the R 2nd intercostal space ) Gastrointestinal (Abdomen): normal bowel sounds, soft, nontender, no hepatosplenomegaly Skin: no rashes, warm and dry Psychiatric: Orientation: oriented to person; + not oriented to place and + not oriented to time Results & Data Results & Data ([facility]) Vital Signs (Past 12 Hours) Vital Signs Temp Pulse Pulse Resp BP Pulse Ox O2 Del Method 04/24/22 03:27 36.5 C 73 20 121/74 94 Room Air 04/24/22 01:23 76 04/23/22 22:41 36.6 C 72 18 114/74 99 Room Air Resident Activity Tracking Resident Involvement: Resident Care Provided Care Provided: Adult Hospital Medicine
[2022-04-24 07:04] LABS: Albumin Globulin Ratio 1.1 (0.9-2); Albumin Level 3.2 gm/dl (3.4-5.0); BUN Creatinine Ratio 25.7 (10-20); Bilirubin,Total 0.6 mg/dl (0.2-1.0); Calcium 8.7 mg/dl (8.5-10.1); Creatinine Clr Calc Pharmacy 65.2 ml/min; Est GFR (African American) 82.8 ml/min; Est GFR (Non-African American) 71.4 ml/min; Globulin 2.9 gm/dl (2.5-4.0); Potassium 3.5 mmol/L (3.5-5.1); Total Protein 6.1 gm/dl (6.0-8.3)
[2022-04-24] MEDS: INSULIN ASPART PER UNIT SC SCH ×4 (08:03→20:21)
[2022-04-24] MEDS: POLYETHYLENE (MIRALAX) 17 GM PACK PO PRN (08:09)
[2022-04-24] MEDS: MIRABEGRON ER 25 MG TAB PO SCH (08:12)
[2022-04-24] MEDS: PREGABALIN 100 MG CAP PO SCH ×2 (08:12→20:00)
[2022-04-24] MEDS: DULoxetine HCL 30 MG CAP PO SCH (08:13)
[2022-04-24] MEDS: FAMOTIDINE 20 MG TAB PO SCH ×2 (08:13→20:00)
[2022-04-24] MEDS: MEMANTINE HCL 5 MG TAB PO SCH ×2 (08:13→20:01)
[2022-04-24] MEDS: TAMSULOSIN HCL 0.4 MG CAP PO SCH (08:13)
[2022-04-24] MEDS: buPROPion XL 150 MG TABCR PO SCH (08:13)
[2022-04-24] MEDS: PROPRANOLOL HCL 60 MG LA CAP PO SCH (08:13)
[2022-04-24] MEDS: LANTUS PER UNIT CHARGE SQ SCH ×2 (08:22→20:21)
[2022-04-24] MEDS: CARBIDOPA/LEVODOPA 25/100MG TAB PO SCH ×3 (13:12→20:01)
[2022-04-24] MEDS: WARFARIN SOD 7.5 MG TAB PO SCH (15:49)
[2022-04-24] MEDS: DONEPEZIL HCL 10 MG TAB PO SCH (20:00)
[2022-04-25 06:16] LABS: INR 1.9 (0.9-1.1); Prothrombin Time 19.9 Seconds (9.0-12.0)
--- NOTE | 2022-04-25 07:26 | Hospitalist Progress Note ---
Date of Service April 25, 2022 Assessment & Plan (1) Weakness: (2) Dementia: (3) Parkinsonism: (4) Subtherapeutic international normalized ratio (INR): (5) Lumbar degenerative disc disease: (6) Mechanical heart valve present: (7) Hyperlipidemia: (8) GERD (gastroesophageal reflux disease): (9) Diabetes mellitus, type 2: (10) BPH (benign prostatic hyperplasia): (11) Atrial fibrillation: (12) Hypertensive urgency: (13) Metabolic encephalopathy: (14) Allergic conjunctivitis: Plan Chandan is a 77 year old male with a PMH significant for Afib on Warfarin, parkinsonism, dementia, peripheral neuropathy, lumbar radiculopathy, Gout, Subdural hematoma in December of this year, previous bladder cancer S/P resection, BPH, HTN, hyperlipidemia, and DMII who presented to the [facility] ED on 04/21/22 with a chief complaint of generalized weakness and AMS. Metabolic encephalology (RESOLVED) -Baseline dementia. In the ED patient's stated that he had AMS and was repeating sentences. -CXR, CT head, and abdomen/pelvis CT were all negative. -possibly sec to htn urgency/oversedation from meds/?poor oral intake. -Patient was recently seen by neurology outpatient on 04/12. At that time patient was exhibiting significant daytime somnolence. Med changes were made at that time: Lyrica from TID to BID, propranolol from 80mg to 60mg, and increasing memantine to BID. -back to baseline on 04/22. -Speech therpy saw patient on 04/23 and stated that diet can be advanced as tolerate. However, patient and do not wish to progress his diet at this time. -PT/OT consults ordered and recommends SNF at time of discharge. Will work with case management and for placement. -Palliative consulted and talked to the patient and his on 04/25. Plan is to do SNF with a trial of rehab for dispo planning,if no improvement, move to comfort care at SNF. if pt makes substantial recovery and can return home with more independent mobility then is interested in addition of home hospice and/or home based pallitive care. Hypertensive urgency vs HTN emergency (RESOLVED) -Patient was in HTN emergency in the ED with BP 218/136, HR 118, afebrile, and 94% on RA on 04/21. -EKG done in the ED showed premature atrial complexes with sinus tachycardia. -Given IV ioversol once. -Hypertension likely due to patient being unable to take medications for the past 3 days -Patient's states that he was on lisinopril previously but was taken off of it for hypotension -Initial high sensitivity troponin elevated at 123 repeat was 93.4 , likely from htn urgency -Currently patient's BP is 134/74. Will continue to monitor on tele. Eye itching - ? xerosis (RESOLVED) -Patient complained about dry itchy eyes since admission. -On 2 drops artificial tears prn, cold compression and prn artificial cream ointment. Redness and itchiness improved. -Could possible add in an anti-histamine drops or ointment if symptoms do not resolve with above treatment. -May consider other etiologies if problem persists such as bacterial conjunctivitis or viral conjunctivitis. Supratherapeutic INR (RESOLVED) -INR was elevated at 4.7 and improving. INR was 2.6 on 04/23. -likely med interaction from recent Levaquin -No signs of active bleeding -Will restart warfarin 7.5mg QD. -Will continue to monitor. Mechanical heart valve present -Restated on warfarin on 04/24. Atrial fibrillation -Currently rate controlled, unsure if he was truly diagnosed with Afib, likely on the Warfarin for the prosthetic valve Parkinsonism -Continue carbidopa-levodopa and propranolol. -Should f/u with neurology outpatient Lumbar degenerative disc disease -Hold PRN tramadol for now to avoid over sedating Dementia -Continue Aricept and Namenda Hyperlipidemia -Continue Statin when able GERD (gastroesophageal reflux disease) -Will switch to BID IV famotidine for now Diabetes mellitus, type 2 -Hold metformin -BSG checks ACHS while NPO -Will start with lantus at 5 units BID, correction factor of 50 BPH (benign prostatic hyperplasia) -Continue flomax Depression -Continue home Wellbutrin. Fluids: none Nutrition: DM2 diet with minced and moist food Code status: conditional code DVT ppx: SCD Consults: none PT/OT: following Case management: SNF needed Dispo: Med/surg with telemetry Thank you for allowing me to participate in the care of your patient. -Dr. Yosvany Salmon PGY1 Admission and Anticipated Discharge Date Admission Date: April 24, 2022 Supervising Physician Co-Signing Physician Notes I personally examined the patient and verified all hoang points of history and exam, discussed case, and agree with decision making with Dr Viky Salter meaningful HPI review of systems obtainable. Vitals noted, in general he is sleeping no distress. Breathing unlabored no accessory muscle use good effort. Skin shows no rashes no pallor or icterus. Severe/progressive dementiaappreciate palliative input. Plan for SNF with rehab emphasis, goal of hopefully home with hospice, if not possibly hospice in the facility. otherwise as above Subjective Patient was seen beside this AM. Patient is A&Ox 1 (self only). He has no issues or concerns at this time. Review of Systems Review of Systems: Unobtainable due to cognitive status Physical Exam Constitutional: WD/WN, vitals as above Eyes: PERRL, conjunctivae normal, anicteric sclerae ENMT: external ear and nose normal, oropharynx normal Respiratory: normal respiratory effort, lungs clear to auscultation Cardiovascular: Rate/Rhythm: + irregularly irregular Heart Sounds: + murmur (systolic murmur best heard on the R 2nd intercostal space ) Gastrointestinal (Abdomen): normal bowel sounds, soft, nontender, no hepatosplenomegaly Skin: no rashes, warm and dry Psychiatric: Orientation: oriented to person; + not oriented to place and + not oriented to time Results & Data Results & Data ([facility]) Vital Signs (Past 12 Hours) Vital Signs Temp Pulse Pulse Resp BP Pulse Ox O2 Del Method 04/25/22 06:44 68 04/25/22 03:05 36.3 C L 65 20 115/71 93 Room Air 04/24/22 22:11 70 04/24/22 23:20 36.5 C 70 20 133/83 96 Room Air Resident Activity Tracking Resident Involvement: Resident Care Provided Care Provided: Adult Hospital Medicine
[2022-04-25] MEDS: FAMOTIDINE 20 MG TAB PO SCH ×2 (08:18→20:52)
[2022-04-25] MEDS: MEMANTINE HCL 5 MG TAB PO SCH ×2 (08:18→20:52)
[2022-04-25] MEDS: DULoxetine HCL 30 MG CAP PO SCH (08:19)
[2022-04-25] MEDS: TAMSULOSIN HCL 0.4 MG CAP PO SCH (08:19)
[2022-04-25] MEDS: MIRABEGRON ER 25 MG TAB PO SCH (08:19)
[2022-04-25] MEDS: buPROPion XL 150 MG TABCR PO SCH (08:19)
[2022-04-25] MEDS: PROPRANOLOL HCL 60 MG LA CAP PO SCH (08:19)
[2022-04-25] MEDS: INSULIN ASPART PER UNIT SC SCH ×4 (08:22→20:53)
[2022-04-25] MEDS: LANTUS PER UNIT CHARGE SQ SCH ×2 (08:27→20:51)
[2022-04-25] MEDS: PREGABALIN 100 MG CAP PO SCH ×2 (08:27→20:52)
--- NOTE | 2022-04-25 09:33 | Palliative Care Consultation ---
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 they relocated to [place], [place] when their daughter had advanced cancer and they helped care for her until she . They have one son in [place] and another who is presently incarcerated. She has grandchildren in [place]. She identifies no local support with friends or family but her baptism members occasionally drop off meals, though not consistently. She is struggling with her social isolation as well as being overwhelmed with pt care. She is upset at the thought of placing him in a SNF but she has seen that over the past few days since being admitted, his physical needs are beyond what she can provide on her own at home. She had tried to get help with private caregivers but states one person showed up the first day then never again and the agency has not been able to give her a replacement. She is also admitting to the physical stress of caring for pt who is substantially larger than her: she has shoulder pain/arthritis and back pain which is beginning to impede her own ambulatory stability and balance. ACP/GOC x 45min: Vernell Doherty states she cannot bring pt home unless he has the ability to ambulate safely and participate in transfers: he currently requires two nurses to assist. He did work with PT earlier today and was a max+ assist for the therapist who noted he is not stable for independent/unmonitored ambulation and would require more than one caregiver at home. Dr. Doherty was initially reluctant to think about SNF placement but now feels that is likely the best option. We spoke about the need for safety and also for assuring she is not harmed in caring for pt, as that would ultimately lead to a circumstance where choices become very limited or forced decisions get made without the luxury of time and planning. She is agreeable to SNF rehab trial and we discussed that should he not improve with a few weeks of therapy then transitioning to a comfort plan of care with/without addition of hospice at the usp should be considered. She was receptive to this recommendation. We also discussed code status. She shares that when they were writing our their advanced directives, at the start of patient's dementia issues, he had wanted to be a full code but no intubation. We discussed CPR survival, and how only about 10% of patients who have [id number] sudden cardiac arrest survive to hospital discharge, with many survivors having neurologic impairment. This rate is even lower among patients with serious coexisting conditions, ie chance of survival to hospital discharge for in-hospital CPR in older people is low to moderate (15%) and decreases with age, comorbidities, performance status and frailty: for pts > 70 yo, more than half of the patients who initially survived resuscitation in the hospital before hospital discharge. The pooled surviv al to discharge after in-hospital CPR was 18% for patients between 70 and 79 years old, 15% for patients between 80 and 89 years old and 11% for patients of 90 years and older. (From: Rd HILTON, Ayo LJ, Emilia F, et al. Trends in short- and long-term survival among [id number] cardiac arrest patients alive at hospital arrival. Circulation 2014;130:9978-0394. and, Neli C, Russel T, Doreen R, et al. Performance of clinical risk scores to predict mortality and neurological outcome in cardiac arrest patients. Resuscitation 2019;136:21-29.) Specifically we discussed that CPR in the context of advanced incurable illness is not an intervention which will reverse, cure or otherwise improve the underlying progressive/incurable issues. Dr. Doherty was in agreement with this. I recommended changing to a plan that was more about his QOL, with a focus on treating what's treatable and fixing what's fixable, but when he has a natural , provide comfort/relief of symptoms and allow a natural . This is consistent with a code status of DNR/DNI. Dr. Doherty agreed this was reasonable and we have changed code to DNR/DNI. I have updated the primary team and CM. (2) Advanced care planning/counseling discussion: See above (3) Dementia: We discussed the following facts about Dementia: Aggressive medical treatment for residents with advanced dementia is often inappropriate for medical reasons, has a low rate of success, and can have negative outcomes that hasten functional decline and . (Citizen Of [place] Geriatrics Society Ethics Committee and Clinical Practice and Models of Care Committee. J Am Geriatr Soc. 2014 Aug;62(8):1590-3 and Daquan GIBBONS, Anne SIEGEL, Seun SC, Phillip V. A national study of the location of for older persons with dementia. J Am Geriatr Soc 2005; 53(2):299-305.) Tube feeding in residents with advanced dementia does not increase survival. It does not prevent aspiration pneumonia, malnutrition or pressure ulcers. It does not reduce the risk of infections or improve functional status or comfort of the patient. (from: Genaro DUFF, Jazzmine T Percutaneous endoscopic gastrostomy does not prolong survival in patients with dementia. Arch Power Hair Clipper Med 2003; 163(11):8985-9614 AND Taylor DE, Ivette CHANTEL, Maxwell J, Ramsey S, Ayo RS. High short-term mortality in hospitalized patients with advanced dementia - Lack of benefit of tube feeding. Arch Power Hair Clipper Med 2001; 161(4):594- 599.) Simple strategies involving hands-on care by well-trained staff such as massage, oral hygiene, changes in diet, and hand-feeding -- can prevent infection and manage feeding problems without resort to tube-feeding. Tube feeding does not prevent aspiration pneumonia and might actually increase its incidence, and does not prevent the consequences of malnutrition Hand feeding can be provided until the beginning of the dying process when all physiological processes shut down, note that cognitively intact cancer patients indicate that dying residents do not feel hunger and thirst. Voluntary refusal of food and liquids is often initiated by hospice patients and does not result in discomfort I recommend addition of hospice, which can begin with in-home hospice then segue to SNF if needed: Hospice is a valuable service for persons with advanced dementia, particularly in management of pain, continuous involvement of the primary physician, and avoidance of hospitalization. Social support provided to caregivers is also important given their high levels of depressive symptoms and anxiety. The goal of care for residents with advanced dementia is primarily maintenance of function and patient should not be transferred to an acute care setting because hospitalization results in decline of functional abilities that do not recover after discharge back into usp Dementia meds: Based on 45 trials (n=22,431) and three observational studies (n=190,076) that evaluated acetylcholinesterase inhibitors (AChEIs) (i.e., donepezil, galantamine, rivastigmine) and memantine, these medications may improve measures of global cognitive function in the short term, but the magnitude of change is small. (April SMITH, Jung DENTON, Jered RC, et al. Screening for Cognitive Impairment in Older Adults: An Evidence Update for the U.S. Preventive Services Task Force. Nelly MOE): Agency for Healthcare Research and Quality (US); August 2019.) Would note that artificial nutrition and hydration (KATELIN) were originally developed to provide short-term support for patients who were acutely ill. For patients nearing/transitioning to EOL, KATELIN is unlikely to prolong life in addition to which researchers have found that KATELIN often leads to complications in patients nearing the end of life. Patients with advanced, life-limiting illness often lose the ability to eat and drink and/or interest in food and fluids. Like other medical interventions, it should be evaluated by weighing its benefits and burdens in light of the patient's clinical circumstances and goals of care. KATELIN may offer benefits when administered in the setting of acute, reversible illness, or as a component of chronic disease management, when the patient can appreciate the benefits of the treatment and significant burdens are not disproportionate. Near the end of life, some widely assumed benefits of KATELIN, such as alleviation of thirst, may be achieved by less invasive measures including good mouth care or providing ice chips. (Vladimir FAIRBANKS, Arthur DOHERTYK, Tyler M. after PEG: Results of the National Confidential Enquiry into Patient Outcome and . Gastrointest Endosc. 2008;68:223-227andSada E, Lindsay D, Brett S, et al. Parenteral hydration in patients with advanced cancer: A multicenter, double-blind, placebo-controlled randomized trial. J Clin Oncol. 2013;31:111-118.) We reviewed the option of allowing PO as tolerated for comfort and pleasure. He does not need calorie counts. I advised I would not recc KATELIN/feeding tubes for reasons outlined above. She was philosophically in agreement with this recommendation but it will need to be re affirmed for the usp as well, which I advised her about - as his surrogate decision maker, she will need to convey the answer to all of the above discussions for the usp as they will not accept our documentation alone. (4) Weakness: (5) Agitation due to dementia: Plan * See discussions above. * Changed to DNR/DNI * SNF with a TRIAL of rehab for dispo planning,if no improvement, move to comfort care at SNF. * if pt makes substantial recovery and can return home with more independent mobility then is interested in addition of home hospice and/or home based pall care. TS 75min Racquel Contreras DNP Clinical Director, Palliative Medicine History of Present Illness Reason for Consultation: "Interested in palliative care" Attending Physician: Dragan Sanchez, History of Present Illness Mr. Doherty is a 77yo male admitted 04/21/2022 with c/o generalized weakness and AMS. Per ED note, "patient was found to be afebrile, hypertensive at 218/136, and stable on RA. Per the ED staff the patient's hypertension improved spontaneously while the patient was being evaluated. Labs were remarkable for leukocytosis WNL, INR of 4.3, stable renal function and electrolytes, AST of 48, alk phos of 115, high sensitivity troponin of 123, and covid negative. CT of the head was negative for acute changes, Chest xray was negative for acute findings, and CT of the abdomen and pelvis with IV contrast showed 'No acute abnormalities, in particular no evidence of acute fracture or intra-abdominal trauma. Previously noted bladder nodule is no longer seen on today's exam.' " patient is unable to provide history. His share with admitting team that he was getting weaker beginning 04/18/22. At his baseline, she reported he is usually able to get OOB. Normally, he is able to ambulate and take his meds with supervision. He is usually alert to self, occ location. At the time his brought him to the ED, she stated he was unable to get OOB, not taking PO/unable to take PO or his meds. He was brought to our ED 04/19 with no acute findings though an possibly UTI was suspected so he was Given Rx for Levaquin and was able to be dc back home; then she brought him back 04/21 with progression of same complaints. per admitting notes, has shared that she is the only caregiver for this patient. She is reluctant to consider placement. If this current decline is the evolution of a new baseline, she has declared she would need more help at home to keep him there. Mr. Doherty has an extensive medical history significant for: Afib on Warfarin, parkinsonism, dementia, peripheral neuropathy, lumbar radiculopathy, Gout, Subdural hematoma in December of this year, previous bladder cancer S/P resection, BPH, HTN, hyperlipidemia, and DMII. Allergies Allergy/AdvReac Type Severity Reaction Status Date / Time Penicillins Allergy Mild RASH Verified 04/21/22 16:24 morphine AdvReac Mild bp drops Verified 04/21/22 16:24 Home Medications Medication Instructions Recorded Confirmed Type pantoprazole 20 mg tablet,delayed 40 mg PO DAILYBB 09/10/18 04/21/22 History release tramadol 50 mg tablet 100 mg PO Q8H PRN Pain 09/10/18 04/21/22 History atorvastatin 40 mg tablet 40 mg PO HS 07/10/19 04/21/22 History tamsulosin 0.4 mg capsule 0.4 mg PO QAM 07/10/19 04/21/22 History metformin 500 mg tablet,extended 500 mg PO QDD 09/27/21 04/21/22 History release 24 hr carbidopa 25 mg-levodopa 100 mg 1 tab PO TID 01/01/22 04/21/22 History tablet mirabegron 25 mg tablet,extended 25 mg PO QAM 01/28/22 04/21/22 History release 24 hr duloxetine 30 mg capsule,delayed 30 mg PO QAM 02/12/22 04/21/22 History release acetaminophen 325 mg tablet 650 mg PO Q4H PRN Pain 02/23/22 04/21/22 History bupropion HCl 150 mg 24 hr tablet, 150 mg PO QAM 02/23/22 04/21/22 History extended release multivitamin with minerals 1 tab PO QAM 02/23/22 04/21/22 History polyethylene glycol 3350 17 gram 17 g PO QDL PRN Constipation 02/23/22 04/21/22 History oral powder packet (Miralax) warfarin 5 mg tablet 7.5 mg PO DIRECTED 02/23/22 04/21/22 History memantine 5 mg tablet (Namenda) 5 mg PO BID 90 days #180 tabs 04/12/22 04/21/22 Rx pregabalin 200 mg capsule 200 mg PO BID 90 days #180 caps 04/12/22 04/21/22 Rx propranolol 60 mg capsule,24 60 mg PO DAILY #90 caps 04/12/22 04/21/22 Rx hr,extended release levofloxacin 750 mg tablet 750 mg PO DAILY 4 days #4 tabs 04/19/22 04/21/22 Rx donepezil 10 mg tablet 10 mg PO HS 04/21/22 04/21/22 History Patient History Medical History (Updated 04/25/22 @ 09:57 by Racquel Contreras DNP) Atrial fibrillation Paroxysmal per records Pt denies history Follows with cardio- on Coumadin Benign essential tremor BPH (benign prostatic hyperplasia) Chronic back pain Chronic low back pain Degenerative disc disease Dementia Experiences short term memory loss. Alert and oriented to person. Confusion with places and time. Depression Diabetes mellitus, type 2 NIDDM Recently dx'ed- does not check glucose regularly Encounter for pre-operative examination Generalized weakness GERD (gastroesophageal reflux disease) Well controlled and stable Hearing deficit Hyperlipidemia Hypertension Irregular heart beat Occasional episodes of trigeminy. Follows with Dr Isaac Lumbar degenerative disc disease Mechanical heart valve present MV replacement 1996- mechanical- on Coumadin Neuropathy involving both lower extremities On anticoagulant therapy Warfarin daily Parkinson disease Parkinson's dementia per records Spinal stenosis of lumbar region Subdural hematoma (01/01/22) - Presented to the Emergency room 01/01/22 at [facility] and transferred to [facility] and treated inpatient for several days and then went to [facility] for rehab. Patient discharged home ~01/21/22. No surgery had been done, reports it was a spontaneous hematoma. Denies any fall. - Pt's mental status back to baseline -Coumadin has since been restarted- tolerating well. Transient ischemic attack (TIA) In --no deficits UTI (urinary tract infection) due to Enterococcus Surgical History History of back surgery x2 History of colonoscopy History of craniotomy x2 (~2011)- secondary to subdural hematoma- had fall at that time History of esophagogastroduodenoscopy (EGD) History of hand surgery right hand finger History of inguinal hernia repair x5 History of mitral valve replacement 1996 @ [facility] -- mechanical History of umbilical hernia repair History of wisdom tooth extraction Status post LASIK surgery of both eyes Family History Daughter Family hx of colon cancer Colorectal cancer Mother Cardiac pacemaker Brother Stroke Hypertension Prostate cancer Father Stroke Grandfather (Maternal) Suicide Grandfather (Paternal) Tuberculosis Other No family history of adverse response to anesthesia Social History Smoking Status: Never smoker Second Hand Exposure: No; Do You Dip or Chew Tobacco: No; Hx Alcohol Use: Yes Alcohol type: beer Hx Substance Use: No Preferred Language: Urdu Communication Ability: Effective Filter Plant Supervisor Required: No Beliefs That Will Affect Care: Church marital status: Current Living Situation: Spouse Current Living Situation Comment: Per pt report - pt is confused. 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 Other Information That Helps Us Care for You: No Feels Safe at Home: Yes Safety Concerns: Feels Safe At This Time Assistive Devices: Glasses and Walker Review of Systems Review of Systems: Unobtainable due to cognitive status Physical Exam Physical Exam: Elderly male, resting in bed alert to name, unable to tell me place or time tells me his is coming today to take him home intermittent bronchitic cough +generalized weakness, cannot shift positions in bed without assistance color is pale, ckin cool but no mottling heart tones s1s2, no obvious JVD lungs with few rhonchi, +bronchitic cough, no wheezing, effort WAL, no abd breathing noted abdomen soft, +BS, no rebound or guarding + diaper generalized weakness alert to self, not place or time, does not recall year unable to follow commands for me Results & Data ([facility]) Vital Signs (Past 12 Hours) Vital Signs Temp Pulse Pulse Resp BP Pulse Ox O2 Del Method 04/25/22 08:16 36.8 C 85 16 134/74 95 Room Air 04/25/22 06:44 68 04/25/22 03:05 36.3 C L 65 20 115/71 93 Room Air 04/24/22 22:11 70 04/24/22 23:20 36.5 C 70 20 133/83 96 Room Air Laboratory Results Labs and imaging reviewed PG Care Time/CCT Total # of Minutes Spent Total Time Spent: 75 Total Time Spent with Patient: Total time spent is greater than 50% in coordination of care (as documented) at patient's floor/unit and/or counseling patient: I spent 75 minutes overall addressing this case: 10 in medical data review/discussion with referring provider(s) and/or preparation for the visit 55 in direct interaction with the patient and /HCP 45 Advance Care Planning/Goals of Care discussions as detailed above in note (must be >16min) 5 in subsequent review and synthesis of assessment and plan 5 in communicating with other providers regarding the patient's case: CM, primary team Prolonged Care Time Prolonged Care Time: Yes Total Prolonged Care Time: 30 Coding Level of Care Code New Pt ADVNCD CARE PLAN 30 MIN Patient Type New History Comprehensive Exam Comprehensive Medical Decision Making Moderate Complexity Diagnoses Palliative care encounter Z51.5 Advanced care planning/counseling discussion Z71.89 Dementia F03.90 Weakness R53.1 Agitation due to dementia F03.911 Additional Codes Prolonged Care Time - Prolonged Care Time: Yes ([id number])
[2022-04-25] MEDS: CARBIDOPA/LEVODOPA 25/100MG TAB PO SCH ×3 (11:53→20:52)
[2022-04-25] MEDS: WARFARIN SOD 7.5 MG TAB PO SCH (16:36)
--- NOTE | 2022-04-25 16:49 | Billing Data ---
Date of Service April 25, 2022 Coding Level of Care Code 16681 Subseq Hosp Care Lvl 1
[2022-04-25] MEDS: DONEPEZIL HCL 10 MG TAB PO SCH (20:52)
--- NOTE | 2022-04-26 06:56 | Hospitalist Progress Note ---
Date of Service April 26, 2022 Assessment & Plan (1) Weakness: (2) Dementia: (3) Parkinsonism: (4) Subtherapeutic international normalized ratio (INR): (5) Lumbar degenerative disc disease: (6) Mechanical heart valve present: (7) Hyperlipidemia: (8) GERD (gastroesophageal reflux disease): (9) Diabetes mellitus, type 2: (10) BPH (benign prostatic hyperplasia): (11) Atrial fibrillation: (12) Hypertensive urgency: (13) Metabolic encephalopathy: (14) Allergic conjunctivitis: Plan Chandan is a 77 year old male with a PMH significant for Afib on Warfarin, parkinsonism, dementia, peripheral neuropathy, lumbar radiculopathy, Gout, Subdural hematoma in December of this year, previous bladder cancer S/P resection, BPH, HTN, hyperlipidemia, and DMII who presented to the [facility] ED on 04/21/22 with a chief complaint of generalized weakness and AMS. Metabolic encephalology (RESOLVED) -Baseline dementia. In the ED patient's stated that he had AMS and was repeating sentences. -CXR, CT head, and abdomen/pelvis CT were all negative. -possibly sec to htn urgency/oversedation from meds/?poor oral intake. -Patient was recently seen by neurology outpatient on 04/12. At that time patient was exhibiting significant daytime somnolence. Med changes were made at that time: Lyrica from TID to BID, propranolol from 80mg to 60mg, and increasing memantine to BID. -back to baseline on 04/22. -Speech therpy saw patient on 04/23 and stated that diet can be advanced as tolerate. However, patient and do not wish to progress his diet at this time. -PT/OT consults ordered and recommends SNF at time of discharge. Will work with case management and for placement. -Palliative consulted and talked to the patient and his on 04/25. Plan is to do SNF with a trial of rehab for dispo planning,if no improvement, move to comfort care at SNF. if pt makes substantial recovery and can return home with more independent mobility then is interested in addition of home hospice and/or home based pallitive care. -Pending placement as of 04/26. Hypertensive urgency vs HTN emergency (RESOLVED) -Patient was in HTN emergency in the ED with BP 218/136, HR 118, afebrile, and 94% on RA on 04/21. -EKG done in the ED showed premature atrial complexes with sinus tachycardia. -Given IV ioversol once. -Hypertension likely due to patient being unable to take medications for the past 3 days -Patient's states that he was on lisinopril previously but was taken off of it for hypotension -Initial high sensitivity troponin elevated at 123 repeat was 93.4 , likely from htn urgency -Currently patient's BP is 134/74. Will continue to monitor on tele. Eye itching - ? xerosis (RESOLVED) -Patient complained about dry itchy eyes since admission. -On 2 drops artificial tears prn, cold compression and prn artificial cream ointment. Redness and itchiness improved. -Could possible add in an anti-histamine drops or ointment if symptoms do not resolve with above treatment. -May consider other etiologies if problem persists such as bacterial conjunctivitis or viral conjunctivitis. Supratherapeutic INR (RESOLVED) -INR was elevated at 4.7 and improving. INR was 2.6 on 04/23. -likely med interaction from recent Levaquin -No signs of active bleeding -Will restart warfarin 7.5mg QD. -Will continue to monitor. Mechanical heart valve present -Restated on warfarin on 04/24. Atrial fibrillation -Currently rate controlled, unsure if he was truly diagnosed with Afib, likely on the Warfarin for the prosthetic valve Parkinsonism -Continue carbidopa-levodopa and propranolol. -Should f/u with neurology outpatient Lumbar degenerative disc disease -Hold PRN tramadol for now to avoid over sedating Dementia -Continue Aricept and Namenda Hyperlipidemia -Continue Statin when able GERD (gastroesophageal reflux disease) -Will switch to BID IV famotidine for now Diabetes mellitus, type 2 -Hold metformin -BSG checks ACHS while NPO -Will start with lantus at 5 units BID, correction factor of 50 BPH (benign prostatic hyperplasia) -Continue flomax Depression -Continue home Wellbutrin. Fluids: none Nutrition: DM2 diet with minced and moist food Code status: conditional code DVT ppx: SCD Consults: none PT/OT: following Case management: SNF needed Dispo: Med/surg with telemetry Thank you for allowing me to participate in the care of your patient. -Dr. Yosvany Salmon PGY1 Admission and Anticipated Discharge Date Admission Date: April 24, 2022 Supervising Physician Co-Signing Physician Notes I personally examined the patient and verified all hoang points of history and exam, discussed case, and agree with decision making with Dr Salmon No meaningful HPI review of systems obtainable. present. Mostly just wants to get him to SNF. Vitals noted, in general he is sleeping no distress. Breathing unlabored no accessory muscle use good effort. Skin shows no rashes no pallor or icterus. Severe/progressive dementiaappreciate palliative input. Plan for SNF with rehab emphasis, goal of hopefully home with hospice, if not possibly hospice in the facility. Awaiting placement otherwise as above Subjective Patient was seen beside this AM. Patient is A&Ox 1 (self only). He has no issues or concerns at this time. Review of Systems Review of Systems: Unobtainable due to cognitive status Physical Exam Constitutional: WD/WN, vitals as above Eyes: PERRL, conjunctivae normal, anicteric sclerae ENMT: external ear and nose normal, oropharynx normal Respiratory: normal respiratory effort, lungs clear to auscultation Cardiovascular: Rate/Rhythm: + irregularly irregular Heart Sounds: + murmur (systolic murmur best heard on the R 2nd intercostal space ) Gastrointestinal (Abdomen): normal bowel sounds, soft, nontender, no hepatosplenomegaly Skin: no rashes, warm and dry Psychiatric: Orientation: oriented to person; + not oriented to place and + not oriented to time Results & Data Results & Data ([facility]) Vital Signs (Past 12 Hours) Vital Signs Temp Pulse Resp BP Pulse Ox O2 Del Method 04/25/22 22:58 36.7 C 62 18 131/81 97 Room Air 04/25/22 21:05 Room Air 04/25/22 19:47 36.6 C 64 18 114/67 93 Room Air Resident Activity Tracking Resident Involvement: Resident Care Provided Care Provided: Adult Hospital Medicine
[2022-04-26 07:14] LABS: Basophils # (auto) 0.02 K/uL (0-0.2); Basophils % (auto) 0.6 %; Eosinophils # (auto) 0.14 K/uL (0-0.50); Eosinophils % (auto) 4.3 %; Hematocrit (blood only) 33.5 % (40.1-51.0); Hemoglobin 10.5 g/dl (14.0-18.0); Immature Granulocytes # (auto) 0.01 K/uL (0.00-0.02); Immature Granulocytes % (auto) 0.3 %; Lymphocytes # (auto) 1.14 K/uL (1.2-3.4); Lymphocytes % (auto) 34.9 %; Mean Corpuscular Hgb Conc 31.3 g/dL (32.0-36.0); Mean Corpuscular Volume 82.9 fL (80.0-100.0); Mean Platelet Volume 10.7 fL (9.4-12.4); Monocytes # (auto) 0.45 K/uL (0.24-0.82); Monocytes % (auto) 13.8 %; Neutrophils # (auto) 1.51 K/uL (1.4-6.5); Neutrophils % (auto) 46.1 %; Platelet Count 169 K/uL (130-400); RDW Coefficient of Variation 15.4 % (11.5-14.5); RDW Standard Deviation 46.2 fL (36.4-46.3); Red Blood Count 4.04 M/uL (4.63-6.08); White Blood Count 3.27 K/ul (4.8-10.8)
[2022-04-26 07:35] LABS: Prothrombin Time 20.9 Seconds (9.0-12.0)
[2022-04-26 07:45] LABS: BUN Creatinine Ratio 28.2 (10-20); Calcium 8.7 mg/dl (8.5-10.1); Est GFR (African American) 80.8 ml/min; Est GFR (Non-African American) 69.7 ml/min; Potassium 3.6 mmol/L (3.5-5.1)
[2022-04-26] MEDS: MIRABEGRON ER 25 MG TAB PO SCH (08:55)
[2022-04-26] MEDS: buPROPion XL 150 MG TABCR PO SCH (08:55)
[2022-04-26] MEDS: MEMANTINE HCL 5 MG TAB PO SCH ×2 (08:55→22:28)
[2022-04-26] MEDS: FAMOTIDINE 20 MG TAB PO SCH ×2 (08:55→22:33)
[2022-04-26] MEDS: PROPRANOLOL HCL 60 MG LA CAP PO SCH (08:55)
[2022-04-26] MEDS: DULoxetine HCL 30 MG CAP PO SCH (08:55)
[2022-04-26] MEDS: TAMSULOSIN HCL 0.4 MG CAP PO SCH (08:56)
[2022-04-26] MEDS: PREGABALIN 100 MG CAP PO SCH ×2 (08:57→22:27)
[2022-04-26] MEDS: INSULIN ASPART PER UNIT SC SCH ×4 (08:58→22:33)
[2022-04-26] MEDS: LANTUS PER UNIT CHARGE SQ SCH ×2 (09:02→22:29)
[2022-04-26] MEDS: CARBIDOPA/LEVODOPA 25/100MG TAB PO SCH ×3 (12:09→22:27)
[2022-04-26] MEDS: POLYETHYLENE (MIRALAX) 17 GM PACK PO PRN (16:39)
[2022-04-26] MEDS: WARFARIN SOD 7.5 MG TAB PO SCH (17:37)
--- NOTE | 2022-04-26 18:30 | Billing Data ---
Date of Service April 26, 2022 Coding Level of Care Code 61630 Subseq Hosp Care Lvl 1
[2022-04-26] MEDS: DONEPEZIL HCL 10 MG TAB PO SCH (22:27)
[2022-04-27] MEDS: PREGABALIN 100 MG CAP PO SCH (08:40)
[2022-04-27] MEDS: FAMOTIDINE 20 MG TAB PO SCH (08:40)
[2022-04-27 08:41] LABS: INR 2.3 (0.9-1.1); Prothrombin Time 23.8 Seconds (9.0-12.0)
[2022-04-27] MEDS: MEMANTINE HCL 5 MG TAB PO SCH (08:41)
[2022-04-27] MEDS: TAMSULOSIN HCL 0.4 MG CAP PO SCH (08:41)
[2022-04-27] MEDS: MIRABEGRON ER 25 MG TAB PO SCH (08:41)
[2022-04-27] MEDS: PROPRANOLOL HCL 60 MG LA CAP PO SCH (08:41)
[2022-04-27] MEDS: DULoxetine HCL 30 MG CAP PO SCH (08:42)
[2022-04-27] MEDS: buPROPion XL 150 MG TABCR PO SCH (08:42)
[2022-04-27] MEDS: INSULIN ASPART PER UNIT SC SCH (08:45)
[2022-04-27] MEDS: LANTUS PER UNIT CHARGE SQ SCH (08:45)
[2022-04-27] MEDS: CARBIDOPA/LEVODOPA 25/100MG TAB PO SCH (11:55)
--- NOTE | 2022-04-27 17:57 | Billing Data ---
Date of Service April 27, 2022 Coding Level of Care Code D/C DAY MANAGEMENT <30 MINS
--- NOTE | 2022-04-27 17:57 | Discharge Summary ---
Date of Service April 27, 2022 Admission HPI Per Admitting Provider Chandan is a 77 year old male with a PMH significant for Afib on Warfarin, parkinsonism, dementia, peripheral neuropathy, lumbar radiculopathy, Gout, Subdural hematoma in December of this year, previous bladder cancer S/P resection, BPH, HTN, hyperlipidemia, and DMII who presented to the [facility] ED on 04/21/22 with a chief complaint of generalized weakness and AMS. In the ED the patient was found to be afebrile, hypertensive at 218/136, and stable on RA. Per the ED staff the patient's hypertension improved spontaneously while the patient was being evaluated. Labs were remarkable for leukocytosis WNL, INR of 4.3, stable renal function and electrolytes, AST of 48, alk phos of 115, high sensitivity troponin of 123, and covid negative. CT of the head was negative for acute changes, Chest xray was negative for acute findings, and CT of the abdomen and pelvis with IV contrast showed "No acute abnormalities, in particular no evidence of acute fracture or intra-abdominal trauma. Previously noted bladder nodule is no longer seen on today's exam.". At the time of the exam the patient was lying in bed in no acute distress with his sitting bedside. History was obtained from the patient's due to the patient's baseline mental status. She states that the patient initially started becoming more weak on 04/18/22. Normally, he is able to get out of bed, ambulate, and take his medications. His baseline mental status is normally alert and oriented to person and sometimes location. The patient was more week/tired on 04/18, to the point that he was not getting out of bed, eating, drinking, or able to take his medications. When I clarified with his , she states that she thinks he is still able to swallow but isn't able to lift his head high enough to properly eat/drink/swallow. She brought him to the [facility] ED on 04/19 for these symptoms, his workup was unremarkable. The patient was discharged home with a prescription for Levaquin as he can have similar symptoms with previous UTI's. His states that the patient has continued to decline since discharge home. The patient's is his only caregiver and if this is his new baseline then she will need extra help at home or possible placement. Principal Diagnosis dementia Discharge Data Allergies Allergy/AdvReac Type Severity Reaction Status Date / Time Penicillins Allergy Mild RASH Verified 04/21/22 16:24 morphine AdvReac Mild bp drops Verified 04/21/22 16:24 Consultations 04/21/22 15:58 ED Decision to Admit Stat 04/24/22 14:56 Consult Palliative Care Routine Ordered Studies 04/21/22 12:19 CT head/brain wo con Stat 04/21/22 12:20 CT Abd and Pelvis [CT abd pelvis IV con only] Stat Total Time Total Time Spent Total Time Spent (In Minutes): <30 Discharge Plan Discharge Items Patient Disposition: Transfer [facility] Reason For Visit: AMS Discharge Diagnosis: dementia Activity: Resume your previous activity Non-emergency contact: Primary Care Provider Call non-emergency contact if: you have any medication questions and your symptoms worsen Follow-up/Referrals: Leti Camacho MD [Primary Care Provider] - Diet: Regular and Carb Consistent or DM2 Addtl Attending Provider Instructions: follow INR on 04/29 then as per institutional protocol Pending Studies at Discharge: No Stand-Alone Forms: [facility] Skilled Items Patient informed of condition?: Yes DNR: Yes Discharge Level of Care: Skilled Communicable Disease: No Discharge Prognosis: Deteriorating Lines: None Urinary Catheter: No Medications and DC Order Prescriptions: Continued memantine [Namenda] 5 mg tablet 5 mg PO BID 90 Days Qty: 180 1RF pregabalin 200 mg capsule 200 mg PO BID 90 Days Qty: 180 0RF propranolol 60 mg capsule,extended release 24 hr 60 mg PO DAILY Qty: 90 1RF tramadol 50 mg Tablet 100 mg PO Q8H PRN (Reason: Pain) tamsulosin 0.4 mg capsule 0.4 mg PO QAM carbidopa-levodopa 25-100 mg tablet 1 tab PO TID Rx Instructions: TAKE ONE TABLET AT 12PM, 4PM, AND 8PM. mirabegron 25 mg tablet extended release 24 hr 25 mg PO QAM acetaminophen 325 mg Tablet 650 mg PO Q4H PRN (Reason: Pain) polyethylene glycol 3350 [Miralax] 17 gram Powder In Packet 17 g PO QDL PRN (Reason: Constipation) bupropion HCl 150 mg tablet extended release 24 hr 150 mg PO QAM warfarin 5 mg tablet 7.5 mg PO DIRECTED Rx Instructions: DIRECTED BY [facility] donepezil 10 mg tablet 10 mg PO HS duloxetine 30 mg capsule,delayed release(DR/EC) 30 mg PO QAM Discontinued metformin 500 mg tablet extended release 24 hr 500 mg PO QDD pantoprazole 20 mg Tablet,Delayed Release (Dr/Ec) 40 mg PO DAILYBB atorvastatin 40 mg tablet 40 mg PO HS multivitamin with minerals Tablet 1 tab PO QAM levofloxacin 750 mg tablet 750 mg PO DAILY 4 Days Qty: 4 0RF Discharge Orders: Discharge Order (Routine); Ordered 04/27/22 Ordered By: Yosvany Salmon Admission Data Admit Date/Time: 04/24/22 12:12 Attending Provider: Dragan Sanchez Admit Provider: Toy Ron Primary Care Provider: Leti Camacho Other Providers: Toy Ron ; Lorenza Hoffmann ; Leti Camacho ; [facility] ; [facility] Other Interventions: Discharge Summary Assessment (RN) Last Done: 04/27/22 12:39 Supervising Physician Co-Signing Physician Notes I personally examined the patient and verified all hoang points of history and exam, discussed case, and agree with decision making with Dr Salmon No meaningful HPI review of systems obtainable. present. for SNF today Vitals noted, in general he is sleeping no distress. Breathing unlabored no accessory muscle use good effort. Skin shows no rashes no pallor or icterus. Severe/progressive dementiaappreciate palliative input. today to SNF with rehab emphasis, goal of hopefully home with hospice, if not possibly hospice in the facility. otherwise as above Coding Level of Care Code D/C DAY MANAGEMENT <30 MINS
== END 2022-04-27 13:03 | DRG 56 ==
LOC: ED 11:27 → 2N 11:27 → SUATTDRO 16:36 → 2N 17:58 → SUATTDRO 04-24 12:12 → 3E 04-25 21:50
DX: E78.5 Hyperlipidemia, unspecified; G92.8 Other toxic encephalopathy; N40.0 Benign prostatic hyperplasia without lower urinary tract symptoms; Z88.5 Allergy status to narcotic agent; R79.89 Other specified abnormal findings of blood chemistry; I10 Essential (primary) hypertension; F32.A Depression, unspecified; K21.9 Gastro-esophageal reflux disease without esophagitis; T36.8X5A Adverse effect of other systemic antibiotics, initial encounter; R26.2 Difficulty in walking, not elsewhere classified; Z82.49 Family history of ischemic heart disease and other diseases of the circulatory system; Z79.01 Long term (current) use of anticoagulants; H10.13 Acute atopic conjunctivitis, bilateral; Z79.84 Long term (current) use of oral hypoglycemic drugs; Z20.822 Contact with and (suspected) exposure to COVID-19; Z86.73 Personal history of transient ischemic attack (TIA), and cerebral infarction without residual deficits; Z86.79 Personal history of other diseases of the circulatory system; T50.905A Adverse effect of unspecified drugs, medicaments and biological substances, initial encounter; Z82.3 Family history of stroke; I16.1 Hypertensive emergency; I16.0 Hypertensive urgency; G93.41 Metabolic encephalopathy; R79.1 Abnormal coagulation profile; R53.1 Weakness; E11.42 Type 2 diabetes mellitus with diabetic polyneuropathy; Z88.0 Allergy status to penicillin; Z79.899 Other long term (current) drug therapy; F02.C11 Dementia in other diseases classified elsewhere, severe, with agitation; Z91.138 Patient's unintentional underdosing of medication regimen for other reason; G20 Parkinson's disease; I48.0 Paroxysmal atrial fibrillation; Z95.2 Presence of prosthetic heart valve; Z66 Do not resuscitate

== ENCOUNTER 2022-12-04 11:38 | Inpatient (IN) ==
[2022-12-04 13:19] LABS: Basophils # (auto) 0.04 K/uL (0-0.2); Basophils % (auto) 0.6 %; Eosinophils # (auto) 0.09 K/uL (0-0.50); Eosinophils % (auto) 1.4 %; Hematocrit (blood only) 42.2 % (42.0-52.0); Hemoglobin 12.9 g/dl (14.0-18.0); Immature Granulocytes # (auto) 0.02 K/uL (0.01-0.20); Immature Granulocytes % (auto) 0.3 %; Lymphocytes # (auto) 0.76 K/uL (1.2-3.4); Lymphocytes % (auto) 12.2 %; Mean Corpuscular Hemoglobin 25.5 pg (25.0-34.0); Mean Corpuscular Hgb Conc 30.6 g/dL (32.0-36.0); Mean Corpuscular Volume 83.6 fL (80.0-100.0); Mean Platelet Volume 11.2 fL (9.4-12.4); Monocytes # (auto) 0.89 K/uL (0.11-0.59); Monocytes % (auto) 14.2 %; Neutrophils # (auto) 4.45 K/uL (1.40-6.50); Neutrophils % (auto) 71.3 %; Platelet Count 198 K/uL (130-400); RDW Coefficient of Variation 17.5 % (11.5-14.5); RDW Standard Deviation 52.4 fL (36.4-46.3); Red Blood Count 5.05 M/uL (4.70-6.10); White Blood Count 6.25 K/ul (4.8-10.8)
--- NOTE | 2022-12-04 13:21 | Emergency Department Note ---
History of Present Illness General Chief complaint: Altered Mental Status Stated complaint: ALTERED MENTAL STATUS Time Seen by Provider: 12/04/22 12:11 Source: patient, RN notes reviewed and old records reviewed Mode of arrival: ambulatory Limitations: no limitations History of Present Illness Maximum Pain Intensity: 0 This patient is a 77-year-old male who comes in after having increasing confusion. He has dementia and his says overnight he was more confused he could not find his way around he did fall a week and a half ago and has had back pain since then he was seen by a yesterday who got x-rays which the says was unremarkable. He has no new medication he takes tramadol chronically for 20 years. No fever. No vomiting or diarrhea . he has had low back pain is chronic neuropathy but no new changes no difficulty speaking or swallowing although his says speech has been a little hard to understand at times. No known dysuria. Besides back pain he endorses no complaints Home Medications Medication Instructions Recorded Confirmed Type tramadol 50 mg tablet 50 mg PO Q8H 09/10/18 12/04/22 History tamsulosin 0.4 mg capsule 0.4 mg PO QAM 07/10/19 12/04/22 History acetaminophen 325 mg tablet 650 mg PO Q4H PRN Pain 02/23/22 12/04/22 History bupropion HCl 150 mg 24 hr tablet, 150 mg PO QAM 02/23/22 12/04/22 History extended release warfarin 5 mg tablet 7.5 mg PO [id number] 02/23/22 12/04/22 History propranolol 60 mg capsule,24 60 mg PO DAILY #90 caps 04/12/22 12/04/22 Rx hr,extended release pregabalin 100 mg capsule 100 mg PO BID 90 days #180 caps 08/09/22 12/04/22 Rx mirabegron 50 mg tablet,extended 50 mg PO QAM #90 tabs 08/30/22 12/04/22 Rx release 24 hr memantine 10 mg tablet 10 mg PO BID 90 days #180 tabs 10/13/22 12/04/22 Rx duloxetine 30 mg capsule,delayed 30 mg PO QAM #30 caps 11/17/22 12/04/22 Rx release carbidopa 25 mg-levodopa 100 mg 1 tab PO TID #90 tabs 11/21/22 12/04/22 Rx tablet donepezil 10 mg tablet 10 mg PO HS #30 tabs 11/21/22 12/04/22 Rx duloxetine 60 mg capsule,delayed 60 mg PO QAM 12/04/22 12/04/22 History release finasteride 5 mg tablet 5 mg PO QAM 12/04/22 12/04/22 History warfarin 5 mg tablet 5 mg PO 2XWK 12/04/22 12/04/22 History Allergies Allergy/AdvReac Type Severity Reaction Status Date / Time Penicillins Allergy Mild RASH Verified 10/13/22 15:27 morphine AdvReac Mild bp drops Verified 10/13/22 15:27 Past Med/Surg History Medical History (Updated 12/05/22 @ 10:33 by Bandar Benson MD) Atrial fibrillation Paroxysmal per records Pt denies history Follows with cardio- on Coumadin Benign essential tremor BPH (benign prostatic hyperplasia) Chronic back pain Chronic low back pain Degenerative disc disease Dementia Experiences short term memory loss. Alert and oriented to person. Confusion with places and time. Depression Diabetes mellitus, type 2 Encounter for pre-operative examination Generalized weakness GERD (gastroesophageal reflux disease) Well controlled and stable Hearing deficit Hyperlipidemia Hypertension Irregular heart beat Occasional episodes of trigeminy. Follows with Dr Isaac Lumbar degenerative disc disease Mechanical heart valve present MV replacement 1996- mechanical- on Coumadin Neuropathy involving both lower extremities On anticoagulant therapy Warfarin daily Parkinson disease Parkinson's dementia per records Spinal stenosis of lumbar region Subdural hematoma (01/01/22) - Presented to the Emergency room 01/01/22 at [facility] and transferred to [facility] and treated inpatient for several days and then went to [facility] for rehab. Patient discharged home ~01/21/22. No surgery had been done, reports it was a spontaneous hematoma. Denies any fall. - Pt's mental status back to baseline -Coumadin has since been restarted- tolerating well. Transient ischemic attack (TIA) In --no deficits UTI (urinary tract infection) due to Enterococcus Surgical History History of back surgery x2 History of colonoscopy History of craniotomy x2 (~2011)- secondary to subdural hematoma- had fall at that time History of esophagogastroduodenoscopy (EGD) History of hand surgery right hand finger History of inguinal hernia repair x5 History of mitral valve replacement 1996 @ [facility] -- mechanical History of umbilical hernia repair History of wisdom tooth extraction Status post LASIK surgery of both eyes Family History Daughter Family hx of colon cancer Colorectal cancer Mother Cardiac pacemaker Brother Stroke Hypertension Prostate cancer Father Stroke Grandfather (Maternal) Suicide Grandfather (Paternal) Tuberculosis Other No family history of adverse response to anesthesia Social History Smoking Status: Never smoker Second Hand Exposure: No; Do You Dip or Chew Tobacco: No; Hx Alcohol Use: Yes Alcohol type: beer Hx Substance Use: No Preferred Language: Panamanian Communication Ability: Impaired Corn Shredder Required: No marital status: Current Living Situation: Spouse Current Living Situation Comment: Per pt report - pt is confused. 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 [employer] Other Information That Helps Us Care for You: No Feels Safe at Home: Yes Safety Concerns: Feels Safe At This Time Assistive Devices: Glasses Review of Systems A total of 10 systems reviewed and were otherwise negative Physical Exam Vital Signs Vital Signs - 24 hr 12/04/22 11:50 12/04/22 12:43 12/04/22 12:32 Temperature 36.6 C Temperature Source Temporal Artery Scan Pulse Rate 114 H 76 75 Pulse Rate from SpO2 Sensor Respiratory Rate 20 15 Respiratory Effort / Characteristics Non-Labored Respiratory Depth Normal Blood Pressure 93/64 L Blood Pressure Mean 73 Pulse Oximetry 93 Oxygen Delivery Method Room Air Sepsis Recent Fever Within 48 Hours No Sepsis New/Unexplained Change in Mental Status Yes Sepsis Action Taken by Nursing No Action Required 12/04/22 12:40 12/04/22 12:50 12/04/22 13:00 Temperature Temperature Source Pulse Rate 73 72 Pulse Rate from SpO2 Sensor 73 73 Respiratory Rate 16 14 Respiratory Effort / Characteristics Respiratory Depth Blood Pressure 153/89 H Blood Pressure Mean 110 Pulse Oximetry 91 Oxygen Delivery Method Sepsis Recent Fever Within 48 Hours Sepsis New/Unexplained Change in Mental Status Sepsis Action Taken by Nursing 12/04/22 13:00 12/04/22 13:10 12/04/22 13:20 Temperature Temperature Source Pulse Rate 71 160 H 72 Pulse Rate from SpO2 Sensor 71 Respiratory Rate 20 22 16 Respiratory Effort / Characteristics Respiratory Depth Blood Pressure Blood Pressure Mean Pulse Oximetry Oxygen Delivery Method Sepsis Recent Fever Within 48 Hours Sepsis New/Unexplained Change in Mental Status Sepsis Action Taken by Nursing 12/04/22 13:30 12/04/22 13:30 12/04/22 13:40 Temperature Temperature Source Pulse Rate 73 73 Pulse Rate from SpO2 Sensor Respiratory Rate 23 19 Respiratory Effort / Characteristics Respiratory Depth Blood Pressure 151/87 H Blood Pressure Mean 108 Pulse Oximetry Oxygen Delivery Method Sepsis Recent Fever Within 48 Hours Sepsis New/Unexplained Change in Mental Status Sepsis Action Taken by Nursing 12/04/22 14:22 12/04/22 14:23 12/04/22 14:23 Temperature Temperature Source Pulse Rate 75 73 Pulse Rate from SpO2 Sensor 74 Respiratory Rate 21 25 H Respiratory Effort / Characteristics Respiratory Depth Blood Pressure 161/85 H Blood Pressure Mean 110 Pulse Oximetry 91 Oxygen Delivery Method Sepsis Recent Fever Within 48 Hours Sepsis New/Unexplained Change in Mental Status Sepsis Action Taken by Nursing 12/04/22 14:30 12/04/22 14:30 12/04/22 14:40 Temperature Temperature Source Pulse Rate 70 68 Pulse Rate from SpO2 Sensor 70 69 Respiratory Rate 21 13 Respiratory Effort / Characteristics Respiratory Depth Blood Pressure 142/80 H Blood Pressure Mean 100 Pulse Oximetry 91 93 Oxygen Delivery Method Sepsis Recent Fever Within 48 Hours Sepsis New/Unexplained Change in Mental Status Sepsis Action Taken by Nursing 12/04/22 14:50 12/04/22 15:00 12/04/22 15:00 Temperature Temperature Source Pulse Rate 66 67 Pulse Rate from SpO2 Sensor 67 70 Respiratory Rate 19 13 Respiratory Effort / Characteristics Respiratory Depth Blood Pressure 143/84 H Blood Pressure Mean 103 Pulse Oximetry 94 Oxygen Delivery Method Sepsis Recent Fever Within 48 Hours Sepsis New/Unexplained Change in Mental Status Sepsis Action Taken by Nursing 12/04/22 15:10 12/04/22 15:20 12/04/22 15:30 Temperature Temperature Source Pulse Rate 66 65 66 Pulse Rate from SpO2 Sensor 65 73 Respiratory Rate 25 H 27 H 18 Respiratory Effort / Characteristics Respiratory Depth Blood Pressure Blood Pressure Mean Pulse Oximetry 98 Oxygen Delivery Method Sepsis Recent Fever Within 48 Hours Sepsis New/Unexplained Change in Mental Status Sepsis Action Taken by Nursing 12/04/22 15:31 12/04/22 15:31 12/04/22 15:40 Temperature Temperature Source Pulse Rate 66 64 Pulse Rate from SpO2 Sensor 70 65 Respiratory Rate 20 15 Respiratory Effort / Characteristics Respiratory Depth Blood Pressure 167/88 H Blood Pressure Mean 114 Pulse Oximetry 91 Oxygen Delivery Method Sepsis Recent Fever Within 48 Hours Sepsis New/Unexplained Change in Mental Status Sepsis Action Taken by Nursing 12/04/22 15:50 12/04/22 16:00 12/04/22 16:00 Temperature Temperature Source Pulse Rate 63 64 Pulse Rate from SpO2 Sensor 63 63 Respiratory Rate 14 24 Respiratory Effort / Characteristics Respiratory Depth Blood Pressure 150/79 H Blood Pressure Mean 102 Pulse Oximetry 93 94 Oxygen Delivery Method Sepsis Recent Fever Within 48 Hours Sepsis New/Unexplained Change in Mental Status Sepsis Action Taken by Nursing General: Well developed well nourished older male who appears in no acute distress, breathing comfortably on room air. Normal speech HEENT: Normal cephalic atraumatic. Pupils are equal round and reactive to light. Extraocular movements are intact. Oropharynx is pink with moist mucous membranes. No swelling of the mouth lips or tongue. Neck: Supple with a midline trachea. No meningeal signs or stiffness, no JVD or bruits. No Stridor. Chest: Clear to auscultation bilaterally. No wheezes or rhonchi. No increased work of breathing. Heart: Regular rate and rhythm without murmurs or gallops. Abdomen: Soft nontender, nondistended without rebound guarding or rigidity. Extremities: No cyanosis clubbing or edema. No calf tenderness or assymetry Spine/Back. Non tender to palpation. No CVA tenderness Skin: Good turgor without rashes. Neurologic exam: Cranial nerves two through 12 are intact. Motor and sensation are intact and symmetrical throughout. Course Administered Medications Bupropion HCl (Bupropion Xl 150 Mg Tabcr) 150 mg PO QAM [facility] Stop: 01/04/23 08:59 Last Admin: 12/05/22 08:17 Dose: 150 mg Documented By: JUAN Carbidopa/Levodopa (Carbidopa/Levodopa 25/100mg Tab) 1 tab PO TID [facility] Stop: 01/03/23 20:59 Last Admin: 12/05/22 08:16 Dose: 1 tab Documented By: Admin: 12/04/22 21:29 Dose: 1 tab Documented By: EKF Donepezil HCl (Donepezil Hcl 10 Mg Tab) 10 mg PO HS [facility] Stop: 01/03/23 20:59 Last Admin: 12/04/22 21:30 Dose: 10 mg Documented By: EKF Duloxetine HCl (Duloxetine Hcl 60 Mg Cap) 60 mg PO QAM [facility] Stop: 01/04/23 08:59 Last Admin: 12/05/22 08:17 Dose: 60 mg Documented By: JUAN Duloxetine HCl (Duloxetine Hcl 30 Mg Cap) 30 mg PO QAM [facility] Stop: 01/04/23 08:59 Last Admin: 12/05/22 08:16 Dose: 30 mg Documented By: JUAN Finasteride (Finasteride 5 Mg Tab) 5 mg PO QAM [facility] Stop: 01/04/23 08:59 Last Admin: 12/05/22 08:17 Dose: 5 mg Documented By: JUAN Insulin Aspart (Insulin Aspart Per Unit Charge) 0 units SC ACHS [facility] Stop: 01/03/23 20:59 Last Admin: 12/05/22 08:27 Dose: Not Given Documented By: Admin: 12/04/22 21:01 Dose: Not Given Documented By: GENARO Memantine (Memantine Hcl 10 Mg Tab) 10 mg PO BID [facility] Stop: 01/03/23 20:59 Last Admin: 12/05/22 08:16 Dose: 10 mg Documented By: Admin: 12/04/22 21:30 Dose: 10 mg Documented By: GENARO Pregabalin (Pregabalin 100 Mg Cap) 100 mg PO BID [facility] Stop: 01/03/23 20:59 Last Admin: 12/05/22 08:44 Dose: 100 mg Documented By: Admin: 12/04/22 21:34 Dose: 100 mg Documented By: GENARO Propranolol HCl (Propranolol Hcl 60 Mg La Cap) 60 mg PO DAILY [facility] Stop: 01/04/23 08:59 Last Admin: 12/05/22 08:17 Dose: 60 mg Documented By: JUAN Tamsulosin HCl (Tamsulosin Hcl 0.4 Mg Cap) 0.4 mg PO QAM [facility] Stop: 01/04/23 08:59 Last Admin: 12/05/22 08:17 Dose: 0.4 mg Documented By: JUAN Vibegron (Vibegron 75 Mg Tab) 75 mg PO QAM [facility] Stop: 01/04/23 08:59 Last Admin: 12/05/22 08:17 Dose: 75 mg Documented By: JUAN Discontinued Medications Carbidopa/Levodopa (Carbidopa/Levodopa 25/100mg Tab) 1 tab PO NOW STA Stop: 12/04/22 16:35 Last Admin: 12/04/22 17:32 Dose: 1 tab Documented By: JANEL Sodium Chloride (Nss 1000ml) 500 mls @ 999 mls/hr IV .Q31M ONE Stop: 12/04/22 14:01 Last Infusion: 12/04/22 15:22 Dose: 0 mls/hr Documented By: Admin: 12/04/22 14:23 Dose: 999 mls/hr Documented By: SHEREE Ceftriaxone Sodium 2,000 mg/ (Dextrose) 70 mls @ 140 mls/hr IV NOW STA Stop: 12/04/22 14:13 Last Infusion: 12/04/22 15:22 Dose: 0 mls/hr Documented By: Admin: 12/04/22 14:24 Dose: 140 mls/hr Documented By: SHEREE Lactated Ringer's (Lr) 1,000 mls @ 999 mls/hr IV .Q1H1M ONE Stop: 12/04/22 17:30 Last Infusion: 12/04/22 17:39 Dose: 0 mls/hr Documented By: Admin: 12/04/22 16:35 Dose: 999 mls/hr Documented By: MES Acetaminophen (Ofirmev) 1,000 mg in 100 mls @ 400 mls/hr IV NOW STA Stop: 12/04/22 16:52 Last Infusion: 12/04/22 17:50 Dose: 0 mls/hr Documented By: Admin: 12/04/22 17:32 Dose: 400 mls/hr Documented By: JANEL Lactated Ringer's (Lr) 1,000 mls @ 100 mls/hr IV .Q10H [facility] Stop: 12/05/22 05:59 Last Infusion: 12/05/22 09:22 Dose: 0 mls/hr Documented By: Admin: 12/04/22 21:26 Dose: 100 mls/hr Documented By: YULISAF Ioversol (Optiray 320 500ml) 85 ml IV ONCE ONE Stop: 12/04/22 13:59 Last Admin: 12/04/22 13:59 Dose: 85 ml Documented By: TALA Lidocaine (Lidocaine 5% 1 Patch) 1 patch TD NOW STA Stop: 12/04/22 16:39 Last Admin: 12/04/22 17:33 Dose: 1 patch Documented By: JANEL Miscellaneous (Remove Lidoderm Patch) 1 each N/A TODAY@0600 [facility] Stop: 12/05/22 06:01 Last Admin: 12/05/22 06:03 Dose: 1 each Documented By: EKF Medical Decision Making Differential Diagnosis Dementia, intracranial hemorrhage, subdural, back fracture, intra-abdominal process, sepsis, UTI, weakness, electrolyte or metabolic abnormality, medication side effect, toxicologic Medical Records Attestation: I reviewed the patient's medical records. Home Medications Current Medication List: was personally reviewed by me Laboratory Data Attestation: I reviewed the patient's lab results. 12/04/22 12:46 12/04/22 12:46 Lab Results 12/04/22 12/04/22 12/04/22 Range/Units 12:46 12:46 12:46 WBC 6.25 (4.8-10.8) K/ul RBC 5.05 (4.70-6.10) M/uL Hgb 12.9 L (14.0-18.0) g/dl Hct 42.2 (42.0-52.0) % MCV 83.6 (80.0-100.0) fL MCH 25.5 (25.0-34.0) pg MCHC 30.6 L (32.0-36.0) g/dL RDW Std Deviation 52.4 H (36.4-46.3) fL RDW Coeff of Florecita 17.5 H (11.5-14.5) % Plt Count 198 (130-400) K/uL MPV 11.2 (9.4-12.4) fL Immature Gran % (Auto) 0.3 % Neut % (Auto) 71.3 % Lymph % (Auto) 12.2 % [place] % (Auto) 14.2 % Eos % (Auto) 1.4 % Baso % (Auto) 0.6 % Neut # (Auto) 4.45 (1.40-6.50) K/uL Lymph # (Auto) 0.76 L (1.2-3.4) K/uL [place] # (Auto) 0.89 H (0.11-0.59) K/uL Eos # (Auto) 0.09 (0-0.50) K/uL Baso # (Auto) 0.04 (0-0.2) K/uL Immature Gran # (Auto) 0.02 (0.01-0.20) K/uL PT (9.0-12.0) Seconds INR (0.9-1.1) APTT (21.0-31.0) Seconds PTT Ratio Sodium 141 (136-145) mmol/L Potassium 3.8 (3.5-5.1) mmol/L Chloride 104 (98-107) mmol/L Carbon Dioxide 32 (21-32) mmol/L Anion Gap 5 (3-11) BUN 32 H (6-23) mg/dl Creatinine 1.66 H (0.6-1.4) mg/dl Est Cr Clr Drug Dosing Not Reportable Est GFR ( Amer) 45.4 ml/min Est GFR (Non-Af Amer) 39.2 ml/min BUN/Creatinine Ratio 19.3 (10-20) Glucose 127 H (70-99(Fasting)) mg/dl Lactate 2.6 H* (0.4-2.0) mmol/L Calcium 9.8 (8.6-10.3) mg/dl Magnesium 2.2 (1.7-2.4) mg/dl Total Bilirubin 0.5 (0.2-1.0) mg/dl Direct Bilirubin 0.0 (0-0.2) mg/dl AST 31 (13-39) U/L ALT 4 L (7-52) U/L Alkaline Phosphatase 190 H (34-104) U/L Troponin I High Sens 24.4 H (0-20) pg/ml Total Protein 7.8 (6.0-8.3) gm/dl Albumin 3.9 (3.4-5.0) gm/dl Procalcitonin (0-0.5) ng/ml Urine Color Urine Appearance (Clear) Urine pH (4.5-7.5) Ur Specific [place] (1.000-1.030) Urine Protein (Negative) Urine Glucose (UA) (Negative) Urine Ketones (Negative) Urine Blood (Negative) Urine Nitrite (Negative) Urine Bilirubin (Negative) Urine Urobilinogen (Negative) Ur Leukocyte Esterase (Negative) Urine WBC (Auto) (0-5) /hpf Urine RBC (Auto) (0-4) /hpf U Hyaline Cast (Auto) (0-5) /lpf U Epithel Cells (Auto) (0-5) /lpf Urine Bacteria (Auto) (Negative) Ur Renal Epithelial Cell SARS-CoV-2, RNA, NAAT (NEGATIVE) Staphylococcus sp PCR (NotDetected) mecA/C-Methicil Resis Gene (NotDetected) Staph epidermidis (PCR) (NotDetected) Bld Cult ID Panel PCR (NotDetected) 12/04/22 12/04/22 12/04/22 Range/Units 12:46 12:46 12:46 WBC (4.8-10.8) K/ul RBC (4.70-6.10) M/uL Hgb (14.0-18.0) g/dl Hct (42.0-52.0) % MCV (80.0-100.0) fL MCH (25.0-34.0) pg MCHC (32.0-36.0) g/dL RDW Std Deviation (36.4-46.3) fL RDW Coeff of Florecita (11.5-14.5) % Plt Count (130-400) K/uL MPV (9.4-12.4) fL Immature Gran % (Auto) % Neut % (Auto) % Lymph % (Auto) % [place] % (Auto) % Eos % (Auto) % Baso % (Auto) % Neut # (Auto) (1.40-6.50) K/uL Lymph # (Auto) (1.2-3.4) K/uL [place] # (Auto) (0.11-0.59) K/uL Eos # (Auto) (0-0.50) K/uL Baso # (Auto) (0-0.2) K/uL Immature Gran # (Auto) (0.01-0.20) K/uL PT 40.3 H (9.0-12.0) Seconds INR 4.0 H (0.9-1.1) APTT 47.0 H* (21.0-31.0) Seconds PTT Ratio 1.7 Sodium (136-145) mmol/L Potassium (3.5-5.1) mmol/L Chloride (98-107) mmol/L Carbon Dioxide (21-32) mmol/L Anion Gap (3-11) BUN (6-23) mg/dl Creatinine (0.6-1.4) mg/dl Est Cr Clr Drug Dosing Est GFR ( Amer) ml/min Est GFR (Non-Af Amer) ml/min BUN/Creatinine Ratio (10-20) Glucose (70-99(Fasting)) mg/dl Lactate (0.4-2.0) mmol/L Calcium (8.6-10.3) mg/dl Magnesium (1.7-2.4) mg/dl Total Bilirubin (0.2-1.0) mg/dl Direct Bilirubin (0-0.2) mg/dl AST (13-39) U/L ALT (7-52) U/L Alkaline Phosphatase (34-104) U/L Troponin I High Sens (0-20) pg/ml Total Protein (6.0-8.3) gm/dl Albumin (3.4-5.0) gm/dl Procalcitonin 0.06 (0-0.5) ng/ml Urine Color Urine Appearance (Clear) Urine pH (4.5-7.5) Ur Specific [place] (1.000-1.030) Urine Protein (Negative) Urine Glucose (UA) (Negative) Urine Ketones (Negative) Urine Blood (Negative) Urine Nitrite (Negative) Urine Bilirubin (Negative) Urine Urobilinogen (Negative) Ur Leukocyte Esterase (Negative) Urine WBC (Auto) (0-5) /hpf Urine RBC (Auto) (0-4) /hpf U Hyaline Cast (Auto) (0-5) /lpf U Epithel Cells (Auto) (0-5) /lpf Urine Bacteria (Auto) (Negative) Ur Renal Epithelial Cell SARS-CoV-2, RNA, NAAT (NEGATIVE) Staphylococcus sp PCR DETECTED A (NotDetected) mecA/C-Methicil Resis Gene DETECTED A (NotDetected) Staph epidermidis (PCR) DETECTED A (NotDetected) Bld Cult ID Panel PCR See PCR Comment (NotDetected) 12/04/22 12/04/22 12/04/22 Range/Units 13:09 14:26 15:12 WBC (4.8-10.8) K/ul RBC (4.70-6.10) M/uL Hgb (14.0-18.0) g/dl Hct (42.0-52.0) % MCV (80.0-100.0) fL MCH (25.0-34.0) pg MCHC (32.0-36.0) g/dL RDW Std Deviation (36.4-46.3) fL RDW Coeff of Florecita (11.5-14.5) % Plt Count (130-400) K/uL MPV (9.4-12.4) fL Immature Gran % (Auto) % Neut % (Auto) % Lymph % (Auto) % [place] % (Auto) % Eos % (Auto) % Baso % (Auto) % Neut # (Auto) (1.40-6.50) K/uL Lymph # (Auto) (1.2-3.4) K/uL [place] # (Auto) (0.11-0.59) K/uL Eos # (Auto) (0-0.50) K/uL Baso # (Auto) (0-0.2) K/uL Immature Gran # (Auto) (0.01-0.20) K/uL PT (9.0-12.0) Seconds INR (0.9-1.1) APTT (21.0-31.0) Seconds PTT Ratio Sodium (136-145) mmol/L Potassium (3.5-5.1) mmol/L Chloride (98-107) mmol/L Carbon Dioxide (21-32) mmol/L Anion Gap (3-11) BUN (6-23) mg/dl Creatinine (0.6-1.4) mg/dl Est Cr Clr Drug Dosing Est GFR ( Amer) ml/min Est GFR (Non-Af Amer) ml/min BUN/Creatinine Ratio (10-20) Glucose (70-99(Fasting)) mg/dl Lactate (0.4-2.0) mmol/L Calcium (8.6-10.3) mg/dl Magnesium (1.7-2.4) mg/dl Total Bilirubin (0.2-1.0) mg/dl Direct Bilirubin (0-0.2) mg/dl AST (13-39) U/L ALT (7-52) U/L Alkaline Phosphatase (34-104) U/L Troponin I High Sens 22.8 H (0-20) pg/ml Total Protein (6.0-8.3) gm/dl Albumin (3.4-5.0) gm/dl Procalcitonin (0-0.5) ng/ml Urine Color Dark Yellow Urine Appearance Cloudy A (Clear) Urine pH 5.0 (4.5-7.5) Ur Specific [place] 1.045 H (1.000-1.030) Urine Protein 1+ H (Negative) Urine Glucose (UA) Negative (Negative) Urine Ketones Trace H (Negative) Urine Blood 1+ H (Negative) Urine Nitrite Negative (Negative) Urine Bilirubin 1+ H (Negative) Urine Urobilinogen Negative (Negative) Ur Leukocyte Esterase Trace H (Negative) Urine WBC (Auto) 10-30 H (0-5) /hpf Urine RBC (Auto) >30 H (0-4) /hpf U Hyaline Cast (Auto) 5-10 H (0-5) /lpf U Epithel Cells (Auto) >30 H (0-5) /lpf Urine Bacteria (Auto) Negative (Negative) Ur Renal Epithelial Cell Not Reportable SARS-CoV-2, RNA, NAAT NEGATIVE (NEGATIVE) Staphylococcus sp PCR (NotDetected) mecA/C-Methicil Resis Gene (NotDetected) Staph epidermidis (PCR) (NotDetected) Bld Cult ID Panel PCR (NotDetected) 12/04/22 Range/Units 15:12 WBC (4.8-10.8) K/ul RBC (4.70-6.10) M/uL Hgb (14.0-18.0) g/dl Hct (42.0-52.0) % MCV (80.0-100.0) fL MCH (25.0-34.0) pg MCHC (32.0-36.0) g/dL RDW Std Deviation (36.4-46.3) fL RDW Coeff of Florecita (11.5-14.5) % Plt Count (130-400) K/uL MPV (9.4-12.4) fL Immature Gran % (Auto) % Neut % (Auto) % Lymph % (Auto) % [place] % (Auto) % Eos % (Auto) % Baso % (Auto) % Neut # (Auto) (1.40-6.50) K/uL Lymph # (Auto) (1.2-3.4) K/uL [place] # (Auto) (0.11-0.59) K/uL Eos # (Auto) (0-0.50) K/uL Baso # (Auto) (0-0.2) K/uL Immature Gran # (Auto) (0.01-0.20) K/uL PT (9.0-12.0) Seconds INR (0.9-1.1) APTT (21.0-31.0) Seconds PTT Ratio Sodium (136-145) mmol/L Potassium (3.5-5.1) mmol/L Chloride (98-107) mmol/L Carbon Dioxide (21-32) mmol/L Anion Gap (3-11) BUN (6-23) mg/dl Creatinine (0.6-1.4) mg/dl Est Cr Clr Drug Dosing Est GFR ( Amer) ml/min Est GFR (Non-Af Amer) ml/min BUN/Creatinine Ratio (10-20) Glucose (70-99(Fasting)) mg/dl Lactate 1.3 (0.4-2.0) mmol/L Calcium (8.6-10.3) mg/dl Magnesium (1.7-2.4) mg/dl Total Bilirubin (0.2-1.0) mg/dl Direct Bilirubin (0-0.2) mg/dl AST (13-39) U/L ALT (7-52) U/L Alkaline Phosphatase (34-104) U/L Troponin I High Sens (0-20) pg/ml Total Protein (6.0-8.3) gm/dl Albumin (3.4-5.0) gm/dl Procalcitonin (0-0.5) ng/ml Urine Color Urine Appearance (Clear) Urine pH (4.5-7.5) Ur Specific [place] (1.000-1.030) Urine Protein (Negative) Urine Glucose (UA) (Negative) Urine Ketones (Negative) Urine Blood (Negative) Urine Nitrite (Negative) Urine Bilirubin (Negative) Urine Urobilinogen (Negative) Ur Leukocyte Esterase (Negative) Urine WBC (Auto) (0-5) /hpf Urine RBC (Auto) (0-4) /hpf U Hyaline Cast (Auto) (0-5) /lpf U Epithel Cells (Auto) (0-5) /lpf Urine Bacteria (Auto) (Negative) Ur Renal Epithelial Cell SARS-CoV-2, RNA, NAAT (NEGATIVE) Staphylococcus sp PCR (NotDetected) mecA/C-Methicil Resis Gene (NotDetected) Staph epidermidis (PCR) (NotDetected) Bld Cult ID Panel PCR (NotDetected) Imaging Data Attestation: I personally reviewed and interpreted this imaging study as follows: My Impression: Chest x-rayno acute infiltrate, failure, pneumothorax seen Head CTno hemorrhage or mass effect seen CT of the abdomen pelvis. I do not see any aneurysm or intra-abdominal process. There are some bony abnormality seen in the lumbar spine which may be fractures versus degenerative change Radiologist's Impression: Chest X-Ray 12/04/22 12:22 XR chest 1V portable HISTORY: 77 years-old Male Sepsis acute sepsis COMPARISON: 04/21/2022 TECHNIQUE: AP view of the chest FINDINGS: Cardiac silhouette is enlarged. Prior median sternotomy with cardiac valvular prosthesis. Mild right hemidiaphragmatic elevation with subsegmental bibasilar atelectasis. No pneumothorax, large pleural effusion or overt pulmonary edema. Unchanged likely benign lucent focus of the anterior left third rib. Chronic interstitial coarsening. Degenerative changes of the shoulders and spine. IMPRESSION: No acute process. ACT 112: Negative or not required by law. The above report was generated using voice recognition software. It may contain grammatical, syntax or spelling errors. Electronically signed by: Nicholas Lay M.D. 12/04/2022 1:25 PM Chest X-Ray 12/04/22 12:22 XR chest 1V portable HISTORY: 77 years-old Male Sepsis acute sepsis COMPARISON: 04/21/2022 TECHNIQUE: AP view of the chest FINDINGS: Cardiac silhouette is enlarged. Prior median sternotomy with cardiac valvular prosthesis. Mild right hemidiaphragmatic elevation with subsegmental bibasilar atelectasis. No pneumothorax, large pleural effusion or overt pulmonary edema. Unchanged likely benign lucent focus of the anterior left third rib. Chronic interstitial coarsening. Degenerative changes of the shoulders and spine. IMPRESSION: No acute process. ACT 112: Negative or not required by law. The above report was generated using voice recognition software. It may contain grammatical, syntax or spelling errors. Electronically signed by: Nicholas Lay M.D. 12/04/2022 1:[address] 12/04/22 12:22 CT head/brain wo con CLINICAL HISTORY: 77 years-old Male with fall, altered loc. Acute head injury status post fall TECHNIQUE: Multiple axial CT images of the head were obtained without contrast. A dose lowering technique was utilized adhering to the principles of ALARA. COMPARISON: 04/21/2022 FINDINGS: No acute intracranial hemorrhage, midline shift, intracranial mass, territorial ischemia or acute extra-axial collection. Involutional changes with chronic microvascular ischemic disease. Unchanged encephalomalacia of the right frontal lobe anteriorly. Unchanged 5 mm hyperdensity posterior to the right cerebral hemisphere which is likely a stable postoperative finding. Unchanged ventriculomegaly. No acute calvarial fracture. Prior right-sided craniotomy. Partially imaged polypoid mucosal thickening of the left maxillary sinus. Mastoid air cells are clear. IMPRESSION: Chronic findings as above without acute intracranial abnormality. ACT 112: Negative or not required by law. The above report was generated using voice recognition software. It may contain grammatical, syntax or spelling errors. Electronically signed by: Nicholas Lay M.D. 12/04/2022 3:16 PM Abdomen/Pelvis CT 12/04/22 12:[address] WITH IV CONTRAST CT DOSE: 2116.66 mGy.cm HISTORY: Acute abdominal and low back pain status post fall fall, back pain TECHNIQUE: Multiaxial CT images of the abdomen, pelvis and lumbar spine were performed following the IV administration of 85 cc of Optiray, A dose lowering technique was utilized adhering to the principles of ALARA. COMPARISON STUDY: 04/21/2022. FINDINGS: CT ABDOMEN/PELVIS: Cardiomegaly. Prior median sternotomy with prosthetic mitral valve. Mild subsegmental bibasilar atelectasis. No pneumatosis or pneumoperitoneum. Calcified granulomata of the spleen. 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 3 mm parenchymal calcification of the pancreas on image 131 is unchanged, within or adjacent to the duct. No associated ductal dilation. Unremarkable adrenal glands, gallbladder and liver. Numerous tiny renal cysts. There are several nonobstructing calculi of the kidneys measuring up to 3 mm on the right and 5 mm on the left. Cortical scarring with parenchymal thinning of the interpolar right kidney. No ureteral calculi or hydronephrosis. Urinary bladder wall thickening with partial distention. Prostatomegaly. Findings suggestive of prior right sided inguinal hernia repair. Fat filled left inguinal hernia. No abdominal aortic aneurysm or lymphadenopathy. Small hiatal hernia. No bowel obstruction or bowel wall thickening. Colonic diverticulosis. Normal appendix. No ascites or mesenteric inflammation. Diastases recti. CT LUMBAR SPINE: Multilevel degenerative changes. Demineralized appearance of the bones. Mild superior endplate compression of less than 20% involving the T12 vertebral body with 2 mm retropulsion and is new from prior. 30% inferior endplate compression at L2 without retropulsion is also new from prior. Chronic superior endplate compression at L4 without retropulsion. Posterior elements appear intact. Moderate lumbar levoscoliosis. IMPRESSION: 1. No acute posttraumatic intra-abdominal or intrapelvic abnormality. 2. Nonobstructing bilateral nephrolithiasis. 3. Mild superior endplate compression at T12 with 2 mm retropulsion and 30% inferior endplate compression at L2 are new from 04/21/2022. Findings are suspicious for acute or subacute fractures. Correlate with point tenderness. 4. Additional findings as above. ACT 112: Negative or not required by law. The above report was generated using voice recognition software. It may contain grammatical, syntax or spelling errors. Electronically signed by: Nicholas Lay M.D. 12/04/2022 3:[address] 12/04/22 12:[address] WITH IV CONTRAST CT DOSE: 2116.66 mGy.cm HISTORY: Acute abdominal and low back pain status post fall fall, back pain TECHNIQUE: Multiaxial CT images of the abdomen, pelvis and lumbar spine were performed following the IV administration of 85 cc of Optiray, A dose lowering technique was utilized adhering to the principles of ALARA. COMPARISON STUDY: 04/21/2022. FINDINGS: CT ABDOMEN/PELVIS: Cardiomegaly. Prior median sternotomy with prosthetic mitral valve. Mild subsegmental bibasilar atelectasis. No pneumatosis or pneumoperitoneum. Calcified granulomata of the spleen. 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 3 mm parenchymal calcification of the pancreas on image 131 is unchanged, within or adjacent to the duct. No associated ductal dilation. Unremarkable adrenal glands, gallbladder and liver. Numerous tiny renal cysts. There are several nonobstructing calculi of the kidneys measuring up to 3 mm on the right and 5 mm on the left. Cortical scarring with parenchymal thinning of the interpolar right kidney. No ureteral calculi or hydronephrosis. Urinary bladder wall thickening with partial distention. Prostatomegaly. Findings suggestive of prior right sided inguinal hernia repair. Fat filled left inguinal hernia. No abdominal aortic aneurysm or lymphadenopathy. Small hiatal hernia. No bowel obstruction or bowel wall thickening. Colonic diverticulosis. Normal appendix. No ascites or mesenteric inflammation. Diastases recti. CT LUMBAR SPINE: Multilevel degenerative changes. Demineralized appearance of the bones. Mild superior endplate compression of less than 20% involving the T12 vertebral body with 2 mm retropulsion and is new from prior. 30% inferior endplate compression at L2 without retropulsion is also new from prior. Chronic superior endplate compression at L4 without retropulsion. Posterior elements appear intact. Moderate lumbar levoscoliosis. IMPRESSION: 1. No acute posttraumatic intra-abdominal or intrapelvic abnormality. 2. Nonobstructing bilateral nephrolithiasis. 3. Mild superior endplate compression at T12 with 2 mm retropulsion and 30% inferior endplate compression at L2 are new from 04/21/2022. Findings are suspicious for acute or subacute fractures. Correlate with point tenderness. 4. Additional findings as above. ACT 112: Negative or not required by law. The above report was generated using voice recognition software. It may contain grammatical, syntax or spelling errors. Electronically signed by: Nicholas Lay M.D. 12/04/2022 3:17 PM ECG Data Attestation: I personally reviewed and interpreted this ECG as follows: Indication: + weakness Rate (beats per minute): 75 Rhythm: + normal sinus ECG Intervals/blocks: + Normal QRS, + Normal QT and + Normal ND ECG [place]: + Normal ECG ST segments: + Normal ST segments ECG Findings: no PACs or no PVCs Comparison ECG Date: from (04/21/22) Change: no significant change Prescription Drug Monitoring [place] Drug Monitoring Program reviewed and no issues identified MDM Narrative This patient comes in as described above. He has had increasing confusion. 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 His initial blood pressure was low although when I checked him had come up. He was no longer tachycardic either. I did order IV fluids and sepsis type work-up. I also did a CAT scan of his head and abdomen and pelvis given the fact that he fell and he has history of subdurals. IV access had been established she had blood cultures obtained. He was reassessed frequently. EKG does not suggest any acute coronary syndrome or significant arrhythmia. The patient has mildly elevated lactate and was given IV fluid bolus as well as IV Rocephin 2 g for the possibility of sepsis. I started with just 500 cc IV. I did get a CAT scan of the head as well as abdomen and back since he hurt his back a week and a half ago. He has history of subdurals. I do not see any acute subdural. His says he has been increasingly weak. The patient's CAT scan of his head and neck were unremarkable. The abdomen was unremarkable with exception of he has subacute compression fractures at T12 and L2. I suspect this is from when he fell a week and a half ago. I do think he needs to be admitted for pain his management of these but him also concerned about his weakness and possible sepsis/infection/other etiology causing this. I discussed this at length and consultation with Dr. Toy Ron of the [facility] hospitalist and he will see the patient in ER for these Continuous cardiac monitoring: Orders placed in EMR for continuous cardiac monitoring. 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
--- NOTE | 2022-12-04 13:27 | XRay Report ---
XR chest 1V portable HISTORY: 77 years-old Male Sepsis acute sepsis COMPARISON: 04/21/2022 TECHNIQUE: AP view of the chest FINDINGS: Cardiac silhouette is enlarged. Prior median sternotomy with cardiac valvular prosthesis. Mild right hemidiaphragmatic elevation with subsegmental bibasilar atelectasis. No pneumothorax, large pleural e ffusion or overt pulmonary edema. Unchanged likely benign lucent focus of the anterior left third rib . Chronic interstitial coarsening. Degenerative changes of the shoulders and spine. IMPRESSION: No acute process. ACT 112: Negative or not required by law. The above report was generated using voice recognition software. It may contain grammatical, syntax o r spelling errors. Electronically signed by: Nicholas Lay M.D. 12/04/2022 1:25 PM
[2022-12-04] MEDS ORDERED: SODIUM CHLORIDE 0.9% 1000ML 500 ML IV ONE (13:31)
[2022-12-04 13:35] LABS: Alanine Aminotransferase 4 U/L (7-52); Albumin Level 3.9 gm/dl (3.4-5.0); Alkaline Phosphatase 190 U/L (34-104); Anion Gap 5 (3-11); Aspartate Aminotransferase 31 U/L (13-39); BUN Creatinine Ratio 19.3 (10-20); Bilirubin,Total 0.5 mg/dl (0.2-1.0); Blood Urea Nitrogen 32 mg/dl (6-23); Calcium 9.8 mg/dl (8.6-10.3); Carbon Dioxide 32 mmol/L (21-32); Chloride 104 mmol/L (98-107); Est GFR (African American) 45.4 ml/min; Est GFR (Non-African American) 39.2 ml/min; Glucose 127 mg/dl (70-99(Fasting)); Magnesium 2.2 mg/dl (1.7-2.4); Potassium 3.8 mmol/L (3.5-5.1); Sodium 141 mmol/L (136-145); Total Protein 7.8 gm/dl (6.0-8.3)
[2022-12-04 13:41] LABS: Troponin I High Sensitivity 24.4 pg/ml (0-20)
[2022-12-04] MEDS ORDERED: cefTRIAXone SODIUM 2,000 MG in DEXTROSE 5% 50 ML IV STA (13:44)
[2022-12-04] MEDS ORDERED: OPTIRAY 320 500ml IV ONE (13:58)
[2022-12-04 13:59] LABS: Partial Thromboplastin Ratio 1.7; Prothrombin Time 40.3 Seconds (9.0-12.0)
[2022-12-04 15:00] LABS: Appearance Urine Cloudy (Clear); Bacteria Urine Automated Negative (Negative); Blood Urine 1+ (Negative); Color Urine Dark Yellow; Epithelial Cell Urine Auto >30 /lpf (0-5); Glucose Urine UA Negative (Negative); Ketones Urine Trace (Negative); Leukocyte Esterase Urine Trace (Negative); Nitrite Urine Negative (Negative); Protein Urine 1+ (Negative); RBC Urine Automated >30 /hpf (0-4); Specific Gravity Urine 1.045 (1.000-1.030); Urobilinogen Urine Negative (Negative)
[2022-12-04 15:01] LABS: Bilirubin Urine 1+ (Negative)
--- NOTE | 2022-12-04 15:18 | CT Scan Report ---
ABDOMEN AND PELVIS CT WITH IV CONTRAST CT DOSE: 2116.66 mGy.cm HISTORY: Acute abdominal and low back pain status post fall fall, back pain TECHNIQUE: Multiaxial CT images of the abdomen, pelvis and lumbar spine were performed following the IV administration of 85 cc of Optiray, A dose lowering technique was utilized adhering to the princi ples of RACHID. COMPARISON STUDY: 04/21/2022. FINDINGS: CT ABDOMEN/PELVIS: Cardiomegaly. Prior median sternotomy with prosthetic mitral valve. Mild subsegmental bibasilar atel ectasis. No pneumatosis or pneumoperitoneum. Calcified granulomata of the spleen. 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 3 m m parenchymal calcification of the pancreas on image 131 is unchanged, within or adjacent to the duct . No associated ductal dilation. Unremarkable adrenal glands, gallbladder and liver. Numerous tiny renal cysts. There are several nonobstructing calculi of the kidneys measuring up to 3 mm on the right and 5 mm on the left. Cortical scarring with parenchymal thinning of the interpolar r ight kidney. No ureteral calculi or hydronephrosis. Urinary bladder wall thickening with partial dist ention. Prostatomegaly. Findings suggestive of prior right sided inguinal hernia repair. Fat filled l eft inguinal hernia. No abdominal aortic aneurysm or lymphadenopathy. Small hiatal hernia. No bowel obstruction or bowel wall thickening. Colonic diverticulosis. Normal ap pendix. No ascites or mesenteric inflammation. Diastases recti. CT LUMBAR SPINE: Multilevel degenerative changes. Demineralized appearance of the bones. Mild superior endplate compre ssion of less than 20% involving the T12 vertebral body with 2 mm retropulsion and is new from prior. 30% inferior endplate compression at L2 without retropulsion is also new from prior. Chronic superio r endplate compression at L4 without retropulsion. Posterior elements appear intact. Moderate lumbar levoscoliosis. IMPRESSION: 1. No acute posttraumatic intra-abdominal or intrapelvic abnormality. 2. Nonobstructing bilateral nephrolithiasis. 3. Mild superior endplate compression at T12 with 2 mm retropulsion and 30% inferior endplate randy luann at L2 are new from 04/21/2022. Findings are suspicious for acute or subacute fractures. Correlat e with point tenderness. 4. Additional findings as above. ACT 112: Negative or not required by law. The above report was generated using voice recognition software. It may contain grammatical, syntax o r spelling errors. Electronically signed by: Nicholas Lay M.D. 12/04/2022 3:17 PM
--- NOTE | 2022-12-04 15:18 | CT Scan Report ---
CT head/brain wo con CLINICAL HISTORY: 77 years-old Male with fall, altered loc. Acute head injury status post fall TECHNIQUE: Multiple axial CT images of the head were obtained without contrast. A dose lowering tech nique was utilized adhering to the principles of ALARA. COMPARISON: 04/21/2022 FINDINGS: No acute intracranial hemorrhage, midline shift, intracranial mass, territorial ischemia or acute ext ra-axial collection. Involutional changes with chronic microvascular ischemic disease. Unchanged ence phalomalacia of the right frontal lobe anteriorly. Unchanged 5 mm hyperdensity posterior to the right cerebral hemisphere which is likely a stable postoperative finding. Unchanged ventriculomegaly. No acute calvarial fracture. Prior right-sided craniotomy. Partially imaged polypoid mucosal thickeni ng of the left maxillary sinus. Mastoid air cells are clear. IMPRESSION: Chronic findings as above without acute intracranial abnormality. ACT 112: Negative or not required by law. The above report was generated using voice recognition software. It may contain grammatical, syntax o r spelling errors. Electronically signed by: Nicholas Lay M.D. 12/04/2022 3:16 PM
--- NOTE | 2022-12-04 15:57 | History & Physical Report ---
Date of Service December 04, 2022 Assessment & Plan (1) Weakness: Plan: -Admit to med/surge -Currently stable -At this time the patient's generalized weakness is likely multifactorial including acute dehydration and KARI exacerbating his known dementia -Patient with poor oral intake over the past 4 days, is dry on exam with concentrated urine and KARI -CT of the abd/pelvis wo signs of obstruction -CT of the head negative for acute changes -S/P 500 mL NSS in the ED, will give 1L LR now then continue on light LR overnight -UA equivocal for infection, patient has been asymptomatic but not a good historian -S/p one dose of Ceftriaxone in the ED, is without leukocytosis, has been afebrile, procal WNL, currently stable -Will hold additional abx for now, follow blood/urine cultures and fever curve -Monitor for improvement with IV fluids -Will obtain a full resp biofire as he his lymphopenic today -BL SCD's for DVT PPX, hold chemical PPX with supratherapeutic INR -Fall precautions, aspiration precautions, bedrest tonight until he is seen by PT/OT tomorrow -AM CBC, BMP, Mag, PT/INR -Will order HH/DMII with minced/moist texture if he passes beside swallow eval (2) KARI (acute kidney injury): Plan: -Cr today at 1.66, baseline is approximately 1.1 -Likely due to dehydration -Continue IV fluids, monitor intake/output q6h -Monitor urine cultures -Daily renal function and electrolytes (3) Neck pain: Plan: -Patient having moderate neck pain -Recent fall and on Warfarin -No acute trauma on palpation -Will obtain CT of the cervical spine wo con for further evaluation (4) Elevated troponin: Plan: -Initial high sen trop elevated at 24, 2 hour repeat down to 22 -Patient is asymptomatic and without significant ECG changes -Likely due to demand and KARI -Monitor for chest discomfort (5) Back pain: Plan: -Patient found to have "Mild superior endplate compression at T12 with 2 mm retropulsion and 30% inferior endplate compression at L2 are new from 04/21/2022.". -Bedrest overnight until he can be evaluated by PT/OT tomorrow -Pain control with prn tylenol and lidocaine patches for now -Fall precautions ordered (6) Supratherapeutic INR: Plan: -Noted to be 4.0 today, patient did not take Warfarin today -Goal is 2.5-3.5 with mechanical mitral valve -Hold warfarin tonight, monitor INR tomorrow and restart when back to therapeutic range -Continue to monitor for signs of bleeding (7) Diabetes mellitus, type 2: Plan: -Has been controlled off treatment -For now monitor BSG ACHS, goal will be 110-160 -CF of 50 ACHS for now -DM II and HH diet (8) BPH (benign prostatic hyperplasia): Plan: -Continue finasteride and flomax (9) SDH (subdural hematoma): Plan: -Hx of multiple previous SDH's, both traumatic and atraumatic -CT of the head today negative -Would obtain STAT CT head WO con for any acute mental status or neurologic changes (10) Parkinsonism: Plan: -Continue and Carbidopa-Levodopa -Will give afternoon dose of Carbidopa-levodpa in ED now (11) Dementia: Plan: -Continue Namenda, Duloxetine, and Bupropion Plan The patient was discussed with Dr. 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 In the ED he was initially hypotensive at 93/64 but otherwise stable. Labs were significant for a lymphopenia of 0.76, INR of 4.0, cr of 1.66 (baseline is 1.1), initial lactate of 2.6 --> 1.3 on repeat, alk phos of 190, initial high sen trop of 24, UA showing cloudy, dark yellow urine with trace leukocyte esterase, negative nitrites, 10-30 WBC, and negative bacteria, and covid [address] of the head was read as "Chronic findings as above without acute intracranial abnormality.". CXR xray was read as "No acute process". CT of the abd/pelvis w/IV con and CT of the lumbar spine were read as "1. No acute posttraumatic intra-abdominal or intrapelvic abnormality. 2. Nonobstructing bilateral nephrolithiasis. 3. Mild superior endplate compression at T12 with 2 mm retropulsion and 30% inferior endplate compression at L2 are new from 04/21/2022. Findings are suspicious for acute or subacute fractures. Correlate with point tenderness. 4. Additional findings as above.". Prior to admission the patient was given 500 mL NSS and 2gm Ceftriaxone. At the time of the exam the patient was lying in bed in no acute distress with his sitting bedside, history was primarily obtained from the patient's due to his baseline mental status. She states that the patient had another fall approximately one week ago. He was in the bathroom and fell backwards, falling into the bathtub. She had to call some neighbors who were able to help get him up and back to bed. Since then the patient has been complaining of back pain and some neck pain. He is still on Warfarin due to his mechanical heart valve but did not have his dose yet today. Over the past 3-4 days the patient has been more weak than his baseline. His appetite has been poor and he was been urinating less frequently. Today, the patient was unable to stand up from one of their chairs due to weakness, his was unable to get him up. She denies the patient having recent fever, chills, chest pain, cough sob, ABD pain, nausea, vomiting, diarrhea, dysuria, hematuria, melena, LE swelling, and recent falls since his last one week ago. The patient's only complaints at this time are back and neck pain. If needed the patient's would be interested in him going for inpatient rehab. She states that she has a home health nurse coming twice weekly but cannot afford more at this time. His PCP is working on setting up home PT. We discussed code status, the patient is a DNR/DNI and his is his medical decision maker with his history of dementia. Please refer to Dr. Ron's attestation for any changes to the treatment plan Allergies Allergy/AdvReac Type Severity Reaction Status Date / Time Penicillins Allergy Mild RASH Verified 10/13/22 15:27 morphine AdvReac Mild bp drops Verified 10/13/22 15:27 Home Medications Medication Instructions Recorded Confirmed Type tramadol 50 mg tablet 50 mg PO Q8H 09/10/18 12/04/22 History tamsulosin 0.4 mg capsule 0.4 mg PO QAM 07/10/19 12/04/22 History acetaminophen 325 mg tablet 650 mg PO Q4H PRN Pain 02/23/22 12/04/22 History bupropion HCl 150 mg 24 hr tablet, 150 mg PO QAM 02/23/22 12/04/22 History extended release warfarin 5 mg tablet 7.5 mg PO 5XWK 02/23/22 12/04/22 History propranolol 60 mg capsule,24 60 mg PO DAILY #90 caps 04/12/22 12/04/22 Rx hr,extended release pregabalin 100 mg capsule 100 mg PO BID 90 days #180 caps 08/09/22 12/04/22 Rx mirabegron 50 mg tablet,extended 50 mg PO QAM #90 tabs 08/30/22 12/04/22 Rx release 24 hr memantine 10 mg tablet 10 mg PO BID 90 days #180 tabs 10/13/22 12/04/22 Rx duloxetine 30 mg capsule,delayed 30 mg PO QAM #30 caps 11/17/22 12/04/22 Rx release carbidopa 25 mg-levodopa 100 mg 1 tab PO TID #90 tabs 11/21/22 12/04/22 Rx tablet donepezil 10 mg tablet 10 mg PO HS #30 tabs 11/21/22 12/04/22 Rx duloxetine 60 mg capsule,delayed 60 mg PO QAM 12/04/22 12/04/22 History release finasteride 5 mg tablet 5 mg PO QAM 12/04/22 12/04/22 History warfarin 5 mg tablet 5 mg PO 2XWK 12/04/22 12/04/22 History Past Med/Surg History Medical History (Updated 12/04/22 @ 19:[address]) Atrial fibrillation Paroxysmal per records Pt denies history Follows with cardio- on Coumadin Benign essential tremor BPH (benign prostatic hyperplasia) Chronic back pain Chronic low back pain Degenerative disc disease Dementia Experiences short term memory loss. Alert and oriented to person. Confusion with places and time. Depression Diabetes mellitus, type 2 Encounter for pre-operative examination Generalized weakness GERD (gastroesophageal reflux disease) Well controlled and stable Hearing deficit Hyperlipidemia Hypertension Irregular heart beat Occasional episodes of trigeminy. Follows with Dr Isaac Lumbar degenerative disc disease Mechanical heart valve present MV replacement 1996- mechanical- on Coumadin Neuropathy involving both lower extremities On anticoagulant therapy Warfarin daily Parkinson disease Parkinson's dementia per records Spinal stenosis of lumbar region Subdural hematoma (01/01/22) - Presented to the Emergency room 01/01/22 at [facility] and transferred to [facility] and treated inpatient for several days and then went to [facility] for rehab. Patient discharged home ~01/21/22. No surgery had been done, reports it was a spontaneous hematoma. Denies any fall. - Pt's mental status back to baseline -Coumadin has since been restarted- tolerating well. Transient ischemic attack (TIA) In --no deficits UTI (urinary tract infection) due to Enterococcus Surgical History History of back surgery x2 History of colonoscopy History of craniotomy x2 (~2011)- secondary to subdural hematoma- had fall at that time History of esophagogastroduodenoscopy (EGD) History of hand surgery right hand finger History of inguinal hernia repair x5 History of mitral valve replacement 1996 @ [facility] -- mechanical History of umbilical hernia repair History of wisdom tooth extraction Status post LASIK surgery of both eyes Family History Daughter Family hx of colon cancer Colorectal cancer Mother Cardiac pacemaker Brother Stroke Hypertension Prostate cancer Father Stroke Grandfather (Maternal) Suicide Grandfather (Paternal) Tuberculosis Other No family history of adverse response to anesthesia Social History Smoking Status: Never smoker Second Hand Exposure: No; Do You Dip or Chew Tobacco: No; Hx Alcohol Use: Yes Alcohol type: beer Hx Substance Use: No Preferred Language: Maltese Communication Ability: Impaired [place] Required: No marital status: Current Living Situation: Spouse Current Living Situation Comment: Per pt report - pt is confused. 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 Tenderness to palpation over the cervical spine without crepitus, no scleral icterus, pupils around round, symmetrical, and reactive to light, Dry mucus membranes, trachea midline, no thyromegaly Chest/Pulm: No respiratory distress, symmetrical chest expansion, clear breath sounds throughout Cardiac: RRR, murmur from mechanical mitral valve noted Abdomen: Negative for ascites and bruising, normoactive bowel sounds, soft, non-tender to palpation throughout Musculoskeletal: Tenderness to the cervical, thoracic, and lumbar upper lumbar spine without crepitus or step offs noted, BL upper and lower extremities are symmetrical and with intact ROM Extremities: Radial, dorsalis pedis, and posterior tibial pulses are intact and symmetrical, no edema noted in the BL LE's Skin: Warm, dry, no rashes , lesions, or scars noted Neuro: Alert and oriented to person and place only, no focal defects, CN II- XII tested and intact, symmetrical strength in the BL upper and lower extremities Psych: No acute distress, calm and cooperative during the exam Results & Data Results & Data Vital Signs (Past 12 Hours) Vital Signs Temp Pulse Resp BP Pulse Ox O2 Del Method 12/04/22 15:31 66 20 12/04/22 15:31 167/88 H 12/04/22 15:30 66 18 12/04/22 15:20 65 27 H 12/04/22 15:10 66 25 H 98 12/04/22 15:00 67 13 12/04/22 15:00 143/84 H 12/04/22 14:50 66 19 94 12/04/22 14:40 68 13 93 12/04/22 14:30 70 21 91 12/04/22 14:30 142/80 H 12/04/22 14:23 161/85 H 12/04/22 14:23 73 25 H 91 12/04/22 14:22 75 21 12/04/22 13:40 73 19 12/04/22 13:30 73 23 12/04/22 13:30 151/87 H 12/04/22 13:20 72 16 12/04/22 13:10 160 H 22 12/04/22 13:00 71 20 12/04/22 13:00 153/89 H 12/04/22 12:50 72 14 91 12/04/22 12:40 73 16 12/04/22 12:32 75 15 12/04/22 12:43 76 12/04/22 11:50 36.6 C 114 H 20 93/64 L 93 Room Air Laboratory Results Abnormal lab results 12/04/22 12/04/22 12/04/22 Range/Units 12:46 12:46 12:46 Hgb 12.9 L (14.0-18.0) g/dl MCHC 30.6 L (32.0-36.0) g/dL RDW Std Deviation 52.4 H (36.4-46.3) fL RDW Coeff of Florecita 17.5 H (11.5-14.5) % Lymph # (Auto) 0.76 L (1.2-3.4) K/uL [place] # (Auto) 0.89 H (0.11-0.59) K/uL PT (9.0-12.0) Seconds INR (0.9-1.1) APTT (21.0-31.0) Seconds BUN 32 H (6-23) mg/dl Creatinine 1.66 H (0.6-1.4) mg/dl Glucose 127 H (70-99(Fasting)) mg/dl Lactate 2.6 H* (0.4-2.0) mmol/L ALT 4 L (7-52) U/L Alkaline Phosphatase 190 H (34-104) U/L Troponin I High Sens 24.4 H (0-20) pg/ml Urine Appearance (Clear) Ur Specific Hubert (1.000-1.030) Urine Protein (Negative) Urine Ketones (Negative) Urine Blood (Negative) Urine Bilirubin (Negative) Ur Leukocyte Esterase (Negative) Urine WBC (Auto) (0-5) /hpf Urine RBC (Auto) (0-4) /hpf U Hyaline Cast (Auto) (0-5) /lpf U Epithel Cells (Auto) (0-5) /lpf 12/04/22 12/04/22 12/04/22 Range/Units 12:46 14:26 15:12 Hgb (14.0-18.0) g/dl MCHC (32.0-36.0) g/dL RDW Std Deviation (36.4-46.3) fL RDW Coeff of Florecita (11.5-14.5) % Lymph # (Auto) (1.2-3.4) K/uL [place] # (Auto) (0.11-0.59) K/uL PT 40.3 H (9.0-12.0) Seconds INR 4.0 H (0.9-1.1) APTT 47.0 H* (21.0-31.0) Seconds BUN (6-23) mg/dl Creatinine (0.6-1.4) mg/dl Glucose (70-99(Fasting)) mg/dl Lactate (0.4-2.0) mmol/L ALT (7-52) U/L Alkaline Phosphatase (34-104) U/L Troponin I High Sens 22.8 H (0-20) pg/ml Urine Appearance Cloudy A (Clear) Ur Specific Hub[place] 1.045 H (1.000-1.030) Urine Protein 1+ H (Negative) Urine Ketones Trace H (Negative) Urine Blood 1+ H (Negative) Urine Bilirubin 1+ H (Negative) Ur Leukocyte Esterase Trace H (Negative) Urine WBC (Auto) 10-30 H (0-5) /hpf Urine RBC (Auto) >30 H (0-4) /hpf U Hyaline Cast (Auto) 5-10 H (0-5) /lpf U Epithel Cells (Auto) >30 H (0-5) /lpf Diagnostic Findings Chest X-Ray 12/04/22 12:22 XR chest 1V portable HISTORY: 77 years-old Male Sepsis acute sepsis COMPARISON: 04/21/2022 TECHNIQUE: AP view of the chest FINDINGS: Cardiac silhouette is enlarged. Prior median sternotomy with cardiac valvular prosthesis. Mild right hemidiaphragmatic elevation with subsegmental bibasilar atelectasis. No pneumothorax, large pleural effusion or overt pulmonary edema. Unchanged likely benign lucent focus of the anterior left third rib. Chronic interstitial coarsening. Degenerative changes of the shoulders and spine. IMPRESSION: No acute process. ACT 112: Negative or not required by law. The above report was generated using voice recognition software. It may contain grammatical, syntax or spelling errors. Electronically signed by: Nicholas Lay M.D. 12/04/2022 1:[address] 12/04/22 12:22 CT head/brain wo con CLINICAL HISTORY: 77 years-old Male with fall, altered loc. Acute head injury status post fall TECHNIQUE: Multiple axial CT images of the head were obtained without contrast. A dose lowering technique was utilized adhering to the principles of ALARA. COMPARISON: 04/21/2022 FINDINGS: No acute intracranial hemorrhage, midline shift, intracranial mass, territorial ischemia or acute extra-axial collection. Involutional changes with chronic microvascular ischemic disease. Unchanged encephalomalacia of the right frontal lobe anteriorly. Unchanged 5 mm hyperdensity posterior to the right cerebral hemisphere which is likely a stable postoperative finding. Unchanged ventriculomegaly. No acute calvarial fracture. Prior right-sided craniotomy. Partially imaged polypoid mucosal thickening of the left maxillary sinus. Mastoid air cells are clear. IMPRESSION: Chronic findings as above without acute intracranial abnormality. ACT 112: Negative or not required by law. The above report was generated using voice recognition software. It may contain grammatical, syntax or spelling errors. Electronically signed by: Nicholas Lay M.D. 12/04/2022 3:16 PM Abdomen/Pelvis CT 12/04/22 12:[address] WITH IV CONTRAST CT DOSE: 2116.66 mGy.cm HISTORY: Acute abdominal and low back pain status post fall fall, back pain TECHNIQUE: Multiaxial CT images of the abdomen, pelvis and lumbar spine were performed following the IV administration of 85 cc of Optiray, A dose lowering technique was utilized adhering to the principles of ALARA. COMPARISON STUDY: 04/21/2022. FINDINGS: CT ABDOMEN/PELVIS: Cardiomegaly. Prior median sternotomy with prosthetic mitral valve. Mild subsegmental bibasilar atelectasis. No pneumatosis or pneumoperitoneum. Calcified granulomata of the spleen. 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 3 mm parenchymal calcification of the pancreas on image 131 is unchanged, within or adjacent to the duct. No associated ductal dilation. Unremarkable adrenal glands, gallbladder and liver. Numerous tiny renal cysts. There are several nonobstructing calculi of the kidneys measuring up to 3 mm on the right and 5 mm on the left. Cortical scarring with parenchymal thinning of the interpolar right kidney. No ureteral calculi or hydronephrosis. Urinary bladder wall thickening with partial distention. Prostatomegaly. Findings suggestive of prior right sided inguinal hernia repair. Fat filled left inguinal hernia. No abdominal aortic aneurysm or lymphadenopathy. Small hiatal hernia. No bowel obstruction or bowel wall thickening. Colonic diverticulosis. Normal appendix. No ascites or mesenteric inflammation. Diastases recti. CT LUMBAR SPINE: Multilevel degenerative changes. Demineralized appearance of the bones. Mild superior endplate compression of less than 20% involving the T12 vertebral body with 2 mm retropulsion and is new from prior. 30% inferior endplate compression at L2 without retropulsion is also new from prior. Chronic superior endplate compression at L4 without retropulsion. Posterior elements appear intact. Moderate lumbar levoscoliosis. IMPRESSION: 1. No acute posttraumatic intra-abdominal or intrapelvic abnormality. 2. Nonobstructing bilateral nephrolithiasis. 3. Mild superior endplate compression at T12 with 2 mm retropulsion and 30% inferior endplate compression at L2 are new from 04/21/2022. Findings are suspicious for acute or subacute fractures. Correlate with point tenderness. 4. Additional findings as above. ACT 112: Negative or not required by law. The above report was generated using voice recognition software. It may contain grammatical, syntax or spelling errors. Electronically signed by: Nicholas Lay M.D. 12/04/2022 3:[address] 12/04/22 12:[address] WITH IV CONTRAST CT DOSE: 2116.66 mGy.cm HISTORY: Acute abdominal and low back pain status post fall fall, back pain TECHNIQUE: Multiaxial CT images of the abdomen, pelvis and lumbar spine were performed following the IV administration of 85 cc of Optiray, A dose lowering technique was utilized adhering to the principles of ALARA. COMPARISON STUDY: 04/21/2022. FINDINGS: CT ABDOMEN/PELVIS: Cardiomegaly. Prior median sternotomy with prosthetic mitral valve. Mild subsegmental bibasilar atelectasis. No pneumatosis or pneumoperitoneum. Calci fied granulomata of the spleen. 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 3 mm parenchymal calcification of the pancreas on image 131 is unchanged, within or adjacent to the duct. No associated ductal dilation. Unremarkable adrenal glands, gallbladder and liver. Numerous tiny renal cysts. There are several nonobstructing calculi of the kidneys measuring up to 3 mm on the right and 5 mm on the left. Cortical scarring with parenchymal thinning of the interpolar right kidney. No ureteral calculi or hydronephrosis. Urinary bladder wall thickening with partial distention. Prostatomegaly. Findings suggestive of prior right sided inguinal hernia repair. Fat filled left inguinal hernia. No abdominal aortic aneurysm or lymphadenopathy. Small hiatal hernia. No bowel obstruction or bowel wall thickening. Colonic diverticulosis. Normal appendix. No ascites or mesenteric inflammation. Diastases recti. CT LUMBAR SPINE: Multilevel degenerative changes. Demineralized appearance of the bones. Mild superior endplate compression of less than 20% involving the T12 vertebral body with 2 mm retropulsion and is new from prior. 30% inferior endplate compression at L2 without retropulsion is also new from prior. Chronic superior endplate compression at L4 without retropulsion. Posterior elements appear intact. Moderate lumbar levoscoliosis. IMPRESSION: 1. No acute posttraumatic intra-abdominal or intrapelvic abnormality. 2. Nonobstructing bilateral nephrolithiasis. 3. Mild superior endplate compression at T12 with 2 mm retropulsion and 30% inferior endplate compression at L2 are new from 04/21/2022. Findings are suspicious for acute or subacute fractures. Correlate with point tenderness. 4. Additional findings as above. ACT 112: Negative or not required by law. The above report was generated using voice recognition software. It may contain grammatical, syntax or spelling errors. Electronically signed by: Nicholas Lay M.D. 12/04/2022 3:17 PM ECG Additional Comments: Normal sinus rhythm Inferior infarct , age undetermined ST & T wave abnormality, consider lateral ischemia Abnormal ECG When compared with ECG of 21-APR-2022 11:34, Premature atrial complexes are no longer Present Vent. rate has decreased BY 41 BPM Inverted T waves have replaced nonspecific T wave abnormality in Lateral leads Code Status & VTE Plan Code Status DNR/DNI Supervising Physician Co-Signing Physician Notes I personally saw and examined the patient. I verified all hoang points and agree with Sean Swan PA-C with the following exceptions and/or additions: 77 year old male with Parkinson's presents with decreased oral intake and confusion. not available at bedside when seen (please see more detailed history above). Patient reports no current complaints. O/E pin-rolling tremor present, cogwheel rigidity, dry mucus membranes, RRR, mechanical valve click present, Chest CTAB, Abdo SNT, BS normal A/P T12 and L2 compression fractures - likely from recent fall, pain control, lidocaine patch, PT/OT. Acute confusion - ?increased confusion as combination of pain from back +/- dehydration from reduced oral intake. No infective source found. Supratherapeutic INR - hold warfarin dn repeat INR in AM PG Care Time/CCT Total # of Minutes Spent Total Time Spent with Patient: Total time spent is greater than 50% in coordination of care (as documented) at patient's floor/unit and/or counseling patient: [place] [address] INT INP/OBS CARE 3/75MIN Patient Type Established Medical Decision Making High Complexity Diagnoses Weakness R53.1 KARI (acute kidney injury) N17.9 Neck pain M54.2 Elevated troponin R77.8 Back pain M54.6 Back pain laterality: bilateral Back pain location: thoracic back pain Chronicity: acute Supratherapeutic INR R79.1 Diabetes mellitus, type 2 E11.9 BPH (benign prostatic hyperplasia) N40.0 SDH (subdural hematoma) S06.5X9A Parkinsonism G20 Dementia F03.90 (5) Back pain Back pain laterality: bilateral Back pain location: thoracic back pain Chronicity: acute Qualified Code(s): M54.6 - Pain in thoracic spine
[2022-12-04] MEDS ORDERED: LACTATED RINGER'S 1,000 ML IV ONE (16:30)
[2022-12-04] MEDS ORDERED: CARBIDOPA/LEVODOPA 25/100MG TAB PO STA (16:34)
[2022-12-04] MEDS ORDERED: LIDOCAINE 5% 1 PATCH TD STA (16:38)
[2022-12-04] MEDS ORDERED: ACETAMINOPHEN 1,000 MG/100 ML VIAL IV STA (16:38)
--- NOTE | 2022-12-04 17:58 | CT Scan Report ---
CT cervical spine wo con CLINICAL HISTORY: 77 years-old Male with fall, neck pain, on warfarin. Acute neck pain status post f all COMPARISON: Head CT of same day, chest CT 09/30/2021 TECHNIQUE: Multiple axial CT images of the cervical spine were obtained without contrast. A dose low ering technique was utilized adhering to the principles of ALARA. FINDINGS: Multilevel degenerative changes. Chronic appearing superior endplate compression at C7 and T1 is similar to prior. Demineralized appearance of the bones. The cervical soft tissues appear unremarkable. The visualized lung apices appear clear. IMPRESSION: No acute cervical spine fracture or subluxation identified. ACT 112: Negative or not required by law. The above report was generated using voice recognition software. It may contain grammatical, syntax o r spelling errors. Electronically signed by: Nicholas Lay M.D. 12/04/2022 5:56 PM
[2022-12-04 19:32] LABS: Adenovirus PCR Not Detected (NotDetected); Bordetella parapertussis PCR Not Detected (NotDetected); Bordetella pertussis PCR Not Detected (NotDetected); Chlamydia pneumoniae PCR Not Detected (NotDetected); Coronavirus 229E PCR Not Detected (NotDetected); Coronavirus CoV-2 (COVID19)PCR Not Detected (NotDetected); Coronavirus HKU1 PCR Not Detected (NotDetected); Coronavirus NL63 PCR Not Detected (NotDetected); Coronavirus OC43PCR Not Detected (NotDetected); Human Metapneumovirus PCR Not Detected (NotDetected); Influenza A PCR Not Detected (NotDetected); Influenza B PCR Not Detected (NotDetected); Mycoplasma pneumoniae PCR Not Detected (NotDetected); Parainfluenza Virus 1 PCR Not Detected (NotDetected); Parainfluenza Virus 2 PCR Not Detected (NotDetected); Parainfluenza Virus 3 PCR Not Detected (NotDetected); Parainfluenza Virus 4 PCR Not Detected (NotDetected); Respiratory Syncytial VirusPCR Not Detected (NotDetected); Rhinovirus/Enterovirus PCR Not Detected (NotDetected)
[2022-12-04] MEDS ORDERED: LACTATED RINGER'S 1,000 ML IV SCH (20:00)
[2022-12-04] MEDS: INSULIN ASPART PER UNIT CHARGE SC SCH (21:01)
[2022-12-04] MEDS: CARBIDOPA/LEVODOPA 25/100MG TAB PO SCH (21:29)
[2022-12-04] MEDS: MEMANTINE HCL 10 MG TAB PO SCH (21:30)
[2022-12-04] MEDS: DONEPEZIL HCL 10 MG TAB PO SCH (21:30)
[2022-12-04] MEDS: PREGABALIN 100 MG CAP PO SCH (21:34)
[2022-12-05 07:15] LABS: Basophils # (auto) 0.03 K/uL (0-0.2); Basophils % (auto) 0.8 %; Eosinophils # (auto) 0.15 K/uL (0-0.50); Hemoglobin 10.9 g/dl (14.0-18.0); Immature Granulocytes # (auto) 0.02 K/uL (0.01-0.20); Immature Granulocytes % (auto) 0.5 %; Lymphocytes # (auto) 1.15 K/uL (1.2-3.4); Lymphocytes % (auto) 30.7 %; Mean Corpuscular Hemoglobin 25.9 pg (25.0-34.0); Mean Corpuscular Hgb Conc 31.1 g/dL (32.0-36.0); Mean Corpuscular Volume 83.1 fL (80.0-100.0); Mean Platelet Volume 10.8 fL (9.4-12.4); Monocytes # (auto) 0.57 K/uL (0.11-0.59); Monocytes % (auto) 15.2 %; Neutrophils # (auto) 1.82 K/uL (1.40-6.50); Neutrophils % (auto) 48.8 %; Platelet Count 153 K/uL (130-400); RDW Standard Deviation 50.4 fL (36.4-46.3); Red Blood Count 4.21 M/uL (4.70-6.10); White Blood Count 3.74 K/ul (4.8-10.8)
[2022-12-05 07:30] LABS: BUN Creatinine Ratio 25.2 (10-20); Calcium 8.5 mg/dl (8.6-10.3); Creatinine Clr Calc Pharmacy 55.4 ml/min; Est GFR (African American) 67.9 ml/min; Est GFR (Non-African American) 58.6 ml/min; Magnesium 1.9 mg/dl (1.7-2.4); Potassium 3.9 mmol/L (3.5-5.1)
[2022-12-05 07:47] LABS: Prothrombin Time 49.6 Seconds (9.0-12.0)
[2022-12-05] MEDS: CARBIDOPA/LEVODOPA 25/100MG TAB PO SCH ×3 (08:16→21:19)
[2022-12-05] MEDS: DULoxetine HCL 30 MG CAP PO SCH (08:16)
[2022-12-05] MEDS: MEMANTINE HCL 10 MG TAB PO SCH ×2 (08:16→21:20)
[2022-12-05] MEDS: PROPRANOLOL HCL 60 MG LA CAP PO SCH (08:17)
[2022-12-05] MEDS: FINASTERIDE 5 MG TAB PO SCH (08:17)
[2022-12-05] MEDS: TAMSULOSIN HCL 0.4 MG CAP PO SCH (08:17)
[2022-12-05] MEDS: VIBEGRON 75 MG TAB PO SCH (08:17)
[2022-12-05] MEDS: DULoxetine HCL 60 MG CAP PO SCH (08:17)
[2022-12-05] MEDS: buPROPion XL 150 MG TABCR PO SCH (08:17)
--- NOTE | 2022-12-05 08:21 | Hospitalist Progress Note ---
Date of Service December 05, 2022 Assessment & Plan (1) Weakness: Plan: 77 year old male w/ PmHx Parkinsonism with Dementia, previous subdural and epidural hematomas in 2014 with recurrent Subdural hematoma in December of 2021 (not traumatic), S/P mechanical heart valve placement on Warfarin, hematuria, Gout, previous bladder cancer S/P resection, BPH, HTN, hyperlipidemia, and DMII admitted for weakness due to dehydration. Weakness: -Development of worsening generalized weakness over past 4-5 days, decreased appetite. -Creatinine 1.66 on admission, baseline 0.9-1.3. -CT Head and CT A&P without any acute changes. Supratherapeutic for INR but no acute bleeds on scan. -Biofire negative. -Most U/A w/ LE but no bacteria. Unable to get any valid urinary symptoms from patient given dementia. -Blood cultures with 1/2 growth of gram + cocci in clusters, PCR growing Methicillin Resistant staph epi - most likely contaminant. Follow cultures. -Given one dose of CTX in ED however less likely urinary issue, vitals have remained stable throughout stay, no elevated WBC count. -Most likely weakness secondary to dehydration. -Continue hydration on maintenance fluids. -PT/OT eval and treat, will appreciate recommendations. -Follow CBC, BMP, INR. KARI: -Creatinine 1.66 on admission, down to 1.19 following hydration. -Continue as above with mIVF. -Trend BMP. Neck Pain: -moderate neck pain on admission, no complaints this morning. -Recent fall on Warfarin, supratherapeutic INR. -CT Head negative. Elevated troponin: -Initially high at 24, repeat down to 22. -Likely due to demand ischemia from KARI. Back pain: -Mild superior endplate copmression at T12 w/ 2mm retropulsion and 30% inferior endplate compression at L2 are new from 04/21/2022. -Pain control with PRN tylenol and lidocaine patches. -Fall precautions. Supratherapeutic INR: -4.0 on admission, did not take warfarin yesterday. -Goal INR 2.5-3.5 w/ mechanical mitral valve. -Holding warfarin and monitor INR until in therapeutic range. -AST and ALT WNL, Alk phos mildly elevated. -Continue to monitor for signs of bleeding. T2DM: -Well controlled off treatment. -Monitor glucose ACHS, goal 110-160. -T2DM carb count diet. BPH: -continue finasteride and flomax. SDH: -History of multiple previous SDH, both traumatic and atraumatic. -CT head on admission negative. -If worsening acute mental status or neurologic changes would get STAT CT head. Parkinsonism: -continue carbidopa-levodopa. Dementia: -Continue namenda, duloxetine, bupropion. F/E/N/GI: HH and T2DM diet. DVT Prophylaxis: Supratherapeutic INR, will resume warfarin when within goal range. Code status: DNR/DNI. Dispo: Med/surg. PT/OT eval. (2) KARI (acute kidney injury): (3) Neck pain: (4) Elevated troponin: (5) Back pain: (6) Supratherapeutic INR: (7) Diabetes mellitus, type 2: (8) BPH (benign prostatic hyperplasia): (9) SDH (subdural hematoma): (10) Parkinsonism: (11) Dementia: Admission and Anticipated Discharge Date Admission Date: December 04, 2022 Supervising Physician Co-Signing Physician Notes I personally examined the patient and verified all hoang points of history and exam, discussed case, and agree with decision making with Dr Brooks No meaningful HPI review of systems obtainable from patient. discussing dispo - would hope personal care but knows he might be too weak for [facility] capabailities - and understands SNF might be needed. vitals noted no distress breathing unlabored no accessory muscles good effort skin no rashes no pallor or icterus delirium on dementia - dehydration - rehydrated. deconditioning/weakness- PT/OT eval and treat. Subjective Patient seen at the bedside this morning only oriented to name but not in any acute distress. No acute complaints from patient this morning. Review of Systems Review of Systems: As per HPI. Physical Exam Constitutional: WD/WN, vitals as above Not in any acute distress. Laying in bed rubbing L eye area. Eyes: PERRL, conjunctivae normal, anicteric sclerae Respiratory: normal respiratory effort, lungs clear to auscultation Cardiovascular: RRR, no murmur, no edema Gastrointestinal (Abdomen): normal bowel sounds, soft, nontender, no hepatosplenomegaly Psychiatric: Orientation: alert and oriented to person Results & Data Results & Data Vital Signs (Past 12 Hours) Vital Signs Temp Pulse Pulse Resp BP Pulse Ox O2 Del Method 12/05/22 07:41 36.3 C L 90 14 172/82 H 95 Room Air 12/04/22 21:35 36.4 C L 62 18 167/81 H 96 Room Air Resident Activity Tracking Resident Involvement: Resident Care Provided Care Provided: Adult Hospital Medicine (5) Back pain Back pain laterality: bilateral Back pain location: thoracic back pain Chronicity: acute Qualified Code(s): M54.6 - Pain in thoracic spine
[2022-12-05] MEDS: INSULIN ASPART PER UNIT CHARGE SC SCH ×4 (08:27→21:26)
[2022-12-05] MEDS: PREGABALIN 100 MG CAP PO SCH ×2 (08:44→21:19)
[2022-12-05 09:07] LABS: A calco-baum cmplx NotReported Not Detected (NotDetected); Bact fragilis Not Reported Not Detected (NotDetected); C auris Not Reported Not Detected (NotDetected); Calbicans Not Reported Not Detected (NotDetected); Candida glabrata Not Reported Not Detected (NotDetected); Candida krusei Not Reported Not Detected (NotDetected); Cneoformans/gatti Not Reported Not Detected (NotDetected); Cparapsilosis Not Reported Not Detected (NotDetected); Ctropicalis Not Reported Not Detected (NotDetected); E cloacae compx Not Reported Not Detected (NotDetected); Efaecalis Not Reported Not Detected (NotDetected); Efaecium Not Reported Not Detected (NotDetected); Enterobacterales Not Reported Not Detected (NotDetected); Escherichia coli Not Reported Not Detected (NotDetected); H influenzae Not Reported Not Detected (NotDetected); K aerogenes Not Reported Not Detected (NotDetected); Koxytoca Not Reported Not Detected (NotDetected); Kpneumoniae grp Not Reported Not Detected (NotDetected); Lmonocyt Not Reported Not Detected (NotDetected); N meningitidis Not Reported Not Detected (NotDetected); P aeruginosa Not Reported Not Detected (NotDetected); Proteus spp Not Reported Not Detected (NotDetected); Salmonella spp Not Reported Not Detected (NotDetected); Smarcescens Not Reported Not Detected (NotDetected); Staph lugdunensis Not Reported Not Detected (NotDetected); Staph spp. Not Reported DETECTED (NotDetected); Staphaureus Not Reported Not Detected (NotDetected); Staphepi Not Reported DETECTED (NotDetected); Staphylococcus spp. DETECTED (NotDetected); Stenmaltophilia Not Reported Not Detected (NotDetected); Strep agal(GrpB) Not Reported Not Detected (NotDetected); Strep pneum Not Reported Not Detected (NotDetected); Strep pyog (GrpA) Not Reported Not Detected (NotDetected); Strep spp Not Reported Not Detected (NotDetected); mecAC Resistant Gene DETECTED (NotDetected)
[2022-12-05 09:41] LABS: Staphylococcus epidermidis DETECTED (NotDetected)
[2022-12-05] MEDS: ACETAMINOPHEN 325 MG TAB PO PRN (13:50)
--- NOTE | 2022-12-05 17:15 | Billing Data ---
Date of Service December 05, 2022 Coding Level of Care Code 74313 SUB INP/OBS CARE
[2022-12-05] MEDS: DONEPEZIL HCL 10 MG TAB PO SCH (21:20)
--- NOTE | 2022-12-06 06:11 | Electrocardiogram Report ---
Test Reason : Blood Pressure : / mmHG Vent. Rate : 075 BPM Atrial Rate : 075 BPM P-R Int : 182 ms QRS Dur : 110 ms QT Int : 416 ms P-R-T Axes : 007 -09 145 degrees QTc Int : 464 ms Normal sinus rhythm Inferior infarct , age undetermined Abnormal ECG When compared with ECG of 21-APR-2022 11:34, Premature atrial complexes are no longer Present Vent. rate has decreased BY 41 BPM Inverted T waves have replaced nonspecific T wave abnormality in Lateral leads Confirmed by Lc Dozier ([id number]) on 12/06/2022 6:11:31 AM Referred By: REFERRED SELF Confirmed By:Lc Dozier
--- NOTE | 2022-12-06 06:43 | Hospitalist Progress Note ---
Date of Service December 06, 2022 Assessment & Plan (1) Weakness: Plan: 77 year old male w/ PmHx Parkinsonism with Dementia, previous subdural and epidural hematomas in 2014 with recurrent Subdural hematoma in December of 2021 (not traumatic), S/P mechanical heart valve placement on Warfarin, hematuria, Gout, previous bladder cancer S/P resection, BPH, HTN, hyperlipidemia, and DMII admitted for weakness due to dehydration. Weakness: -Development of worsening generalized weakness over past 4-5 days, decreased appetite. -Creatinine 1.66 on admission, baseline 0.9-1.3. -CT Head and CT A&P without any acute changes. Supratherapeutic for INR but no acute bleeds on scan. -Biofire negative. -Most U/A w/ LE but no bacteria. Unable to get any valid urinary symptoms from patient given dementia. -Blood cultures with 1/2 growth of gram + cocci in clusters, PCR growing Methicillin Resistant staph epi - most likely contaminant. Follow cultures. -Given one dose of CTX in ED however less likely urinary issue, vitals have remained stable throughout stay, no elevated WBC count. -Most likely weakness secondary to dehydration. -Continue hydration on maintenance fluids. -PT/OT eval and treat. Recommended rehab. Will go to [facility] or Monday. -Follow CBC, BMP, INR. KARI: -Creatinine 1.66 on admission, down to 1.19 following hydration. -Continue as above with mIVF. -Trend BMP. Neck Pain: -moderate neck pain on admission, no complaints this morning. -Recent fall on Warfarin, supratherapeutic INR. -CT Head negative. Elevated troponin: -Initially high at 24, repeat down to 22. -Likely due to demand ischemia from KARI. Back pain: -Mild superior endplate copmression at T12 w/ 2mm retropulsion and 30% inferior endplate compression at L2 are new from 04/21/2022. -Pain control with PRN tylenol and lidocaine patches. -Fall precautions. Supratherapeutic INR: -4.0 on admission, did not take warfarin yesterday. -Goal INR 2.5-3.5 w/ mechanical mitral valve. -Holding warfarin and monitor INR until in therapeutic range. -AST and ALT WNL, Alk phos mildly elevated. -Continue to monitor for signs of bleeding. T2DM: -Well controlled off treatment. -Monitor glucose ACHS, goal 110-160. -T2DM carb count diet. BPH: -continue finasteride and flomax. SDH: -History of multiple previous SDH, both traumatic and atraumatic. -CT head on admission negative. -If worsening acute mental status or neurologic changes would get STAT CT head. Parkinsonism: -continue carbidopa-levodopa. Dementia: -Continue namenda, duloxetine, bupropion. F/E/N/GI: HH and T2DM diet. DVT Prophylaxis: Supratherapeutic INR, will resume warfarin when within goal range. Code status: DNR/DNI. Dispo: Med/surg. PT/OT eval - will go to [facility] or Monday. (2) KARI (acute kidney injury): (3) Neck pain: (4) Elevated troponin: (5) Back pain: (6) Supratherapeutic INR: (7) Diabetes mellitus, type 2: (8) BPH (benign prostatic hyperplasia): (9) SDH (subdural hematoma): (10) Parkinsonism: (11) Dementia: Admission and Anticipated Discharge Date Admission Date: December 04, 2022 Supervising Physician Co-Signing Physician Notes I personally examined the patient and verified all hoang points of history and exam, discussed case, and agree with decision making with Dr Brooks No meaningful HPI review of systems obtainable from patient. dispo now targeting [facility] vitals noted no distress breathing unlabored no accessory muscles good effort skin no rashes no pallor or icterus delirium on dementia - dehydration - rehydrated. deconditioning/weakness- PT/OT eval and treat. plan for [facility]. Subjective Patient seen at the bedside this morning without any acute complaints. Eating breakfast in bed without much issue. Review of Systems Review of Systems: As per HPI. Physical Exam Constitutional: WD/WN, vitals as above Eyes: PERRL, conjunctivae normal, anicteric sclerae Respiratory: normal respiratory effort, lungs clear to auscultation Cardiovascular: RRR, no murmur, no edema Gastrointestinal (Abdomen): normal bowel sounds, soft, nontender, no hepatosplenomegaly Psychiatric: Orientation: alert and oriented to person Results & Data Results & Data Vital Signs (Past 12 Hours) Vital Signs Temp Pulse Resp BP Pulse Ox O2 Del Method 12/05/22 21:47 36.8 C 67 17 155/80 H 97 Room Air Resident Activity Tracking Resident Involvement: Resident Care Provided Care Provided: Adult Hospital Medicine (5) Back pain Back pain laterality: bilateral Back pain location: thoracic back pain Chronicity: acute Qualified Code(s): M54.6 - Pain in thoracic spine
[2022-12-06] MEDS: INSULIN ASPART PER UNIT CHARGE SC SCH ×4 (08:20→21:42)
[2022-12-06] MEDS: DULoxetine HCL 30 MG CAP PO SCH (08:39)
[2022-12-06] MEDS: PREGABALIN 100 MG CAP PO SCH ×2 (08:39→20:58)
[2022-12-06] MEDS: VIBEGRON 75 MG TAB PO SCH (08:39)
[2022-12-06] MEDS: TAMSULOSIN HCL 0.4 MG CAP PO SCH (08:39)
[2022-12-06] MEDS: buPROPion XL 150 MG TABCR PO SCH (08:39)
[2022-12-06] MEDS: DULoxetine HCL 60 MG CAP PO SCH (08:39)
[2022-12-06] MEDS: MEMANTINE HCL 10 MG TAB PO SCH ×2 (08:39→20:59)
[2022-12-06] MEDS: FINASTERIDE 5 MG TAB PO SCH (08:39)
[2022-12-06] MEDS: CARBIDOPA/LEVODOPA 25/100MG TAB PO SCH ×3 (08:39→20:58)
[2022-12-06] MEDS: PROPRANOLOL HCL 60 MG LA CAP PO SCH (08:39)
[2022-12-06 10:25] LABS: Basophils # (auto) 0.02 K/uL (0-0.2); Basophils % (auto) 0.6 %; Eosinophils # (auto) 0.13 K/uL (0-0.50); Eosinophils % (auto) 3.7 %; Hematocrit (blood only) 38.3 % (42.0-52.0); Hemoglobin 11.7 g/dl (14.0-18.0); Immature Granulocytes # (auto) 0.01 K/uL (0.01-0.20); Immature Granulocytes % (auto) 0.3 %; Lymphocytes # (auto) 1.05 K/uL (1.2-3.4); Lymphocytes % (auto) 30.1 %; Mean Corpuscular Hemoglobin 25.7 pg (25.0-34.0); Mean Corpuscular Hgb Conc 30.5 g/dL (32.0-36.0); Mean Platelet Volume 10.9 fL (9.4-12.4); Monocytes # (auto) 0.39 K/uL (0.11-0.59); Monocytes % (auto) 11.2 %; Neutrophils # (auto) 1.89 K/uL (1.40-6.50); Neutrophils % (auto) 54.1 %; Platelet Count 170 K/uL (130-400); RDW Coefficient of Variation 16.5 % (11.5-14.5); Red Blood Count 4.56 M/uL (4.70-6.10); White Blood Count 3.49 K/ul (4.8-10.8)
[2022-12-06 10:42] LABS: BUN Creatinine Ratio 20.4 (10-20); Est GFR (African American) 76.3 ml/min; Est GFR (Non-African American) 65.9 ml/min; Magnesium 1.9 mg/dl (1.7-2.4)
[2022-12-06 10:48] LABS: INR 2.8 (0.9-1.1); Prothrombin Time 28.7 Seconds (9.0-12.0)
[2022-12-06] MEDS: POLYETHYLENE (MIRALAX) 17 GM PACK PO SCH ×2 (11:51→20:59)
[2022-12-06] MEDS: ACETAMINOPHEN 325 MG TAB PO PRN (15:02)
--- NOTE | 2022-12-06 19:51 | Billing Data ---
Date of Service December 06, 2022 Coding Level of Care Code 04062 SUB INP/OBS CARE
[2022-12-06] MEDS: DONEPEZIL HCL 10 MG TAB PO SCH (20:59)
--- NOTE | 2022-12-07 08:23 | Hospitalist Progress Note ---
Date of Service December 07, 2022 Assessment & Plan (1) Weakness: Plan: 77 year old male w/ PmHx Parkinsonism with Dementia, previous subdural and epidural hematomas in 2014 with recurrent Subdural hematoma in December of 2021 (not traumatic), S/P mechanical heart valve placement on Warfarin, hematuria, Gout, previous bladder cancer S/P resection, BPH, HTN, hyperlipidemia, and DMII admitted for weakness due to dehydration. Weakness: -Development of worsening generalized weakness over past 4-5 days, decreased appetite. -Creatinine 1.66 on admission, baseline 0.9-1.3. -CT Head and CT A&P without any acute changes. Supratherapeutic for INR but no acute bleeds on scan. -Biofire negative. -Most U/A w/ LE but no bacteria. Unable to get any valid urinary symptoms from patient given dementia. -Blood cultures with 1/2 growth of gram + cocci in clusters, PCR growing Methicillin Resistant staph epi - most likely contaminant. Follow cultures. -Given one dose of CTX in ED however less likely urinary issue, vitals have remained stable throughout stay, no elevated WBC count. -Most likely weakness secondary to dehydration. -Given fluid rehydration via IVF. Eating well currently. -PT/OT eval and treat. Recommended rehab. Will go to [facility] or Monday. -Follow CBC, BMP, INR. KARI: resolved -Creatinine 1.66 on admission, down to 1.19 following hydration. -Trend BMP. Neck Pain: -moderate neck pain on admission, no complaints this morning. -Recent fall on Warfarin, supratherapeutic INR. -CT Head negative. Elevated troponin: -Initially high at 24, repeat down to 22. -Likely due to demand ischemia from KARI. Back pain: -Mild superior endplate copmression at T12 w/ 2mm retropulsion and 30% inferior endplate compression at L2 are new from 04/21/2022. -Pain control with PRN tylenol and lidocaine patches. -Fall precautions. Supratherapeutic INR: -4.0 on admission, did not take warfarin yesterday. -Goal INR 2.5-3.5 w/ mechanical mitral valve. -INR 1.8 this AM, will give 5mg today and recheck INR tomorrow. -AST and ALT WNL, Alk phos mildly elevated. -Continue to monitor for signs of bleeding. T2DM: -Well controlled off treatment. -Monitor glucose ACHS, goal 110-160. -T2DM carb count diet. BPH: -continue finasteride and flomax. SDH: -History of multiple previous SDH, both traumatic and atraumatic. -CT head on admission negative. -If worsening acute mental status or neurologic changes would get STAT CT head. Parkinsonism: -continue carbidopa-levodopa. Dementia: -Continue namenda, duloxetine, bupropion. F/E/N/GI: HH and T2DM diet. DVT Prophylaxis: Supratherapeutic INR, restart warfarin with 5mg today, recheck INR tomorrow morning. Code status: DNR/DNI. Dispo: Med/surg. PT/OT eval - will go to [facility] or Monday. (2) KARI (acute kidney injury): (3) Neck pain: (4) Elevated troponin: (5) Back pain: (6) Supratherapeutic INR: (7) Diabetes mellitus, type 2: (8) BPH (benign prostatic hyperplasia): (9) SDH (subdural hematoma): (10) Parkinsonism: (11) Dementia: Admission and Anticipated Discharge Date Admission Date: December 04, 2022 Supervising Physician Co-Signing Physician Notes I personally examined the patient and verified all hoang points of history and exam, discussed case, and agree with decision making with Dr Brooks No meaningful HPI review of systems obtainable from patient. dispo now targeting [facility] - anticipate tomorrow vitals noted no distress breathing unlabored no accessory muscles good effort skin no rashes no pallor or icterus delirium on dementia - dehydration - rehydrated. deconditioning/weakness- PT/OT eval and treat. plan for [facility] tomorrow. Subjective Patient seen at the bedside this morning without any acute complaints. No overnight events. Review of Systems Review of Systems: As per HPI. Physical Exam Constitutional: WD/WN, vitals as above Eyes: PERRL, conjunctivae normal, anicteric sclerae Respiratory: normal respiratory effort, lungs clear to auscultation Cardiovascular: RRR, no murmur, no edema Gastrointestinal (Abdomen): normal bowel sounds, soft, nontender, no hepatosplenomegaly Psychiatric: Orientation: alert and oriented to person Results & Data Results & Data Vital Signs (Past 12 Hours) Vital Signs Temp Pulse Pulse Resp BP BP Pulse Ox 12/07/22 07:30 36.5 C 81 18 118/76 92 12/06/22 21:00 12/06/22 21:56 36.5 C 64 16 131/74 96 O2 Del Method 12/07/22 07:30 Room Air 12/06/22 21:00 Room Air 12/06/22 21:56 Room Air Resident Activity Tracking Resident Involvement: Resident Care Provided Care Provided: Adult Hospital Medicine (5) Back pain Back pain laterality: bilateral Back pain location: thoracic back pain Chronicity: acute Qualified Code(s): M54.6 - Pain in thoracic spine
[2022-12-07] MEDS: INSULIN ASPART PER UNIT CHARGE SC SCH ×4 (08:31→21:30)
[2022-12-07] MEDS: SENNA 8.6 MG TAB PO SCH (08:33)
[2022-12-07] MEDS: CARBIDOPA/LEVODOPA 25/100MG TAB PO SCH ×3 (08:33→20:31)
[2022-12-07] MEDS: MEMANTINE HCL 10 MG TAB PO SCH ×2 (08:33→20:30)
[2022-12-07] MEDS: POLYETHYLENE (MIRALAX) 17 GM PACK PO SCH ×2 (08:34→19:38)
[2022-12-07] MEDS: buPROPion XL 150 MG TABCR PO SCH (08:34)
[2022-12-07] MEDS: PROPRANOLOL HCL 60 MG LA CAP PO SCH (08:34)
[2022-12-07] MEDS: DULoxetine HCL 30 MG CAP PO SCH (08:34)
[2022-12-07] MEDS: TAMSULOSIN HCL 0.4 MG CAP PO SCH (08:34)
[2022-12-07] MEDS: DULoxetine HCL 60 MG CAP PO SCH (08:34)
[2022-12-07] MEDS: FINASTERIDE 5 MG TAB PO SCH (08:34)
[2022-12-07] MEDS: VIBEGRON 75 MG TAB PO SCH (08:34)
[2022-12-07] MEDS: PREGABALIN 100 MG CAP PO SCH ×2 (08:44→19:38)
[2022-12-07 09:35] LABS: Basophils # (auto) 0.02 K/uL (0-0.2); Basophils % (auto) 0.6 %; Eosinophils # (auto) 0.11 K/uL (0-0.50); Eosinophils % (auto) 3.2 %; Hematocrit (blood only) 36.8 % (42.0-52.0); Hemoglobin 11.6 g/dl (14.0-18.0); Immature Granulocytes # (auto) 0.01 K/uL (0.01-0.20); Immature Granulocytes % (auto) 0.3 %; Lymphocytes # (auto) 0.83 K/uL (1.2-3.4); Lymphocytes % (auto) 24.1 %; Mean Corpuscular Hemoglobin 25.7 pg (25.0-34.0); Mean Corpuscular Hgb Conc 31.5 g/dL (32.0-36.0); Mean Corpuscular Volume 81.6 fL (80.0-100.0); Mean Platelet Volume 9.6 fL (9.4-12.4); Monocytes # (auto) 0.49 K/uL (0.11-0.59); Monocytes % (auto) 14.2 %; Neutrophils # (auto) 1.98 K/uL (1.40-6.50); Neutrophils % (auto) 57.6 %; Platelet Count 154 K/uL (130-400); RDW Coefficient of Variation 16.6 % (11.5-14.5); Red Blood Count 4.51 M/uL (4.70-6.10); White Blood Count 3.44 K/ul (4.8-10.8)
[2022-12-07 10:01] LABS: BUN Creatinine Ratio 17.5 (10-20); Calcium 8.8 mg/dl (8.6-10.3); Creatinine Clr Calc Pharmacy 57.8 ml/min; Est GFR (African American) 71.5 ml/min; Est GFR (Non-African American) 61.7 ml/min; Magnesium 1.9 mg/dl (1.7-2.4); Potassium 3.9 mmol/L (3.5-5.1)
[2022-12-07 10:06] LABS: INR 1.8 (0.9-1.1); Prothrombin Time 19.3 Seconds (9.0-12.0)
[2022-12-07] MEDS ORDERED: WARFARIN SOD 5 MG TAB PO ONE (13:40)
--- NOTE | 2022-12-07 17:29 | Billing Data ---
Date of Service December 07, 2022 Coding Level of Care Code 47612 SUB INP/OBS CARE
[2022-12-07] MEDS: DONEPEZIL HCL 10 MG TAB PO SCH (20:31)
[2022-12-08 09:11] LABS: INR 1.5 (0.9-1.1); Prothrombin Time 15.7 Seconds (9.0-12.0)
[2022-12-08] MEDS: SENNA 8.6 MG TAB PO SCH (09:25)
[2022-12-08] MEDS: MEMANTINE HCL 10 MG TAB PO SCH (09:25)
[2022-12-08] MEDS: CARBIDOPA/LEVODOPA 25/100MG TAB PO SCH (09:26)
[2022-12-08] MEDS: POLYETHYLENE (MIRALAX) 17 GM PACK PO SCH (09:26)
[2022-12-08] MEDS: DULoxetine HCL 30 MG CAP PO SCH (09:27)
[2022-12-08] MEDS: VIBEGRON 75 MG TAB PO SCH (09:27)
[2022-12-08] MEDS: buPROPion XL 150 MG TABCR PO SCH (09:27)
[2022-12-08] MEDS: TAMSULOSIN HCL 0.4 MG CAP PO SCH (09:27)
[2022-12-08] MEDS: PROPRANOLOL HCL 60 MG LA CAP PO SCH (09:27)
[2022-12-08] MEDS: DULoxetine HCL 60 MG CAP PO SCH (09:27)
[2022-12-08] MEDS: PREGABALIN 100 MG CAP PO SCH (09:31)
--- NOTE | 2022-12-08 10:08 | Discharge Summary ---
Date of Service December 08, 2022 Admission HPI Per Admitting Provider Chandan is a 77 year old male with a PMH significant for Parkinsonism with Dementia, previous subdural and epidural hematomas in 2014 with recurrent Subdural hematoma in December of 2021 (not traumatic), S/P mechanical heart valve placement on Warfarin, hematuria, Gout, previous bladder cancer S/P resection, BPH, HTN, hyperlipidemia, and DMII who presented to the [facility] ED on 12/04/22 with a chief complaint of acutely worsening mental status from baseline. In the ED he was initially hypotensive at 93/64 but otherwise stable. Labs were significant for a lymphopenia of 0.76, INR of 4.0, cr of 1.66 (baseline is 1.1), initial lactate of 2.6 --> 1.3 on repeat, alk phos of 190, initial high sen trop of 24, UA showing cloudy, dark yellow urine with trace leukocyte esterase, negative nitrites, 10-30 WBC, and negative bacteria, and covid [address] of the head was read as "Chronic findings as above without acute intracranial abnormality.". CXR xray was read as "No acute process". CT of the abd/pelvis w/IV con and CT of the lumbar spine were read as "1. No acute posttraumatic intra-abdominal or intrapelvic abnormality. 2. Nonobstructing bilateral nephrolithiasis. 3. Mild superior endplate compression at T12 with 2 mm retropulsion and 30% inferior endplate compression at L2 are new from 04/21/2022. Findings are suspicious for acute or subacute fractures. Correlate with point tenderness. 4. Additional findings as above.". Prior to admission the patient was given 500 mL NSS and 2gm Ceftriaxone. At the time of the exam the patient was lying in bed in no acute distress with his sitting bedside, history was primarily obtained from the patient's due to his baseline mental status. She states that the patient had another fall approximately one week ago. He was in the bathroom and fell backwards, fall ing into the bathtub. She had to call some neighbors who were able to help get him up and back to bed. Since then the patient has been complaining of back pain and some neck pain. He is still on Warfarin due to his mechanical heart valve but did not have his dose yet today. Over the past 3-4 days the patient has been more weak than his baseline. His appetite has been poor and he was been urinating less frequently. Today, the patient was unable to stand up from one of their chairs due to weakness, his was unable to get him up. She denies the patient having recent fever, chills, chest pain, cough sob, ABD pain, nausea, vomiting, diarrhea, dysuria, hematuria, melena, LE swelling, and recent falls since his last one week ago. The patient's only complaints at this time are back and neck pain. If needed the patient's would be interested in him going for inpatient rehab. She states that she has a home health nurse coming twice weekly but cannot afford more at this time. His PCP is working on setting up home PT. We discussed code status, the patient is a DNR/DNI and his is his medical decision maker with his history of dementia. Please refer to Dr. Ron's attestation for any changes to the treatment plan Admission Exam Per Admitting Provider Physical Exam: General: In no acute distress, stated age, chronically ill appearing but non- toxic HEENT: Normocephalic, atraumatic, no acute trauma on inspection of the face and heat. Tenderness to palpation over the cervical spine without crepitus, no scleral icterus, pupils around round, symmetrical, and reactive to light, Dry mucus membranes, trachea midline, no thyromegaly Chest/Pulm: No respiratory distress, symmetrical chest expansion, clear breath sounds throughout Cardiac: RRR, murmur from mechanical mitral valve noted Abdomen: Negative for ascites and bruising, normoactive bowel sounds, soft, non-tender to palpation throughout Musculoskeletal: Tenderness to the cervical, thoracic, and lumbar upper lumbar spine without crepitus or step offs noted, BL upper and lower extremities are symmetrical and with intact ROM Extremities: Radial, dorsalis pedis, and posterior tibial pulses are intact and symmetrical, no edema noted in the BL LE's Skin: Warm, dry, no rashes , lesions, or scars noted Neuro: Alert and oriented to person and place only, no focal defects, CN II- XII tested and intact, symmetrical strength in the BL upper and lower extremities Psych: No acute distress, calm and cooperative during the exam Principal Diagnosis Weakness, dehydration Discharge Exam Constitutional WD/WN, vitals as above Eyes PERRL, conjunctivae normal, anicteric sclerae Respiratory normal respiratory effort, lungs clear to auscultation Cardiovascular RRR, no murmur, no edema Gastrointestinal (Abdomen) normal bowel sounds, soft, nontender, no hepatosplenomegaly Psychiatric Orientation: alert and oriented to person Discharge Data Allergies Allergy/AdvReac Type Severity Reaction Status Date / Time Penicillins Allergy Mild RASH Verified 10/13/22 15:27 morphine AdvReac Mild bp drops Verified 10/13/22 15:27 Consultations 12/04/22 14:49 ED Decision to Admit Stat Ordered Studies 12/04/22 12:[address] [CT head/brain wo con] Stat IMPRESSION: Chronic findings as above without acute intracranial abnormality. 12/04/22 12:25 CT abd pelvis IV con only Stat CT lumbar spine w con Stat IMPRESSION: 1. No acute posttraumatic intra-abdominal or intrapelvic abnormality. 2. Nonobstructing bilateral nephrolithiasis. 3. Mild superior endplate compression at T12 with 2 mm retropulsion and 30% inferior endplate compression at L2 are new from 04/21/2022. Findings are suspicious for acute or subacute fractures. Correlate with point tenderness. 4. Additional findings as above. 12/04/22 16:29 CT neck [CT cervical spine wo con] Urgent IMPRESSION: No acute cervical spine fracture or subluxation identified. Hospital Course (1) Weakness: 77 year old male w/ PmHx Parkinsonism with Dementia, previous subdural and epidural hematomas in 2014 with recurrent Subdural hematoma in December of 2021 (not traumatic), S/P mechanical heart valve placement on Warfarin, hematuria, Gout, previous bladder cancer S/P resection, BPH, HTN, hyperlipidemia, and DMII admitted for weakness due to dehydration. Weakness: -Development of worsening generalized weakness over past 4-5 days, decreased appetite. -Creatinine 1.66 on admission, baseline 0.9-1.3. -CT Head and CT A&P without any acute changes. Supratherapeutic for INR but no acute bleeds on scan. -Biofire negative. -Most U/A w/ LE but no bacteria. Unable to get any valid urinary symptoms from patient given dementia. -Blood cultures with 1/2 growth of coag neg staph, most likely contaminate. -Given one dose of CTX in ED however less likely urinary issue, vitals have remained stable throughout stay, no elevated WBC count. -Most likely weakness secondary to dehydration. -Given fluid rehydration via IVF. Eating well currently. -PT/OT eval and treat. Recommended rehab - transferring to rehab facility. KARI:resolved -Creatinine 1.66 on admission, down to 1.19 following hydration. -Trend BMP. Neck Pain: -moderate neck pain on admission, no complaints this morning. -Recent fall on Warfarin, supratherapeutic INR. -CT Head negative. Elevated troponin: -Initially high at 24, repeat down to 22. -Likely due to demand ischemia from KARI. Back pain: -Mild superior endplate copmression at T12 w/ 2mm retropulsion and 30% inferior endplate compression at L2 are new from 04/21/2022. -Pain control with PRN tylenol and lidocaine patches. -Fall precautions. Supratherapeutic INR: -4.0 on admission, did not take warfarin yesterday. -Goal INR 2.5-3.5 w/ mechanical mitral valve. -INR 1.8 day before discharge with 5mg Warfarin reintroduced. -INR 1.5 on day of discharge, will be okay to restart home regimen of warfarin 7.5mg TWF Sat and Sun, 5mg Mon and Thurs. -Takes Warfarin in evenings, should get one today later in the evening while at rehab. T2DM: -Well controlled off treatment. -Monitor glucose ACHS, goal 110-160. -T2DM carb count diet. BPH: -continue finasteride and flomax. SDH: -History of multiple previous SDH, both traumatic and atraumatic. -CT head on admission negative. -If worsening acute mental status or neurologic changes would get STAT CT head. Parkinsonism: -continue carbidopa-levodopa. Dementia: -Continue namenda, duloxetine, bupropion. F/E/N/GI: HH and T2DM diet. DVT Prophylaxis: Resume home warfarin. Code status: DNR/DNI. Dispo: Going to rehab facility. (2) KARI (acute kidney injury): (3) Neck pain: (4) Elevated troponin: (5) Back pain: (6) Supratherapeutic INR: (7) Diabetes mellitus, type 2: (8) BPH (benign prostatic hyperplasia): (9) SDH (subdural hematoma): (10) Parkinsonism: (11) Dementia: Total Time Total Time Spent Total Time Spent (In Minutes): <30 Discharge Plan Discharge Items Patient Disposition: Transfer Inpatient Rehab Fac Reason For Visit: AMS Discharge Diagnosis: Weakness, dehydration Activity: Per Instructions section Non-emergency contact: Primary Care Provider Call non-emergency contact if: your symptoms worsen and your pain is worsening Follow-up/Referrals: Leti Camacho MD [Primary Care Provider] - Diet: Regular Addtl Attending Provider Instructions: 77 year old male w/ PmHx Parkinsonism with Dementia, previous subdural and epidural hematomas in 2014 with recurrent Subdural hematoma in December of 2021 (not traumatic), S/P mechanical heart valve placement on Warfarin, hematuria, Gout, previous bladder cancer S/P resection, BPH, HTN, hyperlipidemia, and DMII admitted for weakness due to dehydration. Weakness: -Development of worsening generalized weakness over past 4-5 days, decreased appetite. -Creatinine 1.66 on admission, baseline 0.9-1.3. -CT Head and CT A&P without any acute changes. Supratherapeutic for INR but no acute bleeds on scan. -Biofire negative. -Most U/A w/ LE but no bacteria. Unable to get any valid urinary symptoms from patient given dementia. -Blood cultures with 1/2 growth of coag neg staph, most likely contaminate. -Given one dose of CTX in ED however less likely urinary issue, vitals have remained stable throughout stay, no elevated WBC count. -Most likely weakness secondary to dehydration. -Given fluid rehydration via IVF. Eating well currently. -PT/OT eval and treat. Recommended rehab - transferring to rehab facility. KARI:resolved -Creatinine 1.66 on admission, down to 1.19 following hydration. -Trend BMP. Neck Pain: -moderate neck pain on admission, no complaints this morning. -Recent fall on Warfarin, supratherapeutic INR. -CT Head negative. Elevated troponin: -Initially high at 24, repeat down to 22. -Likely due to demand ischemia from KARI. Back pain: -Mild superior endplate copmression at T12 w/ 2mm retropulsion and 30% inferior endplate compression at L2 are new from 04/21/2022. -Pain control with PRN tylenol and lidocaine patches. -Fall precautions. Supratherapeutic INR: -4.0 on admission, did not take warfarin yesterday. -Goal INR 2.5-3.5 w/ mechanical mitral valve. -INR 1.8 day before discharge with 5mg Warfarin reintroduced. -INR 1.5 on day of discharge, will be okay to restart home regimen of warfarin 7.5mg TWF Sat and Sun, 5mg Mon and Thurs. -Takes Warfarin in evenings, should get one today later in the eveing while at rehab. T2DM: -Well controlled off treatment. -Monitor glucose ACHS, goal 110-160. -T2DM carb count diet. BPH: -continue finasteride and flomax. SDH: -History of multiple previous SDH, both traumatic and atraumatic. -CT head on admission negative. -If worsening acute mental status or neurologic changes would get STAT CT head. Parkinsonism: -continue carbidopa-levodopa. Dementia: -Continue namenda, duloxetine, bupropion. F/E/N/GI: HH and T2DM diet. DVT Prophylaxis: Resume home warfarin. Code status: DNR/DNI. Dispo: Going to rehab facility. Pending Studies at Discharge: No Stand-Alone Forms: My [facility] Skilled Items Patient informed of condition?: Yes DNR: Yes Discharge Level of Care: Acute rehab Communicable Disease: No Discharge Prognosis: Stable Lines: None Urinary Catheter: No Medications and DC Order Prescriptions: Continued duloxetine 30 mg capsule,delayed release(DR/EC) 30 mg PO QAM Qty: 30 5RF carbidopa-levodopa 25-100 mg tablet 1 tab PO TID Qty: 90 5RF Rx Instructions: TAKE ONE TABLET AT 12PM, 4PM, AND 8PM. donepezil 10 mg tablet 10 mg PO HS Qty: 30 5RF mirabegron 50 mg tablet extended release 24 hr 50 mg PO QAM Qty: 90 3RF memantine 10 mg tablet 10 mg PO BID 90 Days Qty: 180 1RF pregabalin 100 mg capsule 100 mg PO BID 90 Days Qty: 180 1RF propranolol 60 mg capsule,extended release 24 hr 60 mg PO DAILY Qty: 90 1RF tramadol 50 mg Tablet 50 mg PO Q8H tamsulosin 0.4 mg capsule 0.4 mg PO QAM acetaminophen 325 mg Tablet 650 mg PO Q4H PRN (Reason: Pain) bupropion HCl 150 mg tablet extended release 24 hr 150 mg PO QAM warfarin 5 mg tablet 7.5 mg PO [id number] Rx Instructions: take 1 & 1/2 tablet on ,mon,mon,mon,monday evening finasteride 5 mg tablet 5 mg PO QAM duloxetine 60 mg capsule,delayed release(DR/EC) 60 mg PO QAM warfarin 5 mg tablet 5 mg PO [id number] Rx Instructions: take 1 tablet on mondays and evenins Discharge Orders: Discharge Order (Routine); Ordered 12/08/22 Ordered By: Jim Brooks Admission Data Admit Date/Time: 12/04/22 16:05 Attending Provider: Dragan Sanchez Admit Provider: Toy Ron Primary Care Provider: Leti Camacho Other Providers: Toy Ron ; [place] ; [facility] Other Interventions: Discharge Summary Assessment (RN) Last Done: 12/08/22 12:28 Supervising Physician Co-Signing Physician Notes I personally examined the patient and verified all hoang points of history and exam, discussed case, and agree with decision making with Dr Brooks No meaningful HPI review of systems obtainable from patient. for discharge today vitals noted no distress breathing unlabored no accessory muscles good effort skin no rashes no pallor or icterus delirium on dementia - dehydration - rehydrated. deconditioning/weakness- PT/OT eval and treat. of note - no noted urinary sx, no leukocytosis, no fevers, SIRS/etc - and had far more probable ddx for delirium based on dehydration/KARI --> therefore held off on abx so as not to cause iatrogenesis. for centre care today Resident Activity Tracking Resident Involvement: Resident Care Provided Care Provided: Adult Hospital Medicine
[2022-12-08] MEDS: FINASTERIDE 5 MG TAB PO SCH (10:43)
--- NOTE | 2022-12-08 17:49 | Billing Data ---
Date of Service December 08, 2022 Coding Level of Care Code 02595 IN/OBS DISCH 30 MIN/LESS
== END 2022-12-08 12:45 | DRG 641 ==
LOC: ED 11:38 → 3W 16:05 → SUATTDRO 16:05 → 3W 17:14

== ENCOUNTER 2023-04-05 16:27 | Inpatient (IN) ==
--- NOTE | 2023-04-05 16:46 | Emergency Department Note ---
Impression & Plan Acute dehydration, Ambulatory dysfunction, Dementia, Generalized weakness, SDH (subdural hematoma), Atrial fibrillation ED Provider Note NAME: DON CUEVAS AGE: 78 SEX: M : 1945 ARRIVES VIA: Ambulance INFORMANT: Patient, ED PROVIDER(S): Brennen Trivedi MD CHIEF COMPLAINT: Weakness MEDICAL DECISION MAKING: Patient presents due to concern for associated weakness. Patient's blood work does not show any significant derangements in the patient's CT of the head does not show any significant changes from prior. Patient does have a known history of prior craniotomy secondary to subdural and is on Coumadin. Patient's blood work shows a normal white count H&H and platelet count. The patient was ordered IV fluids. INR is somewhat supratherapeutic 3.6. Kidney function is not remarkable with a relatively normal electrolytes and LFTs. TSH is elevated but free T4 is normal. Urinalysis does not show evidence of obvious infection. COVID flu RSV negative. I did speak the on-call hospitalist service Dr. Campoverde and the patient was admitted to the medicine service Discussion w/ other healthcare providers: Dr. Campoverde inpatient medicine service Prior /Outside records reviewed: I reviewed a prior urology visit from Dr. Malik from February 06, 2023. Patient was seen in the outpatient setting secondary to bladder tumor and bleeding from the urethra. The patient did undergo a cystoscopy. No evidence of overt recurrence of bladder tumor per note he is recommended to have a repeat cystoscopy completed in 3 months Differential diagnosis: Infection, dehydration, metabolic abnormality, hypo/hyperglycemia, electrolyte imbalance, anemia, UTI, pneumonia, thyroid dysfunction among others were considered. Diagnostics, as interpreted by me: ECG: Sinus with occasional PVCs, rate of 77, normal LA and QRS, normal axis no ST elevations. Cardiac monitoring: An order was placed for continuous cardiac monitoring. The monitor shows a rate of 85 with sinus rhythm. Patient was placed on pulse oximetry Medical decision rules: None Imaging studies: I informally interpreted the patient's chest x-ray which does not show obvious pneumothorax with formal report to follow. HPI: Patient presents with from home. Patient does have a known history of dementia but seem to be more confused and has been more weak. No focal weakness. The at bedside states that sometimes he has complained of pain but when asked at the bedside he does not complain of any pain. No reported head strike. Patient does have a prior history of subdural hematoma status postcraniotomy completed proximally 5 years ago per the . Patient has had decreased p.o. intake not eating or drinking as much. Reportedly is being compliant with medications per . She states that he has not been able to get up and out of bed or walk as he typically does PAST MEDICAL HISTORY: See Below PAST SURGICAL HISTORY: See Below SOCIAL HISTORY: See Below HOME MEDICATIONS: See Below ALLERGIES: See Below VITALS: See Below PHYSICAL EXAMINATION: GENERAL: NAD, non-toxic. EYE EXAM: Normal conjunctiva. PERRL, no anisocoria and EOM's grossly intact w/o pain. OROPHARYNX: Dry mucus membranes, grossly normal dentition. NECK: Supple, no nuchal rigidity, no adenopathy, non-tender. No signs of meningismus. FROM of the neck with good chin to chest and neck extension. No stridor. LUNGS: Clear to auscultation. Normal chest wall mechanics. HEART: NSR, no MRG. ABDOMEN: Abdomen soft, non-tender, no masses, no rebound or guarding. BACK: No CVA TTP. SKIN: No rashes and no bruising. UPPER EXTREMITIES: Upper extremities are grossly normal. LOWER EXTREMITIES: Grossly normal, no edema. NEURO EXAM: Awake and alert follows basic commands, cranial nerves II-XII grossly intact, normal speech, moves all 4 extremities. Past Med/Surg History Medical History Atrial fibrillation Paroxysmal per records Pt denies history Follows with cardio- on Coumadin Back pain Benign essential tremor BPH (benign prostatic hyperplasia) Chronic back pain Compression fracture of lumbar vertebra Current use of prison anticoagulation Degenerative disc disease Dementia Experiences short term memory loss. Alert and oriented to person. Confusion with places and time. Depression Diabetes mellitus, type 2 GERD (gastroesophageal reflux disease) Well controlled and stable Hearing deficit Hyperlipidemia Hypertension Irregular heart beat Occasional episodes of trigeminy. Follows with Dr Isaac Lumbar degenerative disc disease Mechanical heart valve present MV replacement 1996- mechanical- on Coumadin Neuropathy involving both lower extremities Parkinson disease Parkinson's dementia per records SDH (subdural hematoma) Spinal stenosis of lumbar region Subdural hematoma (01/01/22) - Presented to the Emergency room 01/01/22 at [facility] and transferred to [facility] and treated inpatient for several days and then went to [facility] for rehab. Patient discharged home ~01/21/22. No surgery had been done, reports it was a spontaneous hematoma. Denies any fall. - Pt's mental status back to baseline -Coumadin has since been restarted- tolerating well. Transient ischemic attack (TIA) In --no deficits Surgical History History of back surgery x2 History of colonoscopy History of craniotomy x2 (~2011)- secondary to subdural hematoma- had fall at that time History of esophagogastroduodenoscopy (EGD) History of hand surgery right hand finger History of inguinal hernia repair x5 History of mitral valve replacement 1996 @ [facility] -- mechanical History of umbilical hernia repair History of wisdom tooth extraction Status post LASIK surgery of both eyes Family History Daughter Family hx of colon cancer Colorectal cancer Mother Cardiac pacemaker Brother Stroke Hypertension Prostate cancer Father Stroke Grandfather (Maternal) Suicide Grandfather (Paternal) Tuberculosis Other No family history of adverse response to anesthesia Social History Smoking Status: Never smoker Second Hand Exposure: No; Do You Dip or Chew Tobacco: No; Preferred Language: [place] Citizen Communication Ability: Effective Production Associate Required: No Beliefs That Will Affect Care: None marital status: Current Living Situation: Spouse Current Living Situation Comment: Per pt report - pt is confused. 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 [employer] Feels Safe at Home: Yes Assistive Devices: None Allergies Allergies Allergy/AdvReac Type Severity Reaction Status Date / Time Penicillins Allergy Mild RASH Verified 10/13/22 15:27 morphine AdvReac Mild bp drops Verified 10/13/22 15:27 Home Meds Home Medications Medication Instructions Recorded Confirmed tamsulosin 0.4 mg capsule 0.4 mg PO QAM 07/10/19 04/05/23 acetaminophen 325 mg tablet 650 mg PO Q4H PRN Pain 02/23/22 04/05/23 bupropion HCl 150 mg 24 hr tablet, 150 mg PO QAM 02/23/22 04/05/23 extended release warfarin 5 mg tablet 7.5 mg PO DAILY 02/23/22 04/05/23 duloxetine 60 mg capsule,delayed 60 mg PO QAM 12/04/22 04/05/23 release finasteride 5 mg tablet 5 mg PO QAM 12/04/22 04/05/23 Previous Rx's Medication Instructions Recorded mirabegron 50 mg tablet,extended 50 mg PO QAM #90 tabs 08/30/22 release 24 hr memantine 10 mg tablet 10 mg PO BID 90 days #180 tabs 10/13/22 duloxetine 30 mg capsule,delayed 30 mg PO QAM #30 caps 11/17/22 release carbidopa 25 mg-levodopa 100 mg 1 tab PO TID #90 tabs 11/21/22 tablet donepezil 10 mg tablet 10 mg PO HS #30 tabs 11/21/22 propranolol 60 mg capsule,24 60 mg PO DAILY #90 caps 01/17/23 hr,extended release amlodipine 5 mg tablet (Norvasc) 5 mg PO QAM #30 tabs 04/10/23 enoxaparin 100 mg/mL subcutaneous 90 mg (0.9 mL) subcut BID 1 day 04/10/23 syringe #1.8 mL melatonin 3 mg tablet 3 mg PO HS #30 tabs 04/10/23 pregabalin 100 mg capsule 100 mg PO BID 90 days #60 caps 04/10/23 tramadol 50 mg tablet 50 mg PO Q8H PRN Pain #6 tabs 04/10/23 Results & Data (ED) Vital Signs Vital Signs - 24 hr 04/05/23 16:27 Pulse Rate 83 Respiratory Rate 18 Respiratory Effort / Characteristics Non-Labored Spontaneous Respiratory Depth Normal Blood Pressure 192/121 H Blood Pressure Mean 144 Pulse Oximetry 94 Oxygen Delivery Method Room Air Sepsis Recent Fever Within 48 Hours No Sepsis New/Unexplained Change in Mental Status No Sepsis Action Taken by Nursing No Action Required Home Medications Current Medication List: was personally reviewed by me Laboratory Data Attestation: I reviewed the patient's lab results. 04/09/23 05:22 04/09/23 05:22 Lab Results 04/05/23 04/05/23 04/05/23 Range/Units 17:19 17:19 17:19 WBC 5.71 (4.8-10.8) K/ul RBC 5.36 (4.70-6.10) M/uL Hgb 15.7 (14.0-18.0) g/dl Hct 46.9 (42.0-52.0) % MCV 87.5 (80.0-100.0) fL MCH 29.3 (25.0-34.0) pg MCHC 33.5 (32.0-36.0) g/dL RDW Std Deviation 49.9 H (36.4-46.3) fL RDW Coeff of Florecita 15.6 H (11.5-14.5) % Plt Count 153 (130-400) K/uL MPV 10.4 (9.4-12.4) fL Immature Gran % (Auto) 0.2 % Neut % (Auto) 71.1 % Lymph % (Auto) 14.2 % [place] % (Auto) 13.1 % Eos % (Auto) 0.9 % Baso % (Auto) 0.5 % Neut # (Auto) 4.06 (1.40-6.50) K/uL Lymph # (Auto) 0.81 L (1.20-3.40) K/uL [place] # (Auto) 0.75 H (0.11-0.59) K/uL Eos # (Auto) 0.05 (0.00-0.50) K/uL Baso # (Auto) 0.03 (0.00-0.20) K/uL Immature Gran # (Auto) 0.01 (0.01-0.20) K/uL PT 36.2 H (9.0-12.0) Seconds INR 3.6 H (0.9-1.1) Sodium 137 (136-145) mmol/L Potassium 4.0 (3.5-5.1) mmol/L Chloride 101 (98-107) mmol/L Carbon Dioxide 29 (21-32) mmol/L Anion Gap 7 (3-11) BUN 21 (6-23) mg/dl Creatinine 1.12 (0.6-1.4) mg/dl Est Cr Clr Drug Dosing Not Reportable Est GFR ( Amer) 72.5 ml/min Est GFR (Non-Af Amer) 62.6 ml/min BUN/Creatinine Ratio 18.8 (10-20) Glucose 138 H (70-99(Fasting)) mg/dl Calcium 9.3 (8.6-10.3) mg/dl Magnesium 1.9 (1.7-2.4) mg/dl Total Bilirubin 0.9 (0.2-1.0) mg/dl AST 19 (13-39) U/L ALT < 3 L (7-52) U/L Alkaline Phosphatase 93 (34-104) U/L Total Creatine Kinase 130 (30-223) U/L Total Protein 7.8 (6.0-8.3) gm/dl Albumin 4.4 (3.4-5.0) gm/dl Globulin 3.4 (2.5-4.0) gm/dl Albumin/Globulin Ratio 1.3 (0.9-2) TSH 4.636 H (0.300-4.500) uIu/ml Free T4 0.84 (0.61-1.60) ng/dl Urine Color Urine Appearance (Clear) Urine pH (4.5-7.5) Ur Specific [place] (1.000-1.030) Urine Protein (Negative) Urine Glucose (UA) (Negative) Urine Ketones (Negative) Urine Blood (Negative) Urine Nitrite (Negative) Urine Bilirubin (Negative) Urine Urobilinogen (Negative) Ur Leukocyte Esterase (Negative) Urine WBC (Auto) (0-5) /hpf Urine RBC (Auto) (0-4) /hpf U Hyaline Cast (Auto) (0-5) /lpf U Epithel Cells (Auto) (0-5) /lpf Urine Bacteria (Auto) (Negative) SARS-CoV-2 (PCR) (Negative) Influenza Type A (PCR) (Neg) Influenza Type B (PCR) (Neg) RSV (RT-PCR) (Neg) 04/05/23 04/05/23 Range/Units 19:06 19:06 WBC (4.8-10.8) K/ul RBC (4.70-6.10) M/uL Hgb (14.0-18.0) g/dl Hct (42.0-52.0) % MCV (80.0-100.0) fL MCH (25.0-34.0) pg MCHC (32.0-36.0) g/dL RDW Std Deviation (36.4-46.3) fL RDW Coeff of Florecita (11.5-14.5) % Plt Count (130-400) K/uL MPV (9.4-12.4) fL Immature Gran % (Auto) % Neut % (Auto) % Lymph % (Auto) % [place] % (Auto) % Eos % (Auto) % Baso % (Auto) % Neut # (Auto) (1.40-6.50) K/uL Lymph # (Auto) (1.20-3.40) K/uL [place] # (Auto) (0.11-0.59) K/uL Eos # (Auto) (0.00-0.50) K/uL Baso # (Auto) (0.00-0.20) K/uL Immature Gran # (Auto) (0.01-0.20) K/uL PT (9.0-12.0) Seconds INR (0.9-1.1) Sodium (136-145) mmol/L Potassium (3.5-5.1) mmol/L Chloride (98-107) mmol/L Carbon Dioxide (21-32) mmol/L Anion Gap (3-11) BUN (6-23) mg/dl Creatinine (0.6-1.4) mg/dl Est Cr Clr Drug Dosing Est GFR ( Amer) ml/min Est GFR (Non-Af Amer) ml/min BUN/Creatinine Ratio (10-20) Glucose (70-99(Fasting)) mg/dl Calcium (8.6-10.3) mg/dl Magnesium (1.7-2.4) mg/dl Total Bilirubin (0.2-1.0) mg/dl AST (13-39) U/L ALT (7-52) U/L Alkaline Phosphatase (34-104) U/L Total Creatine Kinase (30-223) U/L Total Protein (6.0-8.3) gm/dl Albumin (3.4-5.0) gm/dl Globulin (2.5-4.0) gm/dl Albumin/Globulin Ratio (0.9-2) TSH (0.300-4.500) uIu/ml Free T4 (0.61-1.60) ng/dl Urine Color Yellow Urine Appearance Clear (Clear) Urine pH 7.5 (4.5-7.5) Ur Specific [place] 1.015 (1.000-1.030) Urine Protein Trace H (Negative) Urine Glucose (UA) Negative (Negative) Urine Ketones 1+ H (Negative) Urine Blood 3+ H (Negative) Urine Nitrite Negative (Negative) Urine Bilirubin Negative (Negative) Urine Urobilinogen Negative (Negative) Ur Leukocyte Esterase Trace H (Negative) Urine WBC (Auto) 1-5 (0-5) /hpf Urine RBC (Auto) 0-4 (0-4) /hpf U Hyaline Cast (Auto) 0 (0-5) /lpf U Epithel Cells (Auto) 0-5 (0-5) /lpf Urine Bacteria (Auto) Negative (Negative) SARS-CoV-2 (PCR) NEGATIVE (Negative) Influenza Type A (PCR) Negative (Neg) Influenza Type B (PCR) Negative (Neg) RSV (RT-PCR) Negative (Neg) Administered Medications Discontinued Medications Acetaminophen (Acetaminophen 325 Mg Tab) 650 mg PO Q4H PRN PRN Reason: Pain Stop: 05/05/23 22:10 Last Admin: 04/07/23 11:46 Dose: 650 mg Documented By: Admin: 04/06/23 20:12 Dose: 650 mg Documented By: Admin: 04/06/23 13:52 Dose: 650 mg Documented By: GABRIELA Amlodipine Besylate (Amlodipine Besylate 5 Mg Tab) [facility] Stop: 05/10/23 08:59 Last Admin: 04/10/23 09:11 Dose: 5 mg Documented By: DONVAAN Bisacodyl (Bisacodyl 10 Mg Supp) 10 mg LA NOW STA Stop: 04/10/23 12:06 Last Admin: 04/10/23 12:14 Dose: Not Given Documented By: DONAVAN Bupropion HCl (Bupropion Xl 150 Mg Tabcr) 150 mg PO QAM [facility] Stop: 05/06/23 08:59 Last Admin: 04/06/23 09:52 Dose: 150 mg Documented By: GABRIELA Bupropion HCl (Bupropion Xl 150 Mg Tabcr) 150 mg PO ONE STA Stop: 04/10/23 12:32 Last Admin: 04/10/23 12:53 Dose: 150 mg Documented By: DONAVAN Carbidopa/Levodopa (Carbidopa/Levodopa 25/100mg Tab) 1 tab PO TID@1200,1600,2000 [facility] Stop: 05/05/23 22:10 Last Admin: 04/10/23 12:53 Dose: 1 tab Documented By: Admin: 04/09/23 19:23 Dose: 1 tab Documented By: Admin: 04/09/23 16:56 Dose: 1 tab Documented By: Admin: 04/09/23 12:40 Dose: 1 tab Documented By: Admin: 04/08/23 19:47 Dose: 1 tab Documented By: Admin: 04/08/23 17:27 Dose: 1 tab Documented By: Admin: 04/08/23 12:18 Dose: 1 tab Documented By: Admin: 04/07/23 20:22 Dose: 1 tab Documented By: Admin: 04/07/23 16:26 Dose: 1 tab Documented By: Admin: 04/07/23 11:26 Dose: 1 tab Documented By: Admin: 04/06/23 20:12 Dose: 1 tab Documented By: Admin: 04/06/23 16:12 Dose: 1 tab Documented By: Admin: 04/06/23 13:50 Dose: 1 tab Documented By: Admin: 04/05/23 22:49 Dose: 1 tab Documented By: BRITTANI Ciprofloxacin (Ciprofloxacin 500 Mg Tab) 500 mg PO Q12H JESSICA; Protocol Stop: 04/08/23 10:29 Last Admin: 04/06/23 14:00 Dose: Not Given Documented By: GABRIELA Diclofenac Sodium (Diclofenac Sod 1% Gel 100 Gm Tube) 2 gm EXT BID JESSICA; Protocol Stop: 05/06/23 20:59 Last Admin: 04/10/23 07:20 Dose: 2 gm Documented By: Admin: 04/09/23 19:24 Dose: 2 gm Documented By: Admin: 04/09/23 12:41 Dose: 2 gm Documented By: Admin: 04/08/23 19:47 Dose: 2 gm Documented By: Admin: 04/08/23 07:59 Dose: 2 gm Documented By: Admin: 04/07/23 20:22 Dose: 2 gm Documented By: Admin: 04/07/23 08:18 Dose: 2 gm Documented By: Admin: 04/06/23 20:12 Dose: 2 gm Documented By: ANGELINA Donepezil HCl (Donepezil Hcl 10 Mg Tab) 10 mg PO HS JESSICA Stop: 05/05/23 22:10 Last Admin: 04/09/23 19:24 Dose: 10 mg Documented By: Admin: 04/08/23 19:47 Dose: 10 mg Documented By: Admin: 04/07/23 20:22 Dose: 10 mg Documented By: Admin: 04/06/23 20:13 Dose: 10 mg Documented By: Admin: 04/05/23 22:49 Dose: 10 mg Documented By: BRITTANI Duloxetine HCl (Duloxetine Hcl 60 Mg Cap) 60 mg PO QAM [facility] Stop: 05/06/23 08:59 Last Admin: 04/06/23 09:52 Dose: 60 mg Documented By: GABRIELA Duloxetine HCl (Duloxetine Hcl 30 Mg Cap) 90 [facility] Stop: 05/10/23 12:29 Last Admin: 04/10/23 12:53 Dose: 90 mg Documented By: DONAVAN Enoxaparin Sodium (Enoxaparin 100 Mg/1ml Syr) 90 mg SQ BID [facility] Stop: 05/09/23 10:59 Last Admin: 04/10/23 08:35 Dose: 90 mg Documented By: Admin: 04/09/23 20:59 Dose: 90 mg Documented By: Admin: 04/09/23 12:39 Dose: 90 mg Documented By: DONAVAN Finasteride (Finasteride 5 Mg Tab) [facility] Stop: 05/06/23 08:59 Last Admin: 04/10/23 07:20 Dose: 5 mg Documented By: Admin: 04/09/23 12:40 Dose: 5 mg Documented By: Admin: 04/08/23 07:59 Dose: 5 mg Documented By: Admin: 04/07/23 08:17 Dose: 5 mg Documented By: Admin: 04/06/23 09:52 Dose: 5 mg Documented By: GABRIELA Sodium Chloride (Nss) 1,000 mls @ 999 mls/hr IV .Q1H1M JESSICA Stop: 04/05/23 18:15 Last Infusion: 04/05/23 19:00 Dose: 0 mls/hr Documented By: Admin: 04/05/23 17:31 Dose: 999 mls/hr Documented By: ENDY Lactated Ringer's (Lr) 1,000 mls @ 80 mls/hr IV .[id number] JESSICA Stop: 04/06/23 10:40 Last Infusion: 04/06/23 14:00 Dose: 0 mls/hr Documented By: Admin: 04/05/23 22:49 Dose: 80 mls/hr Documented By: BRITTANI Magnesium Sulfate/Dextrose (Magnesium Sulfate / D5w) 1 gm in 100 mls @ 50 mls/hr IV Q2H JESSICA Stop: 04/06/23 02:44 Last Infusion: 04/06/23 02:51 Dose: 0 mls/hr Documented By: Admin: 04/06/23 00:48 Dose: 50 mls/hr Documented By: Infusion: 04/06/23 00:48 Dose: 50 mls/hr Documented By: Admin: 04/05/23 22:49 Dose: 50 mls/hr Documented By: BRITTANI Ciprofloxacin (Cipro / D5w) 400 mg in 200 mls @ 100 mls/hr IV Q12H JESSICA; Pr otocol Stop: 04/08/23 11:44 Last Infusion: 04/08/23 02:20 Dose: 0 mls/hr Documented By: Admin: 04/08/23 00:01 Dose: 100 mls/hr Documented By: Infusion: 04/07/23 13:19 Dose: 0 mls/hr Documented By: Admin: 04/07/23 11:18 Dose: 100 mls/hr Documented By: Infusion: 04/07/23 01:20 Dose: 0 mls/hr Documented By: Admin: 04/06/23 23:20 Dose: 100 mls/hr Documented By: Infusion: 04/06/23 15:55 Dose: 0 mls/hr Documented By: Admin: 04/06/23 13:55 Dose: 100 mls/hr Documented By: GABRIELA Lactated Ringer's (Lr) 500 mls @ 999 mls/hr IV .Q31M ONE Stop: 04/06/23 20:49 Last Infusion: 04/06/23 21:08 Dose: 0 mls/hr Documented By: Admin: 04/06/23 20:25 Dose: 999 mls/hr Documented By: ANGELINA Lactated Ringer's (Lr) 500 mls @ 999 mls/hr IV .Q31M ONE Stop: 04/07/23 01:42 Last Infusion: 04/07/23 02:12 Dose: 0 mls/hr Documented By: Admin: 04/07/23 01:24 Dose: 999 mls/hr Documented By: ANGELINA Lactated Ringer's (Lr) 1,000 mls @ 80 mls/hr IV .[id number] JESSICA Stop: 04/10/23 13:44 Last Infusion: 04/10/23 12:15 Dose: 0 mls/hr Documented By: Admin: 04/10/23 01:37 Dose: 80 mls/hr Documented By: Infusion: 04/10/23 01:37 Dose: 80 mls/hr Documented By: Admin: 04/09/23 14:04 Dose: 80 mls/hr Documented By: DONAVAN Melatonin (Melatonin 3 Mg Tab) 3 mg PO HS JESSICA Stop: 05/09/23 20:59 Last Admin: 04/09/23 19:23 Dose: 3 mg Documented By: NICHOL Memantine (Memantine Hcl 10 Mg Tab) 10 mg PO BID JESSICA Stop: 05/05/23 22:10 Last Admin: 04/10/23 07:19 Dose: 10 mg Documented By: Admin: 04/09/23 19:24 Dose: 10 mg Documented By: Admin: 04/09/23 12:40 Dose: 10 mg Documented By: Admin: 04/08/23 19:47 Dose: 10 mg Documented By: Admin: 04/08/23 07:58 Dose: 10 mg Documented By: Admin: 04/07/23 20:21 Dose: 10 mg Documented By: Admin: 04/07/23 08:16 Dose: 10 mg Documented By: Admin: 04/06/23 20:13 Dose: 10 mg Documented By: Admin: 04/06/23 09:53 Dose: 10 mg Documented By: Admin: 04/05/23 22:49 Dose: 10 mg Documented By: BRITTANI Miscellaneous (Patient's Height Needed) 1 each N/A Q2H JESSICA Stop: 05/06/23 08:14 Last Admin: 04/06/23 14:00 Dose: Not Given Documented By: Admin: 04/06/23 09:50 Dose: 1 each Documented By: GABRIELA Pregabalin (Pregabalin 100 Mg Cap) 100 mg PO BID [facility] Stop: 05/05/23 22:10 Last Admin: 04/06/23 10:07 Dose: 100 mg Documented By: Admin: 04/05/23 22:49 Dose: 100 mg Documented By: BRITTANI Pregabalin (Pregabalin 100 Mg Cap) 100 mg PO ONE ONE Stop: 04/10/23 12:34 Last Admin: 04/10/23 12:53 Dose: 100 mg Documented By: DONAVAN Propranolol HCl (Propranolol Hcl 60 Mg La Cap) 60 mg PO DAILY [facility] Stop: 05/06/23 08:59 Last Admin: 04/10/23 07:20 Dose: 60 mg Documented By: Admin: 04/09/23 12:40 Dose: 60 mg Documented By: Admin: 04/08/23 07:59 Dose: 60 mg Documented By: Admin: 04/07/23 08:17 Dose: 60 mg Documented By: Admin: 04/06/23 09:53 Dose: 60 mg Documented By: GABRIELA Tamsulosin HCl (Tamsulosin Hcl 0.4 Mg Cap) [facility] Stop: 05/06/23 08:59 Last Admin: 04/10/23 07:19 Dose: 0.4 mg Documented By: Admin: 04/09/23 12:40 Dose: 0.4 mg Documented By: Admin: 04/08/23 07:59 Dose: 0.4 mg Documented By: Admin: 04/07/23 08:16 Dose: 0.4 mg Documented By: Admin: 04/06/23 09:55 Dose: 0.4 mg Documented By: GABRIELA Tramadol HCl (Tramadol Hcl 50 Mg Tablet) 50 mg PO Q8H PRN PRN Reason: Pain Stop: 05/05/23 22:10 Last Admin: 04/06/23 16:15 Dose: 50 mg Documented By: GABRIELA Vibegron (Vibegron 75 Mg Tab) 75 mg PO QAM [facility] Stop: 05/06/23 08:59 Last Admin: 04/06/23 09:56 Dose: 75 mg Documented By: GABRIELA Warfarin Sodium (Warfarin Sod 7.5 Mg Tab) 7.5 mg PO DAILY@1600 [facility] Stop: 05/06/23 15:59 Last Admin: 04/09/23 16:56 Dose: 7.5 mg Documented By: Admin: 04/08/23 17:27 Dose: 7.5 mg Documented By: DONAVAN Imaging Data Radiologist's Impression: Chest X-Ray 04/05/23 17:01 XR chest 1V portable CLINICAL HISTORY: weakness TECHNIQUE: Single frontal radiograph of the chest was obtained. Comparison: Comparison is made to chest radiograph 12/04/2022 FINDINGS: Median sternotomy wires are unchanged. Cardiomegaly is noted. Valvular pros thesis is seen. Lungs are underinflated but clear. No evidence of pleural effusion or pneumothorax. IMPRESSION: No acute chest disease. Cardiomegaly is noted. ACT 112: Negative or not required by law. Electronically signed by: Bright Leonardo M.D. 04/05/2023 6:[address] 04/05/23 17:01 CT head/brain wo con CLINICAL HISTORY: confusion, on coumadin Technique: Contiguous axial CT images of the head were acquired from the base of the skull to the vertex without intravenous contrast administration. Images were viewed in brain, subdural and bone windows. Automated dose lowering techniques and/or adjustment according to patient size were utilized for this exam. Comparison: Comparison is made to CT head 12/04/2022 Findings: Areas of decreased attenuation are present in the periventricular and subcortical white matter bilaterally consistent with small vessel ischemic disease. Generalized cerebral atrophy with commensurate enlargement of the lidya tricles, sulci, and cisterns is also present. There is no acute intracranial hemorrhage or evidence of acute territorial infarction. No shift of the midline structures, mass effect, or extra-axial abnormalities are shown. Atherosclerotic calcifications are present in the intracranial segments of the internal carotid arteries. Postcraniotomy changes are seen in the right calvarium. Mucous retention cyst is in the left maxillary sinus. The orbits appear normal. There are no acute fractures of the calvaria or scalp swelling. Impression: No acute intracranial hemorrhage, no evidence of acute territorial infarction or other acute intracranial disease process. ACT 112: Negative or not required by law. Electronically signed by: Bright Leonardo M.D. 04/05/2023 6:37 PM Discharge Plan Visit Data Chief Complaint: Weakness Stated Complaint: WEAKNESS, DEMENTIA ED Provider: Brennen Trivedi Discharge Problem: Acute dehydration, Ambulatory dysfunction, Dementia, Generalized weakness, SDH (subdural hematoma), Atrial fibrillation Patient Disposition: Admitted As Inpatient Condition: Fair Discharge Instructions Interventions: ED Discharge Assessment Last Done: 04/05/23 21:12
[2023-04-05] MEDS ORDERED: SODIUM CHLORIDE 0.9% 1,000 ML IV SCH (17:15)
[2023-04-05 17:47] LABS: Basophils # (auto) 0.03 K/uL (0.00-0.20); Basophils % (auto) 0.5 %; Eosinophils # (auto) 0.05 K/uL (0.00-0.50); Eosinophils % (auto) 0.9 %; Hematocrit (blood only) 46.9 % (42.0-52.0); Hemoglobin 15.7 g/dl (14.0-18.0); Immature Granulocytes # (auto) 0.01 K/uL (0.01-0.20); Immature Granulocytes % (auto) 0.2 %; Lymphocytes # (auto) 0.81 K/uL (1.20-3.40); Lymphocytes % (auto) 14.2 %; Mean Corpuscular Hemoglobin 29.3 pg (25.0-34.0); Mean Corpuscular Hgb Conc 33.5 g/dL (32.0-36.0); Mean Corpuscular Volume 87.5 fL (80.0-100.0); Mean Platelet Volume 10.4 fL (9.4-12.4); Monocytes # (auto) 0.75 K/uL (0.11-0.59); Monocytes % (auto) 13.1 %; Neutrophils # (auto) 4.06 K/uL (1.40-6.50); Neutrophils % (auto) 71.1 %; Platelet Count 153 K/uL (130-400); RDW Coefficient of Variation 15.6 % (11.5-14.5); RDW Standard Deviation 49.9 fL (36.4-46.3); Red Blood Count 5.36 M/uL (4.70-6.10); White Blood Count 5.71 K/ul (4.8-10.8)
[2023-04-05 18:00] LABS: Anion Gap 7 (3-11); BUN Creatinine Ratio 18.8 (10-20); Blood Urea Nitrogen 21 mg/dl (6-23); Calcium 9.3 mg/dl (8.6-10.3); Carbon Dioxide 29 mmol/L (21-32); Chloride 101 mmol/L (98-107); Est GFR (African American) 72.5 ml/min; Est GFR (Non-African American) 62.6 ml/min; Glucose 138 mg/dl (70-99(Fasting)); Sodium 137 mmol/L (136-145)
--- NOTE | 2023-04-05 18:04 | XRay Report ---
XR chest 1V portable CLINICAL HISTORY: weakness TECHNIQUE: Single frontal radiograph of the chest was obtained. Comparison: Comparison is made to chest radiograph 12/04/2022 FINDINGS: Median sternotomy wires are unchanged. Cardiomegaly is noted. Valvular prosthesis is seen. Lungs are underinflated but clear. No evidence of pleural effusion or pneumothorax. IMPRESSION: No acute chest disease. Cardiomegaly is noted. ACT 112: Negative or not required by law. Electronically signed by: Bright Leonardo M.D. 04/05/2023 6:03 PM
[2023-04-05 18:14] LABS: Thyroid Stimulating Hormone 4.636 uIu/ml (0.300-4.500)
[2023-04-05 18:28] LABS: INR 3.6 (0.9-1.1); Prothrombin Time 36.2 Seconds (9.0-12.0)
--- NOTE | 2023-04-05 18:39 | CT Scan Report ---
CT head/brain wo con CLINICAL HISTORY: confusion, on coumadin Technique: Contiguous axial CT images of the head were acquired from the base of the skull to the mariaelena juventino without intravenous contrast administration. Images were viewed in brain, subdural and bone [facility] . Automated dose lowering techniques and/or adjustment according to patient size were utilized for this exam. Comparison: Comparison is made to CT head 12/04/2022 Findings: Areas of decreased attenuation are present in the periventricular and subcortical white matter bilate rally consistent with small vessel ischemic disease. Generalized cerebral atrophy with commensurate e nlargement of the ventricles, sulci, and cisterns is also present. There is no acute intracranial hem orrhage or evidence of acute territorial infarction. No shift of the midline structures, mass effect, or extra-axial abnormalities are shown. Atherosclerotic calcifications are present in the intracran ial segments of the internal carotid arteries. Postcraniotomy changes are seen in the right calvarium . Mucous retention cyst is in the left maxillary sinus. The orbits appear normal. There are no acute fr actures of the calvaria or scalp swelling. Impression: No acute intracranial hemorrhage, no evidence of acute territorial infarction or other acute intracra nial disease process. ACT 112: Negative or not required by law. Electronically signed by: Bright Leonardo M.D. 04/05/2023 6:37 PM
[2023-04-05 18:49] LABS: T4 Free Thyroxine 0.84 ng/dl (0.61-1.60)
[2023-04-05 18:50] LABS: Alanine Aminotransferase < 3 U/L (7-52); Albumin Globulin Ratio 1.3 (0.9-2); Albumin Level 4.4 gm/dl (3.4-5.0); Alkaline Phosphatase 93 U/L (34-104); Aspartate Aminotransferase 19 U/L (13-39); Bilirubin,Total 0.9 mg/dl (0.2-1.0); Globulin 3.4 gm/dl (2.5-4.0); Magnesium 1.9 mg/dl (1.7-2.4); Total Protein 7.8 gm/dl (6.0-8.3)
[2023-04-05 19:33] LABS: Appearance Urine Clear (Clear); Bacteria Urine Automated Negative (Negative); Bilirubin Urine Negative (Negative); Blood Urine 3+ (Negative); Cast Urine Automated 0 /lpf (0-5); Color Urine Yellow; Epithelial Cell Urine Auto 0-5 /lpf (0-5); Glucose Urine UA Negative (Negative); Ketones Urine 1+ (Negative); Leukocyte Esterase Urine Trace (Negative); Nitrite Urine Negative (Negative); RBC Urine Automated 0-4 /hpf (0-4); Specific Gravity Urine 1.015 (1.000-1.030); Urobilinogen Urine Negative (Negative); pH Urine 7.5 (4.5-7.5)
[2023-04-05 19:45] LABS: Protein Urine Trace (Negative)
--- NOTE | 2023-04-05 19:49 | History & Physical Report ---
Date of Service April 05, 2023 Assessment & Plan (1) Weakness: Plan: 78yo male presenting with 2 days of progressive confusion and generalized weakness. Etiology unclear - suspect in part some volume depletion. states that patient has not been eating or drinking for the last two days. Patient afebrile, HD stable, non-toxic in appearance. Laboratory findings largely unremarkable including normal WBC count H/H as well as normal electrolytes. TSH largely elevated at 4.636. UA does not suggest infection. CT Head and CXR with no acute findings. -Admit to medical -Frequent orientation and delirium prevention strategies -PT/OT evaluation for possible placement needs -Gentle hydration - LR at 80mL/hr x 1L -Mg x 2gm IV (2) Atrial fibrillation: Plan: EKG with NSR. Patient on anticoagulation with Coumadin - goal INR of 2.5 - 3.5 due to presence of mechanical mitral valve. -Continue Coumadin -INR in AM -Continue Propranolol (3) SDH (subdural hematoma): Plan: Patient with history of SDH. No changes noted on CT Head. Neurologically intact (4) Mechanical heart valve present: Plan: Patient on Coumadin. -Repeat INR in AM -Continue Coumadin (5) Dementia: Plan: Patient with baseline dementia -Continue Aricept -Continue Memantine (6) Hypertension: Plan: Elevated blood pressure -Continue Propranolol -Continue to monitor (7) Parkinson disease: Plan: Chronic. Patient with suspected dementia secondary to PD -Conitnue Carbidopa/Levodopa History of Present Illness Chief Complaint: generalized weakness Primary Care Provider: Scott Kohli, DO Patient with baseline dementia with worsening confusion. He is unable to provide details of events prior to arrival. History obtained predominantly from at bedside as well as discussion with ER attending. Mr. Doherty is a 78yo male with multiple medical comorbidities to include HTN, HLP, PD, atrial fibrillation, mechanical mitral valve on Coumadin anticoagulation and prior SDH presenting with two days of worsening generalized weakness and confusion. reports that yesterday patient began acting more confused, less verbal and not eating or drinking for the last 2 days. Today he was having a difficult time getting out of bed. Patient's helped him to the bathroom then couldn't get him up from the commode which prompted her to call EMS. No fever ,chills, chest pain, cough or SOB. No abdominal pain, nausea, vomiting or diarrhea. Patient is incontinent of urine at baseline and uses adult briefs. does not note any change in urine output. No sick contacts or travel. Patient offers not complaints In the ER he is afebrile, hypertensive on arrival which improved on repeat. Er Course: NSS x 1L Allergies Allergy/AdvReac Type Severity Reaction Status Date / Time Penicillins Allergy Mild RASH Verified 10/13/22 15:27 morphine AdvReac Mild bp drops Verified 10/13/22 15:27 Home Medications Medication Instructions Recorded Confirmed Type tramadol 50 mg tablet 50 mg PO Q8H PRN Pain 09/10/18 04/05/23 History tamsulosin 0.4 mg capsule 0.4 mg PO QAM 07/10/19 04/05/23 History acetaminophen 325 mg tablet 650 mg PO Q4H PRN Pain 02/23/22 04/05/23 History bupropion HCl 150 mg 24 hr tablet, 150 mg PO QAM 02/23/22 04/05/23 History extended release warfarin 5 mg tablet 7.5 mg PO DAILY 02/23/22 04/05/23 History mirabegron 50 mg tablet,extended 50 mg PO QAM #90 tabs 08/30/22 04/05/23 Rx release 24 hr memantine 10 mg tablet 10 mg PO BID 90 days #180 tabs 10/13/22 04/05/23 Rx duloxetine 30 mg capsule,delayed 30 mg PO QAM #30 caps 11/17/22 04/05/23 Rx release carbidopa 25 mg-levodopa 100 mg 1 tab PO TID #90 tabs 11/21/22 04/05/23 Rx tablet donepezil 10 mg tablet 10 mg PO HS #30 tabs 11/21/22 04/05/23 Rx duloxetine 60 mg capsule,delayed 60 mg PO QAM 12/04/22 04/05/23 History release finasteride 5 mg tablet 5 mg PO QAM 12/04/22 04/05/23 History propranolol 60 mg capsule,24 60 mg PO DAILY #90 caps 01/17/23 04/05/23 Rx hr,extended release pregabalin 100 mg capsule 100 mg PO BID 90 days #180 caps 03/20/23 04/05/23 Rx Past Med/Surg History Medical History (Updated 04/05/23 @ 21:08 by Farhana Campoverde DO) Atrial fibrillation Paroxysmal per records Pt denies history Follows with cardio- on Coumadin Back pain Benign essential tremor BPH (benign prostatic hyperplasia) Chronic back pain Compression fracture of lumbar vertebra Current use of detention anticoagulation Degenerative disc disease Dementia Experiences short term memory loss. Alert and oriented to person. Confusion with places and time. Depression Diabetes mellitus, type 2 GERD (gastroesophageal reflux disease) Well controlled and stable Hearing deficit Hyperlipidemia Hypertension Irregular heart beat Occasional episodes of trigeminy. Follows with Dr Isaac Lumbar degenerative disc disease Mechanical heart valve present MV replacement 1996- mechanical- on Coumadin Neuropathy involving both lower extremities Parkinson disease Parkinson's dementia per records SDH (subdural hematoma) Spinal stenosis of lumbar region Subdural hematoma (01/01/22) - Presented to the Emergency room 01/01/22 at [facility] [place] and transferred to [facility] and treated inpatient for several days and then went to [facility] for rehab. Patient discharged home ~01/21/22. No surgery had been done, reports it was a spontaneous hematoma. Denies any fall. - Pt's mental status back to baseline -Coumadin has since been restarted- tolerating well. Transient ischemic attack (TIA) In --no deficits Surgical History History of back surgery x2 History of colonoscopy History of craniotomy x2 (~2011)- secondary to subdural hematoma- had fall at that time History of esophagogastroduodenoscopy (EGD) History of hand surgery right hand finger History of inguinal hernia repair x5 History of mitral valve replacement 1996 @ [facility] -- mechanical History of umbilical hernia repair History of wisdom tooth extraction Status post LASIK surgery of both eyes Family History Daughter Family hx of colon cancer Colorectal cancer Mother Cardiac pacemaker Brother Stroke Hypertension Prostate cancer Father Stroke Grandfather (Maternal) Suicide Grandfather (Paternal) Tuberculosis Other No family history of adverse response to anesthesia Social History Smoking Status: Never smoker Second Hand Exposure: No; Do You Dip or Chew Tobacco: No; Hx Alcohol Use: Yes Alcohol type: beer Hx Substance Use: No Preferred Language: [place]se Communication Ability: Effective 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 Feels Safe at Home: Yes Assistive Devices: Walker Review of Systems Review of Systems: Unobtainable due to cognitive status Physical Exam Physical Exam: General: elderly male patient resting comfortably, NAD, non-toxic in a ppearance, AA&O to self only, mild inattention, some difficulty following commands Skin: warm, dry, intact, no rashes or lesions HEENT: NC/AT, PERRL, EOMI, anicteric sclera, conjunctiva without injection, external ear normal to inspection and nontender, nares patent, slightly dry mucus membranes, dentition intact, no oropharyngeal lesions, neck supple, trachea midline, no LAD, no thyromegaly, no JVD Heart: +S1/S2, regular, no m/r/g, mechanical mid-systolic click appreciated Lungs: equal air entry bilaterally, no rales/rhonchi/wheezes Abd: +BS, soft, NT/ND, no masses/organomegaly/ascites. 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, MS otherwise 5/5 in UE/LE bilaterally, no UE drift Results & Data Results & Data Vital Signs (Past 12 Hours) Vital Signs Temp Pulse Resp BP Pulse Ox O2 Del Method 04/05/23 18:00 85 14 188/114 H 96 Room Air 04/05/23 17:00 80 19 182/103 H 93 Room Air 04/05/23 17:15 95 Room Air 04/05/23 16:45 86 04/05/23 16:51 Room Air 04/05/23 16:27 36.4 C L 83 18 192/121 H 94 Room Air Laboratory Results Laboratory Results WBC 5.71 K/ul (4.8-10.8) 04/05/23 17:19 RBC 5.36 M/uL (4.70-6.10) 04/05/23 17:19 Hgb 15.7 g/dl (14.0-18.0) 04/05/23 17:19 Hct 46.9 % (42.0-52.0) 04/05/23 17:19 MCV 87.5 fL (80.0-100.0) 04/05/23 17:19 MCH 29.3 pg (25.0-34.0) 04/05/23 17:19 MCHC 33.5 g/dL (32.0-36.0) 04/05/23 17:19 RDW Std Deviation 49.9 fL (36.4-46.3) H 04/05/23 17:19 RDW Coeff of Florecita 15.6 % (11.5-14.5) H 04/05/23 17:19 Plt Count 153 K/uL (130-400) 04/05/23 17:19 MPV 10.4 fL (9.4-12.4) 04/05/23 17:19 Immature Gran % (Auto) 0.2 % 04/05/23 17:19 Neut % (Auto) 71.1 % 04/05/23 17:19 Lymph % (Auto) 14.2 % 04/05/23 17:19 Braxton % (Auto) 13.1 % 04/05/23 17:19 Eos % (Auto) 0.9 % 04/05/23 17:19 Baso % (Auto) 0.5 % 04/05/23 17:19 Neut # (Auto) 4.06 K/uL (1.40-6.50) 04/05/23 17:19 Lymph # (Auto) 0.81 K/uL (1.20-3.40) L 04/05/23 17:19 Braxton # (Auto) 0.75 K/uL (0.11-0.59) H 04/05/23 17:19 Eos # (Auto) 0.05 K/uL (0.00-0.50) 04/05/23 17:19 Baso # (Auto) 0.03 K/uL (0.00-0.20) 04/05/23 17:19 Immature Gran # (Auto) 0.01 K/uL (0.01-0.20) 04/05/23 17:19 PT 36.2 Seconds (9.0-12.0) H 04/05/23 17:19 INR 3.6 (0.9-1.1) H 04/05/23 17:19 Sodium 137 mmol/L (136-145) 04/05/23 17:19 Potassium 4.0 mmol/L (3.5-5.1) 04/05/23 17:19 Chloride 101 mmol/L (98-107) 04/05/23 17:19 Carbon Dioxide 29 mmol/L (21-32) 04/05/23 17:19 Anion Gap 7 (3-11) 04/05/23 17:19 BUN 21 mg/dl (6-23) 04/05/23 17:19 Creatinine 1.12 mg/dl (0.6-1.4) 04/05/23 17:19 Est Cr Clr Drug Dosing Not Reportable 04/05/23 17:19 Est GFR ( Amer) 72.5 ml/min 04/05/23 17:19 Est GFR (Non-Af Amer) 62.6 ml/min 04/05/23 17:19 BUN/Creatinine Ratio 18.8 (10-20) 04/05/23 17:19 Glucose 138 mg/dl (70-99(Fasting)) H 04/05/23 17:19 Calcium 9.3 mg/dl (8.6-10.3) 04/05/23 17:19 Magnesium 1.9 mg/dl (1.7-2.4) 04/05/23 17:19 Total Bilirubin 0.9 mg/dl (0.2-1.0) 04/05/23 17:19 AST 19 U/L (13-39) 04/05/23 17:19 ALT < 3 U/L (7-52) L 04/05/23 17:19 Alkaline Phosphatase 93 U/L (34-104) 04/05/23 17:19 Total Protein 7.8 gm/dl (6.0-8.3) 04/05/23 17:19 Albumin 4.4 gm/dl (3.4-5.0) 04/05/23 17:19 Globulin 3.4 gm/dl (2.5-4.0) 04/05/23 17:19 Albumin/Globulin Ratio 1.3 (0.9-2) 04/05/23 17:19 TSH 4.636 uIu/ml (0.300-4.500) H 04/05/23 17:19 Free T4 0.84 ng/dl (0.61-1.60) 04/05/23 17:19 Urine Color Yellow 04/05/23 19:06 Urine Appearance Clear (Clear) 04/05/23 19:06 Urine pH 7.5 (4.5-7.5) 04/05/23 19:06 Ur Specific Boyds 1.015 (1.000-1.030) 04/05/23 19:06 Urine Protein Trace (Negative) H 04/05/23 19:06 Urine Glucose (UA) Negative (Negative) 04/05/23 19:06 Urine Ketones 1+ (Negative) H 04/05/23 19:06 Urine Blood 3+ (Negative) H 04/05/23 19:06 Urine Nitrite Negative (Negative) 04/05/23 19:06 Urine Bilirubin Negative (Negative) 04/05/23 19:06 Urine Urobilinogen Negative (Negative) 04/05/23 19:06 Ur Leukocyte Esterase Trace (Negative) H 04/05/23 19:06 Urine WBC (Auto) 1-5 /hpf (0-5) 04/05/23 19:06 Urine RBC (Auto) 0-4 /hpf (0-4) 04/05/23 19:06 U Hyaline Cast (Auto) 0 /lpf (0-5) 04/05/23 19:06 U Epithel Cells (Auto) 0-5 /lpf (0-5) 04/05/23 19:06 Urine Bacteria (Auto) Negative (Negative) 04/05/23 19:06 Impressions Chest X-Ray 04/05/23 17:01 XR chest 1V portable CLINICAL HISTORY: weakness TECHNIQUE: Single frontal radiograph of the chest was obtained. Comparison: Comparison is made to chest radiograph 12/04/2022 FINDINGS: Median sternotomy wires are unchanged. Cardiomegaly is noted. Valvular prosthesis is seen. Lungs are underinflated but clear. No evidence of pleural effusion or pneumothorax. IMPRESSION: No acute chest disease. Cardiomegaly is noted. ACT 112: Negative or not required by law. Electronically signed by: Bright Leonardo M.D. 04/05/2023 6:[address] 04/05/23 17:01 CT head/brain wo con CLINICAL HISTORY: confusion, on coumadin Technique: Contiguous axial CT images of the head were acquired from the base of the skull to the vertex without intravenous contrast administration. Images were viewed in brain, subdural and bone windows. Automated dose lowering techniques and/or adjustment according to patient size were utilized for this exam. Comparison: Comparison is made to CT head 12/04/2022 Findings: Areas of decreased attenuation are present in the periventricular and subcortical white matter bilaterally consistent with small vessel ischemic disease. Generalized cerebral atrophy with commensurate enlargement of the ventricles, sulci, and cisterns is also present. There is no acute intracranial hemorrhage or evidence of acute territorial infarction. No shift of the midline structures, mass effect, or extra-axial abnormalities are shown. Atherosclerotic calcifications are present in the intracranial segments of the internal carotid arteries. Postcraniotomy changes are seen in the right calvarium. Mucous retention cyst is in the left maxillary sinus. The orbits appear normal. There are no acute fractures of the calvaria or scalp swelling. Impression: No acute intracranial hemorrhage, no evidence of acute territorial infarction or other acute intracranial disease process. ACT 112: Negative or not required by law. Electronically signed by: Bright Leonardo M.D. 04/05/2023 6:37 PM ECG Additional Comments: EKG - per my interpretation - study shows SR at 77bpm, PVC noted, PI=482, VNI=882, QTc prolonged at 500, age indeterminant inferior infarct, no acute ischemic changes PG Care Time/CCT Total # of Minutes Spent Total Time Spent with Patient: Total time spent is greater than 50% in coordination of care (as documented) at patient's floor/unit and/or counseling patient: Coding Level of Care Code 28555 INT INP/OBS CARE 2/55MIN Diagnoses Weakness R53.1 Atrial fibrillation I48.91 SDH (subdural hematoma) S06.5X9A Mechanical heart valve present Z95.2 Dementia F03.90 Hypertension I10 Parkinson disease G20
[2023-04-05 20:06] LABS: Influenza A virus by PCR Negative (Neg); Influenza B virus by PCR Negative (Neg); RSV by PCR Negative (Neg); SARS CoV2 RNA(COVID-19) Ceph NEGATIVE (Negative)
[2023-04-05 21:00] LABS: Creatine Kinase 130 U/L (30-223)
[2023-04-05] MEDS ORDERED: LACTATED RINGER'S 1,000 ML IV SCH (22:11)
[2023-04-05] MEDS ORDERED: ONDANSETRON INJ 2 MG/ML 2 ML VIAL IV PRN (22:11)
[2023-04-05] MEDS ORDERED: POLYETHYLENE (MIRALAX) 17 GM PACK PO PRN (22:11)
[2023-04-05] MEDS ORDERED: traMADol HCL 50 MG TABLET PO PRN (22:11)
[2023-04-05] MEDS: MAGNESIUM SULFATE / D5W 1 GM/100 ML BAG IV SCH (22:49)
[2023-04-05] MEDS: MEMANTINE HCL 10 MG TAB PO SCH (22:49)
[2023-04-05] MEDS: PREGABALIN 100 MG CAP PO SCH (22:49)
[2023-04-05] MEDS: CARBIDOPA/LEVODOPA 25/100MG TAB PO SCH (22:49)
[2023-04-05] MEDS: DONEPEZIL HCL 10 MG TAB PO SCH (22:49)
[2023-04-06] MEDS: MAGNESIUM SULFATE / D5W 1 GM/100 ML BAG IV SCH (00:48)
[2023-04-06 06:48] LABS: Hematocrit (blood only) 40.9 % (42.0-52.0); Hemoglobin 13.9 g/dl (14.0-18.0); Mean Corpuscular Hemoglobin 29.1 pg (25.0-34.0); Mean Corpuscular Volume 85.6 fL (80.0-100.0); Mean Platelet Volume 10.6 fL (9.4-12.4); Platelet Count 136 K/uL (130-400); RDW Coefficient of Variation 15.6 % (11.5-14.5); RDW Standard Deviation 48.9 fL (36.4-46.3); Red Blood Count 4.78 M/uL (4.70-6.10); White Blood Count 5.77 K/ul (4.8-10.8)
[2023-04-06 07:29] LABS: Anion Gap 7 (3-11); BUN Creatinine Ratio 16.5 (10-20); Blood Urea Nitrogen 17 mg/dl (6-23); Calcium 8.5 mg/dl (8.6-10.3); Carbon Dioxide 26 mmol/L (21-32); Chloride 106 mmol/L (98-107); Est GFR (African American) 80.3 ml/min; Est GFR (Non-African American) 69.3 ml/min; Glucose 126 mg/dl (70-99(Fasting)); Potassium 3.5 mmol/L (3.5-5.1); Sodium 139 mmol/L (136-145)
[2023-04-06 07:33] LABS: INR 3.8 (0.9-1.1); Prothrombin Time 38.7 Seconds (9.0-12.0)
[2023-04-06] MEDS ORDERED: DULoxetine HCL 60 MG CAP PO SCH (09:00)
[2023-04-06] MEDS ORDERED: VIBEGRON 75 MG TAB PO SCH (09:00)
[2023-04-06] MEDS ORDERED: buPROPion XL 150 MG TABCR PO SCH (09:00)
[2023-04-06] MEDS: Patient's HEIGHT Needed SCH ×2 (09:50→14:00)
[2023-04-06] MEDS: FINASTERIDE 5 MG TAB PO SCH (09:52)
[2023-04-06] MEDS: MEMANTINE HCL 10 MG TAB PO SCH ×2 (09:53→20:13)
[2023-04-06] MEDS: PROPRANOLOL HCL 60 MG LA CAP PO SCH (09:53)
[2023-04-06] MEDS: TAMSULOSIN HCL 0.4 MG CAP PO SCH (09:55)
[2023-04-06] MEDS: PREGABALIN 100 MG CAP PO SCH (10:07)
[2023-04-06] MEDS ORDERED: CIPROFLOXACIN 500 MG TAB PO SCH (10:30)
[2023-04-06] MEDS: CARBIDOPA/LEVODOPA 25/100MG TAB PO SCH ×3 (13:50→20:12)
[2023-04-06] MEDS: ACETAMINOPHEN 325 MG TAB PO PRN ×2 (13:52→20:12)
[2023-04-06] MEDS: CIPROFLOXACIN / D5W 400 MG/200 ML BAG IV SCH ×2 (13:55→23:20)
--- NOTE | 2023-04-06 14:52 | Electrocardiogram Report ---
Test Reason : Blood Pressure : / mmHG Vent. Rate : 077 BPM Atrial Rate : 077 BPM P-R Int : 184 ms QRS Dur : 114 ms QT Int : 442 ms P-R-T Axes : 014 -12 112 degrees QTc Int : 500 ms Sinus rhythm with occasional Premature ventricular complexes Minimal voltage criteria for LVH, may be normal variant Nonspecific ST abnormality Incomplete right bundle branch block Inferior infarct (cited on or before 04-DEC-2022) Prolonged QT Abnormal ECG When compared with ECG of 04-DEC-2022 12:33, Premature ventricular complexes are now Present T wave inversion less evident in Lateral leads Confirmed by Kojo Hope ([id number]) on 04/06/2023 2:52:21 PM Referred By: REFERRED SELF Confirmed By:Jerel Hope
--- NOTE | 2023-04-06 15:57 | Hospitalist Progress Note ---
Date of Service April 06, 2023 Assessment & Plan (1) Acute metabolic encephalopathy: Plan: Supportive care. Treat suspected UTI (2) Suspected UTI: Plan: Empiric Cipro therapy. He is allergic to penicillins. Urine culture pending (3) Dementia: Plan: Supportive care. Continue Aricept and Namenda (4) Parkinson disease: Plan: Supportive care. Continue Sinemet therapy (5) Hypertension: Plan: Stable. Continue current medications (6) Paroxysmal atrial fibrillation: Plan: Stable. Continue current medications (7) H/O mitral valve replacement with mechanical valve: Plan: INR elevated at 3.8. Coumadin therapy on hold. Daily INR Plan To be determined. OT and PT assessments requested Admission and Anticipated Discharge Date Admission Date: April 05, 2023 Subjective Sleeping at the time of my examination but easily awakens. He is oriented to name and place. However, his mental status apparently is not at his baseline. He is acting as if he has acute metabolic encephalopathy. I suspect he has a urinary tract infection. Urine cultures pending. Parenteral Cipro therapy started. All [employer] depressants discontinued. Voltaren gel has been ordered for his neck discomfort. OT and PT assessments requested. INR is 3.8. He takes Coumadin chronically for his mechanical mitral valve. Coumadin will be placed on hold temporarily. Review of Systems Review of Systems: The patient is unable to provide any useful information regarding review of systems at this time Physical Exam Physical Exam: General-asleep but easily awakened. Oriented to name only. No fevers HEENT-head atraumatic and normocephalic, pupils equal and reactive to light, extraocular muscles intact Neck-no lymphadenopathy or thyromegaly, trachea midline Chest-clear to auscultation percussion. No rales, wheezing or rhonchi Cardiac-regular rate and rhythm, normal S1 and S2 Abdomen-normal bowel sounds, nontender, no hepatosplenomegaly Extremities-no cyanosis, clubbing, or edema Neuro-cranial nerves II through XII intact, motor and sensory function within normal limits, strength symmetrical with generalized weakness, no focal deficits Psych-normal affect, normal mood Results & Data Results & Data Vital Signs (Past 12 Hours) Vital Signs Temp Pulse Resp BP Pulse Ox O2 Del Method 04/06/23 15:21 36.7 C 76 17 111/74 94 Room Air 04/06/23 07:32 36.4 C L 70 18 159/89 H 95 Room Air Laboratory Results 04/06/23 05:59 04/06/23 05:59 PG Care Time/CCT Total # of Minutes Spent Total Time Spent with Patient: Total time spent is greater than 50% in coordination of care (as documented) at patient's floor/unit and/or counseling patient: Coding Level of Care Code 95259 SUB INP/OBS CARE 3/50MIN Diagnoses Acute metabolic encephalopathy G93.41 Suspected UTI R39.89 Dementia F03.90 Parkinson disease G20 Hypertension I10 Paroxysmal atrial fibrillation I48.0 H/O mitral valve replacement with mechanical valve Z95.2
[2023-04-06] MEDS: DICLOFENAC SOD 1% GEL 100 GM TUBE EXT SCH (20:12)
[2023-04-06] MEDS: DONEPEZIL HCL 10 MG TAB PO SCH (20:13)
[2023-04-06] MEDS ORDERED: LACTATED RINGER'S 500 ML IV ONE (20:19)
[2023-04-07] MEDS ORDERED: LACTATED RINGER'S 500 ML IV ONE (01:12)
[2023-04-07] MEDS: TAMSULOSIN HCL 0.4 MG CAP PO SCH (08:16)
[2023-04-07] MEDS: MEMANTINE HCL 10 MG TAB PO SCH ×2 (08:16→20:21)
[2023-04-07] MEDS: PROPRANOLOL HCL 60 MG LA CAP PO SCH (08:17)
[2023-04-07] MEDS: FINASTERIDE 5 MG TAB PO SCH (08:17)
[2023-04-07] MEDS: DICLOFENAC SOD 1% GEL 100 GM TUBE EXT SCH ×2 (08:18→20:22)
[2023-04-07 09:59] LABS: BUN Creatinine Ratio 20.2 (10-20); Calcium 8.6 mg/dl (8.6-10.3); Creatinine Clr Calc Pharmacy 54.5 ml/min; Est GFR (African American) 67.4 ml/min; Est GFR (Non-African American) 58.2 ml/min; Potassium 3.6 mmol/L (3.5-5.1)
[2023-04-07 10:11] LABS: Basophils # (auto) 0.03 K/uL (0.00-0.20); Basophils % (auto) 0.7 %; Eosinophils # (auto) 0.08 K/uL (0.00-0.50); Eosinophils % (auto) 1.8 %; Hematocrit (blood only) 40.4 % (42.0-52.0); Hemoglobin 13.3 g/dl (14.0-18.0); Immature Granulocytes # (auto) 0.01 K/uL (0.01-0.20); Immature Granulocytes % (auto) 0.2 %; Lymphocytes # (auto) 1.11 K/uL (1.20-3.40); Lymphocytes % (auto) 24.5 %; Mean Corpuscular Hemoglobin 29.6 pg (25.0-34.0); Mean Corpuscular Hgb Conc 32.9 g/dL (32.0-36.0); Mean Platelet Volume 10.6 fL (9.4-12.4); Monocytes # (auto) 0.62 K/uL (0.11-0.59); Monocytes % (auto) 13.7 %; Neutrophils # (auto) 2.68 K/uL (1.40-6.50); Neutrophils % (auto) 59.1 %; Platelet Count 124 K/uL (130-400); RDW Coefficient of Variation 15.6 % (11.5-14.5); RDW Standard Deviation 52.3 fL (36.4-46.3); Red Blood Count 4.49 M/uL (4.70-6.10); White Blood Count 4.53 K/ul (4.8-10.8)
[2023-04-07 10:21] LABS: INR 3.8 (0.9-1.1); Prothrombin Time 38.7 Seconds (9.0-12.0)
[2023-04-07] MEDS: CIPROFLOXACIN / D5W 400 MG/200 ML BAG IV SCH (11:18)
[2023-04-07] MEDS: CARBIDOPA/LEVODOPA 25/100MG TAB PO SCH ×3 (11:26→20:22)
[2023-04-07] MEDS: ACETAMINOPHEN 325 MG TAB PO PRN (11:46)
--- NOTE | 2023-04-07 15:24 | Hospitalist Progress Note ---
Date of Service April 07, 2023 Assessment & Plan (1) Acute metabolic encephalopathy: Plan: Improved. Supportive care. Treat suspected UTI (2) Suspected UTI: Plan: Empiric Cipro therapy, day 2. He is allergic to penicillins. Urine culture pending (3) Dementia: Plan: Supportive care. Continue Aricept and Namenda (4) Parkinson disease: Plan: Supportive care. Continue Sinemet therapy (5) Hypertension: Plan: Stable. Continue current medications (6) Paroxysmal atrial fibrillation: Plan: Stable. Continue current medications (7) H/O mitral valve replacement with mechanical valve: Plan: INR remains elevated at 3.8. Coumadin therapy on hold. Daily INR Plan To be determined. OT and PT both recommend SNF placement at discharge Admission and Anticipated Discharge Date Admission Date: April 05, 2023 Subjective Alert and definitely improved. is at the bedside and she does not feel that his mental status is back to baseline however. Urine culture results are pending. He remains on intravenous Cipro. Coumadin remains on hold and INR remains elevated at 3.8. Review of Systems Review of Systems: Constitutional-no fever or chills ENT-no blurred vision, no double vision, no epistaxis, no sore throat Respiratory-no cough, no wheezing, no shortness of breath Cardiac-no palpitations, no chest pain, no syncope GI-no nausea, vomiting, diarrhea, melena, hematochezia -no urinary retention, no urinary incontinence, no dysuria, no hematuria Musculoskeletal-no joint pain, no muscle tenderness Skin-no bruising, no rashes, no pruritus Neuro-no isolated weakness, no paresthesia, no weakness Psych-no depression, no anxiety Physical Exam Physical Exam: General-awake and alert. Baseline dementia. His does not feel that his mental status is back to baseline yet. No fevers HEENT-head atraumatic and normocephalic, pupils equal and reactive to light, extraocular muscles intact Neck-no lymphadenopathy or thyromegaly, trachea midline Chest-clear to auscultation percussion. No rales, wheezing or rhonchi Cardiac-regular rate and rhythm, normal S1 and S2 Abdomen-normal bowel sounds, nontender, no hepatosplenomegaly Extremities-no cyanosis, clubbing, or edema Neuro-cranial nerves II through XII intact, motor and sensory function within normal limits, strength symmetrical with generalized weakness, no focal deficits Psych-normal affect, normal mood Results & Data Results & Data Vital Signs (Past 12 Hours) Vital Signs Pulse Resp BP Pulse Ox O2 Del Method 04/07/23 07:30 Room Air 04/07/23 08:15 71 20 158/92 H 97 Room Air Laboratory Results 04/07/23 08:48 04/07/23 08:48 PG Care Time/CCT Total # of Minutes Spent Total Time Spent with Patient: Total time spent is greater than 50% in coordination of care (as documented) at patient's floor/unit and/or counseling patient: Coding Level of Care Code 77503 SUB INP/OBS CARE 3/50MIN Diagnoses Acute metabolic encephalopathy G93.41 Suspected UTI R39.89 Dementia F03.90 Parkinson disease G20 Hypertension I10 Paroxysmal atrial fibrillation I48.0 H/O mitral valve replacement with mechanical valve Z95.2
[2023-04-07] MEDS: DONEPEZIL HCL 10 MG TAB PO SCH (20:22)
[2023-04-08] MEDS: CIPROFLOXACIN / D5W 400 MG/200 ML BAG IV SCH (00:01)
[2023-04-08 06:01] LABS: Basophils # (auto) 0.03 K/uL (0.00-0.20); Basophils % (auto) 0.4 %; Eosinophils # (auto) 0.08 K/uL (0.00-0.50); Eosinophils % (auto) 1.2 %; Hematocrit (blood only) 41.5 % (42.0-52.0); Hemoglobin 13.9 g/dl (14.0-18.0); Immature Granulocytes # (auto) 0.02 K/uL (0.01-0.20); Immature Granulocytes % (auto) 0.3 %; Lymphocytes # (auto) 0.85 K/uL (1.20-3.40); Lymphocytes % (auto) 12.4 %; Mean Corpuscular Hemoglobin 29.3 pg (25.0-34.0); Mean Corpuscular Hgb Conc 33.5 g/dL (32.0-36.0); Mean Corpuscular Volume 87.6 fL (80.0-100.0); Mean Platelet Volume 11.2 fL (9.4-12.4); Monocytes # (auto) 0.79 K/uL (0.11-0.59); Monocytes % (auto) 11.5 %; Neutrophils # (auto) 5.09 K/uL (1.40-6.50); Neutrophils % (auto) 74.2 %; Platelet Count 144 K/uL (130-400); RDW Coefficient of Variation 15.7 % (11.5-14.5); RDW Standard Deviation 50.4 fL (36.4-46.3); Red Blood Count 4.74 M/uL (4.70-6.10); White Blood Count 6.86 K/ul (4.8-10.8)
[2023-04-08 06:30] LABS: BUN Creatinine Ratio 20.9 (10-20); Calcium 8.6 mg/dl (8.6-10.3); Creatinine Clr Calc Pharmacy 56.4 ml/min; Est GFR (African American) 70.3 ml/min; Est GFR (Non-African American) 60.6 ml/min; Potassium 3.9 mmol/L (3.5-5.1)
[2023-04-08 06:38] LABS: INR 2.6 (0.9-1.1)
[2023-04-08] MEDS: MEMANTINE HCL 10 MG TAB PO SCH ×2 (07:58→19:47)
[2023-04-08] MEDS: FINASTERIDE 5 MG TAB PO SCH (07:59)
[2023-04-08] MEDS: TAMSULOSIN HCL 0.4 MG CAP PO SCH (07:59)
[2023-04-08] MEDS: PROPRANOLOL HCL 60 MG LA CAP PO SCH (07:59)
[2023-04-08] MEDS: DICLOFENAC SOD 1% GEL 100 GM TUBE EXT SCH ×2 (07:59→19:47)
[2023-04-08] MEDS: CARBIDOPA/LEVODOPA 25/100MG TAB PO SCH ×3 (12:18→19:47)
--- NOTE | 2023-04-08 14:56 | Hospitalist Progress Note ---
Date of Service April 08, 2023 Assessment & Plan (1) Acute metabolic encephalopathy: Plan: Improved. Suspect was secondary to mild dehydration and poor po intake--> perhaps a viral infection? Now much improved with receiving IVFs. Is eating and drinking, mentating at baseline it seems Doubt UTI based on UA being without evidence of infection-dc Cipro Needs rehab (2) Suspected UTI: Plan: Ruled out Empiric Cipro was given x 3 days but now will stop as above, UA not c/w infection Ur cx pending (3) Dementia: Plan: Supportive care. Continue Aricept and Namenda (4) Parkinson disease: Plan: Supportive care. Continue Sinemet therapy (5) Hypertension: Plan: Stable. Continue current medications (6) Paroxysmal atrial fibrillation: Plan: In NSR here Stable. Continue propranolol, COumadin (7) H/O mitral valve replacement with mechanical valve: Plan: INR was elevated and Coumadin therapy on hold--> now INR 2.6 restart home dose of Coumadin Follow INR in AM-goal 2.5-3.5 due to mechanical valve Plan Dispo-To be determined. OT and PT both recommend SNF placement at discharge - referrals made Admission and Anticipated Discharge Date Admission Date: April 05, 2023 Subjective Pt feels fine, no complaints. RN reports he is more oriented today than previous Physical Exam Constitutional: WD/WN, vitals as above Neck: trachea midline, no thyromegaly Respiratory: normal respiratory effort, lungs clear to auscultation Cardiovascular: RRR, no murmur, no edema (with S2 click) Chest (Breasts): Chest: normal inspection of chest Gastrointestinal (Abdomen): normal bowel sounds, soft, nontender, no hepatosplenomegaly Musculoskeletal: Extremities: extremities normal to inspection; no cyanosis and no clubbing Skin: no rashes, warm and dry Neurologic: moves all extremities and awake; no focal motor deficits Lymphatic: no lymphedema Results & Data Results & Data Vital Signs (Past 12 Hours) Vital Signs Temp Pulse Resp BP Pulse Ox O2 Del Method 04/08/23 14:38 36.4 C L 76 16 166/90 H 94 Room Air 04/08/23 07:24 36.4 C L 75 16 161/94 H 93 Room Air Laboratory Results CBC, BMP, INR reviewed Ur cx pending PG Care Time/CCT Total # of Minutes Spent Total Time Spent with Patient: Total time spent is greater than 50% in coordination of care (as documented) at patient's floor/unit and/or counseling patient: Coding Level of Care Code 96810 SUB INP/OBS CARE Diagnoses Acute metabolic encephalopathy G93.41 Suspected UTI R39.89 Dementia F03.90 Parkinson disease G20 Hypertension I10 Paroxysmal atrial fibrillation I48.0 H/O mitral valve replacement with mechanical valve Z95.2
[2023-04-08] MEDS: WARFARIN SOD 7.5 MG TAB PO SCH (17:27)
[2023-04-08] MEDS: DONEPEZIL HCL 10 MG TAB PO SCH (19:47)
[2023-04-09 06:28] LABS: Basophils # (auto) 0.03 K/uL (0.00-0.20); Basophils % (auto) 0.5 %; Eosinophils # (auto) 0.08 K/uL (0.00-0.50); Eosinophils % (auto) 1.4 %; Hematocrit (blood only) 43.2 % (42.0-52.0); Hemoglobin 14.2 g/dl (14.0-18.0); Immature Granulocytes # (auto) 0.02 K/uL (0.01-0.20); Immature Granulocytes % (auto) 0.3 %; Lymphocytes # (auto) 0.94 K/uL (1.20-3.40); Lymphocytes % (auto) 15.9 %; Mean Corpuscular Hemoglobin 28.9 pg (25.0-34.0); Mean Corpuscular Hgb Conc 32.9 g/dL (32.0-36.0); Mean Platelet Volume 10.7 fL (9.4-12.4); Monocytes # (auto) 0.79 K/uL (0.11-0.59); Monocytes % (auto) 13.4 %; Neutrophils # (auto) 4.04 K/uL (1.40-6.50); Neutrophils % (auto) 68.5 %; Platelet Count 145 K/uL (130-400); RDW Coefficient of Variation 15.6 % (11.5-14.5); RDW Standard Deviation 50.3 fL (36.4-46.3); Red Blood Count 4.91 M/uL (4.70-6.10)
[2023-04-09 06:39] LABS: BUN Creatinine Ratio 21.2 (10-20); Calcium 8.9 mg/dl (8.6-10.3); Creatinine Clr Calc Pharmacy 62.3 ml/min; Est GFR (African American) 79.3 ml/min; Est GFR (Non-African American) 68.4 ml/min
[2023-04-09 06:51] LABS: INR 1.8 (0.9-1.1); Prothrombin Time 18.8 Seconds (9.0-12.0)
[2023-04-09] MEDS ORDERED: ENOXAPARIN 1 MG/KG SQ SCH (10:30)
[2023-04-09] MEDS: ENOXAPARIN 100 MG/1ML SYR SQ SCH ×2 (12:39→20:59)
[2023-04-09] MEDS: FINASTERIDE 5 MG TAB PO SCH (12:40)
[2023-04-09] MEDS: MEMANTINE HCL 10 MG TAB PO SCH ×2 (12:40→19:24)
[2023-04-09] MEDS: PROPRANOLOL HCL 60 MG LA CAP PO SCH (12:40)
[2023-04-09] MEDS: CARBIDOPA/LEVODOPA 25/100MG TAB PO SCH ×3 (12:40→19:23)
[2023-04-09] MEDS: TAMSULOSIN HCL 0.4 MG CAP PO SCH (12:40)
[2023-04-09] MEDS: DICLOFENAC SOD 1% GEL 100 GM TUBE EXT SCH ×2 (12:41→19:24)
--- NOTE | 2023-04-09 12:42 | Hospitalist Progress Note ---
Date of Service April 09, 2023 Assessment & Plan (1) Acute metabolic encephalopathy: Plan: Was much improved with receiving IVFs. Was eating and drinking, mentating at baseline it seems and now drowsy again on 04/09 with poor po intake-suspect from poor sleep quality in hospital With not taking much po--> give IVFs 2 L of LR today at 80mL/hr Labs normal, no evidence of infection. VSS. Suspect was secondary to mild dehydration and poor po intake initially--> perhap s a viral infection? However no other symptoms and no fevers Doubt UTI based on UA being without evidence of infection-dcd Cipro Add melatonin 3mg hs scheduled for tonight to promote good sleep/wake cycle Needs rehab (2) Suspected UTI: Plan: Ruled out Empiric Cipro was given x 3 days but now will stop as above, UA not c/w infec tion Ur cx mixed mandy (3) Dementia: Plan: Supportive care. Continue Aricept and Namenda (4) Parkinson disease: Plan: Supportive care. Continue Sinemet therapy (5) Hypertension: Plan: Stable. Continue current medications (6) Paroxysmal atrial fibrillation: Plan: In NSR here Stable. Continue propranolol, COumadin (7) H/O mitral valve replacement with mechanical valve: Plan: INR was elevated and Coumadin therapy was on hold--> restarted coumadin 04/08 when INR 2.6 Now INR low--> start Loveonx 90mg bid until COumadin therapeutic Follow INR in AM-goal 2.5-3.5 due to mechanical valve Plan Dispo-To be determined. OT and PT both recommend SNF placement at discharge - referrals made and awaiting placement discussed care with on phone on 04/08 and in person on 04/09 Admission and Anticipated Discharge Date Admission Date: April 05, 2023 Subjective Pt did not fall asleep all night as per nursing notes until 2:00 AM. He remains drowsy this AM and concerned he will get dehydrated as he has not woken up to eat or drink much at all today. He wakes up easily fo rme and is agitated that I am waking him up. States " I wish people would just leave me alone!" Denies pain anywhere. Physical Exam Constitutional: WD/WN, vitals as above Neck: trachea midline, no thyromegaly Respiratory: normal respiratory effort, lungs clear to auscultation Cardiovascular: RRR, no murmur, no edema (with S2 click) Chest (Breasts): Chest: normal inspection of chest Gastrointestinal (Abdomen): normal bowel sounds, soft, nontender, no hepatosplenomegaly Musculoskeletal: Extremities: extremities normal to inspection; no cyanosis and no clubbing Skin: no rashes, warm and dry Neurologic: moves all extremities; no focal motor deficits Psychiatric: Orientation: oriented to person and cooperative; + not alert (drowsy but wakes up easily to verbal stim) Affect: + irritable affect Lymphatic: no lymphedema Results & Data Results & Data Vital Signs (Past 12 Hours) Vital Signs Temp Pulse Resp BP Pulse Ox O2 Del Method 04/09/23 07:06 36.5 C 80 18 187/94 H 93 Room Air Laboratory Results CBC, BMP, INR reviewed PG Care Time/CCT Total # of Minutes Spent Total Time Spent with Patient: Total time spent is greater than 50% in coordination of care (as documented) at patient's floor/unit and/or counseling patient: Coding Level of Care Code 79644 SUB INP/OBS CARE 2/35MIN Diagnoses Acute metabolic encephalopathy G93.41 Suspected UTI R39.89 Dementia F03.90 Parkinson disease G20 Hypertension I10 Paroxysmal atrial fibrillation I48.0 H/O mitral valve replacement with mechanical valve Z95.2
[2023-04-09] MEDS: LACTATED RINGER'S 1,000 ML IV SCH (14:04)
[2023-04-09] MEDS: WARFARIN SOD 7.5 MG TAB PO SCH (16:56)
[2023-04-09] MEDS: DONEPEZIL HCL 10 MG TAB PO SCH (19:24)
[2023-04-09] MEDS ORDERED: MELATONIN 3 MG TAB PO SCH (21:00)
[2023-04-10] MEDS: LACTATED RINGER'S 1,000 ML IV SCH (01:37)
[2023-04-10] MEDS: TAMSULOSIN HCL 0.4 MG CAP PO SCH (07:19)
[2023-04-10] MEDS: MEMANTINE HCL 10 MG TAB PO SCH (07:19)
[2023-04-10] MEDS: DICLOFENAC SOD 1% GEL 100 GM TUBE EXT SCH (07:20)
[2023-04-10] MEDS: FINASTERIDE 5 MG TAB PO SCH (07:20)
[2023-04-10] MEDS: PROPRANOLOL HCL 60 MG LA CAP PO SCH (07:20)
[2023-04-10 08:18] LABS: INR 2.1 (0.9-1.1); Prothrombin Time 22.3 Seconds (9.0-12.0)
[2023-04-10] MEDS: ENOXAPARIN 100 MG/1ML SYR SQ SCH (08:35)
[2023-04-10] MEDS ORDERED: amLODIPine BESYLATE 5 MG TAB PO SCH (09:00)
[2023-04-10] MEDS ORDERED: bisacodyL 10 MG SUPP PR STA (12:05)
[2023-04-10] MEDS ORDERED: DULoxetine HCL 30 MG CAP PO SCH (12:30)
[2023-04-10] MEDS ORDERED: buPROPion XL 150 MG TABCR PO STA (12:31)
[2023-04-10] MEDS ORDERED: PREGABALIN 100 MG CAP PO ONE (12:33)
--- NOTE | 2023-04-10 12:39 | Discharge Summary ---
Discharge Summary Date of Service April 10, 2023 Notes For Next Care Provider Check PT/INR in 1 day Medication Changes From Visit Lovenox 90 mg SQ bid until INR therapeutic Admission HPI Per Admitting Provider Patient with baseline dementia with worsening confusion. He is unable to provide details of events prior to arrival. History obtained predominantly from at bedside as well as discussion with ER attending. Mr. Doherty is a 78yo male with multiple medical comorbidities to include HTN, HLP, PD, atrial fibrillation, mechanical mitral valve on Coumadin anticoagulation and prior SDH presenting with two days of worsening generalized weakness and confusion. reports that yesterday patient began acting more confused, less verbal and not eating or drinking for the last 2 days. Today he was having a difficult time getting out of bed. Patient's helped him to the bathroom then couldn't get him up from the commode which prompted her to call EMS. No fever ,chills, chest pain, cough or SOB. No abdominal pain, nausea, vomiting or diarrhea. Patient is incontinent of urine at baseline and uses adult briefs. does not note any change in urine output. No sick contacts or travel. Patient offers not complaints In the ER he is afebrile, hypertensive on arrival which improved on repeat. Er Course: NSS x 1L Principal Dx & Hospital Course #1 = Principal Diagnosis (1) Acute metabolic encephalopathy: Was much improved with receiving IVFs. Was eating and drinking, mentating at baseline it seems and now drowsy again on 04/09 with poor po intake-suspect from poor sleep quality in hospital With not taking much po--> gave IVFs 2 L of LR at 80mL/hr Improved mentation by 04/10 but still more tired than usual despite getting sleep---> discovered that his HOME MEDS of Wellbutrin, Lyrica, and duloxetine had not been ordered for the last 3 days-this may be causing some alteration in mentation--> restarted all home meds on day of discharge Labs normal, no evidence of infection. VSS. Suspect was secondary to mild dehydration and poor po intake initially--> perhaps a viral infection? However no other symptoms and no fevers Doubt UTI based on UA being without evidence of infection-dcd Cipro Continue melatonin 3mg hs scheduled to promote good sleep/wake cycle Needs rehab (2) Suspected UTI: Ruled out Empiric Cipro was given x 3 days but now will stop as above, UA not c/w infection Ur cx mixed mandy (3) Dementia: Supportive care. Continue Aricept and Namenda (4) Parkinson disease: Supportive care. Continue Sinemet therapy (5) Hypertension: Stable. Continue current medications (6) Paroxysmal atrial fibrillation: In NSR here Stable. Continue propranolol, COumadin, with bridging Lovenox until INR therapeutic (7) H/O mitral valve replacement with mechanical valve: INR was elevated and Coumadin therapy was on hold--> restarted coumadin 04/08 when INR 2.6 Now INR remains low since restarting Coumadin-INR 2.1 on day of discharge--> continue Loveonx 90mg bid until COumadin therapeutic Follow INR in AM-goal 2.5-3.5 due to mechanical valve Plan Dispo-dc to SNF today discussed care with in person on 04/10 Discharge Exam Constitutional WD/WN, vitals as above Neck trachea midline, no thyromegaly Respiratory normal respiratory effort, lungs clear to auscultation Cardiovascular RRR, no murmur, no edema (with S2 click) Chest (Breasts) Chest: normal inspection of chest Gastrointestinal (Abdomen) normal bowel sounds, soft, nontender, no hepatosplenomegaly Musculoskeletal Extremities: extremities normal to inspection; no cyanosis and no clubbing Skin no rashes, warm and dry Neurologic moves all extremities and awake; no focal motor deficits Psychiatric Orientation: alert (but mildly drowsy) and cooperative Lymphatic no lymphedema Updated Medication List Medication Instructions Recorded Confirmed Type tamsulosin 0.4 mg capsule 0.4 mg PO QAM 07/10/19 04/05/23 History acetaminophen 325 mg tablet 650 mg PO Q4H PRN Pain 02/23/22 04/05/23 History bupropion HCl 150 mg 24 hr tablet, 150 mg PO QAM 02/23/22 04/05/23 History extended release warfarin 5 mg tablet 7.5 mg PO DAILY 02/23/22 04/05/23 History mirabegron 50 mg tablet,extended 50 mg PO QAM #90 tabs 08/30/22 04/05/23 Rx release 24 hr memantine 10 mg tablet 10 mg PO BID 90 days #180 tabs 10/13/22 04/05/23 Rx duloxetine 30 mg capsule,delayed 30 mg PO QAM #30 caps 11/17/22 04/05/23 Rx release carbidopa 25 mg-levodopa 100 mg 1 tab PO TID #90 tabs 11/21/22 04/05/23 Rx tablet donepezil 10 mg tablet 10 mg PO HS #30 tabs 11/21/22 04/05/23 Rx duloxetine 60 mg capsule,delayed 60 mg PO QAM 12/04/22 04/05/23 History release finasteride 5 mg tablet 5 mg PO QAM 12/04/22 04/05/23 History propranolol 60 mg capsule,24 60 mg PO DAILY #90 caps 01/17/23 04/05/23 Rx hr,extended release amlodipine 5 mg tablet (Norvasc) 5 mg PO QAM #30 tabs 04/10/23 Rx enoxaparin 100 mg/mL subcutaneous 90 mg (0.9 mL) subcut BID 1 day 04/10/23 Rx syringe #1.8 mL melatonin 3 mg tablet 3 mg PO HS #30 tabs 04/10/23 Rx pregabalin 100 mg capsule 100 mg PO BID 90 days #60 caps 04/10/23 Rx tramadol 50 mg tablet 50 mg PO Q8H PRN Pain #6 tabs 04/10/23 Rx Hospital Stay Data Consultations 04/05/23 18:57 ED Decision to Admit Stat Diagnostic Imagining Performed 04/05/23 17:01 CT head/brain wo con Stat Pending Results Patient Have Any Pending Studies at Discharge: No Discharge Instructions Given to Patient (Per Discharging Provider) You were admitted with weakness and increased confusion. You were initially treated for possible UTI but this was ruled out. You were also given IVFs and had improvement. You remain quite weak and well need PT/OT for strengthening.You had normal labs otherwise and no fevers, tested negative for COVID/Flu/RSV, and no other cause of your weakness could be identified. You had a CT scan of your head which was negative for bleeding or stroke. This may represent generalized progressive worsening of your dementia. It is important to have good sleep/wake cycles and to be moving your bowels regularly. Your blood pressures were quite high and you were started on a new medication for blood pressure called amlodipine. Your INR was initially a bit high and your coumadin dose was held. Your INR then was too low and you were placed on bridging Lovenox shots to keep your blood thin until your INR becomes therapeutic range again. Please have your PT/INR checked in 1 day at the rehab and the Lovenox shots can be stopped once this is achieved. Total Time Total Time Spent Total Time Spent (In Minutes): 35 min Coding Level of Care Code 07423 INP/OBS DISCH >30 MIN Diagnoses Acute metabolic encephalopathy G93.41 Suspected UTI R39.89 Dementia F03.90 Parkinson disease G20 Hypertension I10 Paroxysmal atrial fibrillation I48.0 H/O mitral valve replacement with mechanical valve Z95.2
--- NOTE | 2023-04-10 12:40 | XRay Report ---
KUB HISTORY: Generalized abdominal pain COMPARISON: Abdomen and pelvis CT 12/04/2022. FINDINGS: The bowel gas pattern is unremarkable. There are no dilated loops of small bowel to suggest an obstruction. No renal calculi. No ureteral calculi. No pneumoperitoneum or pneumatosis. Mild-to- moderate fecal retention. Mild levoscoliosis again noted. IMPRESSION: 1. Nonobstructive bowel gas pattern. 2. [id number] fecal retention. ACT 112: Negative or not required by law. Electronically signed by: Alhaji Lux M.D. 04/10/2023 12:39 PM
[2023-04-10] MEDS: CARBIDOPA/LEVODOPA 25/100MG TAB PO SCH (12:53)
== END 2023-04-10 14:15 | DRG 640 ==
LOC: ED 16:27 → SUATTDRO 19:45 → 3W 19:45